=== PATIENT | female | born 1955 | race Caucasian/White ===

== ENCOUNTER 2016-08-08 14:57 | Emergency (ER) | payer OTHER ==
[2016-08-08 15:07] VITALS: BP 140/81
[2016-08-08] MEDS ORDERED: Acetaminophen TAB* 325 MG PO ONE (15:44)
--- NOTE | 2016-08-08 16:13 | RAD ---
INDICATION: Fall. Neck pain. COMPARISON: CT cervical spine July 31, 2006 TECHNIQUE: A single lateral view submitted FINDINGS: Bones: There are no acute bony findings. There are minor arthritic findings consisting of minor vertebral spurring at C4-C6. Craniocervical junction: The odontoid and atlantodental interval are normal. Alignment: Normal Disc spaces: The disc spaces are well-maintained Soft tissues: The prevertebral soft tissues are normal. IMPRESSION: A SINGLE VIEW SHOWS NO ACUTE BONY FINDINGS. SUGGEST COMPLETION OF THE SERIES
--- NOTE | 2016-08-08 16:39 | RAD ---
INDICATION: Neck injury COMPARISON: CT cervical spine July 31, 2006 TECHNIQUE: Routine five-view imaging was performed FINDINGS: Bones: There are no acute bony findings. There is minor mid cervical osteocytic change.. Craniocervical junction: The odontoid and atlantodental interval are normal. Alignment: Normal Disc spaces: The disc spaces are well-maintained Soft tissues: The prevertebral soft tissues are normal. IMPRESSION: MINOR OSTEOARTHRITIS. NO ACUTE FINDINGS.
--- NOTE | 2016-08-08 16:40 | RAD ---
INDICATION: Right thumb injury COMPARISON: None TECHNIQUE: AP, lateral, and oblique views were obtained. FINDINGS: There is no acute fracture. There is minor osteoarthritic change about the thumb and about the radiocarpal joint. There is an old ulnar styloid fracture. IMPRESSION: NO ACUTE FRACTURE.
--- NOTE | 2016-08-08 16:41 | RAD ---
INDICATION: Right hip pain COMPARISON: None TECHNIQUE: An AP view of the pelvis and AP views of the hip in neutral and abducted position were obtained FINDINGS: Bones: There are no acute bony findings. Joint spaces: The hips articulate normally. The joint spaces are preserved. SI joints/symphysis: The SI joints and symphysis are intact. Other: None IMPRESSION: NO ACUTE BONY FINDINGS.
--- NOTE | 2016-08-08 22:26 | UC ---
Jeremias Moran Erika, scribed for Divina Cuba MD on 08/08/16 at 1544 . Minor Trauma HPI - HPI Summary HPI Summary: Patient is a 61-year-old female presenting to [facility] with a CC of multiple pains s /p fall on ice at 14:00 today. Patient was at work when the fall occurred. Patient reports that she fell onto her right buttock, right palm, and right elbow. She denies head trauma, LOC, and memory loss. Patient denies pain immediately after the fall, but states she then developed aching pain at the right buttock, right elbow, and right palm. She also notes some right sided neck pain while turning the neck to the left. Currently, patient reports pain is a 5/10, and she has not taken anything for the pain. Pt takes albuterol as needed, simvastatin for hyperlipidemia, and amlodipine. PSHx left elbow surgery , plantar fasciitis. FHx cancer, CAD. - History of Current Complaint Chief Complaint: UCTrauma Stated Complaint: HAND AND HIP INJURY Hx Obtained From: Patient Onset/Duration: Sudden Onset, Lasting Hours, Still Present Onset Of Pain: Post Accident Severity Initially: Mild Severity Currently: Moderate Pain Intensity: 5 Pain Scale Used: 0-10 Numeric Mechanism Of Injury: Fall From A Standing Position Aggravating Factor(s): Movement, Other: - palpation Alleviating Factor(s): Nothing Associated Signs And Symptoms: Negative: Loss Of Consciousness, Ecchymosis Related History: Positive: Occupational Injury. Negative: Anticoagulants - Risk Factors Penetrating Injury Risk Factors: Negative - Allergies/Home Medications Allergies/Adverse Reactions: Allergies Allergy/AdvReac Type Severity Reaction Status Date / Time Celecoxib [From Celebrex] Allergy Severe Difficulty Verified 08/08/16 15:08 Breathing Codeine Allergy Severe Difficulty Verified 08/08/16 15:08 Breathing Montelukast [From Singulair] Allergy Severe Difficulty Verified 08/08/16 15:08 Breathing Morphine Allergy Severe Difficulty Verified 08/08/16 15:08 Breathing Naproxen [From Aleve] Allergy Difficulty Verified 08/08/16 15:08 Breathing Oxycodone [From Percocet] Allergy Difficulty Verified 08/08/16 15:08 Breathing Propoxyphene [From Darvon] AdvReac Severe Vomiting Verified 08/08/16 15:08 Benzonatate AdvReac Intermediate GI Upset Verified 02/13/17 15:08 adhesives Allergy Blisters Uncoded 05/04/16 13:05 PMH/Surg Hx/FS Hx/Imm Hx Endocrine History Of: Reports: Dyslipidemia Denies: Diabetes, Thyroid Disease Cardiovascular History Of: Reports: Hypertension Denies: Cardiac Disorders Respiratory History Of: Reports: Asthma Denies: COPD GI/ History Of: Denies: Ulcer - Surgical History Surgical History: Yes Surgery Procedure, Year, and Place: Partial hysterectomy, plantar fasciitis, tendon right ankle, left elbow, lump removed from left breast, benign. FESS, DEVIATED SEPTUM REPAIR. Tubes in both ears - Family History Known Family History: Positive: Cardiac Disease, Hypertension, Diabetes - Social History Occupation: Employed Full-time Lives: With Family Alcohol Use: None Substance Use Type: None Smoking Status (MU): Never Smoked Tobacco - Immunization History Most Recent Influenza Vaccination: 02/2016 Most Recent Pneumonia Vaccination: within last 5 yrs Vaccination Up to Date: Yes Review of Systems Constitutional: Negative Skin: Negative Eyes: Negative ENT: Negative Respiratory: Negative Cardiovascular: Negative Gastrointestinal: Negative Genitourinary: Negative Motor: Negative Neurovascular: Negative Musculoskeletal: Other: - pain @ right buttock, right palm, right elbow, right side of neck Neurological: Negative Psychological: Negative All Other Systems Reviewed And Are Negative: Yes Physical Exam Triage Information Reviewed: Yes Appearance: Well-Appearing, Well-Nourished, Pain Distress - mild Vital Signs: Initial Vital Signs Temp 97.7 F 08/08/16 15:03 Pulse 63 08/08/16 15:03 Resp 16 08/08/16 15:03 BP 140/81 08/08/16 15:03 Pulse Ox 99 08/08/16 15:03 Vital Signs Reviewed: Yes Eyes: Positive: Conjunctiva Clear ENT: Positive: Normal ENT inspection Neck: Positive: Supple, No Lymphadenopathy, Tenderness @ - right paraspinous Respiratory: Positive: Chest non-tender, Lungs clear, Normal breath sounds, No respiratory distress Cardiovascular: Positive: RRR, No Murmur, Pulses Normal, Brisk Capillary Refill Abdomen Description: Positive: Nontender, No Organomegaly, Soft Musculoskeletal: Positive: Strength Intact, ROM Intact, Other: - RUE: Tenderness at the right thenar eminence, no snuff box tenderness, full ROM of the thumb, no wrist tenderness, pulses good, capillary refill good. Right buttock tenderness, tenderness at the right sciatic notch, tenderness at the lateral aspect of the right hip Neurological: Positive: Alert, Muscle Tone Normal Psychological Exam: Normal Skin Exam: Normal Diagnostics - Radiology C Spine XR with collar Radiology Interpretation Completed By: Radiologist - IMPRESSION: A SINGLE VIEW SHOWS NO ACUTE BONY FINDINGS. SUGGEST COMPLETION OF THE SERIES C Spine XR Radiology Interpretation Completed By: Radiologist - IMPRESSION: MINOR OSTEOARTHRITIS. NO ACUTE FINDINGS. R Thumb XR Radiology Interpretation Completed By: Radiologist - IMPRESSION: NO ACUTE FRACTURE. R Hip XR Radiology Interpretation Completed By: Radiologist - IMPRESSION: NO ACUTE BONY FINDINGS. Re-Evaluation - Re-Evaluation First Eval Re-Evaluation Time: 16:47 Comment: Informed of XR results. States pain is controlled. Minor Trauma Course/Dx - Course Course Of Treatment: Cross table is cleared at 16:16 by radiologist. Collar removed by XR licensed chemical spray technician with Dr. Cuba's permission. - Differential Dx/Diagnosis Differential Diagnosis/HQI/PQRI: Contusion(s), Fracture, Sprain, Strain Provider Diagnoses: s/p fall with multiple contusions Discharge - Discharge Plan Condition: Stable Disposition: HOME Patient Education Materials: Contusion in Adults (ED) Forms: *Work Release Referrals: Leni Rodriguez MD [Primary Care Provider] - The documentation as recorded by the Jeremias regalado Erika accurately reflects the service I personally performed and the decisions made by Bereket tavera Barbara J, MD.
== END 2016-08-08 16:55 | disposition home or self-care (01) ==
LOC: UCEAST 14:57
DX: M54.2 Cervicalgia (principal); W18.30XA Fall on same level, unspecified, initial encounter; Z88.5 Allergy status to narcotic agent; Z88.6 Allergy status to analgesic agent; E78.5 Hyperlipidemia, unspecified; J45.909 Unspecified asthma, uncomplicated
CPT/HCPCS: 72020; 72050; 99212; A9270-GY; G0463

== ENCOUNTER 2016-12-20 06:10 | Day surgery (SDC) | payer OTHER ==
--- NOTE | 2016-12-09 17:49 | HP ---
HISTORY AND PHYSICAL: DATE OF ADMISSION/SURGERY: 12/20/16 DATE OF OFFICE VISIT: 12/09/16 SURGEON: Yamilet Stroud MD. PROCEDURE: Right knee arthroscopy with partial medial meniscectomy, possible chondroplasty, possibl e synovectomy. CHIEF COMPLAINT: Right knee pain. HISTORY OF PRESENT ILLNESS: Ms. Schmidt is a 61-year-old female with complaints of right knee pain s econdary to a medial meniscus tear. She has failed conservative management and elected to proceed w ith a right knee arthroscopy with partial medial meniscectomy, which is scheduled for 12/20/[address] Stroud. PAST MEDICAL HISTORY: 1. Hypertension. 2. Asthma. 3. Hypercholesterolemia. PAST SURGICAL HISTORY: 1. Partial hysterectomy. 2. Left foot surgery. 3. Left elbow surgery. 4. Right ankle ligament repair. 5. Lumpectomy of the left breast. CURRENT MEDICATIONS: 1. Albuterol sulfate. 2. Norvasc 5 mg once a day. 3. Lipitor 20 mg q.h.s. 4. Calcium plus vitamin D. 5. Astelin. ALLERGIES: ADHESIVE TAPE, MORPHINE, CODEINE, DARVON, ALEVE, CELEBREX, BENZONATATE, PAMELOR, SINGULA IR, and PERCOCET. FAMILY HISTORY: Diabetes, heart disease, hypertension, stroke, lung and breast cancer. SOCIAL HISTORY: She is a 61-year-old female. She lives with her . She works at [employer]. She denies use of drugs or alcohol. REVIEW OF SYSTEMS: A complete 14-point review of systems was reviewed with the patient and was all negative or noncontributory. PHYSICAL EXAMINATION GENERAL: She is well developed, well nourished, in no acute distress. VITAL SIGNS: She stands 5 feet 3 inches tall, weighs 211 pounds. Her blood pressure is 130/84, hea rt rate 68. HEENT: Normocephalic, atraumatic. NECK: Supple. No palpable lymph nodes. PULMONARY: The lungs are clear to auscultation bilaterally. CARDIO: Regular rate and rhythm. Strong S1, S2. ABDOMEN: Soft, nontender, nondistended. NEUROLOGICAL: She is alert and oriented x3. Cranial nerves II through XII are intact. MUSCULOSKELETAL: Right lower extremity: Skin is intact. There are no open wounds or abrasions. S he has some mild joint effusion. She has some tenderness over the medial joint line. Positive Aple y's. Positive Allison's. Negative Shawn's. 2+ dorsalis pedis pulses. Her lower extremity muscl e group strengths are intact at 5/5. She has intact sensation. ASSESSMENT AND PLAN: Ms. Schmidt is a 61-year-old female with complaints of right knee pain. MRI s hows a medial meniscal tear. She has elected to proceed with a right knee arthroscopy with partial meniscectomy, possible chondroplasty, possible synovectomy, and the surgery is scheduled for [address] Stroud discussed the risks and benefits of the surgery at today's visit and al l of her questions were answered. She will see Dr. Stroud back in 10 to 14 days after the surgery. ALYSSIA RUSSO [id number]/[facility] #: [id number]
[~2016-12-20 06:10] MED LIST: Buffered Lidocaine 0.9% SYRIN* 5 ML/SYR SYRINGE INTRADERM ONE; Buffered Lidocaine 0.9% SYRIN* 5 ML/SYR SYRINGE ONE; Dexamethasone IV* 4 MG/ML 1 ML (4 MG) IV SLOW PU ONE; Dexamethasone IV* 4 MG/ML 1 ML (4 MG) ONE; Famotidine IV* 10 MG/ML 2 ML (20 mg) IV ONE; Famotidine IV* 10 MG/ML 2 ML (20 mg) ONE; Levalbuterol 1.25MG/0.5ML NEB ONE; ceFAZolin 2 GM PREMIX(*) 2 GM/50 ML BAG IVPB ONE
[2016-12-20] MEDS ORDERED: Levalbuterol 0.63MG/3ML NEB INH ONE (06:30)
[2016-12-20] MEDS ORDERED: Midazolam* 1 MG/ML 5 ML VIAL (5 MG) ONE (07:20)
[2016-12-20] MEDS ORDERED: fentaNYL* 50 MCG/ML 5 ML VIAL (250 MCG VIAL) ONE (07:20)
[2016-12-20] MEDS ORDERED: Ondansetron INJ* 2 MG/ML VIAL ONE (07:21)
[2016-12-20] MEDS ORDERED: Ketorolac INJ* 30 MG/ML 1 ML VIAL ONE (07:21)
[2016-12-20] MEDS ORDERED: Propofol* 10 MG/ML 20 ML BTL IV PUSH ONE (07:21)
[2016-12-20] MEDS ORDERED: Lidocaine 2% PF * 5 ML VIAL ONE (07:21)
[2016-12-20] MEDS ORDERED: Bupivacaine 0.5% SDV PF* 30 ML VIAL ONE (07:39)
[2016-12-20] MEDS ORDERED: EPINEPHrine AMP 1 MG/ML ONE (07:39)
[2016-12-20] MEDS ORDERED: methylPREDNISolone ACETATE 80* 80 MG/ML 1 ML VIAL ONE (07:39)
[2016-12-20] MEDS ORDERED: Glycopyrrolate IV* 0.2 MG/ML 1 ML VIAL ONE (07:41)
[2016-12-20] MEDS ORDERED: DiMENhydriNATE IV* 50 MG/ML VIAL IV PUSH PRN (07:48)
[2016-12-20] MEDS ORDERED: fentaNYL* 50 MCG/ML 2 ML VIAL (100 MCG VIAL) IV PRN (07:48)
[2016-12-20] MEDS ORDERED: Ondansetron INJ* 2 MG/ML VIAL IV PRN (07:48)
[2016-12-20 09:00] VITALS: BP 117/68
--- NOTE | 2016-12-21 10:37 | OP ---
DATE OF OPERATION: 12/20/16 [facility] DATE OF : 53 ATTENDING SURGEON: Yamilet Stroud MD PROM BURN OFF OPERATOR: ALYSSIA Aguilar. Ms. De Jesus did help throughout the procedure with preparation of the leg, instrument manipulation, manipulation of the knee, and wound closure. ANESTHESIOLOGIST: Dr. Rawls. ANESTHESIA: General. PRE-OP DIAGNOSIS: Right knee pain with medial meniscal tear and osteoarthritis. POST-OP DIAGNOSIS: Right knee posteromedial meniscal tear, severe degenerative osteoarthritis of the medial and patellofemoral compartment. OPERATIVE PROCEDURE: Right knee arthroscopy with partial medial meniscectomy, medial chondroplasty, patellofemoral chondroplasty. ESTIMATED BLOOD LOSS: Less than 25 mL. COMPLICATIONS: None. SPECIMEN: None. BRIEF HISTORY: Ms. Schmidt is a 61-year-old female who fell on some ice while working on 08/08/16. She developed pain along the medial joint line of her knee after that. Conservative treatment with anti-inflammatories, pain medication, and physical therapy failed to relieve her pain. Her MRI showed possible medial meniscal tear. Due to the patient's chronic pain with failure of conservative treatment, she elected to undergo right knee arthroscopy, partial meniscectomy, possible chondroplasty, possible synovectomy. Informed consent was obtained from the patient. She understood the risks of surgery included, but were not limited to bleeding, infection, damage to nearby structures, continued pain, need for further surgery, stroke, heart attack, blood clot, and . She wished to proceed. INTRAOPERATIVE FINDINGS: Ms. Schmidt was found intraoperatively to have a tear of the posterior horn of the medial meniscus with displacement anteriorly. She had severe grade 3 and 4 Outerbridge cartilage changes of the medial femoral condyle and patellofemoral joint involving the femoral trochlear groove and medial/lateral patellar facets. There was exposed subchondral bone and cartilage flapping. Some anterior synovitis was noted. DESCRIPTION OF PROCEDURE: Ms. Schmidt was identified in the preanesthesia unit. Her right lower extremity was marked as the correct operative side. Informed consent was signed and placed in the chart. The patient was taken to the operating room and placed under general anesthesia. Tourniquet was placed on the right thigh. Right lower extremity was prepped and draped in the usual sterile fashion. Preop time-out was made to once again correctly identify the patient's side and site. Appropriate perioperative antibiotics were given within 1 hour of incision. A 0.5 cm anterolateral portal incision was made with a 15-blade. This was carried down to the capsule. Trocar was introduced. As soon as the light and water sources were turned on, there was immediate visualization of the suprapatellar pouch. There was a significant amount of anterior synovitis noted. No abnormality with suprapatellar pouch. Patello-femoral joint had cartilage flapping and exposed subchondral bone along the medial and lateral patellar facet as well as the trochlear groove at the femur. Medial gutter showed no loose body or plica. Medial compartment of the knee showed extensive cartilage flapping and exposed subchondral bone along the medial femoral condyle. Posterior horn of the medial meniscus did have a visible tear. ACL appeared to be intact. The knee was placed in a [id number] position. Lateral compartment showed minimal degenerative changes. No obvious lateral meniscus tear. Lateral gutter had no abnormality. Under direct visualization, a medial portal incision was made with a 15 blade. A probe was introduced and a second tour of the knee joint was performed. No additional findings were noted. Shaver and radiofrequency ablation wand were used to remove some synovitis from the anterior joint line. Visualization was much improved. The probing of the posteromedial meniscus showed displaced tear of the posterior horn of the medial meniscus, which was a radial type tear. Straight biter and shaver were used to perform partial medial meniscectomy. A smooth border of the posteromedial meniscus was obtained in the white-red zone. Next, the radiofrequency ablation wand was used to smooth cartilage flaps along the medial femoral condyle, trochlear groove at the femur as well as the medial and lateral patellar facets. It was noted that these were advanced grade 3 and 4 Outerbridge changes of the patellofemoral joint and medial compartment of the knee. The shaver was placed on the suprapatellar pouch and the knee was copiously irrigated with sterile saline. All instruments were carefully removed. The incisions were closed using interrupted nylon suture. Intraarticular injection of 80 mg Depo-Medrol and 6 mL 0.25% Marcaine was placed in the knee joint. Incisions were covered with Xeroform, 4x4s, and Webril. Danis wrap and cold pack were placed over this. The patient's anesthesia was reversed without difficulty. She was taken to the PACU in stable condition. Intended weightbearing will be weightbearing as tolerated. Intended DVT prophylaxis will be aspirin. She will follow up in 2 weeks' time for suture removal. [id number]/[facility] #: [id number] SUSANA
== END 2016-12-20 09:38 | disposition home or self-care (01) ==
LOC: OR 06:10
PROVIDERS: ATTEND Orthopaedic Surgery Adult Reconstructive Orthopaedic Surgery
DX: S83.241A Other tear of medial meniscus, current injury, right knee, initial encounter (principal); M17.11 Unilateral primary osteoarthritis, right knee; I10 Essential (primary) hypertension; J45.909 Unspecified asthma, uncomplicated; E78.00 Pure hypercholesterolemia, unspecified; W01.0XXA Fall on same level from slipping, tripping and stumbling without subsequent striking against object, initial encounter; Y92.219 Unspecified school as the place of occurrence of the external cause; Y99.0 Civilian activity done for income or pay
CPT/HCPCS: A9270-GY; J0171; J0690; J1040; J1100; J1885; J2250; J2405; J2704; J3010

== ENCOUNTER 2017-03-09 09:52 | Emergency (ER) | payer OTHER ==
[2017-03-09] MEDS ORDERED: Ondansetron INJ* 2 MG/ML VIAL IV ONE (11:02)
--- NOTE | 2017-03-09 11:08 | UC ---
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 going around no UTI symptoms no CP or SOB - History of Current Complaint Chief Complaint: UCGI Stated Complaint: VOMITING Time Seen by Provider: 03/09/17 10:58 Hx Obtained From: Patient Onset/Duration: Sudden Onset, Lasting Hours Timing: Constant Severity Initially: Moderate Severity Currently: Moderate Pain Intensity: 3 Pain Scale Used: 0-10 Numeric Location: Diffuse Radiates: No Character: Cramping Aggravating Factor(s): Other: - takin PO Alleviating Factor(s): NPO Associated Signs and Symptoms: Positive: Nausea, Vomiting, Other: - feel a little weak Allergies/Adverse Reactions: Allergies Allergy/AdvReac Type Severity Reaction Status Date / Time Celecoxib [From Celebrex] Allergy Severe Difficulty Verified 03/09/17 10:54 Breathing Codeine Allergy Severe Difficulty Verified 03/09/17 10:54 Breathing Montelukast [From Singulair] Allergy Severe Difficulty Verified 03/09/17 10:54 Breathing Morphine Allergy Severe Difficulty Verified 03/09/17 10:54 Breathing Naproxen [From Aleve] Allergy Difficulty Verified 03/09/17 10:54 Breathing Oxycodone [From Percocet] Allergy Difficulty Verified 03/09/17 10:54 Breathing Propoxyphene [From Darvon] AdvReac Severe Vomiting Verified 03/09/17 10:54 Benzonatate AdvReac Intermediate GI Upset Verified 03/09/17 10:54 adhesives Allergy Blisters Uncoded 12/06/16 12:12 SEASONAL Allergy Eyes Uncoded 12/06/16 12:43 Itchy/Swollen/Red/Watery Home Medications: Home Medications Acetaminophen TAB* [Tylenol TAB*] 650 mg PO Q4H PRN 03/09/17 [History Confirmed 03/09/17] PMH/Surg Hx/FS Hx/Imm Hx Previously Healthy: Yes Cardiovascular History: Hypertension Respiratory History: Asthma - Surgical History Surgical History: Yes Surgery Procedure, Year, and Place: Partial hysterectomy,. plantar fasciitis, tendon right ankle, left elbow, lump removed from left breast, benign. FESS, DEVIATED SEPTUM REPAIR. Tubes in both ears - Family History Known Family History: Positive: Cardiac Disease, Hypertension, Diabetes - Social History Alcohol Use: None Substance Use Type: None Smoking Status (MU): Never Smoked Tobacco - Immunization History Most Recent Influenza Vaccination: 02/2016 Most Recent Pneumonia Vaccination: October 2016 Vaccination Up to Date: Yes Review of Systems Constitutional: Negative Skin: Negative Eyes: Negative ENT: Negative Respiratory: Negative Cardiovascular: Negative Gastrointestinal: Abdominal Pain, Vomiting, Nausea Genitourinary: Negative Motor: Negative Neurovascular: Negative Musculoskeletal: Negative Neurological: Negative Psychological: Negative All Other Systems Reviewed And Are Negative: Yes Physical Exam Triage Information Reviewed: Yes Appearance: Well-Appearing, No Pain Distress, Well-Nourished Vital Signs: Initial Vital Signs Temp 97.6 F 03/09/17 10:48 Pulse 99 03/09/17 10:48 Resp 16 03/09/17 10:48 BP 132/88 03/09/17 10:48 Pulse Ox 99 03/09/17 10:48 Vital Signs Reviewed: Yes Eye Exam: Normal ENT: Positive: Hearing grossly normal. Negative: Nasal congestion, Nasal drainage, Trismus, Muffled/hoarse voice Neck: Positive: Supple, Nontender Respiratory: Positive: Lungs clear, Normal breath sounds, No respiratory distress, No accessory muscle use Cardiovascular: Positive: RRR, No Murmur Abdomen Description: Positive: Nontender, Soft. Negative: CVA Tenderness (R), CVA Tenderness (L) Bowel Sounds: Positive: Present Neurological: Positive: Alert Psychological Exam: Normal Skin Exam: Normal Re-Evaluation - Re-Evaluation First Eval Re-Evaluation Time: 12:14 Change: Improved - feeling a little better after 500cc IVFs and zofran Second Eval Re-Evaluation Time: 13:04 Change: Improved Comment: ABLE TO URINATE/WANTS TO GO HOME/NO PAIN Abd Pain Female Course/Dx - Differential Dx/Diagnosis Provider Diagnoses: ACUTE NAUSEA/VOMITING, SUSPECT VIRAL ILLNESS Discharge - Discharge Plan Condition: Stable Disposition: HOME Prescriptions: Ondansetron TAB* [Zofran Tab*] 4 mg PO Q6H PRN #4 tab PRN Reason: Nausea Patient Education Materials: Acute Nausea and Vomiting (ED) Referrals: Leni Rodriguez MD [Primary Care Provider] - 1 Day (IF NOT BETTER) Additional Instructions: I suggest bowel rest for the next 4-6 hours then try clear liquids if those are tolerated you may slowly advance diet zofran 4x day as needed for nausea RECHECK TOMORROW IF NOT BETTER RECHECK FOR FEVER WORSENING ABDOMINAL PAIN
[2017-03-09] MEDS ORDERED: NS 0.9% 1000 ML* 1,000 ML BOLUS ONE (11:15)
[2017-03-09 12:59] VITALS: BP 147/80
== END 2017-03-09 13:15 | disposition home or self-care (01) ==
LOC: UCEAST 09:52
DX: R11.2 Nausea with vomiting, unspecified (principal); R10.84 Generalized abdominal pain; I10 Essential (primary) hypertension; J45.909 Unspecified asthma, uncomplicated; Z90.711 Acquired absence of uterus with remaining cervical stump; Z88.6 Allergy status to analgesic agent; Z88.5 Allergy status to narcotic agent
CPT/HCPCS: 81003; 96361; 96374; 99212; G0463; J2405

== ENCOUNTER 2017-03-12 07:55 | Emergency (ER) | payer OTHER ==
[2017-03-12 08:02] VITALS: BP 140/90
--- NOTE | 2017-03-12 08:10 | UC ---
Respiratory Complaint HPI - HPI Summary HPI Summary: 61 yo female with cough and nasal congestion /post nasal drip x <24 hours has felt feverish and had chills wheezing last PM and had to use rescue inhaler no CP/SOB see about 3 days ago for n/v, was given IV hydration....no longer using zofran. Normal PO intake - History of Current Complaint Chief Complaint: UCRespiratory Stated Complaint: COUGH Time Seen by Provider: 03/12/17 08:04 Hx Obtained From: Patient Onset/Duration: Gradual Onset, Lasting Hours Timing: Constant Severity Initially: Moderate Severity Currently: Mild Pain Intensity: 2 Pain Scale Used: 0-10 Numeric Character: Cough: Productive Alleviating Factors: Upright Position Associated Signs And Symptoms: Positive: Wheezing, Nasal Congestion, Sinus Discomfort - Allergies/Home Medications Allergies/Adverse Reactions: Allergies Allergy/AdvReac Type Severity Reaction Status Date / Time Celecoxib [From Celebrex] Allergy Severe Difficulty Verified 03/12/17 08:02 Breathing Codeine Allergy Severe Difficulty Verified 03/12/17 08:02 Breathing Montelukast [From Singulair] Allergy Severe Difficulty Verified 03/12/17 08:02 Breathing Morphine Allergy Severe Difficulty Verified 03/12/17 08:02 Breathing Naproxen [From Aleve] Allergy Difficulty Verified 03/12/17 08:02 Breathing Oxycodone [From Percocet] Allergy Difficulty Verified 03/12/17 08:02 Breathing Propoxyphene [From Darvon] AdvReac Severe Vomiting Verified 03/12/17 08:02 Benzonatate AdvReac Intermediate GI Upset Verified 03/12/17 08:02 adhesives Allergy Blisters Uncoded 03/12/17 08:02 SEASONAL Allergy Eyes Uncoded 03/12/17 08:02 Itchy/Swollen/Red/Watery PMH/Surg Hx/FS Hx/Imm Hx Previously Healthy: Yes Cardiovascular History: Hypertension Respiratory History: Asthma, Bronchitis - Surgical History Surgical History: Yes Surgery Procedure, Year, and Place: Partial hysterectomy,. plantar fasciitis, tendon right ankle, left elbow, lump removed from left breast, benign. FESS, DEVIATED SEPTUM REPAIR. Tubes in both ears - Family History Known Family History: Positive: Cardiac Disease, Hypertension, Diabetes - Social History Alcohol Use: None Substance Use Type: None Smoking Status (MU): Never Smoked Tobacco - Immunization History Most Recent Influenza Vaccination: 02/2016 Most Recent Pneumonia Vaccination: October 2016 Vaccination Up to Date: Yes Review of Systems Constitutional: Negative Skin: Negative Eyes: Negative ENT: Nasal Discharge, Sinus Congestion Respiratory: Cough Cardiovascular: Negative Gastrointestinal: Negative Genitourinary: Negative Motor: Negative Neurovascular: Negative Musculoskeletal: Negative Neurological: Negative Psychological: Negative Is Patient Immunocompromised?: No All Other Systems Reviewed And Are Negative: Yes Physical Exam Triage Information Reviewed: Yes Appearance: Well-Appearing, No Pain Distress, Well-Nourished Vital Signs: Initial Vital Signs Temp 99.0 F 03/12/17 07:58 Pulse 74 03/12/17 07:58 Resp 18 03/12/17 07:58 BP 140/90 03/12/17 07:58 Pulse Ox 98 03/12/17 07:58 Vital Signs Reviewed: Yes Eyes: Positive: Conjunctiva Clear ENT: Positive: Hearing grossly normal, Nasal congestion, TMs normal - PET left, some cerumen right...unable to vis PET Neck: Positive: Supple, Nontender Respiratory: Positive: Lungs clear, Normal breath sounds, No respiratory distress, No accessory muscle use Cardiovascular: Positive: RRR, No Murmur Musculoskeletal: Positive: ROM Intact, No Edema Neurological: Positive: Alert Psychological Exam: Normal Skin Exam: Normal UC Diagnostic Evaluation - Laboratory O2 Sat by Pulse Oximetry: 98 - normal/not hypoxic Respiratory Course/Dx - Differential Dx/Diagnosis Provider Diagnoses: acute bronchitis with bronchospasm Discharge - Discharge Plan Condition: Stable Disposition: HOME Prescriptions: Azithromycin TAB* [Zithromax TAB*] 250 mg PO DAILY #6 tab Prednisone [Deltasone] 40 mg PO DAILY #10 tab Patient Education Materials: Acute Bronchitis (ED) Forms: *Work Release Referrals: Leni Rodriguez MD [Primary Care Provider] - 4 Days (if not better) Additional Instructions: recheck for new or worsening symptoms or if not better in 4 days
== END 2017-03-12 08:15 | disposition home or self-care (01) ==
LOC: UCEAST 07:55
DX: J20.9 Acute bronchitis, unspecified (principal); Z88.6 Allergy status to analgesic agent; I10 Essential (primary) hypertension; J45.909 Unspecified asthma, uncomplicated
CPT/HCPCS: 99212; G0463

== ENCOUNTER 2017-03-21 07:03 | Emergency (ER) | payer OTHER ==
[2017-03-21 07:09] VITALS: BP 144/93
--- NOTE | 2017-03-21 13:54 | UC ---
Dk Moran Angela, scribed for Jo Gay MD on 03/21/17 at 0721 . Complaint Female HPI - HPI Summary HPI Summary: This pt is a 61 y/o female presenting to [facility] c/o mid low back pain x2 days and urinary frequency/urgency since yesterday. Pt additionally c/o dysuria and vaginal pain. She describes her pain all the way across her low back. Pt took Tylenol and used icy hot packs on her back with mild relief. Pt denies abd pain. Pt has had this pain before. Pt is currently on amoxicillin (a 10 day course) for 4 days now since Monday for a sinus infection. - History Of Current Complaint Chief Complaint: UCGU Stated Complaint: URINARY ISSUE Time Seen by Provider: 03/21/17 07:09 Hx Obtained From: Patient Onset/Duration: Lasting Days Timing: Lasting Days Associated Signs And Symptoms: Positive: Back Pain. Negative: Vaginal Bleeding/ Discharge, Vaginal Discharge - Allergies/Home Medications Allergies/Adverse Reactions: Allergies Allergy/AdvReac Type Severity Reaction Status Date / Time Celecoxib [From Celebrex] Allergy Severe Difficulty Verified 03/21/17 07:10 Breathing Codeine Allergy Severe Difficulty Verified 03/21/17 07:10 Breathing Montelukast [From Singulair] Allergy Severe Difficulty Verified 03/21/17 07:10 Breathing Morphine Allergy Severe Difficulty Verified 03/21/17 07:10 Breathing Naproxen [From Aleve] Allergy Difficulty Verified 03/21/17 07:10 Breathing Oxycodone [From Percocet] Allergy Difficulty Verified 03/21/17 07:10 Breathing Propoxyphene [From Darvon] AdvReac Severe Vomiting Verified 03/21/17 07:10 Benzonatate AdvReac Intermediate GI Upset Verified 03/21/17 07:10 adhesives Allergy Blisters Uncoded 03/21/17 07:10 SEASONAL Allergy Eyes Uncoded 03/21/17 07:10 Itchy/Swollen/Red/Watery Home Medications: Home Medications Amoxicillin/Clavulanate TAB* [Augmentin TAB 500 mg*] 500 mg PO BID 03/21/17 [ History Confirmed 03/21/17] Mometasone 110 MCG MDI * [Asmanex 110 MCG MDI *] 1 puff PO DAILY 03/21/17 [ History Confirmed 03/21/17] PMH/Surg Hx/FS Hx/Imm Hx Other Endocrine History: DENIES: diabetes Cardiovascular History: Hypertension Respiratory History: Asthma - Surgical History Surgical History: Yes Surgery Procedure, Year, and Place: Partial hysterectomy,. plantar fasciitis, tendon right ankle, left elbow, lump removed from left breast, benign. FESS, DEVIATED SEPTUM REPAIR. Tubes in both ears - Family History Known Family History: Positive: Cardiac Disease, Hypertension, Diabetes - Social History Alcohol Use: None Substance Use Type: None Smoking Status (MU): Never Smoked Tobacco - Immunization History Most Recent Influenza Vaccination: 02/2016 Most Recent Pneumonia Vaccination: October 2016 Vaccination Up to Date: Yes Review of Systems Constitutional: Negative Skin: Negative Gastrointestinal: Negative Genitourinary: Dysuria, Frequency, Urgency, Vaginal/Penile Pain Motor: Negative Neurovascular: Negative Musculoskeletal: Other: - low back pain Is Patient Immunocompromised?: No All Other Systems Reviewed And Are Negative: Yes Physical Exam Triage Information Reviewed: Yes Appearance: Well-Nourished Vital Signs: Initial Vital Signs Temp 97.3 F 03/21/17 07:05 Pulse 69 03/21/17 07:05 Resp 18 03/21/17 07:05 BP 144/93 03/21/17 07:05 Pulse Ox 100 03/21/17 07:05 Vital Signs Reviewed: Yes Eye Exam: Normal ENT Exam: Normal Neck exam: Normal Respiratory Exam: Normal Respiratory: Positive: Chest non-tender, No respiratory distress, No accessory muscle use, Other: - There is mild scattered expiartory wheezes otherwise lungs are clear Cardiovascular: Positive: RRR, No Murmur, Pulses Normal, Brisk Capillary Refill Abdominal Exam: Normal Abdomen Description: Positive: Nontender, No Organomegaly, Soft Bowel Sounds: Positive: Present Musculoskeletal Exam: Normal - tender mid-low back, no point bony tenderness. No jaci cvat. 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 Rx ciprofloxacin. She will stop amoxil. Note - azithromycin noted in AUG, but this is incorrect, she confirms amoxil. Cx sent. F/u PCP this week recommended (Dr. Rodriguez). To ED if worse or new sx. D/w pt. Has had similar sx in the past, states turned out to be urine infection, and improved with urinary antibiotic. Questions posed answered to the best of my ability. - Differential Dx/Diagnosis Provider Diagnoses: low back pain. clinical uti, possible early pyelonephritis Discharge - Discharge Plan Condition: Stable Disposition: HOME Prescriptions: Ciprofloxacin TAB* [Cipro 500 MG TAB*] 500 mg PO BID #20 tab Patient Education Materials: Back Pain (ED), Urinary Tract Infection in Women ( ED) Forms: *Work Release Referrals: Leni Rodriguez MD [Primary Care Provider] - Additional Instructions: Drink plenty of fluids. Use your inhaler as prescribed as needed for wheezing. Follow up Dr. Rodriguez's office within one week. Seek medical attention at the Emergency Department for worse or new problems in the meantime. Drink plenty of water. Avoid lengthy periods of time in the sun while taking antibiotic. Probiotic (over the counter) and / or yogurt every day while taking antibiotic. Urine culture has been sent to the lab. The documentation as recorded by the Dk regalado Angela accurately reflects the service I personally performed and the decisions made by me, Jo Gay MD.
--- NOTE | 2017-03-22 19:46 | ED ---
Progress - Progress Note Progress Note: CX (-). STOP ABX. Course/Dx - Course Course Of Treatment: No new problems in [facility]. Declines work note. Rx ciprofloxacin. She will stop amoxil. Note - azithromycin noted in AUG, but this is incorrect, she confirms amoxil. Cx sent. F/u PCP this week recommended (Dr. Rodriguez). To ED if worse or new sx. D/w pt. Has had similar sx in the past, states turned out to be urine infection, and improved with urinary antibiotic. Questions posed answered to the best of my ability. - Diagnoses Provider Diagnoses: UTI (urinary tract infection)
== END 2017-03-21 08:05 | disposition home or self-care (01) ==
LOC: UCEAST 07:03
DX: M54.5 Low back pain (principal); N39.0 Urinary tract infection, site not specified; I10 Essential (primary) hypertension; J45.909 Unspecified asthma, uncomplicated; Z90.711 Acquired absence of uterus with remaining cervical stump; Z88.6 Allergy status to analgesic agent; Z88.5 Allergy status to narcotic agent; Z88.8 Allergy status to other drugs, medicaments and biological substances; Z91.048 Other nonmedicinal substance allergy status
CPT/HCPCS: 81003; 87086; 99212; G0463

== ENCOUNTER 2017-11-03 18:50 | Emergency (ER) | payer SELFPAY ==
[2017-11-03 19:39] VITALS: BP 146/81
--- NOTE | 2017-11-03 20:18 | RAD ---
INDICATION: Left knee pain 2 days after injury COMPARISON: None TECHNIQUE: 4 view radiograph of the left knee. FINDINGS: A well-circumscribed bony focus within the distal metaphysis of the left femur measuring 1.5 cm is noted and is of doubtful clinical concern. Otherwise the visualized bones are well-corticated and properly aligned. The joint spaces are properly maintained. There is no radiographic evidence of joint effusion. There is no acute fracture, dislocation or other focal bony abnormality. IMPRESSION: No radiographically apparent fracture or dislocation of the left knee. If the patient's symptoms persist, follow-up imaging is recommended.
--- NOTE | 2017-11-03 20:20 | RAD ---
INDICATION: Left wrist pain 2 days after a fall COMPARISON: None. TECHNIQUE: 3 views left wrist. REPORT: On the oblique view of the wrist there is a questionable lucency overlying the waist of the scaphoid oriented horizontally relative to the access of the bone. Remaining visualized bones are intact and appropriately aligned. IMPRESSION: Suspected nondisplaced fracture through the waist of the left scaphoid. This can be confirmed with follow-up radiography or nonemergent MRI of the wrist.
--- NOTE | 2017-11-03 21:38 | UC ---
Lower Extremity/Ankle HPI - HPI Summary HPI Summary: 62 yo WF present s/p fall at work into a hole, fell in injuring her left knee and left wrist. Denies numbness and tingling - History of Current Complaint Chief Complaint: UCUpperExtremity Stated Complaint: KNEE INJURY Time Seen by Provider: 11/03/17 19:48 Hx Obtained From: Patient Onset/Duration: Sudden Onset Severity Initially: Moderate Severity Currently: Moderate Pain Intensity: 5 Aggravating Factor(s): Ambulation Alleviating Factor(s): Rest Related History: Occupational Injury - Allergies/Home Medications Allergies/Adverse Reactions: Allergies Allergy/AdvReac Type Severity Reaction Status Date / Time benzonatate Allergy GI Upset Verified 11/03/17 19:47 celecoxib [From Celebrex] Allergy Difficulty Verified 11/03/17 19:47 Breathing codeine Allergy Difficulty Verified 11/03/17 19:47 Breathing montelukast [From Singulair] Allergy Difficulty Verified 11/03/17 19:47 Breathing morphine Allergy Difficulty Verified 11/03/17 19:47 Breathing naproxen [From Aleve] Allergy Difficulty Verified 11/03/17 19:47 Breathing oxycodone [From Percocet] Allergy Difficulty Verified 11/03/17 19:47 Breathing propoxyphene [From Darvon] Allergy Vomiting Verified 11/03/17 19:47 adhesives Allergy Blisters Uncoded 03/21/17 07:10 SEASONAL Allergy Eyes Uncoded 03/21/17 07:10 Itchy/Swollen/Red/Watery Home Medications: Home Medications Fluticasone/Vilanterol MDI(NF) [Breo Ellipta MDI 100/25(NF)] 1 puff INH QPM 05/13 [History Confirmed 11/03/17] PMH/Surg Hx/FS Hx/Imm Hx Previously Healthy: Yes - Surgical History Surgical History: Yes Surgery Procedure, Year, and Place: Partial hysterectomy,. plantar fasciitis, tendon right ankle, left elbow, lump removed from left breast, benign. FESS, DEVIATED SEPTUM REPAIR. Tubes in both ears. rt knee miniscus repair - Family History Known Family History: Positive: Cardiac Disease, Hypertension, Diabetes - Social History Alcohol Use: None Substance Use Type: None Smoking Status (MU): Never Smoked Tobacco - Immunization History Most Recent Influenza Vaccination: 02/2016 Most Recent Pneumonia Vaccination: October 2016 Vaccination Up to Date: Yes Review of Systems Constitutional: Negative Skin: Negative Eyes: Negative ENT: Negative Respiratory: Negative Cardiovascular: Negative Gastrointestinal: Negative Genitourinary: Negative Motor: Negative Neurovascular: Negative Musculoskeletal: Other: - Left knee pain and left wrist pain Neurological: Negative Psychological: Negative All Other Systems Reviewed And Are Negative: Yes Physical Exam Triage Information Reviewed: Yes Vital Signs: Initial Vital Signs Temp 37.2 C 11/03/17 19:34 Pulse 78 11/03/17 19:34 Resp 16 11/03/17 19:34 BP 146/81 11/03/17 19:34 Pulse Ox 98 11/03/17 19:34 Eye Exam: Normal ENT Exam: Normal Dental Exam: Normal Neck exam: Normal Neck: Positive: 1 Respiratory Exam: Normal Cardiovascular Exam: Normal Abdominal Exam: Normal Musculoskeletal: Positive: Other: - TTP in dorsum of wrist, and mild TTP in snuffbox on left wrist NO left knee joint line tenderness, mild lateral peripaterllar tenderness Neurological Exam: Normal Psychological Exam: Normal Skin Exam: Normal Lower Extremity Course/Dx - Course Course Of Treatment: XR of left knee NEG for fx. XR of left wrist, nondisplaced fx at the waist of scaphoid bone- recommend nonemergent MRI. PT is worker's comp, amd may not be able to get referral from PCP, so advised to go to Ortho as directed - [facility] ortho or Dr Hull at [place] for direct consult and MRI - Differential Dx/Diagnosis Differential Diagnosis/HQI/PQRI: Contusion, Dislocation, Fracture (Closed), Sprain, Strain, Tendonitis, Tenosynovitis Provider Diagnoses: CLosed fracture of waist of left scaphoid bone Discharge - Sign-Out/Discharge Documenting (check all that apply): Discharge/Admit/Transfer - Discharge Plan Condition: Stable Disposition: HOME Patient Education Materials: Scaphoid Fracture (ED) Referrals: [facility] [Outside] Additional Instructions: Please follow up with ORTHO- Dr Hull at [place] [phone] - Billing Disposition and Condition Condition: STABLE Disposition: HOME
== END 2017-11-03 21:42 | disposition home or self-care (01) ==
LOC: UCEAST 18:50
DX: S62.002A Unspecified fracture of navicular [scaphoid] bone of left wrist, initial encounter for closed fracture (principal); W17.2XXA Fall into hole, initial encounter; Y93.9 Activity, unspecified; Y92.9 Unspecified place or not applicable; Y99.0 Civilian activity done for income or pay; Z88.6 Allergy status to analgesic agent; Z88.5 Allergy status to narcotic agent; Z88.8 Allergy status to other drugs, medicaments and biological substances
CPT/HCPCS: 99212; G0463

== ENCOUNTER 2017-11-05 11:39 | Emergency (ER) | payer SELFPAY ==
[2017-11-05 14:25] VITALS: BP 146/86
--- NOTE | 2017-11-05 18:09 | ED ---
Upper Extremity Pain - HPI Summary HPI Summary: Pt. is a 62 y.o female who presents to the ER for reevaluation of a left wrist injury. Patient states she fell at work on Monday and injured her left wrist. She was seen at urgent care on Monday and had an x-ray which shows suspected scaphoid fracture. She was placed in a cock-up splint. Patient presents to the ER today because she developed tingling in her left fingers and was told to ER if these symptoms occurred. Patient denies any new injuries. Symptoms are mild in severity. Moving and touching rest makes symptoms worse. Splint makes symptoms better. - History of Current Complaint Chief Complaint: EDExtremityUpper Stated Complaint: NUMBNESS & TINGLING IN LT HAND Time Seen by Provider: 11/05/17 13:31 Hx Obtained From: Patient - Allergies/Home Medications Allergies/Adverse Reactions: Allergies Allergy/AdvReac Type Severity Reaction Status Date / Time benzonatate Allergy GI Upset Verified 11/03/17 19:47 celecoxib [From Celebrex] Allergy Difficulty Verified 11/03/17 19:47 Breathing codeine Allergy Difficulty Verified 11/03/17 19:47 Breathing montelukast [From Singulair] Allergy Difficulty Verified 11/03/17 19:47 Breathing morphine Allergy Difficulty Verified 11/03/17 19:47 Breathing naproxen [From Aleve] Allergy Difficulty Verified 11/03/17 19:47 Breathing oxycodone [From Percocet] Allergy Difficulty Verified 11/03/17 19:47 Breathing propoxyphene [From Darvon] Allergy Vomiting Verified 11/03/17 19:47 adhesives Allergy Blisters Uncoded 03/21/17 07:10 SEASONAL Allergy Eyes Uncoded 03/21/17 07:10 Itchy/Swollen/Red/Watery PMH/Surg Hx/FS Hx/Imm Hx Previously Healthy: Yes Endocrine/Hematology History: Denies: Hx Diabetes, Hx Thyroid Disease Cardiovascular History: Reports: Hx Hypertension Respiratory History: Reports: Hx Asthma Denies: Hx Chronic Obstructive Pulmonary Disease (COPD) GI History: Denies: Hx Ulcer Musculoskeletal History: Reports: Hx Arthritis - right hip, right knee, Hx Bursitis - right hip, Other Musculoskeletal History - right ankle, chronically swollen, from ligament detach r/t injury 2006? Sensory History: Reports: Hx Contacts or Glasses - reading Denies: Hx Hearing Aid Opthamlomology History: Reports: Hx Contacts or Glasses - reading - Surgical History Surgery Procedure, Year, and Place: Partial hysterectomy,. plantar fasciitis, tendon right ankle, left elbow, lump removed from left breast, benign. FESS, DEVIATED SEPTUM REPAIR. Tubes in both ears. rt knee miniscus repair Hx Anesthesia Reactions: No Infectious Disease History: No Infectious Disease History: Reports: Hx Shingles Denies: Hx Clostridium Difficile, Hx Hepatitis, Hx Human Immunodeficiency Virus (HIV), Hx of Known/Suspected MRSA, Hx Tuberculosis, Hx Known/Suspected VRE , Hx Known/Suspected VRSA, History Other Infectious Disease, Traveled Outside the [place] in Last 30 Days - Family History Known Family History: Positive: Cardiac Disease, Hypertension, Diabetes - Social History Occupation: Employed Full-time Lives: With Family Alcohol Use: None Substance Use Type: Reports: None Hx Tobacco Use: No Smoking Status (MU): Never Smoked Tobacco Review of Systems Positive: Other - left wrist pain Positive: Paresthesia All Other Systems Reviewed And Are Negative: Yes Physical Exam Triage Information Reviewed: Yes Vital Signs On Initial Exam: Initial Vitals Temp Pulse Resp BP Pulse Ox 98.6 F 65 14 135/83 93 11/05/17 12:07 11/05/17 12:07 11/05/17 12:07 11/05/17 12:07 11/05/17 12:07 Vital Signs Reviewed: Yes Appearance: Positive: Well-Appearing - Patient sitting on bed in no acute distress. Skin: Positive: Warm, Dry Head/Face: Positive: Normal Head/Face Inspection Eyes: Positive: Normal, MAKENNA Neck: Positive: Supple Musculoskeletal: Positive: Other - Left wrist with minimal edema. Good palpable radial pulse. 5 out of 5 strength in left hand. Brisk capillary refill. No edema noted to the forearm. No evidence of compartment syndrome. Neurological: Positive: Normal, CN Intact II-III Psychiatric: Positive: Normal Diagnostics - Vital Signs Vital Signs Temp Pulse Resp BP Pulse Ox 11/05/17 14:23 96.6 F 60 14 146/86 97 11/05/17 12:07 98.6 F 65 14 135/83 93 - Laboratory Lab Statement: Any lab studies that have been ordered have been reviewed, and results considered in the medical decision making process. Course/Dx - Course Course Of Treatment: Patient presenting for reevaluation of the left wrist injury. She complains today of tingling to her left digits of hand. On exam she is neurovascularly intact. There is no evidence of compartment syndrome. Patient was reassured and discharged to follow-up with orthopedist scheduled. To continue splint. Ice and elevate. Tylenol for pain as directed. Patient understands and agrees with plan. - Diagnoses Differential Diagnosis/HQI/PQRI: Positive: Fracture (Closed) Provider Diagnoses: Paresthesias, Scaphoid fracture Discharge - Sign-Out/Discharge Documenting (check all that apply): Discharge/Admit/Transfer - Discharge Plan Condition: Good Disposition: HOME Patient Education Materials: Scaphoid Fracture (ED) Referrals: Azeem Turner MD [Medical Doctor] - Leni Rodriguez MD [Primary Care Provider] - Additional Instructions: Call the orthopedic clinic tomorrow for an appointment Ice and elevate Wear splint for comfort Tylenol for pain as directed Return to ER if symptoms change or worsen - Billing Disposition and Condition Condition: GOOD Disposition: HOME
== END 2017-11-05 14:25 | disposition home or self-care (01) ==
LOC: ED 11:39
DX: S62.002A Unspecified fracture of navicular [scaphoid] bone of left wrist, initial encounter for closed fracture (principal); R20.2 Paresthesia of skin; M25.532 Pain in left wrist; W19.XXXA Unspecified fall, initial encounter; Y92.9 Unspecified place or not applicable
CPT/HCPCS: 99281

== ENCOUNTER 2018-02-03 07:04 | Emergency (ER) | payer OTHER ==
--- OUTSIDE RECORDS SUMMARY | 2018-02-03 07:16 | XMS REPORT ---
:1955 External Reference #:[id number] Author Organization [place] Address [address] [facility] [place] [address] Phone [phone] Care Team Providers Name Role Phone Leni Rodriguez MD Primary Care Physician Unavailable Payers Type Date Identification Numbers Payment Provider Subscriber Commercial Policy Number: [id number] [facility] Endy Schmidt Group Name: [facility] [address] PayID: [id number] [place] [address] Workers Compensation Onset: 2016 Policy Number: [id number] [facility] Nga Schmidt Group Number: [id number] [id number] Group Name: (D) [phone] [place] [id number] PayID: [id number] Commercial Expires: 2016 Policy Number: [facility] Endy Schmidt [id number] [facility] Group Number: [id number] PayID: [id number] [place] [phone] Workers Compensation Onset: 2017 Policy Number: TST Mina Schmidt [id number] Workers Comp [place] Group Name: [phone] Fax PayID: [id number] [place] [address] Workers Compensation Effective: 2016 Policy Number: TSTALDA Schmidt [id number] Expires: 2017 Group Number: [id number] [address] Onset: 2016 Group Name: [id number] [place] [address] PayID: [email or web address] Workers Compensation Policy Number: [id number] [employer] Nga Schmidt PayID: [id number] Problems Date Description Provider Status Onset: 11/18/2016 Localized, primary osteoarthritis Yamilet Stroud M.D. Active Onset: 11/18/2016 Current tear of medial cartilage AND/OR Yamilet Stroud M.D. 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 PT for knee pending. 2x per week Allergies, Adverse Reactions, Alerts Date Description Reaction Status Severity Comments 12/03/2003 Adhesive Tape active blisters 12/03/2003 Morphine active apnea 12/03/2003 Codeine active asthma 12/03/2003 Darvon active nausea 12/03/2003 Aleve active difficulty breathing, nausea 12/03/2003 Celebrex active difficulty breathing 12/03/2003 Benzonatate active difficulty breathing, nausea 12/03/2003 pamelor active sleep disruption 11/18/2016 Singulair active 12/18/2017 Zyrte active Severe fatigue Medications Medication Date Status Form Strength Qnty SIG Indications Ordering Provider Astelin 12/18/ Active 2 puffs qd Marily 2017 MD Dorinda Breo Ellipta 05/25/ Active Aerosol 100-25mcg/ 60uni Inhale 1 J45.909 Marily 2016 Inh ts puff Daily MD Dorinda Norvasc / Active Tablets 5mg 1 by mouth Unknown 0000 every day Lipitor / Active Tablets 20mg one tab by Unknown 0000 mouth every night at bedtime Calcium + D / Active 2 qd Unknown 0000 Doxycycline / Active Capsules 100mg one tablet Unknown Hyclate 0000 once daily for 20 days. Fluticasone / Active Suspension 50mcg/Act 2 sprays Unknown Propionate 0000 each nostril daily as needed Ventolin HFA / Active Aerosol 108(90Base 1unit 2 puffs by Marily 0000 ) mcg/Act s mouth four Dorinda, times a day as needed Breo Ellipta 04/21/ Hx Aerosol 200-25mcg/ one J45.909 Marily 2017 - Inh inhalation Dorinda, 05/25/ daily MD 2017 Rolling 12/09/ Hx 1unit use for M25.461 Yamilet Schaffer 2017 - s ambulation Maximus, 02/24/ s/p r knee M.DDanette 2017 arthroscopy No Active 11/18/ Hx Unknown Medications 2016 - 2016 Tramadol HCL 11/18/ Hx Tablets 50mg 60tab 1 tablet by M25.561 Yamilet 2016 - s mouth every Maximus, 04/20/ hours as M.D. 2017 needed pain Zocor 02/01/ Hx Tablets 40mg 1 po qd Ty 2003 - F. 11/17/ Mauser, 2016 M.D. Nitroquick 12/02/ Hx Tablets 0.3mg 25tab 1 SL prn. Ty 2003 - s Can Repeat Q F. 11/17/ 5 Min Up To Marly, 2016 3 Doses M.D. Total. Replace Q 6 Months Aspirin 12/02/ Hx Tablets 325mg 30tab 2 po q6h prn Ty 2003 - s pain F. 11/17/ Mauser, 2017 M.D. Singulair 12/01/ Hx Tablets 10mg 30tab One qd At hs Ty 2003 - s F. 11/17/ Mauser, 2017 M.D. Combivent 12/01/ Hx Aerosol 18mcg;103m 2 puffs q4h Ty Inhalation 2003 - cg/Actuati prn F. 11/17/ Mauser, 2016 M.D. Zocor 12/01/ Hx Tablets 20mg 30tab one qhs Ty 2003 - s F. 02/01/ Mauser, 2003 M.D. Advair Diskus 12/01/ Hx Inhaler 500mcg;50m 1 PO bid Ty 2003 - cg F. 11/17/ Mauser, 2016 MRadha Norvasc 06/08/ Hx Tablets 5mg 30tab 1 PO qd Ty 2004 - s F. 11/17/ Ariel Camara M.D. Albuterol / Hx Unknown Sulfate 0000 - 2016 Astepro / Hx Solution 0.15% 1 spray each Unknown 0000 - ingris twice a day as 2017 needed Asmanex / Hx Aerosol 1 spray to Unknown 0000 - each nostril 04/20/ once a day 2016 Asmanex HFA / Hx Aerosol 100mcg/Act 2 puff twice Unknown 0000 - a day 2016 Azelastine / Hx Solution 0.1% spray 1 Unknown HCL (Nasal) 0000 - spray in 05/25/ each nostril 2016 once a day Medications Administered in Office Medication Date Status Form Strength Qnty SIG Indications Ordering Provider Synvisc Or Administered Injection Yamilet Synvisc-One 018 Mckay Stroud Injection 1 MG Depomedrol Administered Injection Yamilet 40MG 017 Mckay Stroud No Injection Administered Injection Azeem F 017 MD Johnny Vital Signs Date Vital Result Comment 01/25/2018 Height 63 inches 5'3" Weight 210.00 lb Heart Rate 72 /min Respiratory Rate 18 /min Body Temperature 97.5 F Pain Level 5 BMI (Body Mass Index) 37.2 kg/m2 12/28/2017 Height 63 inches 5'3" Heart Rate 63 /min BP Systolic 128 mmHg BP Diastolic 82 mmHg Respiratory Rate 16 /min Body Temperature 97.2 F Pain Level 3 12/18/2017 Height 63 inches 5'3" Weight 210.00 lb Heart Rate 68 /min BP Systolic Sitting 112 mmHg BP Diastolic Sitting 86 mmHg Respiratory Rate 14 /min O2 % BldC Oximetry 98 % BMI (Body Mass Index) 37.2 kg/m2 12/06/2017 Height 63 inches 5'3" Weight 205.00 lb Heart Rate 74 /min BP Systolic 142 mmHg BP Diastolic 80 mmHg Respiratory Rate 12 /min Body Temperature 96.2 F Pain Level 4 BMI (Body Mass Index) 36.3 kg/m2 12/01/2017 Height 63 inches 5'3" Weight 204.00 lb Heart Rate 60 /min BP Systolic 150 mmHg BP Diastolic 84 mmHg Respiratory Rate 20 /min BMI (Body Mass Index) 36.1 kg/m2 11/24/2017 Height 63 inches 5'3" Weight 210.00 lb Heart Rate 80 /min BP Systolic 126 mmHg BP Diastolic 80 mmHg BMI (Body Mass Index) 37.2 kg/m2 11/17/2017 Height 62 inches 5'2" Weight 212.00 lb BP Systolic 128 mmHg BP Diastolic 78 mmHg Respiratory Rate 18 /min Pain Level 4 BMI (Body Mass Index) 38.8 kg/m2 11/06/2017 Height 62 inches 5'2" Weight 212.50 lb Heart Rate 88 /min BP Systolic 130 mmHg BP Diastolic 84 mmHg Respiratory Rate 16 /min Body Temperature 98.1 F Pain Level 5 BMI (Body Mass Index) 38.9 kg/m2 10/23/2017 Height 62 inches 5'2" Heart Rate 80 /min Respiratory Rate 20 /min Body Temperature 97.0 F Pain Level 6 07/21/2017 Height 62 inches 5'2" Weight 216.00 lb BP Systolic 127 mmHg BP Diastolic 81 mmHg Respiratory Rate 17 /min Pain Level 7 BMI (Body Mass Index) 39.5 kg/m2 07/05/2017 Height 62 inches 5'2" Weight 216.00 lb per pt Heart Rate 54 /min reg BP Systolic Sitting 132 mmHg Lue, reg cuff BP Diastolic Sitting 94 mmHg Lue, reg cuff Respiratory Rate 16 /min Pain Level 8 right knee BMI (Body Mass Index) 39.5 kg/m2 2017 Height 62 inches 5'2" Weight 216.25 lb with shoes Heart Rate 72 /min BP Systolic Sitting 150 mmHg Rue large cuff BP Diastolic Sitting 84 mmHg Rue large cuff Respiratory Rate 16 /min O2 % BldC Oximetry 98 % On Ra BMI (Body Mass Index) 39.5 kg/m2 04/21/2017 Height 62 inches 5'2" Weight 214.00 lb Heart Rate 72 /min BP Systolic Sitting 132 mmHg BP Diastolic Sitting 80 mmHg Respiratory Rate 14 /min O2 % BldC Oximetry 98 % BMI (Body Mass Index) 39.1 kg/m2 Neck Circumference in inches 16 03/06/2017 Height 62 inches 5'2" Weight 209.00 lb Heart Rate 72 /min BP Systolic 120 mmHg BP Diastolic 85 mmHg Respiratory Rate 16 /min Body Temperature 97.2 F Pain Level 5 BMI (Body Mass Index) 38.2 kg/m2 02/06/2017 Height 62 inches 5'2" Weight 209.00 lb Heart Rate 63 /min BP Systolic 144 mmHg BP Diastolic 86 mmHg Pain Level 5 BMI (Body Mass Index) 38.2 kg/m2 01/23/2017 Height 63 inches 5'3" Weight 203.00 lb Heart Rate 71 /min BP Systolic 151 mmHg BP Diastolic 94 mmHg Body Temperature 98.6 F BMI (Body Mass Index) 36.0 kg/m2 01/02/2017 Height 63 inches 5'3" Weight 203.00 lb Heart Rate 60 /min BP Systolic 139 mmHg BP Diastolic 84 mmHg Body Temperature 96.5 F BMI (Body Mass Index) 36.0 kg/m2 12/26/2016 Height 63 inches 5'3" Weight 213.00 lb Heart Rate 86 /min Respiratory Rate 17 /min Body Temperature 97.6 F Pain Level 10 BMI (Body Mass Index) 37.7 kg/m2 12/09/2016 Height 63 inches 5'3" Weight 213.00 lb Heart Rate 68 /min BP Systolic 130 mmHg BP Diastolic 84 mmHg Body Temperature 97.3 F Pain Level 5 BMI (Body Mass Index) 37.7 kg/m2 11/18/2016 Height 63 inches 5'3" Weight 211.00 lb Heart Rate 73 /min BP Systolic 128 mmHg BP Diastolic 76 mmHg Body Temperature 97.0 F Pain Level 7 BMI (Body Mass Index) 37.4 kg/m2 02/02/2004 Height 63 inches 5'3" Weight 188.00 lb Heart Rate 60 /min BP Systolic Sitting 140 mmHg BP Diastolic Sitting 84 mmHg BP Systolic Standing 146 mmHg BP Diastolic Standing 90 mmHg O2 % BldC Oximetry 98 % BMI (Body Mass Index) 33.3 kg/m2 12/03/2003 Height 63 inches Weight 172.00 lb Heart Rate 70 /min BP Systolic Sitting 134 mmHg BP Diastolic Sitting 90 mmHg BP Systolic Standing 136 mmHg BP Diastolic Standing 94 mmHg BMI (Body Mass Index) 30.5 kg/m2 Results Test Date Test Result H/L Range Note Laboratory test 04/21/2017 Alpha 1 Antitrypsin A1a 137 mg/dL 100 - 190 1 finding Anti Nuclear Antibody 0.3 U 2 Anca Panel For Vasculitis 04/21/2017 Myeloperoxidase AB < 0.2 U 3 Proteinase 3 AB < 0.2 U 4 Laboratory test finding 04/21/2017 Immunoglobulin E (Ige) 6.6 kU/L <=214 5 [place] Panel 04/21/2017 Alternaria tenuis IgE <0.35 kU/L 6 Allergen Cat Epithelium Allergen IgE <0.35 kU/L 7 Cladosporium herbarum IgE <0.35 kU/L 8 Dermatophagoides farinae IgE <0.35 kU/L 9 Dog Dander Allergen IgE <0.35 kU/L 10 [place] Blue (November) Grass IgE <0.35 kU/L 11 [place] Allergen IgE <0.35 kU/L 12 [place] Allergen IgE <0.35 kU/L 13 Common Ragweed () Allerge <0.35 kU/L 14 [place] Grass Allergen IgE <0.35 kU/L 15 Hypersensitivity Pneumonitis 04/21/2017 Aspergillus fumigatus 32.9 mg/L < =102 16 IgG Ab Thermoactinomyces vulgaris IgG 22.9 mg/L <=23.9 17 Micropolyspora faeni IgG Ab <2.0 18 CBC Auto Diff 04/21/2017 White Blood Count 7.0 10^3/uL 3.5-10.8 Red Blood Count 4.67 10^6/uL 4.0-5.4 Hemoglobin 13.2 g/dL 12.0-16.0 Hematocrit 39 % 35-47 Mean Corpuscular Volume 84 fL 80-97 Mean Corpuscular Hemoglobin 28 pg 27-31 Mean Corpuscular HGB Conc 34 g/dL 31-36 Red Cell Distribution Width 14 % 10.5-15 Platelet Count 223 10^3/uL 150-450 Mean Platelet Volume 9 um3 7.4-10.4 Abs Neutrophils 4.6 10^3/uL 1.5-7.7 Abs Lymphocytes 1.5 10^3/uL 1.0-4.8 Abs Monocytes 0.6 10^3/uL 0-0.8 Abs Eosinophils 0.2 10^3/uL 0-0.6 Abs Basophils 0.1 10^3/uL 0-0.2 Abs Nucleated RBC 0 10^3/uL Granulocyte % 66.6 % 38-83 Lymphocyte % 21.3 % Low 25-47 Monocyte % 8.0 % 1-9 Eosinophil % 3.2 % 0-6 Basophil % 0.9 % 0-2 Nucleated Red Blood Cells % 0 CBC Auto Diff 02/06/2017 White Blood Count 7.9 10^3/uL 3.5-10.8 Red Blood Count 4.87 10^6/uL 4.0-5.4 Hemoglobin 14.0 g/dL 12.0-16.0 Hematocrit 41 % 35-47 Mean Corpuscular Volume 85 fL 80-97 Mean Corpuscular Hemoglobin 29 pg 27-31 Mean Corpuscular HGB Conc 34 g/dL 31-36 Red Cell Distribution Width 14 % 10.5-15 Platelet Count 211 10^3/uL 150-450 Mean Platelet Volume 10 um3 7.4-10.4 Abs Neutrophils 5.8 10^3/uL 1.5-7.7 Abs Lymphocytes 1.4 10^3/uL 1.0-4.8 Abs Monocytes 0.6 10^3/uL 0-0.8 Abs Eosinophils 0.1 10^3/uL 0-0.6 Abs Basophils 0.1 10^3/uL 0-0.2 Abs Nucleated RBC 0 10^3/uL Granulocyte % 73.2 % 38-83 Lymphocyte % 17.2 % Low 25-47 Monocyte % 7.2 % 1-9 Eosinophil % 1.5 % 0-6 Basophil % 0.9 % 0-2 Nucleated Red Blood Cells % 0.1 Laboratory test finding 02/06/2017 C Reactive Protein 9.55 mg/L High < 5.00 19 Erythrocyte Sed Rate 17 mm/Hr 0-30 1 Test Performed by: [address] [address] 2 REFERENCE VALUE <=1.0 (Negative) Test Performed by: [address] [address] 3 REFERENCE VALUE <0.4 (Negative) 4 REFERENCE VALUE <0.4 (Negative) Test Performed by: [facility] - [address] [address] Test Performed by: [facility] - [address] [address] 6 Class 0 (Negative <0.35) 7 Class 0 (Negative <0.35) 8 Class 0 (Negative <0.35) 9 Class 0 (Negative <0.35) Test Performed by: [facility] - [address] [address] 10 Class 0 (Negative <0.35) 11 Class 0 (Negative <0.35) 12 Class 0 (Negative <0.35) 13 Class 0 (Negative <0.35) 14 Class 0 (Negative <0.35) 15 Class 0 (Negative <0.35) 16 ADDITIONAL INFORMATION This test was developed and its performance characteristics determined by [facility] in a manner consistent with CLIA requirements. This test has not been cleared or approved by the U.S. Food and Drug Administration. Test Performed by: [facility] - [address] [address] 17 ADDITIONAL INFORMATION This test was developed using an analyte specific reagent. Its performance characteristics were determined by [facility] in a manner consistent with CLIA requirements. This test has not been cleared or approved by the U.S. Food and Drug Administration. Test Performed by: [facility] - [address] [address] 18 TEST RESULT UNITS REF RANGE Micropolyspora faeni, IgG <2.0 mg/L <=13.2 This test was developed using an analyte specific reagent. Its performance characteristics were determined by [facility] in a manner consistent with CLIA requirements. This test has not been cleared or approved by the U.S. Food and Drug Administration. Test Performed by: [facility] - [address] [address] 19 Acute inflammation: >10.00 Procedures Date CPT Code Description Status 12/06/2017 75654 Gauntlet Cast Application Completed 12/01/201772122 Inject/Drain Joint/Bursa Major W/O US Completed 11/24/2017 Inject/Drain Joint/Bursa Major W/O US Completed 11/17/2017 Inject/Drain Joint/Bursa Major W/O US Completed 11/06/2017 73842 Gauntlet Cast Application Completed 03/23/2017 16583 Diffusing Capacity Completed 03/23/2017 59451 Plethysmography Determination Lung Volumes & Per Airway Completed Resist 03/23/2017 97451 Spirometry Incl Graphic Record Completed 01/23/201762313 Inject/Drain Joint/Bursa Major W/O US Completed 12/26/2016 Inject/Drain Joint/Bursa Major W/O US Completed 12/26/2016 Inject/Drain Joint/Bursa Major W/O US Completed 12/20/2016 07225 Arthroscopy,Knee,Meniscectomy Medial Or Lateral Completed 12/20/2016 18644 Arthroscopy,Knee,Meniscectomy Medial Or Lateral Completed 12/20/2016 43174 Arthroscopy,Knee,Meniscectomy Medial Or Lateral Completed 02/02/2004 03749 EKG Tracing & Interpretation Completed 12/03/2003 14256 EKG Tracing & Interpretation Completed 09/04/2003 50543 EKG, Interpretation Only Completed Encounters Type Date Location Provider CPT E/M Dx Office Visit 12/28/2017 [facility] Louisa Lawson 39471 S62.025D 8:45a Of [facility] Office Visit 12/18/2017 [facility] [address] R05 8:30a [facility] J45.909 E66.09 Office Visit 12/06/2017 8:15a [facility] Louisa Lawson 21868 S62.025D Of [facility] Office Visit 10/23/2017 2:15p [facility] Yamilet Stroud M.D. 59779 M25.561 Of C.MDanetteADanette M25.461 M17.11 S83.241S M25.561 Office Visit 07/21/2017 2:15p [facility] Of Yamilet Stroud M.D. 24381 M25.561 C.M.A. M25.561 M25.461 M25.461 M17.11 M17.11 S83.241D S83.241S Office Visit 07/05/2017 11:15a [facility] Of Yamilet Stroud M.D. 21806 M25.561 C.M.A. M25.461 M17.11 S83.241D Office Visit 2017 1:45p [facility] [place] [address] J45.909 Services [facility] Z68.39 Office Visit 04/21/2017 10:15a [facility] [place] [address] J45.901 Services [facility] E66.09 Z68.39 Office Visit 11/18/2016 8:30a [facility] Of Yamilet Stroud M.D. 33903 M17.11 C.M.A. M25.561 S83.241A M25.461 M17.11 M17.11 S83.241A Office Visit 02/02/2004 2:00p [facility] Ty Camara, [address] 786.50 M.D. 416.9 Office Visit 12/03/2003 8:40a [facility] Ty Camara [address]1660 786.59 M.D. 401.1 493.90 Plan of Care Future Appointment(s):06/12/2018 1:45 pm - Marily Seth MD at [facility]01/25/2018 - Louisa Lawson M.D.S62.025D Nondisp fx of mid 3rd of navic bone of l wrs, 7thDFollow up:Follow up: As needed
[2018-02-03 07:28] VITALS: BP 137/83
--- NOTE | 2018-02-03 07:40 | UC ---
Respiratory Complaint HPI - HPI Summary HPI Summary: 6 DAYS OF COUGH, CONGESTION, ST, LEFT EAR PAIN AND FATIGUE. NO FEVER, N/V/D. - History of Current Complaint Chief Complaint: UCGeneralIllness Stated Complaint: EAR ACHE SINUS/CHEST/COUGH Time Seen by Provider: 02/03/18 07:33 Hx Obtained From: Patient Onset/Duration: Gradual Onset, Lasting Days, Still Present Timing: Constant Severity Initially: Moderate Severity Currently: Moderate Pain Intensity: 5 Pain Scale Used: 0-10 Numeric Character: Cough: Nonproductive Aggravating Factors: Nothing Alleviating Factors: Nothing Associated Signs And Symptoms: Positive: URI, Nasal Congestion. Negative: Dyspnea, Fever, Wheezing - Allergies/Home Medications Allergies/Adverse Reactions: Allergies Allergy/AdvReac Type Severity Reaction Status Date / Time benzonatate Allergy GI Upset Verified 02/03/18 07:19 celecoxib [From Celebrex] Allergy Difficulty Verified 02/03/18 07:19 Breathing codeine Allergy Difficulty Verified 02/03/18 07:19 Breathing montelukast [From Singulair] Allergy Difficulty Verified 02/03/18 07:19 Breathing morphine Allergy Difficulty Verified 02/03/18 07:19 Breathing naproxen [From Aleve] Allergy Difficulty Verified 02/03/18 07:19 Breathing oxycodone [From Percocet] Allergy Difficulty Verified 02/03/18 07:19 Breathing propoxyphene [From Darvon] Allergy Vomiting Verified 02/03/18 07:19 adhesives Allergy Blisters Uncoded 02/03/18 07:19 SEASONAL Allergy Eyes Uncoded 02/03/18 07:19 Itchy/Swollen/Red/Watery PMH/Surg Hx/FS Hx/Imm Hx Cardiovascular History: Hypertension Respiratory History: Asthma - Surgical History Surgical History: Yes Surgery Procedure, Year, and Place: Partial hysterectomy,. plantar fasciitis, tendon right ankle, left elbow, lump removed from left breast, benign. FESS, DEVIATED SEPTUM REPAIR. Tubes in both ears. rt knee miniscus repair - Family History Known Family History: Positive: Cardiac Disease, Hypertension, Diabetes - Social History Alcohol Use: None Substance Use Type: None Smoking Status (MU): Never Smoked Tobacco - Immunization History Most Recent Influenza Vaccination: 02/2016 Most Recent Pneumonia Vaccination: October 2016 Vaccination Up to Date: Yes Review of Systems Constitutional: Negative ENT: Sore Throat, Ear Ache, Nasal Discharge Respiratory: Cough Cardiovascular: Negative Gastrointestinal: Negative All Other Systems Reviewed And Are Negative: Yes Physical Exam Triage Information Reviewed: Yes Appearance: Well-Appearing, No Pain Distress, Well-Nourished Vital Signs: Initial Vital Signs Temp 98.2 F 02/03/18 07:22 Pulse 74 02/03/18 07:22 Resp 16 02/03/18 07:22 BP 137/83 02/03/18 07:22 Pulse Ox 99 02/03/18 07:22 Vital Signs Reviewed: Yes Eyes: Positive: Conjunctiva Clear ENT: Positive: Hearing grossly normal, Pharynx normal, TMs normal Neck: Positive: Supple, Nontender, No Lymphadenopathy Respiratory Exam: Normal Cardiovascular Exam: Normal Abdomen Description: Positive: Soft Musculoskeletal: Positive: No Edema Neurological: Positive: Alert Psychological: Positive: Age Appropriate Behavior Skin: Negative: rashes UC Diagnostic Evaluation - Laboratory O2 Sat by Pulse Oximetry: 99 Respiratory Course/Dx - Differential Dx/Diagnosis Provider Diagnoses: ACUTE URI Discharge - Sign-Out/Discharge Documenting (check all that apply): Patient Departure - Discharge Plan Condition: Stable Disposition: HOME Prescriptions: Azithromycin 500 mg PO DAILY #5 tab Patient Education Materials: Upper Respiratory Infection (ED) Referrals: Leni Rodriguez MD [Primary Care Provider] - If Needed Additional Instructions: YOUR SYMPTOMS MAY BE VIRALLY MEDIATED BUT GIVEN THE LENGTH OF TIME YOU HAVE BEEN ILL WE WILL COVER YOU WITH ANTIBIOTICS. IF YOU START THE MEDICINE BE SURE TO TAKE IT FOR THE FULL COURSE. REST, HYDRATE, OTC MEDS NEEDED. USE YOUR INHALER NEEDED. SEEK FOLLOW-UP WITH YOUR PCP IF YOU ARE NOT IMPROVING OVER THE NEXT 1-2 WEEKS. USE OTC AFRIN FOR NASAL CONGESTION. 2 SPRAYS IN EACH NOSTRIL TWICE DAILY NEEDED. DO NOT USE FOR MORE THAN 3-4 DAYS IN A ROW TO PREVENT DEVELOPING REBOUND CONGESTION. YOUR BLOOD PRESSURE WAS MILDLY ELEVATED TODAY (137/83). THIS MAY BE DUE TO YOUR ACUTE CONDITION. MONITOR AND FOLLOW-UP WITH YOUR PCP WITHIN 4 WEEKS IF IT HAS NOT RETURNED TO NORMAL. - Billing Disposition and Condition Condition: STABLE Disposition: Home
== END 2018-02-03 08:00 | disposition home or self-care (01) ==
LOC: UCEAST 07:04
DX: J06.9 Acute upper respiratory infection, unspecified (principal); Z88.6 Allergy status to analgesic agent; Z88.5 Allergy status to narcotic agent; Z88.8 Allergy status to other drugs, medicaments and biological substances; Z91.048 Other nonmedicinal substance allergy status; Z82.49 Family history of ischemic heart disease and other diseases of the circulatory system; Z83.3 Family history of diabetes mellitus
CPT/HCPCS: 99212; G0463

== ENCOUNTER 2018-08-23 07:02 | Emergency (ER) | payer OTHER ==
[2018-08-23 07:24] VITALS: BP 135/78
--- NOTE | 2018-08-23 07:31 | UC ---
Minor Trauma HPI - HPI Summary HPI Summary: Patient presents to urgent care after slip and fall on ice yesterday. Patient states she landed on her right knee. Did not strike head, no LOC. Pt LHD. Patient has a history of knee problems for which she is followed by [employer] provider. Patient uses a hinge knee brace at baseline had is not high- risk fell. Patient with an abrasion to her knee. Patient states she didn't clean at home. Patient states she's had pain walking since. No paresthesias. No leg weakness. Patient has taken Tylenol for pain as at all she can take due to airway swelling she states. Patient states this morning she felt more pain in the medial aspect of the patella so came for evaluation. Patient also with pain in her left wrist. Patient is left-hand dominant. Patient with pain at the base of her thumb. No paresthesias no weakness. Patient states she broke her scaphoid last summer was evaluated by Dr. Lawson. Patient's tetanus was less than 10 years ago. Patient medications reviewed this visit. Patient did not take any Tylenol this morning and declined here. Pt has a cane that she uses intermittently with walking. - History of Current Complaint Chief Complaint: UCLowerExtremity Stated Complaint: KNEE INJURY WRIST INJURY Time Seen by Provider: 08/23/18 07:29 Hx Obtained From: Patient Hx Last Menstrual Period: menapause Pain Intensity: 4 - Allergies/Home Medications Allergies/Adverse Reactions: Allergies Allergy/AdvReac Type Severity Reaction Status Date / Time benzonatate Allergy GI Upset Verified 02/03/18 07:19 celecoxib [From Celebrex] Allergy Difficulty Verified 02/03/18 07:19 Breathing codeine Allergy Difficulty Verified 02/03/18 07:19 Breathing montelukast [From Singulair] Allergy Difficulty Verified 02/03/18 07:19 Breathing morphine Allergy Difficulty Verified 02/03/18 07:19 Breathing naproxen [From Aleve] Allergy Difficulty Verified 02/03/18 07:19 Breathing oxycodone [From Percocet] Allergy Difficulty Verified 02/03/18 07:19 Breathing propoxyphene [From Darvon] Allergy Vomiting Verified 02/03/18 07:19 adhesives Allergy Blisters Uncoded 02/03/18 07:19 SEASONAL Allergy Eyes Uncoded 02/03/18 07:19 Itchy/Swollen/Red/Watery PMH/Surg Hx/FS Hx/Imm Hx Previously Healthy: Yes - Surgical History Surgical History: Yes Surgery Procedure, Year, and Place: Partial hysterectomy,. plantar fasciitis, tendon right ankle, left elbow, lump removed from left breast, benign. FESS, DEVIATED SEPTUM REPAIR. Tubes in both ears. rt knee miniscus repair - Family History Known Family History: Positive: Cardiac Disease, Hypertension, Diabetes - Social History Occupation: Employed Full-time Alcohol Use: None Substance Use Type: None Smoking Status (MU): Never Smoked Tobacco - Immunization History Most Recent Influenza Vaccination: 02/2016 Most Recent Tetanus Shot: utd Most Recent Pneumonia Vaccination: October 2016 Vaccination Up to Date: Yes Review of Systems All Other Systems Reviewed And Are Negative: Yes Constitutional: Positive: Negative Skin: Positive: Negative Physical Exam - Summary Physical Exam Summary: Vital Signs Reviewed: Yes A+Ox3, no distress Eyes: Conjunctiva Clear, ENT: Hearing grossly normal Neck: Positive: Supple Respiratory: Positive: No respiratory distress, No accessory muscle use + CTA throughout no w/r Cardiovascular RLE: 2+ PT LUE 2+ radial, ulnar CBT < 2 sec Musculoskeletal Exam: RLE: + SLE + flex.ext knee + TTP lateral joint line and lateral margin of patella. Neg anterior/posterior drawer Neg laxity lateral testing + flex/ext ankle LUE: + flex/ext elbow + pronate/supinate + f;ex/ext wrist with pain base thumb + mild snuff box pain + full flex/ext MCP thumb, IP Neurological: Positive: Alert, + sensation throughout + gross sensation throughout hand + thumb up, a ok, finger spread, finger cross Psychological: Positive: Normal Response To Family Skin: Positive: no rash, no ecchymosis Pt with 2x3cm abraison, focal are ecchymosis patellla, medial margin. Vital Signs: Initial Vital Signs Temp 98.9 F 08/23/18 07:17 Pulse 71 08/23/18 07:17 Resp 18 08/23/18 07:17 BP 135/78 08/23/18 07:17 Pulse Ox 100 08/23/18 07:17 Diagnostics - Radiology No standard instances Radiology Interpretation Completed By: Radiologist - Patient Name: PRISCILA FONTANEZ Medical Record#: [id number] Ordering Physician: Destinee Moran MD Acct.#: [id number] : 1955 Age: 63 Sex: F Location: [facility] Exam Date: 08/23/18737 ADM Status: REG ER Order Information: KNEE RIGHT 4+ VWS Accession Number: [id number] CPT: 92171 HISTORY: fall, pain medial patella . COMPARISONS: None VIEWS: 4, Frontal, lateral, axial, and oblique views of the right knee FINDINGS: BONE DENSITY: There is diffuse osteopenia. BONES: There is no displaced fracture. 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 There is no suprapatellar joint effusion or lipohemarthrosis. ALIGNMENT: There is no dislocation. SOFT TISSUES: Unremarkable. OTHER FINDINGS: None. IMPRESSION: OSTEOARTHRITIS. NO ACUTE OSSEOUS INJURY. IF SYMPTOMS PERSIST, RECOMMEND REPEAT IMAGING. <Electronically signed by Flo Pike MD in OV> 08/23/18817 Dictated By: Flo Pike MD Dictated Date/Time: 08/23/18817 Transcribed Date/Time: 08/23/18817 Copy to: CC:Destinee Moran MD; Leni Rodriguez MD [facility] Urgent [facility] [place] [address] [place] [address] ph ([phone]) ph ([phone]) ph ([phone]) This report is only to be considered final once signed by the Provider(s) as displayed in the "<Electronically Signed by > " field (s). Absence of a signature indicates the report is in a draft status and still needs to be finalized. In the event this document was created by someone other than the signing Provider, the individual initiating the document will be listed in the "Entered by:" or "Dictated by:" gamez. 1 of 1 Patient Name: ESTEEPRISCILA Chuy Medical Record#: [id number] Ordering Physician: Destinee Moran MD Acct.#: [id number] : 1955 Age: 63 Sex: F Location: [facility] Exam Date: 08/23/18737 ADM Status: REG ER Order Information: WRIST LEFT 3+ VWS Accession Number: [id number] CPT: 94465 HISTORY: fall scaphoid pain COMPARISONS: None VIEWS: 4, Frontal, lateral, oblique, and scaphoid deviation views of the left wrist and distal forearm FINDINGS: BONE DENSITY: Normal. BONES: There is no displaced fracture. 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 ALIGNMENT: There is no dislocation. SOFT TISSUES: Unremarkable. OTHER FINDINGS: None. IMPRESSION: NO ACUTE OSSEOUS INJURY. IF SYMPTOMS PERSIST, RECOMMEND REPEAT IMAGING. <Electronically signed by Flo Pike MD in OV> 08/23/18830 Dictated By: Flo Pike MD Dictated Date/Time: 08/23 Transcribed Date/Time: 08/23/18819 Copy to: CC:Destinee Moran MD; Leni Rodriguez MD Imaging - [facility] Imaging - [facility] [address] [place] [address] ph ([phone]) ph ([phone]) ph ([phone]) This report is only to be considered final once signed by the Provider(s) as displayed in the "<Electronically Signed by > " field (s). Absence of a signature indicates the report is in a draft status and still needs to be finalized. In the event this document was created by someone other than the signing Provider, the individual initiating the document will be listed in the "Entered by:" or "Dictated by:" gamez. 1 of 1 Minor Trauma Course/Dx - Course Course Of Treatment: Patient was on the ice yesterday. Patient with pain to her left wrist and right knee. Patient with thick history of ongoing knee problems. On exam patient with pain along the medial aspect of the patella as well as an area of ecchymosis and abrasion. Nonsuturable. Tetanus is up-to- date. We will check imaging of this. Patient's with pain in her left wrist at the base of her thumb. Patient with good range of motion and good CSM. Patient in the snuffbox area. We'll check left thumb x-ray. Anticipate patient will have wound care, splint, follow-up with orthopedic. Patient declined Tylenol here. We'll give ice. Patient does use a cane. Conjunctivae will be of use crutches due to left-hand injury. Patient states understanding agreement. We'll to examine upon return from x-ray - Differential Dx/Diagnosis Provider Diagnosis: Contusion, Knee pain, Abrasion, Wrist sprain Discharge - Sign-Out/Discharge Documenting (check all that apply): Patient Departure All imaging exams completed and their final reports reviewed: Yes - Discharge Plan Condition: Stable Disposition: HOME Patient Education Materials: Wrist Injury (ED), Contusion in Adults (ED), Abrasion (ED), Knee Pain (ED) Forms: *Work Release Referrals: Leni Rodriguez MD [Primary Care Provider] - Louisa Lawson MD [Medical Doctor] - Additional Instructions: - For your wound: clean with warm soapy water, 2 times day. Pat dry. cover with thin layer of antibiotic ointment and bandage. Monitor for signs of infection - reddness, red streaking, drainage, pain, odor. - For your knee: -wear hernesto wrap and your brace for comfort and support -apply ice (20 min at a time) every 2-3 hours for the next 2 days -use your cane for balance and support -Elevate your leg - this will help with swelling and pain - Take Tylenol every 6 hours for pain -Contact your orthopedic doctor to arrange a follow-up appointment Contact your doctor or return with questions or concerns For your wrist: - Wear splint as much as possible until you are evaluated by the orthopedic provider. - Apply is every 2-3 hours for pain - Take Tylenol every 6 hours as needed for pain -Contact the orthopedic provider to schedule a follow-up appointment - Billing Disposition and Condition Condition: STABLE Disposition: Home
== END 2018-08-23 08:47 | disposition home or self-care (01) ==
LOC: UCEAST 07:02
DX: S80.01XA Contusion of right knee, initial encounter (principal); S80.211A Abrasion, right knee, initial encounter; S63.502A Unspecified sprain of left wrist, initial encounter; M25.561 Pain in right knee; Z88.5 Allergy status to narcotic agent; Z91.09 Other allergy status, other than to drugs and biological substances; Z88.8 Allergy status to other drugs, medicaments and biological substances; W00.0XXA Fall on same level due to ice and snow, initial encounter; Y92.9 Unspecified place or not applicable
CPT/HCPCS: 99213; G0463

== ENCOUNTER 2018-09-15 07:06 | Emergency (ER) | payer OTHER ==
--- OUTSIDE RECORDS SUMMARY | 2018-09-15 07:11 | XMS REPORT | Continuity of Care Document ---
:1955 External Reference #:[id number] Author Name Jadyn Castillo Care Team Providers Name Role Phone Leni Rodriguez MD Primary Care Physician Unavailable Payers Date Identification Numbers Payment Provider Subscriber Expires: 2018 Policy Number: [id number] [facility] Endy Schmidt Group Name: [facility] [address] PayID: [id number] [place] [address] Onset: 2016 Policy Number: [id number] [facility] Nga Schmidt Group Number: [id number] [id number] Group Name: [phone] [place] [address] PayID: [id number] Expires: 2016 Policy Number: [id number] [facility] Endy Schmidt Group Number: [id number] PayID: [id number] [place] [phone] Onset: 2017 Policy Number: [id number] [facility] [employer] Bozena Nga Brayan Group Number: [id number] Group Name: [phone] [place] [address] PayID: [id number] Effective: 2016 Policy Number: [id number] [facility] Ngajanet Schmidt Expires: 2017 Group Number: [id number] [address] Onset: 2016 Group Name: [phone] [place] [address] PayID: [id number] Policy Number: [id number] [employer] Nga Brayan PayID: [id number] Onset: 2018 Policy Number: [id number] TST Otoniel Schmidt Group Number: [id number] [id number] PayID: [id number] [place] [id number] Advance Directives Description No Information Available Problems Date Description Provider Status Onset: 11/18/2016 Localized, primary osteoarthritis Yamilet Stroud M.D. Active Onset: 11/18/2016 Current tear of medial cartilage AND/OR Yamilet Stroud M.D. 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 PT for knee pending. 2x per week Allergies, Adverse Reactions, Alerts Date Description Reaction Status Severity Comments 12/03/2003 Adhesive Tape Active blisters 12/03/2003 Morphine Active apnea 12/03/2003 Codeine Active asthma 12/03/2003 Darvon Active nausea 12/03/2003 Aleve Active difficulty breathing, nausea 12/03/2003 Celebrex Active difficulty breathing 12/03/2003 Benzonatate Active difficulty breathing, nausea 12/03/2003 pamelor Active sleep disruption 11/18/2016 Singulair Active 12/18/2017 Zyrtec Active Severe fatigue Medications Medication Date Status Form Strength Qnty SIG Indications Ordering Provider Astelin 12/18 Active 2 puffs qd MD Dorinda Norvasc Active Tablets 5mg 1 by mouth Unknown /0000 every day Lipitor Active Tablets 20mg one tab by Unknown /0000 mouth every night at bedtime Calcium + D 00 Active 2 qd Unknown /0000 Ventolin HFA Active Aerosol 108(90Bas 1unit 2 puffs by Marily / e) s mouth four Dorinda, mcg/Act times a day as needed Levothyroxine Active Tablets 25mcg 1 by mouth Unknown Sodium /0000 every day Breo Ellipta 05/25 Hx Aerosol 100-25mcg 60uni Inhale 1 J45.909 Marily /2016 /Inh ts puff Daily Vivian Seth MD 08/26 Breo Ellipta 04/21 Hx Aerosol 200-25mcg one J45.909 Marily /2016 /Inh inhalation Dorinda, - daily 05/25 Rolling Walker 12/09 Hx 1unit use for M25.461 s ambulation Maximus, - s/p r knee M.D. 02/24 arthroscopy No Active 11/18 Hx Unknown Medications /2016 - 11/18 Tramadol HCL 11/18 Hx Tablets 50mg 60tab 1 tablet by M25.561 s mouth every Maximus, - 4 hours as M.D. 04/20 needed pain /2016 Zocor 02/01 Hx Tablets 40mg 1 po qd F. - Mauser, 11/17 M.D. Nitroquick 12/02 Hx Tablets 0.3mg 25tab 1 SL prn. s Can Repeat Q F. - 5 Min Up To , 11/17 3 Doses . Total. Replace Q 6 Months Aspirin 12/02 Hx Tablets 325mg 30tab 2 po q6h prn s pain F. - Mauser, 11/17 M.D. Singulair 12/01 Hx Tablets 10mg 30tab One qd At hs s F. - Mauser, 11/17 M.D. Combivent 12/01 Hx Aerosol 18mcg;103 2 puffs q4h Inhalation /2003 mcg/Actua prn F. - ti Mauser, 11/17 M.D. Zocor 12/01 Hx Tablets 20mg 30tab one qhs s F. - Mauser, 02/01 M.D. Advair Diskus 12/01 Hx Inhaler 500mcg;50 1 PO bid mcg Joce Camara, 11/17 M.D. Norvasc 12/01 Hx Tablets 5mg 30tab 1 PO qd s Joce Camara, 11/17 M.D. Albuterol Hx Unknown Sulfate /0000 - 04/20 Astepro Hx Solution 0.15% 1 spray each Unknown /0000 ingris twice a - day as 04/20 Asmanex Hx Aerosol 1 spray to Unknown /0000 each nostril - once a day 04/20 Asmanex HFA Hx Aerosol 100mcg/Ac 2 puff twice Unknown /0000 t a day - 05/25 Azelastine HCL Hx Solution 0.1% spray 1 Unknown (Nasal) /0000 spray in - each nostril 05/25 once a day Doxycycline Hx Capsules 100mg one tablet Unknown Hyclate /0000 once daily - for 20 days. 09/13 Fluticasone Hx Suspension 50mcg/Act 2 sprays Unknown Propionate /0000 each nostril - daily as 09/13 Medications Administered in Office Medication Date Status Form Strength Qnty SIG Indications Ordering Provider Synvisc Or Administered Injection Yamilet Synvisc-One 018 Mckay Stroud Injection 1 MG Depomedrol Administered Injection Yamilet 40MG 017 Mckay Stroud No Injection Administered Injection Azeem F Namrata Turner MD Immunizations Description No Information Available Vital Signs Date Vital Result Comment 09/14/2018 2:33pm Height 63 inches 5'3" Weight 209.00 lb Patient stated Heart Rate 60 /min BP Systolic 122 mmHg BP Diastolic 82 mmHg Respiratory Rate 14 /min Pain Level 1 BMI (Body Mass Index) 37.0 kg/m2 08/27/2018 10:13am Height 63 inches 5'3" Weight 215.00 lb Heart Rate 68 /min BP Systolic 130 mmHg BP Diastolic 88 mmHg Body Temperature 97.8 F Pain Level 6 BMI (Body Mass Index) 38.1 kg/m2 01/25/2018 12:57pm Height 63 inches 5'3" Weight 210.00 lb Heart Rate 72 /min Respiratory Rate 18 /min Body Temperature 97.5 F Pain Level 5 BMI (Body Mass Index) 37.2 kg/m2 12/28/2017 8:39am Height 63 inches 5'3" Heart Rate 63 /min BP Systolic 128 mmHg BP Diastolic 82 mmHg Respiratory Rate 16 /min Body Temperature 97.2 F Pain Level 3 12/18/2017 8:13am Height 63 inches 5'3" Weight 210.00 lb Heart Rate 68 /min BP Systolic Sitting 112 mmHg BP Diastolic Sitting 86 mmHg Respiratory Rate 14 /min O2 % BldC Oximetry 98 % BMI (Body Mass Index) 37.2 kg/m2 12/06/2017 8:18am Height 63 inches 5'3" Weight 205.00 lb Heart Rate 74 /min BP Systolic 142 mmHg BP Diastolic 80 mmHg Respiratory Rate 12 /min Body Temperature 96.2 F Pain Level 4 BMI (Body Mass Index) 36.3 kg/m2 12/01/2017 7:56am Height 63 inches 5'3" Weight 204.00 lb Heart Rate 60 /min BP Systolic 150 mmHg BP Diastolic 84 mmHg Respiratory Rate 20 /min BMI (Body Mass Index) 36.1 kg/m2 11/24/2017 2:43pm Height 63 inches 5'3" Weight 210.00 lb Heart Rate 80 /min BP Systolic 126 mmHg BP Diastolic 80 mmHg BMI (Body Mass Index) 37.2 kg/m2 11/17/2017 2:03pm Height 62 inches 5'2" Weight 212.00 lb BP Systolic 128 mmHg BP Diastolic 78 mmHg Respiratory Rate 18 /min Pain Level 4 BMI (Body Mass Index) 38.8 kg/m2 11/06/2017 9:59am Height 62 inches 5'2" Weight 212.50 lb Heart Rate 88 /min BP Systolic 130 mmHg BP Diastolic 84 mmHg Respiratory Rate 16 /min Body Temperature 98.1 F Pain Level 5 BMI (Body Mass Index) 38.9 kg/m2 10/23/2017 2:45pm Height 62 inches 5'2" Heart Rate 80 /min Respiratory Rate 20 /min Body Temperature 97.0 F Pain Level 6 07/21/2017 2:16pm Height 62 inches 5'2" Weight 216.00 lb BP Systolic 127 mmHg BP Diastolic 81 mmHg Respiratory Rate 17 /min Pain Level 7 BMI (Body Mass Index) 39.5 kg/m2 07/05/2017 11:21am Height 62 inches 5'2" Weight 216.00 lb per pt Heart Rate 54 /min reg BP Systolic Sitting 132 mmHg Lue, reg cuff BP Diastolic Sitting 94 mmHg Lue, reg cuff Respiratory Rate 16 /min Pain Level 8 right knee BMI (Body Mass Index) 39.5 kg/m2 2017 1:46pm Height 62 inches 5'2" Weight 216.25 lb with shoes Heart Rate 72 /min BP Systolic Sitting 150 mmHg Rue large cuff BP Diastolic Sitting 84 mmHg Rue large cuff Respiratory Rate 16 /min O2 % BldC Oximetry 98 % On Ra BMI (Body Mass Index) 39.5 kg/m2 04/21/2017 9:36am Height 62 inches 5'2" Weight 214.00 lb Heart Rate 72 /min BP Systolic Sitting 132 mmHg BP Diastolic Sitting 80 mmHg Respiratory Rate 14 /min O2 % BldC Oximetry 98 % BMI (Body Mass Index) 39.1 kg/m2 Neck Circumference in inches 16 03/06/2017 8:47am Height 62 inches 5'2" Weight 209.00 lb Heart Rate 72 /min BP Systolic 120 mmHg BP Diastolic 85 mmHg Respiratory Rate 16 /min Body Temperature 97.2 F Pain Level 5 BMI (Body Mass Index) 38.2 kg/m2 02/06/2017 8:08am Height 62 inches 5'2" Weight 209.00 lb Heart Rate 63 /min BP Systolic 144 mmHg BP Diastolic 86 mmHg Pain Level 5 BMI (Body Mass Index) 38.2 kg/m2 01/23/2017 2:13pm Height 63 inches 5'3" Weight 203.00 lb Heart Rate 71 /min BP Systolic 151 mmHg BP Diastolic 94 mmHg Body Temperature 98.6 F BMI (Body Mass Index) 36.0 kg/m2 01/02/2017 9:35am Height 63 inches 5'3" Weight 203.00 lb Heart Rate 60 /min BP Systolic 139 mmHg BP Diastolic 84 mmHg Body Temperature 96.5 F BMI (Body Mass Index) 36.0 kg/m2 12/26/2016 10:31am Height 63 inches 5'3" Weight 213.00 lb Heart Rate 86 /min Respiratory Rate 17 /min Body Temperature 97.6 F Pain Level 10 BMI (Body Mass Index) 37.7 kg/m2 12/09/2016 9:02am Height 63 inches 5'3" Weight 213.00 lb Heart Rate 68 /min BP Systolic 130 mmHg BP Diastolic 84 mmHg Body Temperature 97.3 F Pain Level 5 BMI (Body Mass Index) 37.7 kg/m2 11/18/2016 9:22am Height 63 inches 5'3" Weight 211.00 lb Heart Rate 73 /min BP Systolic 128 mmHg BP Diastolic 76 mmHg Body Temperature 97.0 F Pain Level 7 BMI (Body Mass Index) 37.4 kg/m2 02/02/2004 2:00pm Height 63 inches 5'3" Weight 188.00 lb Heart Rate 60 /min BP Systolic Sitting 140 mmHg BP Diastolic Sitting 84 mmHg BP Systolic Standing 146 mmHg BP Diastolic Standing 90 mmHg O2 % BldC Oximetry 98 % BMI (Body Mass Index) 33.3 kg/m2 12/03/2003 8:50am Height 63 inches Weight 172.00 lb Heart Rate 70 /min BP Systolic Sitting 134 mmHg BP Diastolic Sitting 90 mmHg BP Systolic Standing 136 mmHg BP Diastolic Standing 94 mmHg BMI (Body Mass Index) 30.5 kg/m2 Results Test Date Facility Test Result H/L Range Note Laboratory test 04/21/2017 [facility] Alpha 1 137 mg/dL N 100 - [address] [address] [phone] Anti Nuclear Antibody 0.3 U N 2 Anca Panel For 04/21/2017 [facility] Myeloperoxidase AB < 0.2 U N 3 Vasculitis [address] [place] [address] [phone] Proteinase 3 AB < 0.2 U N 4 Laboratory test 04/21/2017 [facility] Immunoglobulin E 6.6 kU/L N <=[address] [facility] ([place] [place] [address] [phone] [facility] [place] 04/21/2017 [facility] Alternaria tenuis <0.35 N [address] IgE Allergen kU/[place] [address] [phone] Cat Epithelium Allergen IgE <0.35 kU/L N 7 Cladosporium herbarum IgE <0.35 kU/L N 8 Dermatophagoides farinae IgE <0.35 kU/L N 9 Dog Dander Allergen IgE <0.35 kU/L N 10 [place] Blue (November) Grass IgE <0.35 kU/L N 11 [place] Allergen IgE <0.35 kU/L N 12 Marshall Allergen IgE <0.35 kU/L N 13 Common Ragweed (Short) Allerge <0.35 kU/L N 14 Shay Grass Allergen IgE <0.35 kU/L N 15 Hypersensitivity 04/21/2017 [facility] Aspergillus 32.9 N <= 102 [address] fumigatus IgG mg/[place] [address] Ab [phone] Thermoactinomyces vulgaris IgG 22.9 mg/L N <=23.9 17 Micropolyspora faeni IgG Ab <2.0 N 18 CBC Auto Diff 04/21/2017 [facility] White Blood 7.0 10^3/uL N 3.5-10.[address] [place] [address] [phone] Red Blood Count 4.67 10^6/uL N 4.0-5.4 Hemoglobin 13.2 g/dL N 12.0-16.0 Hematocrit 39 % N 35-47 Mean Corpuscular Volume 84 fL N 80-97 Mean Corpuscular Hemoglobin 28 pg N 27-31 Mean Corpuscular HGB Conc 34 g/dL N 31-36 Red Cell Distribution Width 14 % N 10.5-15 Platelet Count 223 10^3/uL N 150-450 Mean Platelet Volume 9 um3 N 7.4-10.4 Abs Neutrophils 4.6 10^3/uL N 1.5-7.7 Abs Lymphocytes 1.5 10^3/uL N 1.0-4.8 Abs Monocytes 0.6 10^3/uL N 0-0.8 Abs Eosinophils 0.2 10^3/uL N 0-0.6 Abs Basophils 0.1 10^3/uL N 0-0.2 Abs Nucleated RBC 0 10^3/uL N Granulocyte % 66.6 % N 38-83 Lymphocyte % 21.3 % Low 25-47 Monocyte % 8.0 % N 1-9 Eosinophil % 3.2 % N 0-6 Basophil % 0.9 % N 0-2 Nucleated Red Blood Cells % 0 N CBC Auto Diff 02/06/2017 [facility] White Blood 7.9 10^3/uL N 3.5-10.[address] [place] [address] [phone] Red Blood Count 4.87 10^6/uL N 4.0-5.4 Hemoglobin 14.0 g/dL N 12.0-16.0 Hematocrit 41 % N 35-47 Mean Corpuscular Volume 85 fL N 80-97 Mean Corpuscular Hemoglobin 29 pg N 27-31 Mean Corpuscular HGB Conc 34 g/dL N 31-36 Red Cell Distribution Width 14 % N 10.5-15 Platelet Count 211 10^3/uL N 150-450 Mean Platelet Volume 10 um3 N 7.4-10.4 Abs Neutrophils 5.8 10^3/uL N 1.5-7.7 Abs Lymphocytes 1.4 10^3/uL N 1.0-4.8 Abs Monocytes 0.6 10^3/uL N 0-0.8 Abs Eosinophils 0.1 10^3/uL N 0-0.6 Abs Basophils 0.1 10^3/uL N 0-0.2 Abs Nucleated RBC 0 10^3/uL N Granulocyte % 73.2 % N 38-83 Lymphocyte % 17.2 % Low 25-47 Monocyte % 7.2 % N 1-9 Eosinophil % 1.5 % N 0-6 Basophil % 0.9 % N 0-2 Nucleated Red Blood Cells % 0.1 N Laboratory test 02/06/2017 [facility] C Reactive 9.55 mg/L High < 5.00 19 finding [address] [place] [address] [phone] Erythrocyte Sed Rate 17 mm/Hr N 0-30 1 Test Performed by: [facility] - [address] [address] 2 REFERENCE VALUE <=1.0 (Negative) Test Performed by: [facility] - [address] [address] 3 REFERENCE VALUE <0.4 (Negative) 4 REFERENCE VALUE <0.4 (Negative) Test Performed by: [facility] - [address] [address] 5 Test Performed by: [facility] - [facility] [address] [facility] [place] [address] 6 Class 0 (Negative <0.35) 7 Class 0 (Negative <0.35) 8 Class 0 (Negative <0.35) 9 Class 0 (Negative <0.35) Test Performed by: [facility] - [facility] [address] [facility] [place] [address] 10 Class 0 (Negative <0.35) 11 Class 0 (Negative <0.35) 12 Class 0 (Negative <0.35) 13 Class 0 (Negative <0.35) 14 Class 0 (Negative <0.35) 15 Class 0 (Negative <0.35) 16 ADDITIONAL INFORMATION This test was developed and its performance characteristics determined by [facility] in a manner consistent with CLIA requirements. This test has not been cleared or approved by the U.S. Food and Drug Administration. Test Performed by: [facility] - [address] [address] 17 ADDITIONAL INFORMATION This test was developed using an analyte specific reagent. Its performance characteristics were determined by [facility] in a manner consistent with CLIA requirements. This test has not been cleared or approved by the U.S. Food and Drug Administration. Test Performed by: [facility] - [address] [address] 18 TEST RESULT UNITS REF RANGE Micropolyspora faeni, IgG <2.0 mg/L <=13.2 This test was developed using an analyte specific reagent. Its performance characteristics were determined by [facility] in a manner consistent with CLIA requirements. This test has not been cleared or approved by the U.S. Food and Drug Administration. Test Performed by: [facility] - [address] [address] 19 Acute inflammation: >10.00 Procedures Date Code Description Status 12/06/2017 29801 Gauntlet Cast Application Completed 12/01/201732089 Inject/Drain Joint/Bursa Major W/O US Completed 11/24/2017 Inject/Drain Joint/Bursa Major W/O US Completed 11/17/2017 Inject/Drain Joint/Bursa Major W/O US Completed 11/06/2017 70597 Gauntlet Cast Application Completed 03/23/2017 99087 Diffusing Capacity Completed 03/23/2017 37322 Plethysmography Determination Lung Volumes & Per Airway Completed Resist 03/23/2017 27699 Spirometry Incl Graphic Record Completed 01/23/201792872 Inject/Drain Joint/Bursa Major W/O US Completed 12/26/2016 Inject/Drain Joint/Bursa Major W/O US Completed 12/26/201630724 Inject/Drain Joint/Bursa Major W/O US Completed 12/20/2016 88728 Arthroscopy,Knee,Meniscectomy Medial Or Lateral Completed 12/20/2016 96434 Arthroscopy,Knee,Meniscectomy Medial Or Lateral Completed 12/20/2016 45083 Arthroscopy,Knee,Meniscectomy Medial Or Lateral Completed 02/02/2004 61123 EKG Tracing & Interpretation Completed 12/03/2003 98675 EKG Tracing & Interpretation Completed 09/04/2003 61175 EKG, Interpretation Only Completed Encounters Type Date Location Provider Dx Diagnosis Office Visit 12/18/2017 [facility] Marily Seth MD R05 Cough 8:30a Services Of [employer] J45.909 Unspecified asthma, uncomplicated E66.09 Other obesity due to excess calories Office Visit 10/23/2017 2:15p Orthopedic Services Jorgito Bishop5.561 Pain in right Of C.M.A. M.D. knee M25.461 Effusion, right knee M17.11 Unilateral primary osteoarthritis, right knee S83.241S Oth tear of medial meniscus, current injury, r knee, sequela M25.561 Pain in right knee Office Visit 07/21/2017 2:15p [facility] Services Yamilet Stroud M25.561 Pain in right Of C.M.A. M.D. knee M25.561 Pain in right knee M25.461 Effusion, right knee M25.461 Effusion, right knee M17.11 Unilateral primary osteoarthritis, right knee M17.11 Unilateral primary osteoarthritis, right knee S83.241D Oth tear of medial meniscus, current injury, r knee, subs S83.241S Oth tear of medial meniscus, current injury, r knee, sequela Office Visit 07/05/2017 11:15a Orthopedic Services Yamilet Stroud, M25.561 Pain in right Of C.M.A. M.D. 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 knee M25.561 Pain in right knee S83.241A Oth tear of medial meniscus, current injury, r knee, init M25.461 Effusion, right knee M17.11 Unilateral primary osteoarthritis, right knee M17.11 Unilateral primary osteoarthritis, right knee S83.241A Oth tear of medial meniscus, current injury, r knee, init Office Visit 02/02/2004 2:00p [facility] Ty Hobson 786.50 Pain Bina Camara M.D. Unspec 416.9 Pulmonary Heart Disease Unspec Chronic Office Visit 12/03/2003 8:40a [facility] Ty Hobson 786.59 Pain Chest Mckay Camara Other 401.1 Hypertension Benign 493.90 Asthma Unspec W/O Status Asthmaticus Plan of Treatment 09/14/2018 - Kathleen Hackett, [facility]-CS63.502D Unspecified sprain of left wrist, subsequent encounterFollow up:Follow up: As needed
--- OUTSIDE RECORDS SUMMARY | 2018-09-15 07:11 | XMS REPORT | Continuity of Care Document ---
:1955 External Reference #:[id number] Author Name Tamanna Guzman Care Team Providers Name Role Phone Leni Rodriguez MD Primary Care Physician Unavailable Payers Date Identification Numbers Payment Provider Subscriber Expires: 2018 Policy Number: [id number] [facility] Endy Schmidt Group Name: [facility] [address] PayID: [id number] [place] [address] Onset: 2016 Policy Number: [id number] [facility] Nga Schmidt Group Number: [id number] [address] Group Name: ) [phone] [place] [address] PayID: [id number] Expires: 2016 Policy Number: [id number] [facility] [employer], [facility] Endy Schmidt Group Number: [id number] PayID: [id number] [place] [phone] Onset: 2017 Policy Number: [id number] [facility] [employer] Bozena Ngajanet Schmidt Group Number: [id number] Group Name: [phone] [place] [address] PayID: [id number] Effective: 2016 Policy Number: [id number] [facility] Ngacrystal Schmidt Expires: 2017 Group Number: [id number] [address] Onset: 2016 Group Name: [id number] [place] [address] PayID: [id number] Policy Number: [id number] [employer] Nga Brayan PayID: [id number] Advance Directives Description No Information Available Problems [...] : (age 29 Paternal Grandfather due to [place] Years) Maternal Grandfather due to Ulcer () Social History Type Date Description Comments Sex Unknown Marital Status Lives With Spouse 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 Tobacco Use Start: Unknown Never Smoked Cigarettes Smoking Status Reviewed: 08/27/18 Never Smoked Cigarettes ETOH Use Denies alcohol [...] Active sleep disruption 11/18/2016 Singulair Active 12/18/2017 [facility] Active Severe fatigue Medications Medication Date Status Form Strength Qnty SIG Indications Ordering Provider Tony 12/18 Active 2 puffs qd MD Dorinda Norvasjv Active Tablets 5mg 1 by mouth Unknown /0000 every day Lipitor Active Tablets 20mg one tab by Unknown /0000 mouth every night at bedtime Calcium + D Active 2 qd Unknown /0000 Doxycycline Active Capsules 100mg one tablet Unknown Hyclate /0000 once daily for 20 days. Fluticasone Active Suspension 50mcg/Act 2 sprays Unknown Propionate /0000 each nostril daily as needed Ventolin HFA Active Aerosol 108(90Bas 1unit 2 puffs by Marily /0000 e) s mouth four isaias Seth/Act times a day as needed Levothyroxine Active [...] Min Up To , 11/17 3 Doses M.D. Total. Replace Q 6 Months Aspirin 12/02 Hx Tablets 325mg 30tab 2 po q6h prn s pain F. - Mauser, 11/17 M.D. Singulair 12/01 Hx Tablets 10mg 30tab One qd At hs s F. - Mauser, 11/17 M.D. Combivent 12/01 Hx Aerosol 18mcg;103 2 puffs q4h Inhalation mcg/Actua prn F. - ti Mauser, 11/17 [...] - each nostril 05/25 once a day Medications Administered in Office Medication Date Status Form Strength Qnty SIG Indications Ordering Provider Synvisc Or Administered Injection Yamilet Synvisc-One Aziza Storud M.D. Injection 1 MG Depomedrol Administered Injection Yamilet 40MG Namrata Stroud M.D. No Injection Administered Injection Azeem F 017 MD Johnny Immunizations Description No Information Available Vital Signs Date Vital Result Comment 08/27/2018 10:13am Height 63 inches 5'3" Weight [...] Result H/L Range Note Laboratory test 04/21/2017 [facility] Alpha 1 137 mg/dL N 100 - 190 [address] [place] [address] [phone] Anti Nuclear Antibody 0.3 U N 2 Anca Panel For 04/21/2017 [facility] Myeloperoxidase AB < 0.2 U N [address] [place] [address] [phone] Proteinase 3 AB < 0.2 U N 4 Laboratory test 04/21/2017 [facility] Immunoglobulin E 6.6 kU/L N <=214 [address] (Ige) [place] [address] [phone] [facility] [place] 04/21/2017 [facility] Alternaria tenuis <0.35 N [address] IgE Allergen kU/[place] [address] [phone] Cat Epithelium Allergen IgE <0.35 kU/L N 7 Cladosporium herbarum IgE <0.35 kU/L N 8 Dermatophagoides farinae IgE <0.35 kU/L N 9 Dog Dander Allergen IgE <0.35 kU/L N 10 [facility] Blue (November) Grass IgE <0.35 kU/L N 11 [place] Allergen IgE <0.35 kU/L N 12 [place] Allergen IgE <0.35 kU/L N 13 Common Ragweed (Short) Allerge <0.35 kU/L N 14 Shay Grass Allergen IgE <0.35 kU/L N 15 Hypersensitivity 04/21/2017 [facility] Aspergillus 32.9 N <= 102 [address] fumigatus IgG mg/[place] [address] Ab [phone] Thermoactinomyces vulgaris IgG 22.9 mg/L N <=23.9 17 Micropolyspora faeni IgG Ab <2.0 N 18 CBC Auto Diff 04/21/2017 [facility] White Blood 7.0 10^3/uL N 3.5-10.[address] [place] [address] [phone] Red Blood Count 4.67 10^6/uL N 4.0-5.4 [...] % 0 N CBC Auto Diff 02/06/2017 [facility] White Blood 7.9 10^3/uL N 3.5-10.[address] [place] [address] [phone] Red Blood Count 4.87 10^6/uL N 4.0-5.4 [...] Cells % 0.1 N Laboratory test 02/06/2017 [facility] C Reactive 9.55 mg/L High < 5.00 [address] [place] [address] [phone] Erythrocyte Sed Rate 17 mm/Hr N 0-30 1 Test Performed by: [facility] [employer] - [address] [address] 2 REFERENCE VALUE <=1.0 (Negative) Test Performed by: [facility] - [address] [address] 3 REFERENCE VALUE <0.4 (Negative) 4 REFERENCE VALUE <0.4 (Negative) Test Performed by: [facility] - [address] [address] 5 Test Performed by: [facility] - [facility] [address] [place] [address] 6 Class 0 (Negative <0.35) 7 Class 0 (Negative <0.35) 8 Class 0 (Negative <0.35) 9 Class 0 (Negative <0.35) Test Performed by: [facility] - [facility] [address] [place] [address] 10 Class 0 (Negative <0.35) 11 Class 0 (Negative <0.35) 12 Class 0 (Negative <0.35) 13 Class 0 (Negative <0.35) 14 Class 0 (Negative <0.35) 15 Class 0 (Negative <0.35) 16 ADDITIONAL INFORMATION This test was developed and its performance characteristics determined by [facility] in a manner consistent with CLIA requirements. This test has not been cleared or approved by the U.S. Food and Drug Administration. Test Performed by: [facility] - [address] [address] 17 ADDITIONAL INFORMATION This test was developed using an analyte specific reagent. Its performance characteristics were determined by [facility] in a manner consistent with CLIA requirements. This test has not been cleared or approved by the U.S. Food and Drug Administration. Test Performed by: [facility] - [address] [address] 18 TEST RESULT UNITS REF RANGE Micropolyspora faeni, IgG <2.0 mg/L <=13.2 This test was developed using an analyte specific reagent. Its performance characteristics were determined by [facility] in a manner consistent with CLIA requirements. This test has not been cleared or approved by the U.S. Food and Drug Administration. Test Performed by: [address] [address] 19 Acute inflammation: >10.00 Procedures Date Code Description Status 12/06/2017 38516 Gauntlet Cast Application Completed 12/01/201794869 Inject/Drain Joint/Bursa Major W/O US Completed 11/24/201767065 Inject/Drain Joint/Bursa Major W/O US Completed 11/17/201734121 Inject/Drain Joint/Bursa Major W/O US Completed 11/06/2017 03270 Gauntlet Cast Application Completed 03/23/2017 77093 Diffusing Capacity Completed 03/23/2017 19145 Plethysmography Determination Lung Volumes & Per Airway Completed Resist 03/23/2017 62517 Spirometry Incl Graphic Record Completed 01/23/201780089 Inject/Drain Joint/Bursa Major W/O US Completed 12/26/201648790 Inject/Drain Joint/Bursa Major W/O US Completed 12/26/2016 Inject/Drain Joint/Bursa Major W/O US Completed 12/20/2016 36549 Arthroscopy,Knee,Meniscectomy Medial Or Lateral Completed 12/20/2016 02875 Arthroscopy,Knee,Meniscectomy Medial Or Lateral Completed 12/20/2016 41531 Arthroscopy,Knee,Meniscectomy Medial Or Lateral Completed 02/02/2004 44568 EKG Tracing & Interpretation Completed 12/03/2003 84800 EKG Tracing & Interpretation Completed 09/04/2003 06551 EKG, Interpretation Only Completed Encounters Type Date Location Provider Dx Diagnosis Office Visit 12/18/2017 [facility] Marily Seth MD R05 Cough 8:30a Services Of Aprn J45.909 Unspecified asthma, uncomplicated E66.09 Other obesity due to excess calories Office Visit 10/23/2017 2:15p [facility] Yamilet Stroud, M25.561 Pain in right Of C.M.A. M.D. knee M25.461 Effusion, right knee M17.11 Unilateral primary osteoarthritis, right knee S83.241S Oth tear of medial meniscus, current injury, r knee, sequela M25.561 Pain in right knee Office Visit 07/21/2017 2:15p [facility] Yamilet Stroud, M25.561 Pain in [...] sequela Office Visit 07/05/2017 11:15a [facility] Jorgito Bishop5.561 Pain in right Of C.M.A. M.D. knee M25.461 Effusion, right knee M17.11 Unilateral primary osteoarthritis, right knee S83.241D Oth tear of medial meniscus, current injury, r knee, subs Office Visit 2017 [facility] And Marily J45.909 Unspecified asthma , 1:45p Sleep Services Of MD Dorinda uncomplicated Aprn Z68.39 Body mass index (BMI) 39.0-39.9, adult Office Visit 04/21/2017 [facility] Marily J45.901 Unspecified asthma 10:15a [facility] MD Dorinda with (acute) Aprn exacerbation E66.09 Other obesity due to excess [...] r knee, init Office Visit 02/02/2004 2:00p [facility] Ty Hobson 786.50 Pain Bina Camara M.D. Unspec 416.9 Pulmonary Heart Disease Unspec Chronic Office Visit 12/03/2003 8:40a [facility] Ty Hobson 786.59 Pain Bina Camara M.D. Other 401.1 Hypertension Benign 493.90 Asthma Unspec W/O Status Asthmaticus Plan of Treatment Future Appointment(s):09/14/2018 2:30 pm - PATTI AbbottC at [facility]08/27/2018 - Kathleen Hackett RPA-[id number] Unspecified sprain of left wrist, initial hwbfxtwvvM32.01xA Contusion of right knee, initial encounter
--- OUTSIDE RECORDS SUMMARY | 2018-09-15 07:12 | XMS REPORT | Continuity of Care Document ---
:1955 External Reference #:[id number] Author Name Tamanna Guzman Care Team Providers Name Role Phone Leni Rodriguez MD Primary Care Physician Unavailable Payers Date Identification Numbers Payment Provider Subscriber Expires: 2018 Policy Number: [id number] [facility] Endy Schmidt Group Name: [facility] [address] PayID: [id number] [place] [address] Onset: 2016 Policy Number: [id number] [facility] Nga Schmidt Group Number: [id number] [address] Group Name: ) [phone] [place] [address] PayID: [id number] Expires: 2016 Policy Number: [id number] [facility] [employer], [facility] Endy Schmidt Group Number: [id number] PayID: [id number] [place] [phone] Onset: 2017 Policy Number: [id number] [facility] [employer] Bozena Ngajanet Schmidt Group Number: [id number] Group Name: [phone] [place] [address] PayID: [id number] Effective: 2016 Policy Number: [id number] TSTWC Ngacrystal Schmidt Expires: 2017 Group Number: [id number] [address] Onset: 2016 Group Name: [id number] [place] [address] PayID: [id number] Policy Number: [id number] [employer] Nga Brayan PayID: [id number] Advance Directives Description No Information Available Problems [...] : (age 29 Paternal Grandfather due to [place] Years) Maternal Grandfather due to Ulcer () Social History Type Date Description Comments Sex Unknown Marital Status 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 Injection 1 MG Depomedrol Administered Injection [...] Result H/L Range Note Laboratory test 04/21/2017 [facility] Alpha 1 137 mg/dL N 100 - 190 [address] Antitry[place] A1[place] [address] [phone] Anti Nuclear Antibody 0.3 U N 2 Anca Panel For 04/21/2017 [facility] Myeloperoxidase AB < 0.2 U N [address] [place] [address] [phone] Proteinase 3 AB < 0.2 U N 4 Laboratory test 04/21/2017 [facility] Immunoglobulin E 6.6 kU/L N <=214 [address] (Ige) [place] [address] [phone] [facility] [place] 04/21/2017 [facility] Alternaria tenuis <0.35 N [address] IgE Allergen kU/[place] [address] [phone] Cat Epithelium Allergen IgE <0.35 kU/L N 7 Cladosporium herbarum IgE <0.35 kU/L N 8 Dermatophagoides farinae IgE <0.35 kU/L N 9 Dog Dander Allergen IgE <0.35 kU/L N 10 [facility] Blue (November) Grass IgE <0.35 kU/L N 11 [place] Allergen IgE <0.35 kU/L N 12 [place] Allergen IgE <0.35 kU/L N 13 Common Ragweed (Short) Allerge <0.35 kU/L N 14 Shay Grass Allergen IgE <0.35 kU/L N 15 Hypersensitivity 04/21/2017 [facility] Aspergillus 32.9 N <= 102 [address] fumigatus IgG mg/[place] [address] Ab [phone] Thermoactinomyces vulgaris IgG 22.9 mg/L N <=23.9 17 Micropolyspora faeni IgG Ab <2.0 N 18 CBC Auto Diff 04/21/2017 [facility] White Blood 7.0 10^3/uL N 3.5-10.[address] [place] [address] [phone] Red Blood Count 4.67 10^6/uL N 4.0-5.4 [...] % 0 N CBC Auto Diff 02/06/2017 [facility] White Blood 7.9 10^3/uL N 3.5-10.[address] [place] [address] [phone] Red Blood Count 4.87 10^6/uL N 4.0-5.4 [...] Cells % 0.1 N Laboratory test 02/06/2017 [facility] C Reactive 9.55 mg/L High < 5.00 [address] [place] [address] [phone] Erythrocyte Sed Rate 17 mm/Hr N 0-30 1 Test Performed by: [facility] - [address] [address] 2 REFERENCE VALUE <=1.0 (Negative) Test Performed by: [facility] - [address] [address] 3 REFERENCE VALUE <0.4 (Negative) 4 REFERENCE VALUE <0.4 (Negative) Test Performed by: [facility] - [address] [address] 5 Test Performed by: [facility] - [facility] [address] [place] [address] 6 Class 0 (Negative <0.35) 7 Class 0 (Negative <0.35) 8 Class 0 (Negative <0.35) 9 Class 0 (Negative <0.35) Test Performed by: [facility] - [facility] [address] [place] [address] 10 Class 0 (Negative <0.35) 11 Class 0 (Negative <0.35) 12 Class 0 (Negative <0.35) 13 Class 0 (Negative <0.35) 14 Class 0 (Negative <0.35) 15 Class 0 (Negative <0.35) 16 ADDITIONAL INFORMATION This test was developed and its performance characteristics determined by [facility] in a manner consistent with CLIA requirements. This test has not been cleared or approved by the U.S. Food and Drug Administration. Test Performed by: [facility] - [address] [address] 17 ADDITIONAL INFORMATION This test was developed using an analyte specific reagent. Its performance characteristics were determined by [facility] in a manner consistent with CLIA requirements. This test has not been cleared or approved by the U.S. Food and Drug Administration. Test Performed by: [facility] - [address] [address] 18 TEST RESULT UNITS REF RANGE Micropolyspora faeni, IgG <2.0 mg/L <=13.2 This test was developed using an analyte specific reagent. Its performance characteristics were determined by [facility] in a manner consistent with CLIA requirements. This test has not been cleared or approved by the U.S. Food and Drug Administration. Test Performed by: [address] [address] Acute inflammation: >10.00 Procedures Date Code Description Status 12/06/2017 73784 Gauntlet Cast Application Completed 12/01/201711128 Inject/Drain Joint/Bursa Major W/O US Completed 11/24/201771949 Inject/Drain Joint/Bursa Major W/O US Completed 11/17/201773972 Inject/Drain Joint/Bursa Major W/O US Completed 11/06/2017 36389 Gauntlet Cast Application Completed 03/23/2017 02556 Diffusing Capacity Completed 03/23/2017 34264 Plethysmography Determination Lung Volumes & Per Airway Completed Resist 03/23/2017 58033 Spirometry Incl Graphic Record Completed 01/23/201711531 Inject/Drain Joint/Bursa Major W/O US Completed 12/26/201699840 Inject/Drain Joint/Bursa Major W/O US Completed 12/26/2016 Inject/Drain Joint/Bursa Major W/O US Completed 12/20/2016 60921 Arthroscopy,Knee,Meniscectomy Medial Or Lateral Completed 12/20/2016 59566 Arthroscopy,Knee,Meniscectomy Medial Or Lateral Completed 12/20/2016 32175 Arthroscopy,Knee,Meniscectomy Medial Or Lateral Completed 02/02/2004 78597 EKG Tracing & Interpretation Completed 12/03/2003 82604 EKG Tracing & Interpretation Completed 09/04/2003 74394 EKG, Interpretation Only Completed Encounters Type Date Location Provider Dx Diagnosis Office Visit 12/18/2017 [facility] Marily Seth MD R05 Cough 8:30a Services [facility] 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 Unspec 416.9 Pulmonary Heart Disease Unspec Chronic Office Visit 12/03/2003 8:40a [facility] Ty Hobson 786.59 Pain Bina Camara M.D. Other 401.1 Hypertension Benign 493.90 Asthma Unspec W/O Status Asthmaticus Plan of Treatment Future Appointment(s):09/14/2018 2:30 pm - PATTI AbbottC at [facility]08/27/2018 - Kathleen Hackett RPA-CS63.502A Unspecified sprain of left wrist, initial dedoihirtD94.01xA Contusion of right knee, initial encounter
[2018-09-15 07:25] VITALS: BP 145/80
--- NOTE | 2018-09-15 07:57 | UC ---
General HPI - HPI Summary HPI Summary: Patient presents to urgent care with her . Patient is a 63-year-old female with a history of hypertension and high cholesterol. Patient states the last 3-4 days she's had a sore throat. Patient with some sinus congestion and discomfort. Patient's is here with similar symptoms. Patient has not been coughing does not feel short of breath and does not have a wheeze. Patient has not taken any [id number] medication for this. In conversation , patient states she's had 3 episodes of the last 6 days of chest heaviness and pressure. Patient states central chest area. No radiation. No shortness of breath, nausea or diaphoresis with this. Patient states she thought it was her asthma although she was not short of breath, wheezing or have a cough. Pain is not reproducible or worse with movement. Patient did not use her inhaler or her nebulizer because she wasn't short of breath. Last episode was last evening. Patient states she was sitting watching TV when it happened. Episode lasted approximately 5-10 minutes. Patient without history of similar. Patient 's sister and parents have extensive cardiac history. Patient does not smoke. Patient had a negative stress test and echo in 2003. Patient does not take aspirin because it affects her asthma. Patient's medications reviewed this visit. - History of Current Complaint Chief Complaint: UCGeneralIllness Stated Complaint: URI Time Seen by Provider: 09/15/18 07:26 Hx Obtained From: Patient, Medical Records - cath 2003 Hx Last Menstrual Period: menapause Onset Severity: Mild Current Severity: None Pain Intensity: 0 - Allergy/Home Medications Allergies/Adverse Reactions: Allergies Allergy/AdvReac Type Severity Reaction Status Date / Time benzonatate Allergy GI Upset Verified 09/15/18 07:18 celecoxib [From Celebrex] Allergy Difficulty Verified 09/15/18 07:18 Breathing codeine Allergy Difficulty Verified 09/15/18 07:18 Breathing montelukast [From Singulair] Allergy Difficulty Verified 09/15/18 07:18 Breathing morphine Allergy Difficulty Verified 09/15/18 07:18 Breathing naproxen [From Aleve] Allergy Difficulty Verified 09/15/18 07:18 Breathing NSAIDS (Non-Steroidal Allergy Difficulty Verified 09/15/18 07:18 Anti-Inflamma Breathing oxycodone [From Percocet] Allergy Difficulty Verified 09/15/18 07:18 Breathing propoxyphene [From Darvon] Allergy Vomiting Verified 09/15/18 07:18 adhesives Allergy Blisters Uncoded 09/15/18 07:18 SEASONAL Allergy Eyes Uncoded 09/15/18 07:18 Itchy/Swollen/Red/Watery Home Medications: Home Medications Levothyroxine TAB* [Synthroid TAB*] 50 mcg PO DAILY 09/15/18 [History Confirmed 09/15/18] PMH/Surg Hx/FS Hx/Imm Hx Previously Healthy: Yes Endocrine History: Dyslipidemia Cardiovascular History: Hypertension Respiratory History: Asthma - Surgical History Surgical History: Yes Surgery Procedure, Year, and Place: Partial hysterectomy,. plantar fasciitis, tendon right ankle, left elbow, lump removed from left breast, benign. FESS, DEVIATED SEPTUM REPAIR. Tubes in both ears. rt knee miniscus repair - Family History Known Family History: Positive: Cardiac Disease, Hypertension, Diabetes - Social History Alcohol Use: None Substance Use Type: None Smoking Status (MU): Never Smoked Tobacco - Immunization History Most Recent Influenza Vaccination: 02/2016 Most Recent Tetanus Shot: utd Most Recent Pneumonia Vaccination: October 2016 Vaccination Up to Date: Yes Review of Systems All Other Systems Reviewed And Are Negative: Yes Constitutional: Positive: Fatigue ENT: Positive: Sore Throat, Sinus Congestion. Negative: Ear Ache Respiratory: Negative: Shortness Of Breath, Cough Cardiovascular: Positive: Chest Pain - last evening Is Patient Immunocompromised?: No Physical Exam - Summary Physical Exam Summary: Vital Signs Reviewed: Yes A+Ox3, no distress Eyes: Conjunctiva Clear, MAKENNA. EOM intact and full ENT: Hearing grossly normal TM x 2 clear, turbinates mildly boggy, mild PND, max sinus discomfort, mmoist, uvula midline, no exudate, no erythema Neck: Positive: Supple Respiratory: Positive: No respiratory distress, No accessory muscle use + CTA throughout no w/r Cardiovascular: RRR nl s1, s2 no m/r CBT <2 sec no reproducible abd soft + BS nt/nd no guarding, no distension Musculoskeletal Exam: HERNÁNDEZ x 4 without difficulty Strength Intact, ROM Intact Neurological: Positive: Alert, + sensation throughout Psychological: Positive: Normal Response To Family Skin: Positive: no rash, no ecchymosis Triage Information Reviewed: Yes Vital Signs: Initial Vital Signs Temp 97.4 F 09/15/18 07:20 Pulse 63 03/23/19 07:20 Resp 18 09/15/18 07:20 BP 145/80 09/15/18 07:20 Pulse Ox 96 09/15/18 07:20 Course/Dx - Course Course Of Treatment: Patient presents to urgent care reporting sore throat for 3-4 days sinus congestion postnasal drip. Patient is not taken any medication treat this. Additionally, however, patient states she's been having episodes of chest pressure. Patient states of the squeezing sensation. Patient points to her central chest area. Last episode was last evening and lasted less than 10 minutes. No radiation shortness of breath nausea or diaphoresis with this. Patient does have cardiac risk factors including hypertension hyperlipidemia and strong family history. She does not smoke. Patient does not take aspirin. Patient's last stress test and cardiac catheterization was in 2003. Patient does not have known cardiac disease. These episodes of chest pressure have been at rest and preceded her head congestion symptoms. EKG is normal sinus without any acute ST-T wave changes when compared to a previous. Recommend patient to emergency department for further evaluation and will likely include chest x-ray troponin. Patient and in agreement with plan. Okay for patient to go by private vehicle. Calls emergency department and spoke to [place], charge nurse, who is aware patient coming. - Diagnoses Provider Diagnosis: Upper respiratory infection, H/O chest pain at rest Discharge - Sign-Out/Discharge Documenting (check all that apply): Patient Departure All imaging exams completed and their final reports reviewed: No - Discharge Plan Condition: Stable Disposition: HOME-RECOMMEND TO ED Patient Education Materials: Chest Pain (ED), Upper Respiratory Infection (ED) Referrals: Lnei Rodriguez MD [Primary Care Provider] - Additional Instructions: The doctor that evaluated you today thinks that you need additional testing that can be completed the emergency department. It is recommended that you go directly to emergency department for further evaluation. This evaluation may include blood work or imaging. This testing will be directed and decided by the provider that evaluate you at the emergency department. If pain becomes worse, you feel lightheaded, you have uncontrolled vomiting, or you have any other concerns while you are being driven to emergency department as recommended to pullover and contact 911. - Billing Disposition and Condition Condition: STABLE Disposition: Home-Recommend to ED
--- NOTE | 2018-09-15 10:23 | UC ---
Course/Dx - Diagnoses Provider Diagnoses: Upper respiratory infection, H/O chest pain at rest Discharge - Sign-Out/Discharge Documenting (check all that apply): Post-Discharge Follow Up All imaging exams completed and their final reports reviewed: No Studies - Discharge Plan Condition: Stable Disposition: HOME-RECOMMEND TO ED Patient Education Materials: Chest Pain (ED), Upper Respiratory Infection (ED) Referrals: Leni Rodriguez MD [Primary Care Provider] - Additional Instructions: The doctor that evaluated you today thinks that you need additional testing that can be completed the emergency department. It is recommended that you go directly to emergency department for further evaluation. This evaluation may include blood work or imaging. This testing will be directed and decided by the provider that evaluate you at the emergency department. If pain becomes worse, you feel lightheaded, you have uncontrolled vomiting, or you have any other concerns while you are being driven to emergency department as recommended to pullover and contact 911. - Billing Disposition and Condition Condition: STABLE Disposition: Home-Recommend to ED
== END 2018-09-15 07:55 | disposition home health service (06) ==
LOC: UCEAST 07:06
DX: J06.9 Acute upper respiratory infection, unspecified (principal); I10 Essential (primary) hypertension; E78.00 Pure hypercholesterolemia, unspecified; J45.909 Unspecified asthma, uncomplicated; Z91.09 Other allergy status, other than to drugs and biological substances; Z88.5 Allergy status to narcotic agent; Z88.8 Allergy status to other drugs, medicaments and biological substances; Z86.79 Personal history of other diseases of the circulatory system
CPT/HCPCS: 93005; 99212; G0463

== ENCOUNTER 2018-09-15 08:12 | Emergency (ER) | payer OTHER ==
--- NOTE | 2018-09-15 08:42 | ED ---
HPI Chest Pain - HPI Summary HPI Summary: The patient is a 63 y/o F presenting to [facility] from [facility] with a chief complaint of one episode of mid-sternal CP that last for five minutes last night. She reports that she was sitting on her couch when the pain suddenly started and resolved itself without any use of medication. The pain is described as a pressure, and is currently rated 0/10 in severity. She additionally c/o sinus discomfort, which is why she was at [facility]. She denies abd pain. Her last stress test was in 2003. Hx of HTN and HLD, no hx of DM. She takes Levothyroxine, and medications for HTN and HLD. Extensive list of allergies including NSAIDs. No hx of OR or blood clots. Nonsmoker, no EtOH, no substance use. Knee surgery two years ago. - History of Current Complaint Chief Complaint: EDChestPainROMI Time Seen by Provider: 09/15/18 08:21 Hx Obtained From: Patient Hx Last Menstrual Period: menapause Onset/Duration: Started Hours Ago - last night, Resolved Timing: Lasting Minutes - five Initial Severity: Mild Current Severity: None Pain Intensity: 0 Pain Scale Used: 0-10 Numeric Chest Pain Location: Mid Sternal Chest Pain Radiates: No Character: Pressure/Squeezing Aggravating Factor(s): Nothing Alleviating Factor(s): Nothing Associated Signs and Symptoms: Positive: Sinus Discomfrot. Negative: Abdominal Pain - Allergy/Home Medications Allergies/Adverse Reactions: Allergies Allergy/AdvReac Type Severity Reaction Status Date / Time benzonatate Allergy GI Upset Verified 09/15/18 08:19 celecoxib [From Celebrex] Allergy Difficulty Verified 09/15/18 08:19 Breathing codeine Allergy Difficulty Verified 09/15/18 08:19 Breathing montelukast [From Singulair] Allergy Difficulty Verified 09/15/18 08:19 Breathing morphine Allergy Difficulty Verified 09/15/18 08:19 Breathing naproxen [From Aleve] Allergy Difficulty Verified 09/15/18 08:19 Breathing NSAIDS (Non-Steroidal Allergy Difficulty Verified 09/15/18 08:19 Anti-Inflamma Breathing oxycodone [From Percocet] Allergy Difficulty Verified 09/15/18 08:19 Breathing propoxyphene [From Darvon] Allergy Vomiting Verified 09/15/18 08:19 adhesives Allergy Blisters Uncoded 09/15/18 08:19 SEASONAL Allergy Eyes Uncoded 09/15/18 08:19 Itchy/Swollen/Red/Watery PMH/Surg Hx/FS Hx/Imm Hx Endocrine/Hematology History: Reports: Hx Thyroid Disease Denies: Hx Diabetes Cardiovascular History: Reports: Hx Hypertension Denies: Hx Pacemaker/ICD Respiratory History: Reports: Hx Asthma Denies: Hx Chronic Obstructive Pulmonary Disease (COPD) GI History: Denies: Hx Ulcer History: Denies: Hx Renal Disease Musculoskeletal History: Reports: Hx Arthritis - right hip, right knee, Hx Bursitis - right hip, Other Musculoskeletal History - right ankle, chronically swollen, from ligament detach r/t injury 2006? Sensory History: Reports: Hx Contacts or Glasses - reading Denies: Hx Hearing Aid Opthamlomology History: Reports: Hx Contacts or Glasses - reading Psychiatric History: Denies: Hx Panic Disorder - Cancer History Cancer Type, Location and Year: denies - Surgical History Surgery Procedure, Year, and Place: Partial hysterectomy,. plantar fasciitis, tendon right ankle, left elbow, lump removed from left breast, benign. FESS, DEVIATED SEPTUM REPAIR. Tubes in both ears. rt knee miniscus repair Hx Anesthesia Reactions: No Infectious Disease History: No Infectious Disease History: Reports: Hx Shingles Denies: Hx Clostridium Difficile, Hx Hepatitis, Hx Human Immunodeficiency Virus (HIV), Hx of Known/Suspected MRSA, Hx Tuberculosis, Hx Known/Suspected VRE , Hx Known/Suspected VRSA, History Other Infectious Disease, Traveled Outside the [place] in Last 30 Days - Family History Known Family History: Positive: Cardiac Disease, Hypertension, Diabetes - Social History Alcohol Use: None Hx Substance Use: No Substance Use Type: Reports: None Hx Tobacco Use: No Smoking Status (MU): Never Smoked Tobacco Review of Systems Positive: Other - sinus discomfort Positive: Chest Pain - one episode of pressure last night that lasted for 5 minutes but resolved in the mid-sternal area Negative: Abdominal Pain All Other Systems Reviewed And Are Negative: Yes Physical Exam - Summary Physical Exam Summary: GENERAL: Patient is a well-developed and nourished female who is lying comfortable in the stretcher. Patient is not in any acute respiratory distress. HEAD AND FACE: Normocephalic EYES: PERRLA, EOMI x 2. EARS: Hearing grossly intact. MOUTH: Oropharynx within normal limits. NECK: Supple, trachea is midline, no adenopathy, no JVD, no carotid bruit. CHEST: Symmetric, no tenderness at palpation LUNGS: Clear to auscultation bilaterally. No wheezing or crackles. CVS: Regular rate and rhythm, S1 and S2 present, no murmurs or gallops appreciated. ABDOMEN: Soft, non-tender. Bowel sounds are normal. No abdominal abnormal pulsations. EXTREMITIES: Full ROM in all major joints, no edema, no cyanosis or clubbing. NEURO: Alert and oriented x 3. No acute neurological deficits. Speech is normal and follows commands. SKIN: Dry and warm Triage Information Reviewed: Yes Vital Signs On Initial Exam: Initial Vitals Temp Pulse Resp BP Pulse Ox 97.1 F 62 16 146/90 98 09/15/18 08:15 09/15/18 08:15 09/15/18 08:15 09/15/18 08:15 09/15/18 08:15 Vital Signs Reviewed: Yes Diagnostics - Vital Signs Vital Signs Temp Pulse Resp BP Pulse Ox 09/15/18 08:15 97.1 F 62 16 146/90 98 - Laboratory Result Diagrams: 09/15/18 08:38 09/15/18 08:38 Lab Statement: Any lab studies that have been ordered have been reviewed, and results considered in the medical decision making process. - Radiology CXR Radiology Interpretation Completed By: Radiologist Summary of Radiographic Findings: Low lung volumes. No active cardiopulmonary disease. ED physician has reviewed this report. - CT Chest/Thorax CTA CT Interpretation Completed By: Radiologist Summary of CT Findings: No pulmonary arterial filling defect to suggest pulmonary embolism. Coronary artery disease. ED physician has reviewed this report. - EKG 08:40 Cardiac Rate: Bradycardia - 54 BPM EKG Rhythm: Sinus Bradycardia Summary of EKG Findings: LVH. 11:51 Cardiac Rate: Bradycardia - 45 BPM EKG Rhythm: Sinus Bradycardia EKG Comparison: No Significant Change - Similar to 09/15/18 at 0840 Summary of EKG Findings: LVH. Re-Evaluation - Re-Evaluation First Eval Re-Evaluation Time: 11:07 Change: Unchanged Comment: She is not experiencing any chest pain. We discussed results thus far. Second Eval Re-Evaluation Time: 11:55 Change: Unchanged Comment: We discussed return to the ED after discharge for any change in symptoms. Chest Pain Course/Dx - Course Course Of Treatment: The patient is a 63 y/o F with a chief complaint of one episode of mid-sternal CP that last for five minutes last night but has resolved without persistence into today. Upon physical exam, there are no acute abnormalities. In the ED course, the patient was administered Ns and Plavix. Blood work reveals elevated D-Dimer of 301, first troponin of 0.0, and second troponin of 0.1. EKG reveals sinus bradycardia at 54 BPM with LVH. Second EKG is similar to first with sinus bradycardia at 45 BPM with LVH. CXR reveals low lung volumes but is otherwise normal. Chest/Thorax CTA with IV contrast reveals no evidence of PE, but the patient exhibits CAD. I spoke with Dr. Daniel, hospitalist, at 10:40 concerning setting up a stress test for the patient as an outpatient. She is diagnosed with chest pain. The patient will be discharged home. I discussed results with patient, and she reports feeling better. She is hemodynamically stable and safe for discharge. Strict return precautions given and she will otherwise follow up with his/her PCP. She will also follow up with [facility] at [facility] [place] for a stress test. - Diagnoses Provider Diagnoses: Chest pain - Provider Notifications Discussed Care Of Patient With: Gisselle Daniel - hospitalist Time Discussed With Above Provider: 10:40 Instructed by Provider To: Other - I consulted with Dr. Daniel concerning setting up a stress test. Discharge - Sign-Out/Discharge Documenting (check all that apply): Patient Departure - Patient will be discharged home. Patient Received Moderate/Deep Sedation with Procedure: No - Discharge Plan Condition: Stable Disposition: HOME Patient Education Materials: Chest Pain (ED) Referrals: Scheduling, [facility] [Other] - 2 Days (Please call [facility] who will direct you to make your appointment for your stress test.) Leni Rodriguez MD [Primary Care Provider] - 2 Days Additional Instructions: Please call [facility] on Monday, September 17, 2018, to make your appointment for your stress test. Follow up with your primary care physician in 1-3 days. RETURN TO THE EMERGENCY DEPARTMENT FOR CHANGING OR WORSENING SYMPTOMS - Billing Disposition and Condition Condition: STABLE Disposition: Home - Attestation Statements Document Initiated by Scribe: Yes Documenting Scribe: Laine Stanley Provider For Whom Scribe is Documenting (Include Credential): Dr. Marina Perez MD Scribe Attestation: I, Laine Stanley, scribed for Dr. Marina Perez MD on 09/15/18 at 1755. Scribe Documentation Reviewed: Yes Provider Attestation: The documentation as recorded by the scribe, Laine Stanley accurately reflects the service I personally performed and the decisions made by me, Dr. Marina Perez MD Status of Scribe Document: Viewed
[2018-09-15 08:50] LABS: ABS Basophils 0.1 10^3/ul (0-0.2); ABS Eosinophils 0.2 10^3/ul (0-0.6); ABS Lymphocytes 1.3 10^3/ul (1.0-4.8); ABS Monocytes 0.5 10^3/ul (0-0.8); ABS Neutrophils 3.6 10^3/ul (1.5-7.7); ABS Nucleated RBC 0 10^3/ul; Eosinophil % 2.7 %; Hematocrit 42 % (33-41); Mean Corpuscular HGB Conc 33 g/dL (31-36); Mean Corpuscular Hemoglobin 28 pg (27-31); Mean Corpuscular Volume 83 fL (80-97); Mean Platelet Volume 8.9 fL (7.4-10.4); Nucleated Red Blood Cells % 0; Platelet Count 208 10^3/uL (150-450); Red Blood Count 5.05 10^6 /uL (3.70-4.87); Red Cell Distribution Width 14 % (10.5-15); White Blood Count 5.7 10^3/uL (3.5-10.8)
[2018-09-15 08:58] LABS: Activated Partial Thrombo Time 34.9 seconds (26.0-36.3); INR 0.96 (0.77-1.02)
[2018-09-15 09:06] LABS: Albumin 4.3 g/dL (3.2-5.2); Albumin/Globulin Ratio 1.4 (1-3); BUN/Creatinine Ratio 19.2 (8-20); Calcium 9.3 mg/dL (8.6-10.3); EGFR African American 97.1 (>60); EGFR Non-African American 80.3 (>60); Magnesium 2.2 mg/dL (1.9-2.7); Potassium 3.7 mmol/L (3.5-5.0); Total Protein 7.3 g/dL (6.4-8.9)
[2018-09-15] MEDS ORDERED: NS 0.9% 1000 ML** 1,000 ML IV ONE (09:29)
[2018-09-15] MEDS ORDERED: Iohexol 350* (CONTRAST) 500 ML MDV IV ONE (09:49)
[2018-09-15] MEDS ORDERED: Clopidogrel TAB* 75 MG PO ONE (11:47)
[2018-09-15 13:18] VITALS: BP 164/89
== END 2018-09-15 13:16 | disposition home or self-care (01) ==
LOC: ED 08:12
DX: R07.2 Precordial pain (principal); J34.89 Other specified disorders of nose and nasal sinuses; I25.10 Atherosclerotic heart disease of native coronary artery without angina pectoris; I10 Essential (primary) hypertension; E78.6 Lipoprotein deficiency; Z88.6 Allergy status to analgesic agent; Z88.5 Allergy status to narcotic agent; Z88.8 Allergy status to other drugs, medicaments and biological substances; Z91.048 Other nonmedicinal substance allergy status; Z82.49 Family history of ischemic heart disease and other diseases of the circulatory system; Z83.3 Family history of diabetes mellitus
CPT/HCPCS: 36415; 71045; 71275; 80053; 83605; 83735; 83880; 84484; 85025; 85379; 85610; 85730; 93005; 99283; A9270-GY; Q9967

== ENCOUNTER 2018-09-26 19:24 | Emergency (ER) | payer OTHER ==
[2018-09-26 19:50] VITALS: BP 150/94
--- NOTE | 2018-09-26 20:33 | UC ---
Throat Pain/Nasal Harris HPI - HPI Summary HPI Summary: 63 y/o female presents to the urgent care c/o sinus congestion w/ yellowish nasal discharge and moderate PND w/ a dry cough for the past 2 weeks. Pt reports Hx of recurrent sinusitis. She has tried OTC medication w/o any improvement. Now sinus pain is 5/10 associated w/ mild low grade fever. Pt denies SOB, wheezing , chest pain, abdominal pain, N/V/D. She has taking Tylenol PO today to alleviate symptoms. Last dose taking was this morning. - History of Current Complaint Chief Complaint: UCRespiratory Stated Complaint: SORE THROAT, AND SINUS CONGESTION Time Seen by Provider: 09/26/18 20:31 Hx Obtained From: Patient Hx Last Menstrual Period: menapause ?: No Onset/Duration: Gradual Onset, Lasting Weeks - 2 weeks, Still Present, Worse Since - 3 days Severity: Moderate Pain Intensity: 4 - sinus pain Pain Scale Used: 0-10 Numeric Cough: Nonproductive Associated Signs & Symptoms: Positive: Sinus Discomfort, Nasal Discharge - yellowish. Negative: Dysphagia, Wheezing, Fever - Allergies/Home Medications Allergies/Adverse Reactions: Allergies Allergy/AdvReac Type Severity Reaction Status Date / Time benzonatate Allergy GI Upset Verified 09/26/18 19:50 celecoxib [From Celebrex] Allergy Difficulty Verified 09/26/18 19:50 Breathing codeine Allergy Difficulty Verified 09/26/18 19:50 Breathing montelukast [From Singulair] Allergy Difficulty Verified 09/26/18 19:50 Breathing morphine Allergy Difficulty Verified 09/26/18 19:50 Breathing naproxen [From Aleve] Allergy Difficulty Verified 09/26/18 19:50 Breathing NSAIDS (Non-Steroidal Allergy Difficulty Verified 09/26/18 19:50 Anti-Inflamma Breathing oxycodone [From Percocet] Allergy Difficulty Verified 09/26/18 19:50 Breathing propoxyphene [From Darvon] Allergy Vomiting Verified 09/26/18 19:50 adhesives Allergy Blisters Uncoded 09/15/18 08:19 SEASONAL Allergy Eyes Uncoded 09/15/18 08:19 Itchy/Swollen/Red/Watery PMH/Surg Hx/FS Hx/Imm Hx Previously Healthy: Yes Endocrine History: Hypothyroidism, Dyslipidemia Cardiovascular History: Hypertension - Surgical History Surgical History: Yes Surgery Procedure, Year, and Place: Partial hysterectomy,. plantar fasciitis, tendon right ankle, left elbow, lump removed from left breast, benign. FESS, DEVIATED SEPTUM REPAIR. Tubes in both ears. rt knee miniscus repair - Family History Known Family History: Positive: Cardiac Disease, Hypertension, Diabetes - Social History Alcohol Use: None Substance Use Type: None Smoking Status (MU): Never Smoked Tobacco Household Exposure Type: Cigarettes - Immunization History Most Recent Influenza Vaccination: 02/2016 Most Recent Tetanus Shot: utd Most Recent Pneumonia Vaccination: October 2016 Vaccination Up to Date: Yes Review of Systems All Other Systems Reviewed And Are Negative: Yes Constitutional: Positive: Negative Skin: Positive: Negative ENT: Positive: Sore Throat - mild, Nasal Discharge - yellowish, Sinus Congestion , Sinus Pain/Tenderness, Other - PND Respiratory: Positive: Cough - dry Cardiovascular: Positive: Negative Gastrointestinal: Positive: Negative Genitourinary: Positive: Negative Motor: Positive: Negative Neurovascular: Positive: Negative Musculoskeletal: Positive: Negative Neurological: Positive: Headache Psychological: Positive: Negative Is Patient Immunocompromised?: No Physical Exam - Summary Physical Exam Summary: Vitals: reviewed General: Well developed, well-nourished obese female patient with NAD. Head and face: Normocephalic and atraumatic, Positive tenderness over the frontal and maxillary sinuses.. Eyes: PERRLA, EOMI x 2. Normal conjunctiva. No eye discharge. ENT: Ears and TM with normal limits. Nose: edematous and erythematous nasal mucosa with with yellowish discharge and erythematous mucosa. Pharynx with erythema, no exudate. +PND moderate and yellowish Neck: Supple, no JVD, no carotid bruits and no lymphadenopathy. Lungs: clear, no rales, no rhonchi, no wheezes. CVS: RRR, S1 and S2 present no murmurs or gallops appreciated. Abdomen: soft nontender with positive bowel sounds. Extremities: no edema noted. Neuro: WNL. Skin: warm and dry Triage Information Reviewed: Yes Vital Signs: Initial Vital Signs Temp 100.1 F 09/26/18 19:46 Pulse 83 09/26/18 19:46 Resp 16 09/26/18 19:46 BP 150/94 09/26/18 19:46 Pulse Ox 97 09/26/18 19:46 Throat Pain/Nasal Course/Dx - Course Course Of Treatment: 63 y/o female presents to the urgent care c/o sinus congestion w/ yellowish nasal discharge and moderate PND w/ a dry cough for the past 2 weeks. Pt reports Hx of recurrent sinusitis. She has tried OTC medication w/o any improvement. Now sinus pain is 5/10 associated w/ mild low grade fever. Pt denies SOB, wheezing , chest pain, abdominal pain, N/V/D. She has taking Tylenol PO today to alleviate symptoms. Last dose taking was this morning. Hx obtained. Pt with 2 weeks of symptoms getting worse. Pt Rx Amoxicillin PO and flonase nasal spray. First dose given at the clinic today. Pt's BP is elevated today advised to decrease salt in diet, monitor BP and f/u with PCP for further management. Discharge instructions explained to Pt. Advised to Return to the clinic or PCP if symptoms do not improve.Pt understood and agreed with plan of care. - Differential Dx/Diagnosis Differential Diagnosis/HQI/PQRI: Influenza, Pharyngitis, Sinusitis, URI, Other - bronchitis Provider Diagnosis: Uncontrolled hypertension, Acute bacterial sinusitis Discharge - Sign-Out/Discharge Documenting (check all that apply): Patient Departure - d/c home All imaging exams completed and their final reports reviewed: No Studies - Discharge Plan Condition: Stable Disposition: HOME Prescriptions: Amoxicillin PO (*) [Amoxicillin 875 MG (*)] 875 mg PO BID #19 tab Fluticasone NASAL SPRAY 50MCG* [Flonase NASAL SPRAY 50MCG*] 2 spray BOTH NARES DAILY #1 btl Patient Education Materials: Sinusitis (ED), Low-Sodium Diet (ED) Referrals: Leni Rodriguez MD [Primary Care Provider] - 3 Days Additional Instructions: 1- Please increase fluid intake and rest. take full course of antibiotic to avoid resistance 2-Use Flonase nasal spray as directed to help drain fluid. Also buy saline drops to clear sinuses 3-Return to the clinic or PCP if symptoms do not improve for further management and treatment 4- Continue taking Tylenol PO q6-8hrs prn to alleviate pain and fever. Increase fluid intake, rest and eat well. 4-Your BP is elevated today. Please take your BP medications and decrease salt in your diet, monitor BP and if it continues to be elevated please f/u with your PCP for further management. If you develop chest pain, dizziness, visual disturbances, SOB, or severe QUINTERO please go immediately to the ER for further management - Billing Disposition and Condition Condition: STABLE Disposition: Home
[2018-09-26] MEDS: Amoxicillin PO (*) 500 MG CAP PO ONE (20:49)
[2018-09-26] MEDS: Acetaminophen TAB* 325 MG PO ONE (20:49)
== END 2018-09-26 21:00 | disposition home or self-care (01) ==
LOC: UCEAST 19:24
DX: I10 Essential (primary) hypertension (principal); J01.90 Acute sinusitis, unspecified; B96.89 Other specified bacterial agents as the cause of diseases classified elsewhere
CPT/HCPCS: 99212; A9270-GY; G0463

== ENCOUNTER 2019-01-21 17:35 | Emergency (ER) | payer OTHER ==
[2019-01-21 17:49] VITALS: BP 159/96
[2019-01-21] MEDS ORDERED: Meclizine TAB* 12.5 MG PO ONE (18:05)
--- NOTE | 2019-01-21 18:26 | UC ---
UC General HPI - HPI Summary HPI Summary: Patient 63-year-old female with a history of hypertension and high cholesterol who had a right total knee replacement 3 weeks ago a [place] NSAIDs. Patient states today after her physical therapy she started to feel slightly dizzy. Patient states she felt like the room was spinning improved when she closed it. Patient with some mild nausea but no vomiting. Patient was able to eat and drink. Patient without any other complaints. No chest pain or shortness of breath. No abdominal pain. No headache. No vision changes. No paresthesias. No arm or leg weakness. Patient states her surgical wound looks clean. No fevers no chills no rashes. Patient without history of similar. Patient states she did notice when she looked quickly from [id number] the dizziness was worse. Patient states she went to dinner and the nausea has been resolved but she still little dizzy so she thought she should get checked. Patient did not contact her primary care or her surgeon today as she was on hold for a long time and then hung up. Patient's medications reviewed this visit. - History of Current Complaint Chief Complaint: UCGeneralIllness Stated Complaint: NAUSEA, AND LIGHT HEADED FEELING Time Seen by Provider: 01/21/19 17:50 Hx Obtained From: Patient Hx Last Menstrual Period: menapause Onset/Duration: Gradual Onset, Lasting Hours Onset Severity: Mild Current Severity: Mild Pain Intensity: 2 - Allergy/Home Medications Allergies/Adverse Reactions: Allergies Allergy/AdvReac Type Severity Reaction Status Date / Time benzonatate Allergy GI Upset Verified 01/21/19 17:52 celecoxib [From Celebrex] Allergy Difficulty Verified 01/21/19 17:52 Breathing codeine Allergy Difficulty Verified 01/21/19 17:52 Breathing montelukast [From Singulair] Allergy Difficulty Verified 01/21/19 17:52 Breathing morphine Allergy Difficulty Verified 01/21/19 17:52 Breathing naproxen [From Aleve] Allergy Difficulty Verified 01/21/19 17:52 Breathing NSAIDS (Non-Steroidal Allergy Difficulty Verified 01/21/19 17:52 Anti-Inflamma Breathing oxycodone [From Percocet] Allergy Difficulty Verified 01/21/19 17:52 Breathing propoxyphene [From Darvon] Allergy Vomiting Verified 01/21/19 17:52 adhesives Allergy Blisters Uncoded 01/21/19 17:52 SEASONAL Allergy Eyes Uncoded 01/21/19 17:52 Itchy/Swollen/Red/Watery Home Medications: Home Medications Tramadol HCl 100 mg PO Q12HR PRN 01/21/19 [History Confirmed 01/21/19] PMH/Surg Hx/FS Hx/Imm Hx Previously Healthy: Yes - neg stress test 08/2018 Endocrine History: Dyslipidemia Cardiovascular History: Hypertension - Surgical History Surgical History: Yes Surgery Procedure, Year, and Place: Partial hysterectomy,. plantar fasciitis, tendon right ankle, left elbow, lump removed from left breast, benign. FESS, DEVIATED SEPTUM REPAIR. Tubes in both ears. rt knee miniscus repair. R knee replacement December 2018 - Family History Known Family History: Positive: Cardiac Disease, Hypertension, Diabetes, Non- Contributory - Social History Lives: With Family Alcohol Use: None Substance Use Type: None Smoking Status (MU): Never Smoked Tobacco Household Exposure Type: Cigarettes - Immunization History Most Recent Influenza Vaccination: 02/2016 Most Recent Tetanus Shot: utd Most Recent Pneumonia Vaccination: October 2016 Vaccination Up to Date: Yes Review of Systems All Other Systems Reviewed And Are Negative: Yes Constitutional: Positive: Negative Skin: Positive: Other - right knee surgical wound Eyes: Positive: Negative ENT: Positive: Negative Motor: Positive: Other - right knee post op Neurological: Positive: Other - room spinning Psychological: Positive: Negative Is Patient Immunocompromised?: No Physical Exam - Summary Physical Exam Summary: Vital Signs Reviewed: Yes A+Ox3, no distress, pleasamt Eyes: Conjunctiva Clear, MAKENNA. EOM intact and full, + horizontal nystagmus extinguishing 3 beat to the right ENT: Hearing grossly normal TM x 2 clear, mmoist, uvula midline, no exudate, no erythema Neck: Positive: Supple Respiratory: Positive: No respiratory distress, No accessory muscle use + CTA throughout no w/r Cardiovascular: RRR nl s1, s2 no m/r CBT <2 sec, no bruits abd soft + BS nt/nd no guarding, no distension Musculoskeletal Exam: HERNÁNDEZ x 4 without difficulty Strength Intact, ROM Intact Neurological: Positive: Alert, CN2-12 eval, horizontal to right extinguishing, full AROM upper ext x 4 + FNF + heel [place] Psychological: Positive: Normal Response To examiner Skin: Positive: no rash, no ecchymosis CN 2-12 intact and full + FNF b/l + heel/[place] b/l 5/5 abduction, flex/ext elbow, wrist against resistant 5/5 SLE, flex/ext knee, ankle + great toe extension + gross sensation throughout Triage Information Reviewed: Yes Vital Signs: Initial Vital Signs Temp 99.0 F 01/21/19 17:40 Pulse 59 01/21/19 17:40 Resp 18 01/21/19 17:40 BP 159/96 01/21/19 17:40 Pulse Ox 98 01/21/19 17:40 Re-Evaluation - Re-Evaluation First Eval Change: Improved - Patient states her dizziness completely resolved. Nauseous. Review resolved. Drinking water feeling good requesting to go home. Patient also with UTI. We'll send a prescription for antibiotics as well as meclizine. Hydrate. Follow up with PCP. Strict return precautions. Comfortable in agreement with plan. Course/Dx - Course Course Of Treatment: Patient presents to urgent care reporting that since this morning she's been feeling dizzy. Patient states started for physical therapy. Patient states it' s worse when she looks around and better when she closes her eyes. Patient with mild nausea or vomiting. Patient has no other complaints. No chest pain shortness of breath fevers chills rashes weakness paresthesias. On exam vital signs are stable. Patient does have 3 beat horizontal nystagmus establish his right. Patient otherwise with a non-concerning exam. No bruits. Patient with negative stress test in spring. We'll give meclizine and check a urine. Patient comfortable and agreement with plan. If pt doesn't improve, will send to ED for further eval pt and so comfortable and in agreement with plan - Diagnoses Provider Diagnosis: UTI (urinary tract infection), Vertigo Discharge - Sign-Out/Discharge Documenting (check all that apply): Patient Departure All imaging exams completed and their final reports reviewed: No Studies - Discharge Plan Condition: Stable Disposition: HOME Prescriptions: Meclizine TAB* [Antivert 12.5 TAB*] 25 mg PO Q8HR #15 tab Nitrofurantoin Monohyd/M-Cryst [Macrobid 100 mg Capsule] 100 mg PO BID #14 cap Patient Education Materials: Urinary Tract Infection in Women (DC), Vertigo (ED ) Referrals: Leni Rodriguez MD [Primary Care Provider] - Additional Instructions: - stay well hydrated. Drink plenty of non-alcoholic, non-caffinated beverages -SLOWLY change position from lying to sitting, sitting to standing - take meclizine every 8 hours as needed for dizziness - take antibioitc as prescirbed for your bladder infection - your urine has been sent for additional testing - if you need a different antibiotic you will receive a call from a care retail sales teammate - Contact your doctor tomorrow to schedule a follow-up appointment this week If your symptoms worsen or you develop any new symptoms (chest pain, shortness of breath, abdominal pain, vomiting, weakness, numbness, or anything else) go immediately to the emergency department for further testing and evaluation - Billing Disposition and Condition Condition: STABLE Disposition: Home
== END 2019-01-21 19:05 | disposition home or self-care (01) ==
LOC: UCEAST 17:35
DX: R42 Dizziness and giddiness (principal); N39.0 Urinary tract infection, site not specified; I10 Essential (primary) hypertension; E78.5 Hyperlipidemia, unspecified; Z88.5 Allergy status to narcotic agent
CPT/HCPCS: 81002; 87086; 99212; A9270-GY; G0463

== ENCOUNTER 2019-02-12 07:13 | Emergency (ER) | payer OTHER ==
--- OUTSIDE RECORDS SUMMARY | 2019-02-12 07:18 | XMS REPORT | Summary of Care ---
:1955 Author Organization [facility] Address [address] [facility] [place] [address] Care Team Providers Name Role Phone Leni Rodriguez MD Primary Care Provider Reason for Visit Reason Comments Constipation w/ loss of appetite and nausea for 2 weeks. pt has used MOM, stool softeners, and suppositories but nothing has worked Encounter Details Date Type Department Care Team Description 02/08/2019 Office Visit [facility] [place], [place], Constipation, unspecified constipation type (Primary Dx); Practice PA-C [place] [address] [place] [address] [place] [address] [phone] Allergies Active Allergy Reactions Severity Noted Date Comments Naproxen Sodium Respiratory Reaction 06/05/2006 Bactrim Other 08/24/2011 headaches Benzonatate Respiratory Reaction 06/05/2006 Celecoxib Respiratory Reaction 06/05/2006 Codeine Respiratory Reaction 12/08/2008 Propoxyphene Napsylate Respiratory Reaction 06/05/2006 Ibuprofen Anaphylaxis 05/29/2013 Morphine Respiratory Reaction 06/05/2006 Opioid Analgesics Respiratory Reaction 06/05/2006 Oxycodone-Acetaminophen Respiratory Reaction 09/11/2015 Asthma flared up Singulair Other 06/05/2006 SLEEPING AND UPSET STOMACH Tape: Silk Or Adhesive Dermatologic Reaction 06/05/2006 BLISTERS documented as of this encounter (statuses as of 02/08/2019) Medications Medication Sig Dispensed Refills Start Date End Date Status CALCIUM 500 + D DAILY. 0 Active 500-125 MG-UNIT PO TABS Acetaminophen Take by mouth. 0 Active (TYLENOL) 325 MG Oral Cap albuterol 3 mL by 360 mg 0 12/26/2017 Active (PROVENTIL, Inhalation-SVN VENTOLIN) (2.5 route EVERY FOUR MG/3ML) 0.083% HOURS NEEDED Inhalation Nebu Soln (asthma symptoms). albuterol HFA Take 2 Puffs by 1 Inhaler 5 01/01/2018 Active (VENTOLIN) 108 (90 inhalation EVERY Base) MCG/ACT FOUR HOURS Inhalation Aero NEEDED (SOB). SolnIndications: Asthma levothyroxine Take 1 Tab by 90 Tab 3 08/23/2018 Active (SYNTHROID) 50 MCG mouth BEFORE Oral TabIndications: BREAKFAST. Hypothyroidism, unspecified type Azelastine HCl 137 INSTILL 2 SPRAYS 30 mL 5 11/12/2018 Active MCG/SPRAY Nasal INTO EACH NOSTRIL Solution TWICE A DAY atorvastatin TAKE 1 TABLET BY 90 Tab 3 11/14/2018 Active (LIPITOR) 20 MG Oral MOUTH EVERY DAY TabIndications: Mixed hyperlipidemia amLodipine (NORVASC) TAKE 1 TABLET BY 30 Tab 11 12/11/2018 Active 5 MG Oral MOUTH EVERY DAY TabIndications: Essential hypertension enoxaparin (LOVENOX) Inject 0.3 mL 24 Syringe 0 12/20/2018 Active 30 MG/0.3ML beneath the skin Subcutaneous EVERY TWELVE Solution HOURS. ondansetron (ZOFRAN) Take 4 mg by 20 Tab 0 01/03/2019 Active 4 MG Oral Tab mouth EVERY EIGHT HOURS NEEDED (nausea/vomitting ). sennosides (SENOKOT) Take 1 Tab by 14 Tab 0 01/05/2019 Active 8.6 MG Oral Tab mouth DAILY. bisacodyl (DULCOLAX) Place 1 7 Suppository 0 01/05/2019 Active 10 MG Rectal Suppos Suppository per rectum DAILY NEEDED (constipation). tramadol (ULTRAM) 50 Take 2 Tabs by 60 Tab 0 01/18/2019 Active MG Oral Tab mouth EVERY SIX HOURS NEEDED (ongoing pain management from hospital). Max Daily Amount: 400 mg. meclizine (ANTIVERT) Take 25 mg by 0 Active 25 MG Oral Tab mouth THREE TIMES DAILY NEEDED. documented as of this encounter (statuses as of 02/08/2019) Active Problems Problem Noted Date Primary osteoarthritis of right knee 10/09/2018 Overview: Added automatically from request for surgery [id number] Acute pain of left shoulder 09/07/2017 Tear of left rotator cuff 09/07/2017 Age related osteoporosis 01/25/2017 Overview: dxa 2017 - Osteopenia - Weight bearing exercise Patellofemoral stress syndrome of right knee 11/07/2016 Essential hypertension 07/31/2015 Mild intermittent asthma without complication 07/31/2015 Lateral epicondylitis of left elbow 07/22/2015 Asthma 12/25/2014 Lipid disorder 12/25/2014 Polyp of colon 12/25/2014 Overview: 2013 last- Needs 2017 Ankle sprain 11/06/2014 H/O: hysterectomy 05/29/2013 BMI 35.0-35.9,adult 05/29/2013 Overview: This patient's BMI has been calculated and is above average, and BMI management plan is completed. General patient education discussion including: weight loss link to reduction of risk factors for cardiac and other diseases Allergic rhinitis 06/12/2007 Overview: Sinus surgery - in the past- documented as of this encounter (statuses as of 02/08/2019) Immunizations Name Administration Dates Next Due Depo Medrol (40mg) 09/13/2011, 09/01/2010 Influenza (IM) Preservative Free 04/01/2017, 03/22/2016, 03/27/2015, 03/25/2014, 03/28/2013, 03/19/2012, 03/22/2011, 03/05/2010 Influenza Vaccine Whole 04/08/2008, 05/16/2007, 04/09/2007 PNEUMOCOCCAL POLYSACCHARIDE VACCINE 11/22/2016 TDAP Vaccine 03/22/2011 ZOSTER (ZOSTAVAX) VACCINE 12/25/2014 documented as of this encounter Social History Tobacco Use Types Packs/Day Years Used Date Never Smoker Smokeless Tobacco: Never Used Alcohol Use Drinks/Week oz/Week Comments No 0 Standard drinks or equivalent 0.0 Sex Assigned at Date Recorded Not on file Job Start Date Occupation Industry Not on file Not on file Not on file Travel History Travel Start Travel End No recent travel history available. documented as of this encounter Last Filed Vital Signs Vital Sign Reading Time Taken Comments Blood Pressure 110/80 02/08/2019 7:05 AM EDT Pulse 66 02/08/2019 7:05 AM EDT Temperature 37.1 02/08/2019 7:05 AM EDT C (98.8 F) Respiratory Rate - - Oxygen Saturation 98% 02/08/2019 7:05 AM EDT Inhaled Oxygen Concentration - - Weight 86.6 kg (191 lb) 02/08/2019 7:05 AM EDT Height 160 cm (5' 3") 02/08/2019 7:05 AM EDT Body Mass Index 33.83 02/08/2019 7:05 AM EDT documented in this encounter Patient Instructions Patient InstructionsMarielos Blum PA-C - 02/08/2019 7:00 AM EDTRecommend 1 dose of MOM, if no movement in 2 hrs, take another dose Push water, continue with stool softener Liquid diet today -- broth, jello, gatoriad, chicken noodle soup Advance to soft diet tomorrow Avoid nuts, bananas, rice If constipation continues and pain increases, go to ER, patient says she understands documented in this encounter Progress Notes Marielos Blum PA-C - 02/08/2019 7:00 AM EDT PATIENT: Nga Schmidt : 1955 DATE OF SERVICE: 02/08/2019 REFERRING PRACTITIONER: Humberto PRIMARY CARE PROVIDER: Leni Rodriguez CHIEF COMPLAINT: Chief Complaint Patient presents with Constipation w/ loss of appetite and nausea for 2 weeks. pt has used MOM, stool softeners, and suppositories but nothing has worked Subjective HISTORY OF PRESENT ILLNESS: Nga Schmidt is a 63-y.o. female who presents with constipation, loss of appetite, intermittent nausea x 2 weeks Having intermittent lower ab pain Has been taking OTC stool softeners, suppositories -- no relief Took MOM once in hospital -- None since Has been taking Zoftran for nausea, good relief, but makes her tired Had small BM last night, last one before was 1 week ago Usually drinks good amount of water daily Has been drinking protein shakes Breakfast:frensh toast or waffle, milk Lunch: no much Dinner: protein Coffee: none Alcohol: none 12/31/18 had right total knee arthroplasty, taking tramadol at bedtime for pain Denies fever, chills, vomiting, diarrhea, chest pains, SOB Past Medical History: Diagnosis Date Allergic rhinitis, cause unspecified 06/12/2007 Arthritis ASTHMA UNSPECIFIED 03/14/2007 Calcaneal spur 06/12/2007 Closed fracture dislocation of ankle joint History of breast surgery hx [place]wayne lumpectomy [place]. Migraine, unspecified, without mention of intractable migraine without mention of status migrainosus 06/12/2007 GIBSON (nonalcoholic steatohepatitis) fatty liver on CT 09/05/10 Other and unspecified hyperlipidemia 06/12/2007 Other postprocedural status(V45.89) benign biopsy on lt breast Personal history of colonic polyps 06/12/2007 Plantar fascial fibromatosis 06/12/2007 Polyp of colon 12/25/2014 Postmenopausal Problems with hearing Sciatica 06/12/2007 Unspecified essential hypertension 06/12/2007 Unspecified otitis media Past Surgical History: Procedure Laterality Date BILAT SALPINGO-OOPHORECT 1997 ETHMOIDECTOMY 06.16.06 bilateral anterior OTHER AND UNSPECIFIED HYSTERECTOMY 1997 WI EXCISION TURBINATE 06.16.06 WI FOOT/TOES SURGERY PROC UNLISTED WI INCISION OF FOOT/TOE FASCIA 1.29.01 plantar left foot WI MASTECTOMY, PARTIAL 1997 left breast WI RAD EXCIS PLANTAR FASCIA 1.29.01 left heel WI SUTURE 1 NERVE ULNAR MOTOR Left 08/14/2015 Procedure: LEFT LATERAL EPICONDYLAR EXPLORATION & DEBRIDEMENT, RADIOCAPITELLAR ARTHROTOMY; Surgeon: Laura Guillen MD; Location: [facility] MAIN OR [place] TOTAL KNEE ARTHROPLASTY Right 12/31/2018 Procedure: ARTHROPLASTY TOTAL KNEE GENDER SPECIFIC right; Surgeon: Rell Arnett MD; Location: [facility] MAIN OR WI UPPER ARM/ELBOW SURGERY UNLISTED SEPTOPLASTY NEC 06.16.06 SINUSOTOMY MAX ANTRT INTRANSL 06.16.06 bilateral SINUSOTOMY NOS TENDON, FLEX, REPAIR ADVANCE elbow Family History Problem Relation Age of Onset Diabetes Mother Heart Mother Lung Cancer Mother Non-Applicable Mother hiatal hernia Heart Disease Mother Cancer Mother Non-Applicable Sister hiatal hernia Breast Cancer Maternal Aunt breast Breast Cancer Maternal Grandmother breast Anesth Problems No family history Arthritis No family history Hypertension No family history Kidney Disease No family history Thyroid Disease No family history Clotting Disorder No family history Current Outpatient Medications Medication Sig Acetaminophen (TYLENOL) 325 MG Oral Cap Take by mouth. albuterol (PROVENTIL, VENTOLIN) (2.5 MG/3ML) 0.083% Inhalation Nebu Soln 3 mL by Inhalation-SVN route EVERY FOUR HOURS NEEDED (asthma symptoms). albuterol HFA (VENTOLIN) 108 (90 Base) MCG/ACT Inhalation Aero Soln Take 2 Puffs by inhalation EVERY FOUR HOURS NEEDED (SOB). amLodipine (NORVASC) 5 MG Oral Tab TAKE 1 TABLET BY MOUTH EVERY DAY atorvastatin (LIPITOR) 20 MG Oral Tab TAKE 1 TABLET BY MOUTH EVERY DAY Azelastine HCl 137 MCG/SPRAY Nasal Solution INSTILL 2 SPRAYS INTO EACH NOSTRIL TWICE A DAY bisacodyl (DULCOLAX) [address] 1 Suppository per rectum DAILY NEEDED (constipation). CALCIUM 500 + D 500-125 MG-UNIT PO TABS DAILY. enoxaparin (LOVENOX) 30 MG/0.3ML Subcutaneous Solution Inject 0.3 mL beneath the skin EVERY TWELVE HOURS. levothyroxine (SYNTHROID) 50 MCG Oral Tab Take 1 Tab by mouth BEFORE BREAKFAST. meclizine (ANTIVERT) 25 MG Oral Tab Take 25 mg by mouth THREE TIMES DAILY NEEDED. ondansetron (ZOFRAN) 4 MG Oral Tab Take 4 mg by mouth EVERY EIGHT HOURS NEEDED (nausea/vomitting). sennosides (SENOKOT) 8.6 MG Oral Tab Take 1 Tab by mouth DAILY. tramadol (ULTRAM) 50 MG Oral Tab Take 2 Tabs by mouth EVERY SIX HOURS NEEDED (ongoing painmanagement from hospital). Max Daily Amount: 400 mg. No current facility-administered medications for this visit. Allergies Allergen Reactions Aleve [Naproxen Sodium] Respiratory Reaction Bactrim Other headaches Benzonatate Respiratory Reaction Celebrex [Celecoxib] Respiratory Reaction Codeine Respiratory Reaction Darvon-N [Propoxyphene Napsylate] Respiratory Reaction Ibuprofen Anaphylaxis Morphine Respiratory Reaction Opioid Analgesics Respiratory Reaction Percocet [Oxycodone-Acetaminophen] Respiratory Reaction Asthma flared up Singulair Other SLEEPING AND UPSET STOMACH Tape: Silk Or Adhesive Dermatologic Reaction BLISTERS Social History Socioeconomic History Marital status: Spouse name: Not on file Number of children: Not on file Years of education: Not on file Highest education level: Not on file Occupational History Not on file Social Needs Financial resource strain: Not on file Food insecurity: Worry: Not on file Inability: Not on file Transportation needs: Medical: Not on file Non-medical: Not on file Tobacco Use Smoking status: Never Smoker Smokeless tobacco: Never Used Substance and Sexual Activity Alcohol use: No Alcohol/week: 0.0 standard drinks Drug use: No Sexual activity: Not on file Lifestyle Physical activity: Days per week: Not on file Minutes per session: Not on file Stress: Not on file Relationships Social connections: Talks on phone: Not on file Gets together: Not on file Attends mandaen service: Not on file Active member of club or organization: Not on file Attends meetings of clubs or organizations: Not on file Relationship status: Not on file Intimate partner violence: Fear of current or ex partner: Not on file Emotionally abused: Not on file Physically abused: Not on file Forced sexual activity: Not on file Other Topics Concern Back Care Not Asked Bike Helmet Not Asked Blood Transfusions Not Asked Caffeine Concern Not Asked Exercise Yes Comment: walking at work Hobby Hazards Not Asked International Travel Not Asked Service Not Asked Occupational Exposure Not Asked Seat Belt Not Asked Self-Exams Not Asked Sleep Concern No Special Diet No Stress Concern No Weight Concern Yes Comment: max weight 200 lb Social History Narrative Lives with . Works at [employer]. REVIEW OF SYSTEMS: Skin: negative skin lesions Eyes: negative visual blurring Ears/Nose/Throat: negative rhinorrhea or sore throat Respiratory: negative cough. Positive asthma Cardiovascular: negative chest pain Gastrointestinal: negative diarrhea. Positive constipation, nausea, intermittent lower ab pain Genitourinary: negative burning on urination, dysuria or vaginal discharge Musculoskeletal: positive arthritis/joint pain Neurologic: positive migraine Psychiatric: negative anxiety Hematologic/Lymphatic/Immunologic: positive allergies Endocrine: positive hypothyroidism Objective PHYSICAL EXAMINATION: VITALS: BP 110/80 (BP Location: Right arm, Patient Position: Sitting) | Pulse 66 | Temp 98.8 F (37.1 C) | Ht 5' 3" (1.6 m) | Wt 191 lb (86.6 kg) | SpO2 98% | BMI 33.83 kg/m Body mass index is 33.83 kg/m. General appearance - alert, mild distress, cooperative, oriented times 3 Skin - Skin color, texture, turgor normal. No rashes or lesions. Head - Normocephalic. No masses, lesions, tenderness or abnormalities Eyes - conjunctivae/corneas clear. PERRL, EOM's intact. Oropharynx - Lips, mucosa, and tongue normal. Teeth and gums normal. Oropharynx normal. Neck - Neck supple, FROM. No cervical or supraclavicular adenopathy. Thyroid normal, no enlargement Lungs - Good diaphragmatic excursion. Lungs clear. Chest symmetrical. Normal breath sounds. Heart - RRR. No murmurs, clicks or gallops. No peripheral edema. ABDOMEN: soft, non-tender. Reduced bowel sounds. No masses, no organomegaly. IMPRESSION: ICD-9-CM ICD-10-CM 1. Constipation, unspecified constipation type 564.00 K59.00 2. Nausea 787.02 R11.0 Plan PLAN: Recommend 1 dose of MOM, if no movement in 2 hrs, take another dose Push water, continue with stool softener Liquid diet today -- broth, jello, gatoriad, chicken noodle soup Advance to soft diet tomorrow Avoid nuts, bananas, rice If constipation continues and pain increases, go to ER, patient says she understands Author: Marielos Blum PA-C 02/08/2019 07:03 documented in this encounter Plan of Treatment Date Type Specialty Care Team Description 02/12/2019 [place] [address] [place] [address] [phone] 02/26/2019 Office Visit Physical Therapy [place], [facility] [address] [place] [address] [phone] 02/28/2019 Office Visit Physical Therapy [place], [facility] [address] [place] [address] [phone] 03/05/2019 Office Visit Physical Therapy [place], PT [address] [place] [address] 03/19/2019 Office Visit Orthopedics Rell Arnett MD [address] [address] Health Maintenance Due Date Last Done Comments ZOSTER IMMUNIZATION SERIES 02/19/2015 12/25/2014 (2 of 3) MAMMOGRAM (SCREENING) 12/07/2017 12/07/2016, 12/19/2014, 05/31/2013, Additional history exists INFLUENZA VACCINE (#1) 2019 03/08/2018, 04/01/2017, 03/22/2016, Additional history exists LIPID DISORDER SCREENING 11/15/2019 11/14/2018, 11/14/2016, 12/19/2014, Additional history exists DIABETES SCREENING 01/03/2020 01/02/2019, 01/01/2019, 12/20/2018, Additional history exists DEPRESSION SCREENING 02/09/2020 02/08/2019 COLONOSCOPY SCREENING 05/15/2020 05/15/2017, 04/28/2014, 02/11/2011, Additional history exists PNEUMOCOCCAL 0-64 YRS Completed 11/22/2016 HPV IMMUNIZATION SERIES Aged Out No longer eligible based on patient's age to complete this topic MENINGOCOCCAL VACCINE IMM Aged Out No longer eligible based on patient's age to complete this topic documented as of this encounter Goals Goal Patient Goal Associated Recent Patient-Stated? Author Type Problems Progress Blood Pressure Blood Pressure 110/80 No Michael, < 150/90 (02/08/2019 MD Leni 7:05 AM EDT) Note: This is an individualized treatment (blood pressure) goal for Nga Schmidt: Displayed above (on the left) is your goal for blood pressure control. Your most recent blood pressure is also shown above, on the right. You should try to achieve blood pressures that are lower than your goal listed above (on the left). Weight loss vs. 18 mo Lifestyle 27 (02/08/2019 7:05 AM EDT) No Leni Rodriguez MD max (lbs) >= 10 Note: This is an individualized lifestyle goal for Nga Schmidt: Your body mass index (BMI) is more than 30. You should lose weight. A reasonable starting goal is to lose 10 pounds. Displayed above is how many pounds you have lost thus far towards your 10 pound weight loss goal. Take all prescribed medications as directed Self-management No Leni Rodriguez MD Note: This is an individualized self-management goal for Nga Schmidt: Please take all prescribed medications as directed. 1. Do not skip doses. If you cannot afford your medications, talk with your doctor. 2. Use a pill reminder system such as a pill box if needed. Your pharmacist can help you with this. 3. Contact your Pharmacy 5 days before your medication runs out. If you cannot take your medications for any reasons, talk with your doctor. 4. Please bring all of your medication bottles and inhalers (or a list of all your medications/inhalers) with you to every visit. Potential barriers to meeting all of your care plan goals will continue to be addressed on an ongoing basis. documented as of this encounter Implants Implanted Type Area Lime Kiln Tender Device Shelf Model / Identifier Expiration Serial / Lot Date Nexgen Lps All-Poly Tibia 10mm Size 5 Ef - [id number] Right: [employer] 07/26/2023 [id number] / Implanted: Qty: 1 on 12/31/2018 by Rell Arnett MD at [facility] [employer] / [id number] Femoral Comp Lps Flex Opt E-R - [id number] Right: B[employer]OPES 2027 [id number] / Implanted: Qty: 1 on 12/31/2018 by Rell Arnett MD at [facility] [employer] / [id number] Bone Cement, Double 80gm - [id number] Right: DEPUY 06/25/2020 [id number] / Implanted: Qty: 1 on 12/31/2018 by Rell Arnett MD at [facility] [employer] / [id number] documented as of this encounter Results Not on filedocumented in this encounter Visit Diagnoses Diagnosis Constipation, unspecified constipation type - Primary Nausea Nausea alone documented in this encounter Insurance Payer Benefit Plan / Subscriber ID Effective Dates Phone Address Type Group [place] [employer] [id number] [employer] COMP [facility] GENERIC [phone] [id number] (Work) documented as of this encounter Advance Directives Code Status Date Activated Date Inactivated Comments Full Code 12/31/2018 11:45 AM Does the patient have decision making capacity? Yes Order was discussed with: Patient I discussed all options and patient/surrogate requested and agreed to: Full Code
--- OUTSIDE RECORDS SUMMARY | 2019-02-12 07:18 | XMS REPORT | Summary of Care ---
:1955 Author Organization [facility] Address [address] [facility] [place] [address] Care Team Providers Name Role Phone Leni Rodriguez MD Primary Care Provider Reason for Visit Reason Comments Post-op Follow-up RTKA 12/31/18 Encounter Details Date Type Department Care Team Description 02/06/2019 Office Visit [facility] George Aguilar, Surgical follow-up 1 [facility] (Primary Dx) [place] [id number] [address] [facility] [phone] [place] [address] Allergies Active Allergy Reactions Severity Noted Date [...] as of this encounter (statuses as of 02/06/2019) Medications Medication Sig Dispensed Refills Start Date [...] as of this encounter (statuses as of 02/06/2019) Active Problems Problem Noted Date Primary osteoarthritis of right knee 10/09/2018 Overview: Added automatically from request for surgery [id number] Acute pain of left shoulder 09/07/2017 Tear of left rotator cuff 09/07/2017 Age related osteoporosis 01/25/2017 Overview: dxa 2017 - Osteopenia - Weight bearing exercise Patellofemoral stress syndrome of right knee 11/07/2016 Essential hypertension 07/31/2015 Mild intermittent asthma without complication 07/31/2015 Lateral epicondylitis of left elbow 07/22/2015 Asthma 12/25/2014 Lipid disorder 12/25/2014 Polyp of colon 12/25/2014 Overview: 2014 last- Needs 2017 Ankle sprain 11/06/2014 H/O: [...] as of this encounter (statuses as of 02/06/2019) Immunizations Name Administration Dates Next Due Depo [...] Sign Reading Time Taken Comments Blood Pressure 149/89 02/06/2019 2:05 PM EDT Pulse - - Temperature - - Respiratory Rate - - Oxygen Saturation - - Inhaled Oxygen Concentration - - Weight 88 kg (194 lb) 02/06/2019 2:05 PM EDT Height 160 cm (5' 3") 02/06/2019 2:05 PM EDT Body Mass Index 34.37 02/06/2019 2:05 PM EDT documented in this encounter Progress Notes George Aguilar PA-C - 02/06/2019 2:15 PM EDT PATIENT: Nga Schmidt : 1955 DATE OF SERVICE: 02/06/2019 Chief Complaint Patient presents with Post-op Follow-up RTKA 12/31/18 HISTORY OF PRESENT ILLNESS: Nga Schmidt is a 63-y.o. female who returns for a follow up for right total knee arthroplasty done by Dr. Rell Arnett 12/31/18. She is doing well. She is using a cane for support. She is in physicaltherapy. PHYSICAL EXAMINATION: BP 149/89 Ht 5' 3" (1.6 m) Wt 194 lb (88 kg) BMI 34.37 kg/m2 Right knee incision well healed. Range of motion is 0-120. Ligamentously stable with varus and valgus stress. Calf soft. RADIOLOGIC DATA: Xrays were reviewed and reveal good position and alignment. Discussed in detail x-ray findings & implications with patient. ASSESSMENT: ICD-9-CM ICD-10-CM 1. Surgical follow-up care V67.00 Z09 PLAN: Continue with physical therapy exercises. Activity as tolerated. Follow-up with Dr. Rell Arnett in 6weeks for final recheck. Author: George Aguilar PA-C, ATC 02/06/2019 14:12 documented in this encounter Plan of Treatment Date Type Specialty Care Team Description 02/07/2019 Office Visit Physical Therapy Pily Mi, PT [address] [place] [address] [phone] 02/12/2019 Office Visit Physical Therapy Pily Mi, PT [address] [place] [address] [phone] 02/26/2019 Office Visit Physical Therapy Pily Mi, PT [address] [place] [address] [phone] 02/28/2019 Office Visit Physical Therapy HiwotNicken, PT [address] [place] [address] [phone] 03/05/2019 Office Visit Physical Therapy [facility], PT [address] [place] [address] [phone] Health Maintenance Due Date Last Done Comments DEPRESSION SCREENING 1966 ZOSTER IMMUNIZATION SERIES 02/19/2015 12/25/2014 (2 of 3) MAMMOGRAM (SCREENING) 12/07/2017 12/07/2016, 12/19/2014, 05/31/2013, Additional history exists INFLUENZA VACCINE (#1) 2019 04/01/2017, 03/22/2016, 03/27/2015, Additional history exists LIPID DISORDER SCREENING 11/15/2019 11/14/2018, 11/14/2016, 12/19/2014, Additional history exists DIABETES SCREENING 01/03/2020 01/02/2019, 01/01/2019, 12/20/2018, Additional history exists COLONOSCOPY SCREENING 05/15/2020 05/15/2017, 04/28/2014, 02/11/2011, Additional [...] Type Problems Progress Blood Pressure Blood Pressure 149/89 No Michael, < 150/90 (02/06/2019 MD Leni 2:05 PM EDT) Note: This is an individualized treatment (blood pressure) goal for Nga Schmidt: Displayed above (on the left) is your goal for blood pressure control. Your most recent blood pressure is also shown above, on the right. You should try to achieve blood pressures that are lower than your goal listed above (on the left). Weight loss vs. 18 mo Lifestyle 24 (02/06/2019 2:05 PM EDT) Leni Prasad MD max (lbs) >= 10 Note: This is an individualized lifestyle goal for Nga Schmidt: Your body mass index (BMI) is more than 30. You should lose weight. A reasonable starting goal is to lose 10 pounds. Displayed above is how many pounds you have lost thus far towards your 10 pound weight loss goal. Take all prescribed medications as directed Self-management Leni Prasad MD Note: This is an individualized self-management [...] of this encounter Implants Implanted Type Area Negative Cutter Device Shelf Model / Identifier Expiration Serial / Lot Date Nexgen Lps All-Poly Tibia 10mm Size 5 Ef - [id number] Right: BREE LOPES 07/26/2023 [id number] / Implanted: Qty: 1 on 12/31/2018 by Rell Arnett MD at [facility] [employer] / [id number] Femoral Comp Lps Flex Opt E-R - [id number] Right: BREE LOPES 2027 [id number] / Implanted: Qty: 1 on 12/31/2018 by Rell Arnett MD at [facility] [employer] / [id number] Bone Cement, Double 80gm - [id number] Right: DEPUY 06/25/2020 [id number] / Implanted: Qty: 1 on 12/31/2018 by Rell Arnett MD at [facility] Knee / [id number] documented as of this encounter Results Not on filedocumented in this encounter Visit Diagnoses Diagnosis Surgical follow-up care - Primary Follow-up examination, following unspecified surgery documented in this encounter Insurance Payer Benefit Plan / Subscriber ID Effective Dates Phone Address Type Group WC GENER[place]-WORK[place] [id number] 2016-[employer] Workers Comp COMP [facility] t - [place] GENER[place] [phone] [id number] (Work) documented as of this encounter Advance Directives Code Status Date Activated Date Inactivated Comments Full Code 12/31/2018 11:45 AM Does the patient have decision making capacity? Yes Order was discussed with: Patient I discussed all options and patient/surrogate requested and agreed to: Full Code
--- OUTSIDE RECORDS SUMMARY | 2019-02-12 07:18 | XMS REPORT | Summary of Care ---
:1955 Author Organization [facility] Address 1 [facility] [place] [address] Care Team Providers Name Role Phone Leni Rodriguez MD Primary Care Provider Reason for Visit Reason Comments Knee Pain Encounter Details Date Type Department Care Team Description 02/07/2019 Office Visit [facility] - Pily Mi, PT Right knee pain, [facility] [address] [place] [address] chronicity (Primary [address] [phone] Dx) [place] [address] Allergies Active Allergy Reactions Severity Noted Date [...] as of this encounter (statuses as of 02/07/2019) Medications Medication Sig Dispensed Refills Start Date [...] as of this encounter (statuses as of 02/07/2019) Active Problems Problem Noted Date Primary osteoarthritis of right knee 10/09/2018 Overview: Added automatically from request for surgery [id number] Acute pain of left shoulder 09/07/2017 Tear [...] as of this encounter (statuses as of 02/07/2019) Immunizations Name Administration Dates Next Due Depo [...] of this encounter Last Filed Vital Signs Not on filedocumented in this encounter Progress Notes Pily Mi, PT - 02/07/2019 4:00 PM EDT [facility] Treatment Note Outpatient [facility] [address] [place] [phone] Treatment Number: 2 Referring Physician: Rell Arnett Primary Diagnosis: ICD-9-CM ICD-10-CM 1. Right knee pain, unspecified chronicity 719.46 M25.561 Time In: 1600 Time Out: 1630 Pain at Start of Care: 12/03 Pain at End of Care: 11/02 Subjective Comments: She saw the doctor and is cleared to return to work. She is still not sleeping well. Interventions: Manual Therapy (91259) Soft Tissue Mobilization: Manual Tissue Mobilization Soft Tissue Mobilization Details: right thigh PROM: right knee PROM Details: flex and ext Other Manual Therapy Treatment Performed: ice massage Total Minutes (All Manual Therapy): 30 Assessment: Got to 8* of extension and 118 of flexion today. She is walking much better. Plan for Next Visit: Assess and treat Total UNTIMED Code Treatment Minutes: Total TIMED Code Treatment Minutes: 30 Total Treatment Minutes: 30 Author: Pily Mi, PT 02/07/2019 16:27 documented in this encounter Plan of Treatment Date Type Specialty Care Team Description 02/08/2019 Office Visit Family Practice Marielos Blum PA-C [address] [place] [address] [phone] 02/12/2019 Office Visit Physical Therapy Pily Mi, PT [address] [place] [address] [phone] 02/26/2019 Office Visit Physical Therapy Pily Mi, PT [address] [place] [address] [phone] 02/28/2019 Office Visit Physical Therapy Pily Mi, PT [address] [place] [address] [phone] 03/05/2019 Office Visit Physical Therapy Pily Mi, PT [address] [place] [address] [phone] 03/19/2019 Office Visit Orthopedics Rell Arnett MD 1 [place] [address] [phone] Health Maintenance Due Date Last Done Comments [...] mo Lifestyle 24 (02/06/2019 2:05 PM EDT) No Leni Rodriguez MD max (lbs) [...] of this encounter Implants Implanted Type Area Certified Pathology Assistant Device Shelf Model / Identifier Expiration Serial / Lot Date Nexgen Lps All-Poly Tibia 10mm Size 5 Ef - [id number] Right: BREE LOPES 07/26/2023 [id number] / Implanted: Qty: 1 on 12/31/2018 by Rell Arnett MD at [facility] [employer] / [id number] Femoral Comp Lps Flex Opt E-R - [id number] Right: BREE LOPES 2027 [id number] / Implanted: Qty: 1 on 12/31/2018 by Rell Arnett MD at [facility] [employer] / [id number] Bone Cement, Double 80 - [id number] Right: DEPUY 06/25/2020 [id number] / Implanted: Qty: 1 on 12/31/2018 by Rell Arnett MD at [facility] Knee / [id number] documented as of this encounter Results Not on filedocumented in this encounter Visit Diagnoses Diagnosis Right knee pain, unspecified chronicity - Primary documented in this encounter Insurance Payer Benefit Plan / Subscriber ID Effective Dates Phone Address Type Group GENERIC [place] WC-WORKERS [id number] 2016-[employer] Workers [employer] COMP [facility] GENERIC [phone] [id number] (Work) documented as of this encounter Advance Directives Code Status Date Activated Date Inactivated Comments Full Code 12/31/2018 11:45 AM Does the patient have decision making capacity? Yes Order was discussed with: Patient I discussed all options and patient/surrogate requested and agreed to: Full Code
--- OUTSIDE RECORDS SUMMARY | 2019-02-12 07:18 | XMS REPORT | Summary of Care ---
:1955 Author Organization [facility] Address 1 [facility] [place] [address] Care Team Providers Name Role Phone Leni Rodriguez MD Primary Care Provider Reason for Visit Reason Comments Knee Pain Encounter Details Date Type Department Care Team Description 02/05/2019 Office Visit [facility] - Pily Mi, PT Right knee pain, [facility] [address] [place] [address] chronicity (Primary [address] [phone] Dx) [place] [address] Allergies Active Allergy Reactions Severity [...] as of this encounter (statuses as of 02/05/2019) Medications Medication Sig Dispensed Refills Start Date [...] as of this encounter (statuses as of 02/05/2019) Active Problems Problem Noted Date Primary osteoarthritis of right knee 10/09/2018 Overview: Added automatically from request for surgery [id number] Acute pain of left shoulder 09/07/2017 Tear [...] as of this encounter (statuses as of 02/05/2019) Immunizations Name Administration Dates Next Due Depo [...] encounter Progress Notes Pily Mi, PT - 02/05/2019 4:00 PM EDT [facility] Initial Evaluation Outpatient Physical Therapy [facility] [address] [place] [phone] Patient: Nga Schmidt : 1955 Date of Service: 02/05/2019 Referring Physician: Rell Arnett Primary Diagnosis: ICD-9-CM ICD-10-CM 1. Right knee pain, unspecified chronicity 719.46 M25.561 Time In: 1600 Time Out: 1700 Subjective: She is a 63-y.o.-year-old female who presents for outpatient physical therapy with a chief complaint of s/p right knee tkr. Prior Functional Status: difficulty with ambulation Current Functional Status: independent with spc Abuse/Neglect Screening Are you being threatened or hurt by anyone? : No FOTO Data FOTO Intake Completed: Yes Intake FS Score: 43 Predicted FS Score: 54 Objective: Past Medical History: Diagnosis Date Allergic rhinitis, [...] bilateral anterior OTHER AND UNSPECIFIED HYSTERECTOMY 1997 LA EXCISION TURBINATE 06.16.06 LA FOOT/TOES SURGERY PROC UNLISTED LA INCISION OF FOOT/TOE FASCIA 1.29.01 plantar left foot LA MASTECTOMY, PARTIAL 1997 left breast LA RAD EXCIS PLANTAR FASCIA 1.29.01 left heel LA SUTURE 1 NERVE ULNAR MOTOR Left 08/14/2015 Procedure: LEFT LATERAL EPICONDYLAR EXPLORATION & DEBRIDEMENT, RADIOCAPITELLAR ARTHROTOMY; Surgeon: Laura Guillen MD; Location: [facility] MAIN OR [place] TOTAL KNEE ARTHROPLASTY Right 12/31/2018 Procedure: ARTHROPLASTY TOTAL KNEE GENDER SPECIFIC right; Surgeon: Rell Arnett MD; Location: [facility] MAIN OR LA UPPER ARM/ELBOW SURGERY UNLISTED SEPTOPLASTY NEC 06.16.06 SINUSOTOMY MAX ANTRT INTRANSL 06.16.06 bilateral SINUSOTOMY NOS TENDON, FLEX, REPAIR ADVANCE elbow Current Outpatient Medications: Acetaminophen (TYLENOL) 325 MG Oral Cap, Take by mouth., Disp: , Rfl: albuterol (PROVENTIL, VENTOLIN) (2.5 MG/3ML) 0.083% Inhalation Nebu Soln , 3 mL by Inhalation-SVN route EVERY FOUR HOURS NEEDED (asthma symptoms)., Disp: 360 mg, Rfl: 0 albuterol HFA (VENTOLIN) 108 (90 Base) MCG/ACT Inhalation Aero Soln, Take 2 Puffs by inhalation EVERY FOUR HOURS NEEDED (SOB)., Disp: 1 Inhaler, Rfl: 5 amLodipine (NORVASC) 5 MG Oral Tab, TAKE 1 TABLET BY MOUTH EVERY DAY, Disp: 30 Tab, Rfl: 11 atorvastatin (LIPITOR) 20 MG Oral Tab, TAKE 1 TABLET BY MOUTH EVERY DAY , Disp: 90 Tab, Rfl: 3 Azelastine HCl 137 MCG/SPRAY Nasal Solution, INSTILL 2 SPRAYS INTO EACH NOSTRIL TWICE A DAY,Disp: 30 mL, Rfl: 5 bisacodyl (DULCOLAX) 10 MG Rectal Suppos, Place 1 Suppository per rectum DAILY NEEDED (constipation)., Disp: 7 Suppository, Rfl: 0 CALCIUM 500 + D 500-125 MG-UNIT PO TABS, DAILY. , Disp: , Rfl: enoxaparin (LOVENOX) 30 MG/0.3ML Subcutaneous Solution, Inject 0.3 mL beneath the skin EVERYTWELVE HOURS., Disp: 24 Syringe, Rfl: 0 levothyroxine (SYNTHROID) 50 MCG Oral Tab, Take 1 Tab by mouth BEFORE BREAKFAST., Disp: 90 Tab, Rfl: 3 meclizine (ANTIVERT) 25 MG Oral Tab, Take 25 mg by mouth THREE TIMES DAILY NEEDED., Disp:, Rfl: ondansetron (ZOFRAN) 4 MG Oral Tab, Take 4 mg by mouth EVERY EIGHT HOURS NEEDED (nausea/vomitting)., Disp: 20 Tab, Rfl: 0 sennosides (SENOKOT) 8.6 MG Oral Tab, Take 1 Tab by mouth DAILY., Disp: 14 Tab, Rfl: 0 tramadol (ULTRAM) 50 MG Oral Tab, Take 2 Tabs by mouth EVERY SIX HOURS NEEDED (ongoing pain management from hospital). Max Daily Amount: 400 mg., Disp: 60 Tab, Rfl: 0 Allergies Allergen Reactions Aleve [Naproxen Sodium] Respiratory Reaction Bactrim Other headaches Benzonatate Respiratory Reaction Celebrex [Celecoxib] Respiratory Reaction Codeine Respiratory Reaction Darvon-N [Propoxyphene Napsylate] Respiratory Reaction Ibuprofen Anaphylaxis Morphine Respiratory Reaction Opioid Analgesics Respiratory Reaction Percocet [Oxycodone-Acetaminophen] Respiratory Reaction Asthma flared up Singulair Other SLEEPING AND UPSET STOMACH Tape: Silk Or Adhesive Dermatologic Reaction BLISTERS Plan of Care Plan of Care Start Date: 02/05/19 Plan of Care Expiration Date: 05/08/19 Prior Function Comment: difficulty with ambulation Current Function Comment: independent with spc Rehabilitative Prognosis: Good Planned Intervention(s): PT Eval Moderate Complexity (90068) Frequency of Treatments: 1-2 times a week Duration of Treatments: 1 month History Components: Moderate (1-2 personal factors and/or comorbidities) Examination of Body Systems/Components: High (Addressing a total of 4 or more elements) Clinical Presentation: Evolving - changing/inconsistent clinical characteristics (Moderate) Clinical Decision Making (complexity): Low Treatment Number: 1 Total Time of Evaluation: 30 Outcome Tools Used: Right knee lacks 15* extension and has 100flexion Left knee motion wnl Some altered sensation on the lateral right knee Assessment: 63 year old female presenting with impairments consistent with s/p TKR december 31, 2018. Treatment will focus on improving range, gait, strength and function. Was Physical Therapy treatment performed at this visit? Yes: Interventions: FOTO Data FOTO Intake Completed: Yes Intake FS Score: 43 Predicted FS Score: 54 Manual Therapy (89917) Soft Tissue Mobilization: Manual Tissue Mobilization Soft Tissue Mobilization Details: right thigh PROM: right knee PROM Details: flex and ext Other Manual Therapy Treatment Performed: ice massage Total Minutes (All Manual Therapy): 30 Plan for Next Visit: PROM Evaluation Complexity Assessment: History Components: Moderate (1-2 personal factors and/or comorbidities) Examination of Body Systems/Components: High (Addressing a total of 4 or more elements) Clinical Presentation: Evolving - changing/inconsistent clinical characteristics (Moderate) Clinical Decision Making (complexity): Low Treatment Number: 1 Total Time of Evaluation: 30 Total Number of Timed Code Treatment Minutes: 30 Author: Pily Mi, PT 02/05/2019 16:47 documented in this encounter Plan of Treatment Date Type Specialty Care Team Description 02/06/2019 Office Visit Orthopedics George Aguilar PA-C 1 [place] [address] [phone] 02/07/2019 [place] [address] [place] [address] 02/12/2019 [place] [address] [place] [address] 02/26/2019 [place] [address] [place] [address] 02/28/2019 [place] [address] [place] [address] 03/05/2019 [place] [address] [place] [address] Health Maintenance Due Date Last Done Comments [...] Type Problems Progress Blood Pressure Blood Pressure 132/84 No Michael, < 150/90 (01/24/2019 MD Leni 11:25 AM EDT) Note: This is an individualized treatment (blood pressure) goal for Nga Schmidt: Displayed above (on the left) is your goal for blood pressure control. Your most recent blood pressure is also shown above, on the right. You should try to achieve blood pressures that are lower than your goal listed above (on the left). Weight loss vs. 18 mo Lifestyle 24 (01/24/2019 11:25 AM EDT) No Leni Rodriguez MD max [...] of this encounter Implants Implanted Type Area Gear And Spline Grinder Device Shelf Model / Identifier Expiration Serial / Lot Date Nexgen Lps All-Poly Tibia 10mm Size 5 Ef - [id number] Right: BREE LOPES 07/26/2023 [id number] / Implanted: Qty: 1 on 12/31/2018 by Rell Arnett MD at [facility] [employer] / [id number] Femoral Comp Lps Flex Opt E-R - [id number] Right: BREE LOPES 2027 [id number] / Implanted: Qty: 1 on 12/31/2018 by Rell Arnett MD at [facility] [employer] / [id number] Bone Cement, Double 80gm - [id number] Right: DEPUY 06/25/2020 [id number] / Implanted: Qty: 1 on 12/31/2018 by Rell Arnett MD at [facility] Knee / [id number] documented as of this encounter Results Not on filedocumented in this encounter Visit Diagnoses Diagnosis Right knee pain, unspecified chronicity - Primary documented in this encounter Insurance Payer Benefit Plan / Subscriber ID Effective Dates Phone Address Type Group GENERIC [facility]-WORKERS [id number] 2016-[employer] Workers [employer] COMP [facility] GENERIC [phone] (Work) documented as of this encounter Advance Directives Code Status Date Activated Date Inactivated Comments Full Code 12/31/2018 11:45 AM Does the patient have decision making capacity? Yes Order was discussed with: Patient I discussed all options and patient/surrogate requested and agreed to: Full Code
--- OUTSIDE RECORDS SUMMARY | 2019-02-12 07:18 | XMS REPORT | Summary of Care ---
:1955 Author Organization [facility] Address [address] [address] Care Team Providers Name Role Phone Leni Rodriguez MD Primary Care Provider Encounter Details Date Type Department Care Team Description 02/06/2019 Hospital Encounter J[facility] Reeves XR Outpatient [address] [address] Allergies Active Allergy Reactions Severity Noted Date [...] Overview: Added automatically from request for surgery [id number] Acute pain of left shoulder 09/07/2017 Tear [...] Signs Not on filedocumented in this encounter Plan of Treatment Date Type Specialty Care Team Description 02/08/2019 Office Visit Family Practice Marielos Blum PA-C [address] [place] [address] 02/12/2019 Office Visit Physical Therapy Pily Mi, PT [address] [place], [place] [id number] 02/26/2019 Office Visit Physical Therapy Pily Mi, PT [address] [place] [address] 02/28/2019 Office Visit Physical Therapy Pily Mi, PT [address] [place] [address] [phone] 03/05/2019 Office Visit Physical Therapy Pily Mi, PT [address] [place] [address] [phone] 03/19/2019 Office Visit Orthopedics Rell Arnett MD [address] [address] Health Maintenance Due Date Last Done [...] Progress Blood Pressure Blood Pressure 149/89 No Crefarhatt, < 150/90 (02/06/2019 MD Leni 2:05 PM [...] of this encounter Implants Implanted Type Area Scroll Saw Operator Device Shelf Model / Identifier Expiration Serial / Lot Date Nexgen Lps All-Poly Tibia 10mm Size 5 - [id number] Right: BREE LOPES 07/26/2023 [id number] / Implanted: Qty: 1 on 12/31/2018 by Rell Arnett MD at [facility] [employer] / [id number] Femoral Comp Lps Flex Opt E-R - [id number] Right: BREE LOPES 2027 [id number] / Implanted: Qty: 1 on 12/31/2018 by Rell Arnett MD at [facility] / [id number] Bone Cement, Double 80gm - [id number] Right: DEPUY 06/25/2020 [id number] / Implanted: Qty: 1 on 12/31/2018 by Rell Arnett MD at [facility] / [id number] documented as of this encounter Procedures Procedure Name Priority Date/Time Associated Diagnosis Comments XR KNEE 3 VIEWS Routine 02/06/2019 2:01 PM Surgical follow-up Results for this RIGHT EDT care procedure are in the results section. documented in this encounter Results XR KNEE 3 VIEWS RIGHT (02/06/2019 2:01 PM EDT) Specimen Impressions Performed At Well aligned right knee arthroplasty with no hardware complication evident. Signed by Jona Boykin on 02/08/2019 1:53 AM Narrative Performed At Procedure(s): XR KNEE 3 VIEWS RIGHT Date of service: 02/06/2019 1:51 PM Provided clinical information: 63 years, Female, "s/p rtka" Procedure and materials: Standard protocol. Comparison studies: 12/31/2018 Observations: Side: 3 views of the right knee. Bones: Intact with no displaced fracture or focal osseous destruction. Joints: There is a knee prosthesis in normal postoperative alignment with no periprosthetic lucency or fracture. Soft tissues: Unremarkable. Procedure Note Interface, Rad Results - 02/08/2019 1:55 AM EDT Procedure(s): XR KNEE 3 VIEWS RIGHT Date of service: 02/06/2019 1:51 PM Provided clinical information: 63 years, Female, "s/p rtka" Procedure and materials: Standard protocol. Comparison studies: 12/31/2018 Observations: Side: 3 views of the right knee. Bones: Intact with no displaced fracture or focal osseous destruction. Joints: There is a knee prosthesis in normal postoperative alignment with no periprosthetic lucency or fracture. Soft tissues: Unremarkable. IMPRESSION Well aligned right knee arthroplasty with no hardware complication evident. Signed by Jona Boykin on 02/08/2019 1:53 AM documented in this encounter Visit Diagnoses Diagnosis Surgical follow-up care Follow-up examination, following unspecified surgery documented in this encounter Insurance Payer Benefit Plan / Subscriber ID Effective Dates Phone Address Type Group GENERIC [facility]-WORKERS [id number] 2016-Presen Workers Comp [place] t - [facility] GENERIC [phone] (Work) documented as of this encounter Advance Directives Code Status Date Activated Date Inactivated Comments Full Code 12/31/2018 11:45 AM Does the patient have decision making capacity? Yes Order was discussed with: Patient I discussed all options and patient/surrogate requested and agreed to: Full Code
[2019-02-12 07:27] VITALS: BP 132/86
--- NOTE | 2019-02-12 08:23 | UC ---
Abdominal Pain Female HPI - HPI Summary HPI Summary: 1. Patient has had almost 2 months of nausea, decreased appetite and sensation of early satiety. States her symptoms started after her right knee replacement however she reports no problems with her knee presently. She has been seen multiple times by her PCP at [place]. Zofran sometimes helps her symptoms but states yesterday it did nothing. No fever. No vomiting. States she has been eating only soup and Jell-O. She has been taking MiraLAX daily for constipation and states that she now has watery stools. 2. For the past several days has noticed a "whooshing water-like" sound in her ears. It comes and goes intermittently. She denies any actual hearing loss. Had bilateral TM tubes a year or 2 ago for chronic fluid. - History of Current Complaint Chief Complaint: UCGeneralIllness Stated Complaint: NAUSEA DIARRHEA EAR ISSUE Time Seen by Provider: 02/12/19 08:01 Hx Obtained From: Patient Hx Last Menstrual Period: menapause Onset/Duration: Gradual Onset, Lasting Weeks, Still Present Timing: Constant Severity Initially: Moderate Severity Currently: Moderate Pain Intensity: 4 Pain Scale Used: 0-10 Numeric Character: Not Applicable Aggravating Factor(s): Nothing Alleviating Factor(s): Medications - ZOFRAN Associated Signs and Symptoms: Positive: Decreased Appetite, Nausea. Negative: Fever Allergies/Adverse Reactions: Allergies Allergy/AdvReac Type Severity Reaction Status Date / Time celecoxib [From Celebrex] Allergy Difficulty Verified 02/12/19 07:27 Breathing codeine Allergy Difficulty Verified 02/12/19 07:27 Breathing montelukast [From Singulair] Allergy Difficulty Verified 02/12/19 07:27 Breathing morphine Allergy Difficulty Verified 02/12/19 07:27 Breathing naproxen [From Aleve] Allergy Difficulty Verified 02/12/19 07:27 Breathing NSAIDS (Non-Steroidal Allergy Difficulty Verified 02/12/19 07:27 Anti-Inflamma Breathing oxycodone [From Percocet] Allergy Difficulty Verified 02/12/19 07:27 Breathing benzonatate AdvReac GI Upset Verified 02/12/19 07:27 propoxyphene [From Darvon] AdvReac Vomiting Verified 02/12/19 07:27 adhesives Allergy Blisters Uncoded 02/12/19 07:27 SEASONAL Allergy Eyes Uncoded 02/12/19 07:27 Itchy/Swollen/Red/Watery Home Medications: Home Medications Ondansetron TAB* [Zofran 4 MG Tab*] 4 mg PO Q6H PRN 02/12/19 [History Confirmed 02/12/19] Polyethylene Glycol 3350* [Miralax*] 17 gm PO DAILY 02/12/19 [History Confirmed 02/12/19] PMH/Surg Hx/FS Hx/Imm Hx Endocrine History: Hypothyroidism, Dyslipidemia Cardiovascular History: Hypertension Respiratory History: Asthma - Surgical History Surgical History: Yes Surgery Procedure, Year, and Place: Partial hysterectomy,. plantar fasciitis, tendon right ankle, left elbow, lump removed from left breast, benign. FESS, DEVIATED SEPTUM REPAIR. Tubes in both ears. right total knee December 2018. rt knee miniscus repair. R knee replacement December 2018 - Family History Known Family History: Positive: Cardiac Disease, Hypertension, Diabetes - Social History Alcohol Use: None Substance Use Type: None Smoking Status (MU): Never Smoked Tobacco Household Exposure Type: Cigarettes - Immunization History Most Recent Influenza Vaccination: 02/2016 Most Recent Tetanus Shot: utd Most Recent Pneumonia Vaccination: October 2016 Vaccination Up to Date: Yes Review of Systems All Other Systems Reviewed And Are Negative: Yes Constitutional: Positive: Negative ENT: Negative: Sore Throat, Ear Ache, Nasal Discharge Respiratory: Positive: Negative Cardiovascular: Positive: Negative Gastrointestinal: Positive: Abdominal Pain, Vomiting, Diarrhea, Nausea Genitourinary: Positive: Negative Physical Exam Triage Information Reviewed: Yes Appearance: Well-Appearing, No Pain Distress, Well-Nourished Vital Signs: Initial Vital Signs Temp 98 F 02/12/19 07:21 Pulse 73 02/12/19 07:21 Resp 16 02/12/19 07:21 BP 132/86 02/12/19 07:21 Pulse Ox 98 02/12/19 07:21 Vital Signs Reviewed: Yes Eyes: Positive: Conjunctiva Clear ENT: Positive: Hearing grossly normal, Pharynx normal, Other - SCLEROTIC TMs Neck: Positive: Supple, Nontender, No Lymphadenopathy Respiratory Exam: Normal Cardiovascular Exam: Normal Cardiovascular: Positive: Other: - NO CAROTID BRUITS Abdomen Description: Positive: Soft, Other: - TTP EPIGASTRIC AREA. NO REBOUND OR RIGIDITY. Negative: CVA Tenderness (R), CVA Tenderness (L), Distended, Guarding Musculoskeletal: Positive: No Edema Neurological: Positive: Alert Psychological: Positive: Age Appropriate Behavior Skin: Negative: Rashes Abd Pain Female Course/Dx - Course Course Of Treatment: THIS VERY PLEASANT PATIENT IS CONCERNED THAT HER GI SYMPTOMS ARE NOT RESOLVING AFTER A COUPLE OF MONTHS OF NAUSEA, EARLY SATIETY AND FEELINGS OF CONSTIPATION. SINCE SHE HAS BEEN TAKING MIRALAX HER STOOLS HAVE BEEN SOMEWHAT RUNNY. I HAVE ADVISED THAT SHE ADJUST THE FREQUENCY OF HER MIRALAX INTAKE TO MAINTAIN DAILY REGULAR BOWEL MOVEMENTS OPPOSED TO WATERY STOOLS. I HAVE RECOMMENDED THAT SHE DISCUSS WITH DR. RODRIGUEZ A REFERRAL TO A GI SPECIALIST WITHIN [place]. CONSIDER POSSIBLE GI DYSMOTILITY. SHE IS EXQUISITELY TENDER IN HER EPIGASTRIC REGION PANCREATIC ENZYMES WERE OBTAINED HOWEVER I SUSPECT THIS WILL BE RELATIVELY LOW YIELD. CBC, CMP AND TSH ALSO DRAWN TODAY. ADVISED TO GO TO THE ER WITHOUT FAIL IF HER SYMPTOMS WORSEN. NO ACUTE PATHOLOGY SEEN IN HER EARS ON EXAM TODAY. TMS APPEAR SOMEWHAT SCLEROTIC HOWEVER SHE HAS A HISTORY OF CHRONIC FLUID BUILD-UP AND INFLAMMATION THAT REQUIRED TUBES A YEAR OR 2 AGO. FOR THE WHOOSHING SOUND I RECOMMEND THAT SHE FOLLOW-UP WITH HER ENT DR. NGUYEN FOR FURTHER EVALUATION. SHE MAY BENEFIT FROM AN AUDIOLOGY EXAMINATION. - Differential Dx/Diagnosis Provider Diagnosis: Epigastric abdominal pain Discharge - Sign-Out/Discharge Documenting (check all that apply): Patient Departure All imaging exams completed and their final reports reviewed: No Studies - Discharge Plan Condition: Stable Disposition: HOME Patient Education Materials: Abdominal Pain (ED) Referrals: Leni Rodriguez MD [Primary Care Provider] - 1 Week Additional Instructions: UNCLEAR ETIOLOGY OF YOUR GI DISCOMFORT. GIVEN YOUR SYMPTOMS HAVE BEEN PERSISTENT OVER THE PAST COUPLE OF MONTHS WITH NO IMPROVEMENT AFTER MULTIPLE PCP VISITS, AT THIS POINT I WOULD CONSIDER A GI CONSULT. FOLLOW-UP WITH YOUR PCP AND DISCUSS THE POSSIBILITY OF REFERRAL TO A GI SPECIALIST. I WOULD WONDER ABOUT GI DYSMOTILITY THAT MAY BE CONTRIBUTING TO YOUR FEELING OF EARLY SATIETY AND NAUSEA. WILL CHECK BASIC LABS TODAY INCLUDING BLOOD COUNT AND METABOLIC PANEL WELL PANCREATIC ENZYMES. WILL ALSO CHECK A TSH THYROID DYSFUNCTION CAN THROW OFF MANY ORGAN SYSTEMS. FOR THE SOUND OF WHOOSHING WATER IN YOUR EARS YOU DO NOT HAVE ANY ACUTE INFECTION ON EXAM. EARDRUMS APPEAR TO BE SOMEWHAT SCLEROTIC HOWEVER THIS IS LIKELY DUE TO YOUR HISTORY OF CHRONIC INFLAMMATION/FLUID. FOLLOW-UP WITH YOUR ENT DR. NGUYEN TO FURTHER EVALUATE THIS. YOU MAY BENEFIT FROM AN AUDIOLOGY TEST. - Billing Disposition and Condition Condition: STABLE Disposition: Home
[2019-02-12 11:36] LABS: ABS Basophils 0.1 10^3/ul (0-0.2); ABS Eosinophils 0.1 10^3/ul (0-0.6); ABS Lymphocytes 1.1 10^3/ul (1.0-4.8); ABS Monocytes 0.4 10^3/ul (0-0.8); Eosinophil % 1.2 %; Hematocrit 44 % (35-47); Hemoglobin 14.5 g/dL (12.0-16.0); Lymphocyte % 16.6 %; Mean Corpuscular HGB Conc 33 g/dL (31-36); Mean Corpuscular Hemoglobin 28 pg (27-31); Mean Corpuscular Volume 83 fL (80-97); Mean Platelet Volume 9.8 fL (7.4-10.4); Platelet Count 254 10^3/uL (150-450); Red Blood Count 5.27 10^6 /uL (3.70-4.87); Red Cell Distribution Width 15 % (10-15); White Blood Count 6.7 10^3/uL (3.5-10.8)
[2019-02-12 11:42] LABS: Albumin 4.7 g/dL (3.2-5.2); Calcium 10.3 mg/dL (8.6-10.3); Potassium 3.7 mmol/L (3.5-5.0); Total Bilirubin 1.3 mg/dL (0.2-1.0)
[2019-02-12 11:49] LABS: Albumin/Globulin Ratio 1.6 (1-3); EGFR Non-African American 74.4 (>60); Total Protein 7.7 g/dL (6.4-8.9)
[2019-02-12 12:02] LABS: TSH (Thyroid Stimulating Horm) 1.56 mcIU/mL (0.34-5.60)
--- NOTE | 2019-02-13 07:32 | UC ---
- Progress Note Progress Note: LABS GROSSLY UNREMARKABLE. NO CHANGE IN MGMT. STILL NEEDS GI F/U. Course/Dx - Diagnoses Provider Diagnoses: Epigastric abdominal pain Discharge ED - Sign-Out/Discharge Documenting (check all that apply): Post-Discharge Follow Up All imaging exams completed and their final reports reviewed: No Studies - Discharge Plan Condition: Stable Disposition: HOME Patient Education Materials: Abdominal Pain (ED) Referrals: Leni Rodriguez MD [Primary Care Provider] - 1 Week Additional Instructions: UNCLEAR ETIOLOGY OF YOUR GI DISCOMFORT. GIVEN YOUR SYMPTOMS HAVE BEEN PERSISTENT OVER THE PAST COUPLE OF MONTHS WITH NO IMPROVEMENT AFTER MULTIPLE PCP VISITS, AT THIS POINT I WOULD CONSIDER A GI CONSULT. FOLLOW-UP WITH YOUR PCP AND DISCUSS THE POSSIBILITY OF REFERRAL TO A GI SPECIALIST. I WOULD WONDER ABOUT GI DYSMOTILITY THAT MAY BE CONTRIBUTING TO YOUR FEELING OF EARLY SATIETY AND NAUSEA. WILL CHECK BASIC LABS TODAY INCLUDING BLOOD COUNT AND METABOLIC PANEL WELL PANCREATIC ENZYMES. WILL ALSO CHECK A TSH THYROID DYSFUNCTION CAN THROW OFF MANY ORGAN SYSTEMS. FOR THE SOUND OF WHOOSHING WATER IN YOUR EARS YOU DO NOT HAVE ANY ACUTE INFECTION ON EXAM. EARDRUMS APPEAR TO BE SOMEWHAT SCLEROTIC HOWEVER THIS IS LIKELY DUE TO YOUR HISTORY OF CHRONIC INFLAMMATION/FLUID. FOLLOW-UP WITH YOUR ENT DR. NGUYEN TO FURTHER EVALUATE THIS. YOU MAY BENEFIT FROM AN AUDIOLOGY TEST. - Billing Disposition and Condition Condition: STABLE Disposition: Home
== END 2019-02-12 08:33 | disposition home or self-care (01) ==
LOC: UCEAST 07:13
DX: R10.13 Epigastric pain (principal); R11.0 Nausea; E03.9 Hypothyroidism, unspecified; E78.5 Hyperlipidemia, unspecified; I10 Essential (primary) hypertension; J45.909 Unspecified asthma, uncomplicated; Z88.5 Allergy status to narcotic agent
CPT/HCPCS: 36415; 80053; 82150; 83690; 84443; 85025; 99211; G0463

== ENCOUNTER 2019-02-24 15:50 | Emergency (ER) | payer OTHER ==
--- OUTSIDE RECORDS SUMMARY | 2019-02-24 16:26 | XMS REPORT | Summary of Care ---
:1955 Author Organization [facility] Address 1 [facility] [address] [address] Care Team Providers Name Role Phone Leni Rodriguez MD Primary Care Provider Reason for Visit Reason Comments Knee Pain Encounter Details Date Type Department Care Team Description 02/12/2019 Office Visit [facility] - Pily Mi, PT Right knee pain, [place] [facility] [address] [place] [address] chronicity (Primary [address] [phone] Dx) [place] [address] Allergies Active Allergy Reactions Severity [...] as of this encounter (statuses as of 02/12/2019) Medications Medication Sig Dispensed Refills Start Date [...] as of this encounter (statuses as of 02/12/2019) Active Problems Problem Noted Date Primary osteoarthritis of right knee 10/09/2018 Overview: Added automatically from request for surgery [id number] Acute pain of left shoulder 09/07/2017 Tear [...] as of this encounter (statuses as of 02/12/2019) Immunizations Name Administration Dates Next Due Depo [...] encounter Progress Notes Pily Mi, PT - 02/12/2019 4:00 PM EDT [facility] Treatment Note Outpatient [facility] [address] [place] [id number] Treatment Number: 3 Referring Physician: Rell Arnett Primary Diagnosis: ICD-9-CM ICD-10-CM 1. Right knee pain, unspecified chronicity 719.46 M25.561 Time In: 1600 Time Out: 1630 Pain at Start of Care: 10/03 Pain at End of Care: 10/03 Subjective Comments: Her knee pain and swelling are better. She did try to sleep in the bed not the recliner and no pain meds and woke at 130 am and had knee pain. She continues to work towards straight. Interventions: Therapeutic Exercises (10658) Number of Exercises?: 2 Total Minutes (all Therapeutic Exercise): 10 Exercise #1 Exercise Name: supine terminal knee extension Reason for Exercise: Functional Mobility;Joint Mobility Location/Body Area: LE Details: 8* Exercise #2 Exercise Name: bike Reason for Exercise: Functional Mobility;Joint Mobility Location/Body Area: LE Details: intermittent revolution Manual Therapy (89881) Soft Tissue Mobilization: Manual Tissue Mobilization Soft Tissue Mobilization Details: right thigh PROM: right knee PROM Details: flex and ext Other Manual Therapy Treatment Performed: ice massage Total Minutes (All Manual Therapy): 20 Assessment: Her extension is improving, her gait is improving. Got to 120* flexion today and only 8*loss of extension Plan for Next Visit: Continue to work extension, bike, flexion and gait. Total UNTIMED Code Treatment Minutes: Total TIMED Code Treatment Minutes: 30 Total Treatment Minutes: 30 Author: Pily Mi PT 02/12/2019 16:25 documented in this encounter Plan of Treatment Date Type Specialty Care Team Description 02/19/2019 Office Visit Physical Therapy Erma Cao, PT [address] [place] [address] [phone] 02/21/2019 Office Visit Physical Therapy Erma Cao, PT [address] [place] [address] [phone] 02/26/2019 Office Visit Physical Therapy Pily Mi, PT [address] [place] [address] [phone] 02/28/2019 Office Visit Physical Therapy Pily Mi, PT [address] [place] [address] 03/04/2019 Office Visit Gastroenterology Syeda Kovacs NP [address] [address] 03/05/2019 Office Visit Physical Therapy Pily Mi, PT [address] [place] [address] 03/19/2019 Office Visit Orthopedics Rell [...] Progress Blood Pressure Blood Pressure 110/80 No Crepet, < 150/90 (02/08/2019 MD Leni 7:05 AM [...] mo Lifestyle 27 (02/08/2019 7:05 AM EDT) Leni Prasad MD max (lbs) >= [...] of this encounter Implants Implanted Type Area Gem Stone Cutter Device Shelf Model / Identifier Expiration Serial / Lot Date Nexgen Lps All-Poly Tibia 10mm Size 5 - [id number] Right: BREE MOSES 07/26/2023 [id number] / Implanted: Qty: 1 on 12/31/2018 by Rell Arnett MD at [facility] [employer] / [id number] Femoral Comp Lps Flex Opt E-R - [id number] Right: BREE MOSES 2027 [id number] / Implanted: Qty: 1 on 12/31/2018 by Rell Arnett MD at [facility] / [id number] Bone Cement, Double 80gm - [id number] Right: DEPUY 06/25/2020 [id number] / Implanted: Qty: 1 on 12/31/2018 by Rell Arnett MD at [facility] / [id number] documented as of this encounter Results Not on filedocumented in this encounter Visit Diagnoses Diagnosis Right knee pain, unspecified chronicity - Primary documented in this encounter Insurance Payer Benefit Plan / Subscriber ID Effective Dates Phone Address Type Group [place] [id number] 2016-[employer] [place] - [place] [employer] [phone] (Work) documented as of this encounter Advance Directives Code Status Date Activated Date Inactivated Comments Full Code 12/31/2018 11:45 AM Does the patient have decision making capacity? Yes Order was discussed with: Patient I discussed all options and patient/surrogate requested and agreed to: Full Code
--- OUTSIDE RECORDS SUMMARY | 2019-02-24 16:26 | XMS REPORT | Summary of Care ---
:1955 Author Organization [facility] Address [address] [place] [address] Care Team Providers Name Role Phone Leni Rodriguez MD Primary Care Provider Reason for Visit Reason Comments New Patient Constipation Has not moved bowels in 3 weeks Nausea Abdominal Pain cramping on and off Encounter Details Date Type Department Care Team Description 02/13/2019 Office Visit Gemma Smith NP Drug-induced Gastroenterology [address] constipation (Primary [address] [place] [address] Dx) [place] [address] [phone] Allergies Active Allergy Reactions Severity Noted Date [...] as of this encounter (statuses as of 02/13/2019) Medications Medication Sig Dispensed Refills Start End Status Date Date CALCIUM 500 + D DAILY. 0 Active 500-125 MG-UNIT PO TABS Acetaminophen Take by mouth. 0 Active (TYLENOL) 325 MG Oral Cap albuterol 3 mL by 360 mg 0 12/27/19 Active (PROVENTIL, Inhalation-SVN 18 VENTOLIN) (2.5 route EVERY MG/3ML) 0.083% FOUR HOURS Inhalation Nebu NEEDED (asthma Soln symptoms). albuterol HFA Take 2 Puffs by 1 Inhaler 5 01/02/20 Active (VENTOLIN) 108 (90 inhalation 18 Base) MCG/ACT EVERY FOUR Inhalation Aero HOURS NEEDED SolnIndications: (SOB). Asthma levothyroxine Take 1 Tab by 90 Tab 3 08/23/19 Active (SYNTHROID) 50 MCG mouth BEFORE 19 Oral BREAKFAST. TabIndications: Hypothyroidism, unspecified type Azelastine HCl 137 INSTILL 2 30 mL 5 11/13/19 Active MCG/SPRAY Nasal SPRAYS INTO 19 Solution EACH NOSTRIL TWICE A DAY atorvastatin TAKE 1 TABLET 90 Tab 3 11/15/19 Active (LIPITOR) 20 MG BY MOUTH EVERY 19 Oral DAY TabIndications: Mixed hyperlipidemia amLodipine TAKE 1 TABLET 30 Tab 11 12/12/19 Active (NORVASC) 5 MG BY MOUTH EVERY 19 Oral DAY TabIndications: Essential hypertension ondansetron Take 4 mg by 20 Tab 0 01/04/20 Active (ZOFRAN) 4 MG Oral mouth EVERY 19 Tab EIGHT HOURS NEEDED (nausea/vomitti ng). bisacodyl Place 1 7 Suppository 0 01/06/20 Active (DULCOLAX) 10 MG Suppository per 19 Rectal Suppos rectum DAILY NEEDED (constipation). tramadol (ULTRAM) Take 2 Tabs by 60 Tab 0 01/19/20 Active 50 MG Oral Tab mouth EVERY SIX 19 HOURS NEEDED (ongoing pain management from hospital). Max Daily Amount: 400 mg. enoxaparin Inject 0.3 mL 24 Syringe 0 12/21/19 Discontinued (LOVENOX) 30 beneath the 19 019 (Therapy MG/0.3ML skin EVERY Completed) Subcutaneous TWELVE HOURS. Solution sennosides Take 1 Tab by 14 Tab 0 01/06/20 Discontinued (SENOKOT) 8.6 MG mouth DAILY. 19 019 Oral Tab meclizine Take 25 mg by 0 Discontinued (ANTIVERT) 25 MG mouth THREE 019 Oral Tab TIMES DAILY NEEDED. documented as of this encounter (statuses as of 02/13/2019) Active Problems Problem Noted Date Primary osteoarthritis of right knee 10/09/2018 Overview: Added automatically from request for surgery [id number] Acute pain of left shoulder 09/07/2017 Tear [...] as of this encounter (statuses as of 02/13/2019) Immunizations Name Administration Dates Next Due Depo [...] Sign Reading Time Taken Comments Blood Pressure 122/76 02/13/2019 1:07 PM EDT Pulse 88 02/13/2019 1:07 PM EDT Temperature - - Respiratory Rate - - Oxygen Saturation - - Inhaled Oxygen Concentration - - Weight 86.3 kg (190 lb 5 oz) 02/13/2019 1:07 PM EDT Height 160 cm (5' 3") 02/13/2019 1:07 PM EDT Body Mass Index 33.71 02/13/2019 1:07 PM EDT documented in this encounter Patient Instructions Patient InstructionsGemma Rae NP - 02/13/2019 1:00 PM EDTAbdominal xray today - 2 purple If obstruction or ileus present will advise to go to ED If no obstruction/ileus take 1/2 Miralax prep (pour 1/2 Miralax 240 ml approx into 32 ounces of non-carbonated beverage of choice) drink over 4 hours if no BM if no results repeat x 1 If experiencing bloody stool, severe abdominal pain, fever/chills, nausea/ vomiting - go to ED RTC 1 week documented in this encounter Progress Notes Gemma Rae NP - 02/13/2019 1:00 PM EDT PATIENT:Nga Schmidt : 1955 DATE OF SERVICE: 02/13/2019 Chief Complaint Patient presents with New Patient Constipation Has not moved bowels in 3 weeks Nausea Abdominal Pain cramping on and off SUBJECTIVE: Nga Schmidt is a very pleasant 63-y.o. female who presents for constipation and nausea. She states she had knee surgery approximately 3 weeks ago and was given tramadol for pain management. Initially she was taking tramadol 2 pills twice a day and is decreased to taking it only at bedtime. She consumes approximately 32 ounces of fluids daily. She has not had a bowel movement in 3 weeks and states she is nauseated. Prior to surgery patient states she had bowel movement every 2 days. No history of constipation. No abdominal pain. She was started on Synthroid in August/September of this year for hypothyroid. She is eating smaller portions at breakfast and dinner. She has tried multiple constipation therapies without success such as: Prune juice, MiraLAX, milk of magnesia, stool softeners,senna, mag citrate. Last colonoscopy 05/15/2017. Pt denies: dysphagia, hematemesis, heartburn, abdominal pain, melena, hematochezia, vomiting, diarrhea, fever, chills, weight loss, fatigue, jaundice , itching, sore throat, sinus pain, eye pain, visualdisturbances, palpitations, leg swelling, cough, shortness of breath, dysuria, hematuria, easy bruising, easy bleeding, dizziness, confusion. Past Medical History: Diagnosis Date Allergic rhinitis, cause unspecified 06/12/2007 Arthritis ASTHMA UNSPECIFIED 03/14/2007 Calcaneal spur 06/12/2007 Closed fracture dislocation of ankle joint GERD (gastroesophageal reflux disease) History of breast surgery hx dwayne lumpectomy [...] Unspecified essential hypertension 06/12/2007 Unspecified otitis media family history includes Breast Cancer in her maternal aunt and maternal grandmother; Cancer in her mother; Diabetes in her mother; Heart in her mother; Heart Disease in her mother; Lung Cancer in her mother; Non-Applicable in her mother and sister. Past Surgical History: Procedure Laterality Date BILAT SALPINGO-OOPHORECT 1997 COLONOSCOPY DIAGNOSTIC EGD (NANCE / NON [facility]) ETHMOIDECTOMY 06.16.06 bilateral anterior OTHER AND UNSPECIFIED HYSTERECTOMY 1997 MI EXCISION TURBINATE 06.16.06 MI FOOT/TOES SURGERY PROC UNLISTED MI INCISION OF FOOT/TOE FASCIA 1.. plantar left foot MI MASTECTOMY, PARTIAL 1997 left breast MI RAD EXCIS PLANTAR FASCIA 1.. left heel MI SUTURE 1 NERVE ULNAR MOTOR Left 08/14/2015 Procedure: LEFT LATERAL EPICONDYLAR EXPLORATION & DEBRIDEMENT, RADIOCAPITELLAR ARTHROTOMY; Surgeon: Laura Guillen MD; Location: [facility] MAIN OR MI TOTAL KNEE ARTHROPLASTY Right 12/31/2018 Procedure: ARTHROPLASTY TOTAL KNEE GENDER SPECIFIC right; Surgeon: Rell Arnett MD; Location: [facility] MAIN OR MI UPPER ARM/ELBOW SURGERY UNLISTED SEPTOPLASTY NEC 06.16.06 SINUSOTOMY MAX ANTRT INTRANSL 06.16.06 bilateral SINUSOTOMY NOS TENDON, FLEX, REPAIR ADVANCE elbow Social History Socioeconomic History Marital status: Spouse [...] file Gets together: Not on file Attends hindu service: Not on file Active member of [...] History Narrative Lives with . Works at [employer]. Aleve [naproxen sodium]; Bactrim; Benzonatate; Celebrex [celecoxib]; Codeine; Darvon-n [propoxyphenenapsylate]; Ibuprofen; Morphine; Opioid analgesics; Percocet [oxycodone-acetaminophen]; Singulair; and Tape: silk or adhesive Current Outpatient Medications Medication Sig Acetaminophen (TYLENOL) [...] + D 500-125 MG-UNIT PO TABS DAILY. levothyroxine (SYNTHROID) 50 MCG Oral Tab Take 1 Tab by mouth BEFORE BREAKFAST. ondansetron (ZOFRAN) 4 MG Oral Tab Take 4 mg by mouth EVERY EIGHT HOURS NEEDED (nausea/vomitting). tramadol (ULTRAM) 50 MG Oral Tab Take 2 Tabs by mouth EVERY SIX HOURS NEEDED (ongoing painmanagement from hospital). Max Daily Amount: 400 mg. No current facility-administered medications for this visit. ROS: A comprehensive 10 point ROS was completed and negative except as mentioned in HPI. OBJECTIVE: BP 122/76 (BP Location: Right arm, Patient Position: Sitting) | Pulse 88 | Ht 5' 3" (1.6 m) | Wt 190 lb 5 oz (86.3 kg) | BMI 33.71 kg/m Physical Examination GENERAL: alert, oriented, no acute distress. SKIN: normal, no rashes or abnormalities noted. Skin acyanotic, warm, dry. EYES: PERRL, no scleral icterus LUNGS: Lung gamez clear bilat, respiratory effort unlabored. HEART: regular rhythm, no mumurs. ABDOMEN: Soft, non-tender, BS x 4. No guarding/rigity/rebound. Lab Results Component Value Date WBC 6.04 12/20/2018 HGB 10.4 (L) 01/02/2019 HCT 32.6 (L) 01/02/2019 PLAT 207 12/20/2018 Lab Results Component Value Date NA 138 01/02/2019 K 4.1 01/02/2019 CL 105 01/02/2019 CO2 27 01/02/2019 GLUCOSE 112 (H) 01/02/2019 BUN 17 01/02/2019 CREATININE 0.7 01/02/2019 CALCIUM 8.6 01/02/2019 TP 7.5 12/20/2018 ALBUMIN 3.9 12/20/2018 AST 32 12/20/2018 ALT 18 12/20/2018 ALK 96 12/20/2018 TBILI 1.0 12/20/2018 EGFR >60 01/02/2019 Impression/Plan ICD-9-CM ICD-10-CM 1. Drug-induced constipation 564.09 K59.03 XR ABDOMEN 1 [facility] E980.5 1. Constipation most likely drug-induced from tramadol. Concern for ileus/ obstruction Abdominal x-ray obtained Asked with patient if obstruction/ileus present will advised to go to ED. If no obstructionileus will recommend half MiraLAX colon prep directions given to patient If experiencing bloody stool, severe abdominal pain, fever/chills, nausea/ vomiting - go to ED RTC 1 week She was encouraged to call if questions or problems arise. She tells me she will be compliant. More than 50% of time spent face:face in coordination of care & counseling Visit time 20 min AUTHOR:Gemma Rae NP Section of Gastroenterology 02/13/2019 16:33 documented in this encounter Plan of Treatment Date Type Specialty Care Team Description 02/19/2019 Office Visit Physical Therapy Erma Cao, PT [address] [place] [address] 02/21/2019 Office Visit Physical Therapy Erma Cao, PT [address] [place] [address] [phone] 02/21/2019 Office Visit Gastroenterology Gemma Rae NP [address] [place] [address] [address] [phone] 02/26/2019 Office Visit Physical Therapy Pily Mi, PT [address] [place] [address] 02/28/2019 Office Visit Physical Therapy Pily Mi, PT [address] [place] [address] 03/05/2019 Office Visit Physical Therapy Pily Mi, PT [address] [place] [address] [phone] 03/19/2019 Office Visit Orthopedics Rell Arnett MD [address] [place] [address] [phone] Name Type Priority Associated Diagnoses Date/Time XR ABDOMEN 1 AP VIEW Imaging Routine Drug-induced constipation 02/13/2019 2:10 PM EDT Name Type Priority Associated Diagnoses Order Schedule XR ABDOMEN 1 AP VIEW Imaging Routine Drug-induced constipation Expected: , Expires: 02/13/2020 Health Maintenance Due Date Last Done Comments [...] Type Problems Progress Blood Pressure Blood Pressure 122/76 No Crepet, < 150/90 (02/13/2019 MD Leni 1:07 PM EDT) Note: This is an individualized treatment (blood pressure) goal for Nga Schmidt: Displayed above (on the left) is your goal for blood pressure control. Your most recent blood pressure is also shown above, on the right. You should try to achieve blood pressures that are lower than your goal listed above (on the left). Weight loss vs. 18 mo Lifestyle 27.69 (02/13/2019 1:07 PM No Leni Rodriguez MD max (lbs) >= 10 EDT) Note: This is an individualized lifestyle goal [...] of this encounter Implants Implanted Type Area Shank Archer Device Shelf Model / Identifier Expiration Serial / Lot Date Nexgen Lps All-Poly Tibia 10mm Size 5 Ef - [id number] Right: BREE MOSES 07/26/2023 [id number] / Implanted: Qty: 1 on 12/31/2018 by Rell Arnett MD at [facility] [employer] / [id number] Femoral Comp Lps Flex Opt E-R - [id number] Right: BREE LOPES 2027 [id number] / Implanted: Qty: 1 on 12/31/2018 by Rell Arnett MD at [facility] [employer] / [id number] Bone Cement, Double 80gm - [id number] Right: DEPUY 06/25/2020 [id number] / Implanted: Qty: 1 on 12/31/2018 by Rell Arnett MD at [facility] [employer] / [id number] documented as of this encounter Results Not on filedocumented in this encounter Visit Diagnoses Diagnosis Drug-induced constipation - Primary Other constipation documented in this encounter Guarantor Name Account Type Relation to Date of Phone Billing Patient Address Nga Schmidt Personal/Family 1955 [address] ([address]) [place] [address], [place] [phone] [address] (Work) documented as of this encounter Advance Directives Code Status Date Activated Date Inactivated Comments Full Code 12/31/2018 11:45 AM Does the patient have decision making capacity? Yes Order was discussed with: Patient I discussed all options and patient/surrogate requested and agreed to: Full Code
--- OUTSIDE RECORDS SUMMARY | 2019-02-24 16:26 | XMS REPORT | Summary of Care ---
:1955 Author Organization [facility] Address [address] [facility] [place] [address] Care Team Providers Name Role Phone Leni Rodriguez MD Primary Care Provider Reason for Visit Reason Comments Knee Pain right Encounter Details Date Type Department Care Team Description 02/21/2019 Office Visit [facility] - Erma Cao, Right knee pain, [place] Physical PT unspecified Therapy [address] chronicity (Primary [address] [place] [address] Dx) [address] [phone] [phone] Allergies Active Allergy Reactions Severity Noted Date [...] as of this encounter (statuses as of 02/21/2019) Medications Medication Sig Dispensed Refills Start Date [...] Oral MOUTH EVERY DAY TabIndications: Essential hypertension ondansetron (ZOFRAN) Take 4 mg by 20 Tab 0 01/03/2019 Active 4 MG Oral Tab mouth EVERY EIGHT HOURS NEEDED (nausea/vomitting ). bisacodyl (DULCOLAX) Place 1 7 Suppository 0 01/05/2019 Active 10 MG Rectal Suppos Suppository per rectum DAILY NEEDED (constipation). tramadol (ULTRAM) 50 Take 2 Tabs by 60 Tab 0 01/18/2019 Active MG Oral Tab mouth EVERY SIX HOURS NEEDED (ongoing pain management from hospital). Max Daily Amount: 400 mg. documented as of this encounter (statuses as of 02/21/2019) Active Problems Problem Noted Date Primary osteoarthritis of right knee 10/09/2018 Overview: Added automatically from request for surgery [id number] Acute pain of left shoulder 09/07/2017 Tear [...] as of this encounter (statuses as of 02/21/2019) Immunizations Name Administration Dates Next Due Depo [...] on filedocumented in this encounter Progress Notes Erma Cao, PT - 02/21/2019 8:00 AM EDT [facility] Treatment Note Outpatient Physical [facility] [address] [place] [id number] Treatment Number: 5 Referring Physician: Rell Arnett Primary Diagnosis: ICD-9-CM ICD-10-CM 1. Right knee pain, unspecified chronicity 719.46 M25.561 Time In: 0800 Time Out: 0830 Total Session Minutes: 30 Pain at Start of Care: 09/02 Pain at End of Care: 07/05 Subjective Comments: Pt reports stiffness again today, no particular reason. 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 Interventions: Therapeutic Exercises (14376) Number of Exercises?: 5 Total Minutes (all Therapeutic Exercise): 15 Exercise #1 Exercise Name: supine terminal knee extension Reason for Exercise: Functional Mobility;Joint Mobility Location/Body Area: LE Details: 8* Exercise #2 Exercise Name: bike Reason for Exercise: Functional Mobility;Joint Mobility Location/Body Area: LE Details: intermittent revolution Exercise #3 Exercise Name: Step up/downs Reason for Exercise: Strengthening Location/Body Area: Knee Sets/Reps: 15x Resistance: 4" step Exercise #4 Exercise Name: calf stretch on wedge Reason for Exercise: Flexibility Location/Body Area: Knee;Ankle Sets/Reps: 60 sec Exercise #5 Exercise Name: Knee flexion on step Reason for Exercise: Joint Mobility Location/Body Area: Knee Sets/Reps: 8" step Manual Therapy (97299) Soft Tissue Mobilization: Manual Tissue Mobilization Soft Tissue Mobilization Details: right thigh PROM: right knee- in supine and prone PROM Details: flex and ext 115-5 today Total Minutes (All Manual Therapy): 15 Assessment: Patient demonstrates improved knee mobility to 10 to 105 actively and 5-115 passively. Improved gait with terminal knee extension after manual stretching. Patient also reports ongoing difficulty in standing, walking, stairs, has not returned to work yet. Skilled Physical Therapy services are required to address ongoing functional and objective limitations/impairments including decreased R knee ROM and LE strenght/stability. Plan for Next Visit: Progress LE mobilizations as tolerated. Total UNTIMED Code Treatment Minutes: Total TIMED Code Treatment Minutes: 30 Total Treatment Minutes: 30 Author: Erma Cao PT 02/21/2019 08:34 documented in this encounter Plan of Treatment Date Type Specialty Care Team Description 02/26/2019 Office Visit Physical Therapy Pily Mi, PT [address] [place] [address] [phone] 02/28/2019 Office Visit Physical Therapy Pily Mi, PT [address] [place] [address] [phone] 03/04/2019 [place] [address] [place] [address] [phone] 03/07/2019 Office Visit Physical Therapy Pily Mi, PT [address] [place] [address] 03/12/2019 Office Visit Physical Therapy Pily Mi, PT [address] [place] [address] 03/14/2019 Office Visit Physical Therapy Pily Mi, PT [address] [place] [address] [phone] 03/18/2019 Office Visit Physical Therapy Pily Mi, PT [address] [place] [address] [phone] 03/19/2019 Office Visit Orthopedics Rell Arnett MD [address] [address] 03/20/2019 Office Visit Physical Therapy Pily Mi, PT [address] [place] [address] [phone] 04/02/2019 Office Visit Gastroenterology Gemma Rae NP [address] [address] [phone] Health Maintenance Due Date Last Done Comments [...] Progress Blood Pressure Blood Pressure 122/76 No Michael, < 150/90 (02/13/2019 MD Leni 1:07 PM [...] This is an individualized self-management goal for Ngacrystal Schmidt: Please take all prescribed medications as [...] of this encounter Implants Implanted Type Area Property Adjuster Device Shelf Model / Identifier Expiration Serial / Lot Date Nexgen Lps All-Poly Tibia 10mm Size 5 Ef - [id number] Right: BREE LOPES 07/26/2023 [id number] / Implanted: Qty: 1 on 12/31/2018 by Rell Arnett MD at [facility] [employer] / [id number] Femoral Comp Lps Flex Opt E-R - [id number] Right: BREE LOPES 2027 [id number] / Implanted: Qty: 1 on 12/31/2018 by Rell Arnett MD at [facility] [employer] / [id number] Bone Cement, Double 80gm - [id number] Right: DEPUY 06/25/2020 [id number] / Implanted: Qty: 1 on 12/31/2018 by Rell Arnett MD at [facility] [employer] / [id number] documented as of this encounter Results Not on filedocumented in this encounter Visit Diagnoses Diagnosis Right knee pain, unspecified chronicity - Primary documented in this encounter Insurance Payer Benefit Plan / Subscriber ID Effective Dates Phone Address Type Group GENERIC [facility] [id number] 2016-[employer] [facility] GENERIC [phone] [id number] (Work) documented as of this encounter Advance Directives Code Status Date Activated Date Inactivated Comments Full Code 12/31/2018 11:45 AM Does the patient have decision making capacity? Yes Order was discussed with: Patient I discussed all options and patient/surrogate requested and agreed to: Full Code
--- OUTSIDE RECORDS SUMMARY | 2019-02-24 16:26 | XMS REPORT | Summary of Care ---
:1955 Author Organization [facility] Address 1 [facility] [place] [address] Care Team Providers Name Role Phone Leni Rodriguez MD Primary Care Provider Reason for Visit Reason Comments Knee Pain right Encounter Details Date Type Department Care Team Description 02/19/2019 Office Visit [facility] - Erma Cao, Right knee pain, [facility] unspecified Therapy [address] chronicity (Primary [address] [place] [address] Dx) [address] [phone] [address] [phone] Allergies Active Allergy Reactions Severity Noted Date [...] as of this encounter (statuses as of 02/19/2019) Medications Medication Sig Dispensed Refills Start Date [...] as of this encounter (statuses as of 02/19/2019) Active Problems Problem Noted Date Primary osteoarthritis of right knee 10/09/2018 Overview: Added automatically from request for surgery [id number] Acute pain of left shoulder 09/07/2017 Tear [...] as of this encounter (statuses as of 02/19/2019) Immunizations Name Administration Dates Next Due Depo [...] encounter Progress Notes Erma Cao, PT - 02/19/2019 8:30 AM EDT [facility] Treatment Note Outpatient Physical Therapy Services [facility] [address] [place] [id number] Treatment Number: 4 Referring Physician: Rell Arnett Primary Diagnosis: ICD-9-CM ICD-10-CM 1. 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 Stiff today. Interventions: Therapeutic Exercises (05179) Number of Exercises?: 5 Total Minutes (all [...] Area: Knee Sets/Reps: 8" step Manual Therapy (30927) Soft Tissue Mobilization: Manual Tissue Mobilization Soft Tissue Mobilization Details: right thigh PROM: right knee- in supine and prone PROM Details: flex and ext Total Minutes (All Manual Therapy): 15 Assessment: Patient demonstrates knee ROM -5 to 115 today. Patient also reports ongoing difficultyin prolonged standing, walking. Skilled Physical Therapy services are required to address ongoing functional and objective limitations/impairments including decreased knee ROM and Le strength/stability. Plan for Next Visit: Continue to progress mobilizations as tolerated in preparation for return to work next week. Total UNTIMED Code Treatment Minutes: Total TIMED Code Treatment Minutes: 30 Total Treatment Minutes: 30 Author: Erma Cao PT 02/19/2019 11:13 documented in this encounter Plan of Treatment Date Type Specialty Care Team Description 02/21/2019 Office Visit Physical Therapy Erma Cao, PT [address] [place] [address] 02/26/2019 Office Visit Physical Therapy Pily Mi, PT [address] [place] [address] [phone] 02/28/2019 Office Visit Physical Therapy Pily Mi, PT [address] [place] [address] [phone] 03/04/2019 [place] [address] [place] [address] [phone] 03/07/2019 Office [place] [address] [place] [address] 03/12/2019 Office Visit Physical Therapy Pily Mi, PT [address] [place] [address] 03/14/2019 Office Visit Physical Therapy Pily Mi, PT [address] [place] [address] [phone] 03/18/2019 Office Visit Physical Therapy Pily Mi, PT [address] [place] [address] [phone] 03/19/2019 Office Visit Orthopedics Rell Arnett MD [address] [address] [phone] 03/20/2019 Office Visit Physical Therapy Pily Mi, PT [address] [place] [address] [phone] 04/02/2019 Office Visit Gastroenterology Gemma Rae NP [address] [address] [phone] Health Maintenance Due Date Last Done Comments [...] 18 mo Lifestyle 27.69 (02/13/2019 1:07 PM Leni Prasad MD max (lbs) >= 10 EDT) Note: [...] of this encounter Implants Implanted Type Area Rural Carrier Associate Device Shelf Model / Identifier Expiration Serial / Lot Date Nexgen Lps All-Poly Tibia 10mm Size 5 Ef - [id number] Right: BREE MOSES 07/26/2023 [id number] / Implanted: Qty: 1 on 12/31/2018 by Rell Arnett MD at [facility] [address] Knee ASSOC / [id number] Femoral Comp Lps Flex Opt E-R - [id number] Right: BREELATA LOPES 2027 [id number] / Implanted: Qty: 1 on 12/31/2018 by Rell Arnett MD at [facility] [address] [employer]nee [employer] / [id number] Bone Cement, Double 80gm - [id number] Right: DEPUY 06/25/2020 [id number] / Implanted: Qty: 1 on 12/31/2018 by Rell Arnett MD at [facility] [address] Knee / [id number] documented as of this encounter Results Not on filedocumented in this encounter Visit Diagnoses Diagnosis Right knee pain, unspecified chronicity - Primary documented in this encounter Insurance Payer Benefit Plan / Subscriber ID Effective Dates Phone Address Type Group [place] [id number] 2016-[employer] [facility] GENERIC [phone] (Work) documented as of this encounter Advance Directives Code Status Date Activated Date Inactivated Comments Full Code 12/31/2018 11:45 AM Does the patient have decision making capacity? Yes Order was discussed with: Patient I discussed all options and patient/surrogate requested and agreed to: Full Code
--- OUTSIDE RECORDS SUMMARY | 2019-02-24 16:26 | XMS REPORT | Summary of Care ---
:1955 Author Organization [facility] Address [address] [address] Care Team Providers Name Role Phone Leni Rodriguez MD Primary Care Provider Encounter Details Date Type Department Care Team Description 02/13/2019 Hospital Encounter [facility] Re[facility] XR Outpatient [address] [address] Allergies Active Allergy Reactions Severity Noted Date [...] as of this encounter (statuses as of 02/15/2019) Medications Medication Sig Dispensed Refills Start Date [...] as of this encounter (statuses as of 02/15/2019) Active Problems Problem Noted Date Primary osteoarthritis of right knee 10/09/2018 Overview: Added automatically from request for surgery [id number] Acute pain of left shoulder 09/07/2017 Tear [...] as of this encounter (statuses as of 02/15/2019) Immunizations Name Administration Dates Next Due Depo [...] Visit Physical Therapy Erma Cao, PT [address] [place] [address] [phone] 02/21/2019 Office Visit Physical Therapy Erma Cao, PT [address] [place] [address] [phone] 02/21/2019 Office Visit Gastroenterology Gemma Rae, ARTEMIO [address] [address] [phone] 02/26/2019 Office Visit Physical Therapy Pily Mi, PT [address] [place] [address] [phone] 02/28/2019 Office Visit Physical Therapy Pily Mi, PT [address] [place] [address] [phone] 03/05/2019 Office Visit Physical Therapy Pily Mi, PT [address] [place] [address] [phone] 03/19/2019 Office Visit Orthopedics Rell Arnett MD [...] of this encounter Implants Implanted Type Area Senior Staff Accountant Device Shelf Model / Identifier Expiration Serial / Lot Date Nexgen Lps All-Poly Tibia 10mm Size 5 Ef - [id number] Right: BREE LOPES 07/26/2023 [id number] / Implanted: Qty: 1 on 12/31/2018 by Rell Arnett MD at [facility] Knee ASSOC / [id number] Femoral Comp Lps Flex Opt E-R - [id number] Right: BREE LOPES 2027 [id number] / Implanted: Qty: 1 on 12/31/2018 by Rell Arnett MD at [facility] Knee ASS[employer] / [id number] Bone Cement, Double 80 - [id number] Right: DEPUY 06/25/2020 [id number] / Implanted: Qty: 1 on 12/31/2018 by Rell Arnett MD at [facility] Knee / [id number] documented as of this encounter Procedures Procedure Name Priority Date/Time Associated Diagnosis Comments XR ABDOMEN 1 AP Routine 02/13/2019 2:10 Drug-induced Results for this VIEW PM EDT constipation procedure are in the results section. documented in this encounter Results XR ABDOMEN 1 AP VIEW (02/13/2019 2:10 PM EDT) Specimen Impressions Performed At Nonspecific bowel gas pattern. Mild fecal retention is seen in colon. Urgency: Routine. This is a routine medical imaging report. Recommendation: If inflammation is of concern then correlate with CT abdomen pelvis Signed by Nisha Alston MD, EVAN, FCPS on 02/13/2019 6:11 PM Narrative Performed At Procedure(s): XR ABDOMEN 1 AP VIEW Date of service: 02/13/2019 2:03 PM Provided clinical information: 63 years, Female, "no BM for 3 weeks concern for ileus/obstructionj" Procedure: Single view of the abdomen in supine position. Comparison studies: None Findings: Nonspecific bowel gas pattern is seen, without evidence of intestinal obstruction. Paucity of gas in small bowel loops may represent fluid-filled small bowel loops. Mild fecal retention is seen in colon. There are no findings in the abdomen to suggest organomegaly or significant mass effect. No abnormal upper or lower quadrant calcification are seen. No focal bony abnormality is seen. Procedure Note Interface, Rad Results - 02/13/2019 6:13 PM EDT Procedure(s): XR ABDOMEN 1 AP VIEW Date of service: 02/13/2019 2:03 PM Provided clinical information: 63 years, Female, "no BM for 3 weeks concern for ileus/obstructionj" Procedure: Single view of the abdomen in supine position. Comparison studies: None Findings: Nonspecific bowel gas pattern is seen, without evidence of intestinal obstruction. Paucity of gas in small bowel loops may represent fluid-filled small bowel loops. Mild fecal retention is seen in colon. There are no findings in the abdomen to suggest organomegaly or significant mass effect. No abnormal upper or lower quadrant calcification are seen. No focal bony abnormality is seen. IMPRESSION Nonspecific bowel gas pattern. Mild fecal retention is seen in colon. Urgency: Routine. This is a routine medical imaging report. Recommendation: If inflammation is of concern then correlate with CT abdomen pelvis Signed by Nisha Alston MD, EVAN, FCPS on 02/13/2019 6:11 PM documented in this encounter Visit Diagnoses Diagnosis Drug-induced constipation Other constipation documented in this encounter (Home) [place], [place] [phone] (Work) documented as of this encounter Advance Directives Code Status Date Activated Date Inactivated Comments Full Code 12/31/2018 11:45 AM Does the patient have decision making capacity? Yes Order was discussed with: Patient I discussed all options and patient/surrogate requested and agreed to: Full Code
--- NOTE | 2019-02-24 16:43 | ED ---
Complex/Multi-Sys Presentation - HPI Summary HPI Summary: This patient is a 63 year old F presenting to [facility] with a chief complaint of chills for over 2 weeks. Pt receives physical therapy 2x a week, after total knee replacement in November. Patient reports constipation, loss of appetite, fatigue, lower frequency of urination. Patient denies cough, nasal discharge, fever, pain or burning during urination. - History Of Current Complaint Chief Complaint: EDWeakness Time Seen by Provider: 02/24/19 16:36 Hx Obtained From: Patient Onset/Duration: Gradual Onset, Lasting Weeks, Still Present Timing: Constant, Weeks Severity Currently: None Location: Negative Aggravating Factor(s): Nothing Alleviating Factor(s): Nothing Associated Signs And Symptoms: Positive: Other - chills, constipation, loss of appetite, fatigue, lower frequency of urination. Negative: Cough, Dysuria, Fever - Allergies/Home Medications Allergies/Adverse Reactions: Allergies Allergy/AdvReac Type Severity Reaction Status Date / Time celecoxib [From Celebrex] Allergy Difficulty Verified 02/24/19 15:56 Breathing codeine Allergy Difficulty Verified 02/24/19 15:56 Breathing montelukast [From Singulair] Allergy Difficulty Verified 02/24/19 15:56 Breathing morphine Allergy Difficulty Verified 02/24/19 15:56 Breathing naproxen [From Aleve] Allergy Difficulty Verified 02/24/19 15:56 Breathing NSAIDS (Non-Steroidal Allergy Difficulty Verified 02/24/19 15:56 Anti-Inflamma Breathing oxycodone [From Percocet] Allergy Difficulty Verified 02/24/19 15:56 Breathing benzonatate AdvReac GI Upset Verified 02/24/19 15:56 propoxyphene [From Darvon] AdvReac Vomiting Verified 02/24/19 15:56 adhesives Allergy Blisters Uncoded 02/24/19 15:56 SEASONAL Allergy Eyes Uncoded 02/24/19 15:56 Itchy/Swollen/Red/Watery PMH/Surg Hx/FS Hx/Imm Hx Endocrine/Hematology History: Reports: Hx Thyroid Disease - hypo Denies: Hx Diabetes Cardiovascular History: Reports: Hx Angina - chest heaviness, Hx Hypercholesterolemia, Hx Hypertension Denies: Hx Coronary Artery Disease, Hx Myocardial Infarction, Hx Pacemaker/ ICD, Hx Valvular Heart Disease Respiratory History: Reports: Hx Asthma Denies: Hx Chronic Obstructive Pulmonary Disease (COPD) GI History: Denies: Hx Ulcer History: Denies: Hx Chronic Renal Failure, Hx Renal Disease Musculoskeletal History: Reports: Hx Arthritis - right hip, right knee, Hx Bursitis - right hip, Other Musculoskeletal History - right ankle, chronically swollen, from ligament detach r/t injury 2006? Sensory History: Reports: Hx Contacts or Glasses - reading Denies: Hx Hearing Aid Opthamlomology History: Reports: Hx Contacts or Glasses - reading Psychiatric History: Denies: Hx Panic Disorder - Cancer History Cancer Type, Location and Year: denies - Surgical History Surgery Procedure, Year, and Place: Partial hysterectomy,. plantar fasciitis, tendon right ankle, left elbow, lump removed from left breast, benign. FESS, DEVIATED SEPTUM REPAIR. Tubes in both ears. right total knee December 2018. rt knee miniscus repair. R knee replacement December 2018 Hx Anesthesia Reactions: No - Immunization History Date of Influenza Vaccine: feb 2018 Infectious Disease History: No Infectious Disease History: Reports: Hx Shingles Denies: Hx Clostridium Difficile, Hx Hepatitis, Hx Human Immunodeficiency Virus (HIV), Hx of Known/Suspected MRSA, Hx Tuberculosis, Hx Known/Suspected VRE , Hx Known/Suspected VRSA, History Other Infectious Disease, Traveled Outside the [place] in Last 30 Days - Family History Known Family History: Positive: Cardiac Disease, Hypertension, Diabetes - Social History Alcohol Use: None Hx Substance Use: No Substance Use Type: Reports: None Hx Tobacco Use: No Smoking Status (MU): Never Smoked Tobacco Review of Systems Constitutional: Other - pos - loss of appetite, fatigue Positive: Chills. Negative: Fever Negative: Nasal Discharge Negative: Cough Gastrointestinal: Other - pos - constipation Positive: frequency. Negative: burning, dysuria All Other Systems Reviewed And Are Negative: Yes Physical Exam - Summary Physical Exam Summary: Appearance: The patient is well-nourished in no acute distress and in no acute pain. Skin: The skin is warm and dry, and skin color reflects adequate perfusion. HEENT: The head is normocephalic and atraumatic. The pupils are equal and reactive. The conjunctivae are clear and without drainage. Nares are patent and without drainage. Mouth reveals moist mucous membranes, and the throat is without erythema and exudate. The external ears are intact. The ear canals are patent and without drainage. The tympanic membranes are intact. Neck: The neck is supple with full range of motion and non-tender. There are no carotid bruits. There is no neck vein distension. Respiratory: Chest is non-tender. Lungs are clear to auscultation and breath sounds are symmetrical and equal. Cardiovascular: Heart is regular rate and rhythm. There is no murmur or rub auscultated. There is no peripheral edema and pulses are symmetrical and equal. Abdomen: The abdomen is soft and non-tender. There are normal bowel sounds heard in all four quadrants and there is no organomegaly palpated. Musculoskeletal: There is no back tenderness noted. Extremities are non-tender with full range of motion. There is good capillary refill. There is no peripheral edema or calf tenderness elicited. Right knee incision well healed, mildly swollen and warm to touch. Neurological: Patient is alert and oriented to person, place and time. The patient has symmetrical motor strength in all four extremities. Cranial nerves are grossly intact. Deep tendon reflexes are symmetrical and equal in all four extremities. Psychiatric: The patient has an appropriate affect and does not exhibit any anxiety or depression. Triage Information Reviewed: Yes Vital Signs On Initial Exam: Initial Vitals Temp Pulse Resp BP Pulse Ox 98.7 F 96 16 156/96 98 02/24/19 15:53 02/24/19 15:53 02/24/19 15:53 02/24/19 15:53 02/24/19 15:53 Vital Signs Reviewed: Yes Diagnostics - Vital Signs Vital Signs Temp Pulse Resp BP Pulse Ox 02/24/19 15:53 98.7 F 96 16 156/96 98 - Laboratory Result Diagrams: 02/24/19 17:00 02/24/19 17:00 Lab Statement: Any lab studies that have been ordered have been reviewed, and results considered in the medical decision making process. - EKG 1721 Cardiac Rate: NL EKG Rhythm: Sinus Rhythm Summary of EKG Findings: An EKG at 17:21 reveals normal sinus rhythm 67 bpm, Left axis deviation, Left anterior fascicular block Complex Multi-Symp Course/Dx Course Of Treatment: Ms. Schmidt presented complaining of generalized malaise for the last several weeks with occasional chills. She was nontoxic in appearance with stable vitals. Her exam was unremarkable and labs and chest x- ray were also unrevealing. I'm not sure the etiology of her symptoms and recommended close follow-up with her PCP. I don't think anything immediately dangerous is happening. - Diagnoses Provider Diagnoses: Weakness Discharge ED - Sign-Out/Discharge Documenting (check all that apply): Patient Departure - Discharge Patient Received Moderate/Deep Sedation with Procedure: No - Discharge Plan Condition: Stable Disposition: HOME Patient Education Materials: Weakness (ED) Referrals: Leni Rodriguez MD [Primary Care Provider] - 3 Days Additional Instructions: Follow up with Primary Care Physician in 2-3 days. RETURN TO THE ED FOR ANY NEW OR WORSENING SYMPTOMS. - Billing Disposition and Condition Condition: STABLE Disposition: Home - Attestation Statements Document Initiated by Scribe: Yes Documenting Scribe: Irina Jara Provider For Whom Vivek is Documenting (Include Credential): Dr. Yaron Cosme MD Scribe Attestation: Irina Moran scribed for Dr. Yaron Cosme MD on 02/25/19 at 0801. Scribe Documentation Reviewed: Yes Provider Attestation: The documentation as recorded by the Irina regalado accurately reflects the service I personally performed and the decisions made by me, Dr. Yaron Cosme MD Status of Scribe Document: Viewed
[2019-02-24 17:06] LABS: ABS Basophils 0.1 10^3/ul (0-0.2); ABS Eosinophils 0.1 10^3/ul (0-0.6); ABS Lymphocytes 1.6 10^3/ul (1.0-4.8); ABS Monocytes 0.6 10^3/ul (0-0.8); ABS Neutrophils 4.7 10^3/ul (1.5-7.7); Eosinophil % 1.3 %; Hematocrit 38 % (35-47); Hemoglobin 12.9 g/dL (12.0-16.0); Lymphocyte % 23.2 %; Mean Corpuscular HGB Conc 34 g/dL (31-36); Mean Corpuscular Hemoglobin 28 pg (27-31); Mean Corpuscular Volume 83 fL (80-97); Mean Platelet Volume 8.6 fL (7.4-10.4); Platelet Count 201 10^3/uL (150-450); Red Blood Count 4.63 10^6 /uL (3.70-4.87); Red Cell Distribution Width 15 % (10-15)
[2019-02-24 17:24] LABS: Albumin/Globulin Ratio 1.4 (1-3); C Reactive Protein 4.11 mg/L (<8.01); Calcium 9.6 mg/dL (8.6-10.3); EGFR African American 91.3 (>60); EGFR Non-African American 75.5 (>60); Globulin 2.8 g/dL (2-4); Magnesium 2.2 mg/dL (1.9-2.7); Potassium 3.3 mmol/L (3.5-5.0); Total Bilirubin 0.9 mg/dL (0.2-1.0); Total Protein 6.8 g/dL (6.4-8.9)
[2019-02-24 17:51] LABS: TSH (Thyroid Stimulating Horm) 1.14 mcIU/mL (0.34-5.60)
[2019-02-24 18:11] LABS: Urine Appearance Clear; Urine Bacteria Absent (Absent); Urine Bilirubin Negative (Negative); Urine Blood Negative (Negative); Urine Color Yellow; Urine Glucose Negative (Negative); Urine Ketones Negative (Negative); Urine Nitrite Negative (Negative); Urine Protein Negative (Negative); Urine Red Blood Cell Trace(0-2/hpf) (Absent); Urine Specific Gravity 1.011 (1.010-1.030); Urine Squamous Epithelial Cell Present (Absent); Urine Urobilinogen Negative (Negative); Urine White Blood Cell Trace(0-5/hpf) (Absent)
[2019-02-24 18:58] VITALS: BP 127/74
== END 2019-02-24 18:45 | disposition home or self-care (01) ==
LOC: ED 15:50
DX: R53.1 Weakness (principal); E03.9 Hypothyroidism, unspecified; I10 Essential (primary) hypertension; E78.00 Pure hypercholesterolemia, unspecified; J45.909 Unspecified asthma, uncomplicated; R94.31 Abnormal electrocardiogram [ECG] [EKG]
CPT/HCPCS: 36415; 80053; 81003; 81015; 83605; 83735; 84443; 84484; 85025; 86140; 87086; 93005; 99282

== ENCOUNTER 2019-03-03 12:35 | Emergency (ER) | payer OTHER ==
--- OUTSIDE RECORDS SUMMARY | 2019-03-03 12:39 | XMS REPORT | Summary of Care ---
:1955 Author Organization [facility] Address 1 [facility] [place] [address] Care Team Providers Name Role Phone Leni Rodriguez MD Primary Care Provider Reason for Visit Reason Comments Knee Pain Encounter Details Date Type Department Care Team Description 02/26/2019 Office Visit [facility] - Pily Mi, PT Right knee pain, [facility] [address] [place] [address] chronicity (Primary [address] [phone] Dx) [place] [address] Allergies Active Allergy Reactions Severity [...] as of this encounter (statuses as of 02/26/2019) Medications Medication Sig Dispensed Refills Start Date [...] from hospital). Max Daily Amount: 400 mg. zolpidem (AMBIEN) 10 Take 1 Tab by 30 Tab 3 02/26/2019 Active MG Oral mouth EVERY TabIndications: BEDTIME NEEDED Insomnia, (insomnia). Max unspecified type Daily Amount: 10 mg. documented as of this encounter (statuses as of 02/26/2019) Active Problems Problem Noted Date Primary osteoarthritis of right knee 10/09/2018 Overview: Added automatically from request for surgery [id number] Acute pain of left shoulder 09/07/2017 Tear [...] as of this encounter (statuses as of 02/26/2019) Immunizations Name Administration Dates Next Due Depo Medrol (40mg) 09/13/2011, 09/01/2010 Influenza (IM) Preservative Free 02/26/2019, 04/01/2017, 03/22/2016, 03/27/2015, 03/25/2014, 03/28/2013, 03/19/2012, 03/22/2011, [...] encounter Progress Notes Pily Mi, PT - 02/26/2019 4:00 PM EDT [facility] Treatment Note Outpatient Physical Therapy Services [facility] [address] [place] [id number] Treatment Number: 6 Referring Physician: Rell Arnett Primary Diagnosis: ICD-9-CM ICD-10-CM 1. Right knee pain, unspecified chronicity 719.46 M25.561 Time In: 1600 Time Out: 1630 Pain at Start of Care: 2 Pain at End of Care: 09/02 Subjective Comments: She starts school tomorrow. She has been more regular with BMs but sleeping is still an issue. Interventions: Therapeutic Exercises (62209) Total Minutes (all Therapeutic Exercise): 15 Exercise #1 Exercise Name: supine terminal knee extension Reason for Exercise: Functional Mobility;Joint Mobility Location/Body Area: LE Details: 5* Exercise #2 Exercise Name: bike Reason for Exercise: Functional Mobility;Joint Mobility Location/Body Area: LE Details: intermittent revolution Exercise #3 Exercise Name: walking with terminal extension Reason for Exercise: Strengthening;Functional Mobility;Pain Control Location/Body Area: LE Exercise #5 Exercise Name: Knee flexion on step Reason for Exercise: Joint Mobility Location/Body Area: Knee Sets/Reps: 8" step Manual Therapy (63962) Soft Tissue Mobilization: Manual Tissue Mobilization Soft Tissue Mobilization Details: right thigh PROM: right knee- in supine and prone PROM Details: flex and ext 120-5 today Total Minutes (All Manual Therapy): 15 Assessment: She was able to get to 120 with flexion and 5* with extension. She will ice and rest after work tomorrow. Plan for Next Visit: Assess and continue to improve her gait. Total UNTIMED Code Treatment Minutes: Total TIMED Code Treatment Minutes: 30 Total Treatment Minutes: 30 Author: Pily Mi, PT 02/26/2019 16:29 documented in this encounter Plan of Treatment Date Type Specialty Care Team Description 02/28/2019 Office Visit Physical Therapy Pily Mi, PT [address] [place] [address] [phone] 03/04/2019 Office Visit Physical Therapy Pily Mi, PT [address] [place] [address] [phone] 03/07/2019 Office Visit Physical Therapy Pily Mi, PT [address] [place] [address] [phone] 03/12/2019 Office Visit Physical Therapy Pily Mi, PT [address] [place] [address] [phone] 03/14/2019 Office Visit Physical Therapy Pily Mi, PT [address] [place] [address] [phone] 03/18/2019 Office Visit Physical Therapy Pily Mi, PT [address] [place], [place] [address] 03/19/2019 Office Visit Orthopedics Rell Arnett MD [address] [place] [address] [phone] 03/20/2019 Office Visit Physical Therapy Pily iM, PT [address] [place] [address] [phone] 04/02/2019 Office Visit Gastroenterology Gemma Rae NP [address] [place] [address] Health Maintenance Due Date Last Done Comments ZOSTER IMMUNIZATION SERIES 02/19/2015 12/25/2014 (2 of 3) MAMMOGRAM (SCREENING) 12/07/2017 12/07/2016, 12/19/2014, 05/31/2013, Additional history exists INFLUENZA VACCINE (#1) 2019 03/08/2018, 04/01/2017, 03/22/2016, Additional history exists LIPID DISORDER SCREENING 11/15/2019 11/14/2018, 11/14/2016, 12/19/2014, Additional history exists DEPRESSION SCREENING 02/09/2020 02/08/2019 DIABETES SCREENING 02/26/2020 02/25/2019, 01/02/2019, 01/01/2019, Additional history exists COLONOSCOPY SCREENING 05/15/2020 05/15/2017, [...] Type Problems Progress Blood Pressure Blood Pressure 128/84 No Michael, < 150/90 (02/26/2019 MD Leni 10:11 AM EDT) Note: This is an individualized treatment (blood pressure) goal for Nga Schmidt: Displayed above (on the left) is your goal for blood pressure control. Your most recent blood pressure is also shown above, on the right. You should try to achieve blood pressures that are lower than your goal listed above (on the left). Weight loss vs. 18 mo Lifestyle 28 (02/26/2019 10:11 AM EDT) No Leni Rodriguez MD max [...] of this encounter Implants Implanted Type Area Quenching Car Operator Device Shelf Model / Identifier Expiration Serial / Lot Date Nexgen Lps All-Poly Tibia 10mm Size 5 Ef - [id number] Right: BREE LOPES 07/26/2023 [id number] / Implanted: Qty: 1 on 12/31/2018 by Rell Arnett MD at [facility] [employer] / [id number] Femoral Comp Lps Flex Opt E-R - [id number] Right: BREE LOPES 2027 [id number] / Implanted: Qty: 1 on 12/31/2018 by Rell Arnett MD at [facility] [employer] / [id number] Bone Cement, Double 80gm - [id number] Right: DEPUY 06/25/2020 [id number] / Implanted: Qty: 1 on 12/31/2018 by Rell Arnett MD at [facility] [employer] / [id number] documented as of this encounter Results Not on filedocumented in this encounter Visit Diagnoses Diagnosis Right knee pain, unspecified chronicity - Primary documented in this encounter Insurance Payer Benefit Plan / Subscriber ID Effective Dates Phone Address Type Group [employer] [place] [employer]WORKERS [id number] 2016-Pres Workers Comp COMP [facility] GENERIC [phone] (Work) documented as of this encounter Advance Directives Code Status Date Activated Date Inactivated Comments Full Code 12/31/2018 11:45 AM 02/25/2019 7:42 AM Does the patient have decision making capacity? Yes Order was discussed with: Patient I discussed all options and patient/surrogate requested and agreed to: Full Code
--- OUTSIDE RECORDS SUMMARY | 2019-03-03 12:39 | XMS REPORT | Summary of Care ---
:1955 Author Organization [facility] Address 1 [facility] [place] [address] Care Team Providers Name Role Phone Leni Rodriguez MD Primary Care Provider Reason for Visit Reason Comments Knee Pain Encounter Details Date Type Department Care Team Description 02/28/2019 Office Visit [facility] - Pily Mi, PT Right knee pain, [facility] [address] [place] [address] chronicity (Primary [address] [phone] Dx) [place] [address] Allergies Active Allergy Reactions Severity [...] as of this encounter (statuses as of 02/28/2019) Medications Medication Sig Dispensed Refills Start Date [...] as of this encounter (statuses as of 02/28/2019) Active Problems Problem Noted Date Primary osteoarthritis of right knee 10/09/2018 Overview: Added automatically from request for surgery [id number] Acute pain of left shoulder 09/07/2017 Tear [...] as of this encounter (statuses as of 02/28/2019) Immunizations Name Administration Dates Next Due Depo [...] encounter Progress Notes Pily Mi, PT - 02/28/2019 4:00 PM EDT [facility] Treatment Note Outpatient Physical Therapy Services [facility] [address] [place] [id number] Treatment Number: 7 Referring Physician: Rell Arnett Primary Diagnosis: ICD-9-CM ICD-10-CM 1. Right knee pain, unspecified chronicity 719.46 M25.561 Time In: 1600 Time Out: 1630 Pain at Start of Care: 10/03 Pain at End of Care: 08/05 Subjective Comments: She is really fatigued with being on her feet all day. Interventions: Therapeutic Exercises (08535) Total Minutes (all Therapeutic Exercise): 20 Exercise #1 Exercise Name: slr Reason for Exercise: Strengthening;Muscle Performance Location/Body Area: LE Details: 30 7* lag Exercise #2 Exercise Name: bike Reason for Exercise: Functional Mobility;Joint Mobility Location/Body Area: LE Details: intermittent revolution Exercise #3 Exercise Name: quad stretch with table behind her Reason for Exercise: Functional Mobility;Pain Control Location/Body Area: LE Manual Therapy (99344) Soft Tissue Mobilization: Manual Tissue Mobilization Soft Tissue Mobilization Details: right thigh PROM: right knee- in supine and prone PROM Details: flex and ext 120-4 today Total Minutes (All Manual Therapy): 10 Assessment: She actually did better than I thought she was going to with consecutive work days. She has about 7* lag in slr but was able to do 30 . She was able to do bike and got to full revolution with moderate issue. Plan for Next Visit: Assess and treat Total UNTIMED Code Treatment Minutes: Total TIMED Code Treatment Minutes: 30 Total Treatment Minutes: 30 Author: Pily Mi, HERBERTH 02/28/2019 16:25 documented in this encounter Plan of Treatment Date Type Specialty Care Team Description 03/04/2019 Office Visit Physical Therapy Pily Mi, PT [address] [place] [address] [phone] 03/07/2019 Office Visit Physical Therapy Pily Mi, PT [address] [place] [address] [phone] 03/12/2019 Office Visit Physical Therapy Pily Mi, PT [address] [place] [address] [phone] 03/14/2019 [place] [address] [place] [address] [phone] 03/18/2019 Office Visit Physical Therapy Pily Mi, PT [address] [place] [address] 03/19/2019 Office Visit Orthopedics Rell Arnett MD [address] [place] [address] 03/20/2019 Office Visit Physical Therapy Pily Mi, PT [address] [place] [address] 04/02/2019 Office Visit Gastroenterology Gemma Rae NP [address] [place] [address] Health Maintenance Due Date Last Done Comments ZOSTER IMMUNIZATION SERIES 02/19/2015 12/25/2014 (2 of 3) MAMMOGRAM (SCREENING) 12/07/2017 12/07/2016, 12/19/2014, 05/31/2013, Additional history exists LIPID DISORDER SCREENING 11/15/2019 11/14/2018, 11/14/2016, 12/19/2014, Additional history exists DEPRESSION SCREENING 02/09/2020 02/08/2019 DIABETES SCREENING 02/26/2020 02/25/2019, 01/02/2019, 01/01/2019, Additional history exists COLONOSCOPY SCREENING 05/15/2020 05/15/2017, 04/28/2014, 02/11/2011, Additional history exists PNEUMOCOCCAL 0-64 YRS Completed 11/22/2016 INFLUENZA VACCINE Completed 02/26/2019, 04/01/2017, 03/22/2016, Additional history exists HPV IMMUNIZATION SERIES Aged Out No longer eligible based on patient's age to complete this topic MENINGOCOCCAL VACCINE IMM Aged Out No longer eligible based on patient's age to complete this topic documented as of this encounter Goals Goal Patient Goal Associated Recent Patient-Stated? 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 Shelf Model / Identifier Expiration Serial / Lot Date Nexgen Lps All-Poly Tibia 10mm Size 5 - [id number] Right: BREE MOSES 07/26/2023 [id number] / Implanted: Qty: 1 on 12/31/2018 by Rell Arnett MD at [facility] [employer] / [id number] Femoral Comp Lps Flex Opt E-R - [id number] Right: BREE MOSES 2027 [id number] / Implanted: Qty: 1 on 12/31/2018 by Rell Arnett MD at [facility] [employer] / [id number] Bone Cement, Double 80gm - [id number] Right: DEPUY 06/25/2020 [id number] / Implanted: Qty: 1 on 12/31/2018 by Rell Arnett MD at [facility] [employer] / [id number] documented as of this encounter Results Not on filedocumented in this encounter Visit Diagnoses Diagnosis Right knee pain, unspecified chronicity - Primary documented in this encounter Insurance Payer Benefit Plan / Subscriber ID Effective Dates Phone Address Type Group [place] [id number] 2016-Presen [place] [phone] (Work) documented as of this encounter Advance Directives Code Status Date Activated Date Inactivated Comments Full Code 12/31/2018 11:45 AM 02/25/2019 7:42 AM Does the patient have decision making capacity? Yes Order was discussed with: Patient I discussed all options and patient/surrogate requested and agreed to: Full Code
--- OUTSIDE RECORDS SUMMARY | 2019-03-03 12:39 | XMS REPORT | Summary of Care ---
:1955 Author Organization [facility] Address [address] [place] [address] Care Team Providers Name Role Phone Leni Rodriguez MD Primary Care Provider Reason for Visit Reason Comments Sleep Problem pt presents in office with having issues sleeping at night, pt has taken OTC sleep aides however those are not working Flu Vaccine pt would like flu vaccine today Encounter Details Date Type Department Care Team Description 02/26/2019 Office Visit [place] [facility] Leni Rodriguez MD Need for influenza vaccination (Primary Dx); Medicine [address] Insomnia, unspecified type; [address] [place] [address] Hypothyroidism, [place] [address] [phone] Allergies Active Allergy Reactions Severity Noted Date [...] EVERY FOUR MG/3ML) 0.083% HOURS NEEDED Inhalation Arunu Soln (asthma symptoms). albuterol HFA Take 2 [...] Overview: Added automatically from request for surgery [id number] Acute pain of left shoulder 09/07/2017 Tear [...] Sign Reading Time Taken Comments Blood Pressure 128/84 02/26/2019 10:11 AM EDT Pulse 75 02/26/2019 10:11 AM EDT Temperature - - Respiratory Rate - - Oxygen Saturation 96% 02/26/2019 10:11 AM EDT Inhaled Oxygen Concentration - - Weight 86.2 kg (190 lb) 02/26/2019 10:11 AM EDT Height 160 cm (5' 3") 02/26/2019 10:11 AM EDT Body Mass Index 33.66 02/26/2019 10:11 AM EDT documented in this encounter Patient Instructions Patient InstructionsLeni Rodriguez MD - 02/26/2019 10:20 AM EDTPills for insomnia - Sleeping pills- ambien / ( lunesta) - Side effects of antidepressant medicaiton / muscle relaxers / - documented in this encounter Progress Notes Leni Rodriguez MD - 02/26/2019 10:20 AM EDT NAME:Nga Schmidt 1955: 1955 ENC Date: 02/26/2019 CC: Chief Complaint Patient presents with Sleep Problem pt presents in office with having issues sleeping at night, pt has taken OTC sleep aides however those are not working Flu Vaccine pt would like flu vaccine today Nga Schmidt is a 63-y.o. female Seen last 10/12 - sinus disease / atypical chest pressure / hypothryoid/ status post knee replacement-/ . Not taking any new drugs since knee done- Discussed position of the knee at night - Keeping her up- No animals / elctronics/ stimulants- Back to work next day- Lab Results Component Value Date TSH 0.99 10/17/2018 Current Outpatient Medications Medication Sig Acetaminophen (TYLENOL) [...] Daily Amount: 400 mg. zolpidem (AMBIEN) 10 MG Oral Tab Take 1 Tab by mouth EVERY BEDTIME NEEDED (insomnia). Max Daily Amount: 10 mg. No current facility-administered medications for this visit. Patient Active Problem List Diagnosis Date Noted Primary osteoarthritis of right knee 10/09/2018 Added automatically from request for surgery [id number] Acute pain of left shoulder 09/07/2017 Tear of left rotator cuff 09/07/2017 Age related osteoporosis 01/25/2017 dxa 2017 - Osteopenia - Weight bearing exercise Patellofemoral stress syndrome of right knee 11/07/2016 Essential hypertension 07/31/2015 Mild intermittent asthma without complication 07/31/2015 Lateral epicondylitis of left elbow 07/22/2015 Asthma 12/25/2014 Lipid disorder 12/25/2014 Polyp of colon 12/25/2014 2014 last- Needs 2017 Ankle sprain 11/06/2014 H/O: hysterectomy 05/29/2013 BMI 35.0-35.9,adult 05/29/2013 This patient's BMI has been calculated and is above average, and BMI management plan is completed. General patient education discussion including: weight loss link to reduction of risk factors for cardiac and other diseases Allergic rhinitis 06/12/2007 Sinus surgery - in the past- Family History Problem Relation Age of Onset [...] family history Clotting Disorder No family history No cardiopulmonary symptoms No upper or lower GI complaints No urinary tract symptoms. No bruising/ bleeding. No neurological complaints . No insomnia.+ . Social History Tobacco Use Smoking status: Never Smoker Smokeless tobacco: Never Used Substance Use Topics Alcohol use: No Alcohol/week: 0.0 standard drinks Drug use: No Results for orders placed or performed during the hospital encounter of 02/25/19 XR CHEST 2 VIEW PA AND LATERAL (STANDARD) Narrative Procedure(s): XR CHEST 2 VIEW PA AND LATERAL (STANDARD) Date of service: 02/25/2019 9:51 AM Provided clinical information: 63 years, Female, "pneumonia" Procedure: Standard protocol. Comparison: 03/24/2017 Observations: PA and lateral radiographs of the chest were obtained. There is a shallow inspiration. The lungs are clear without evidence of focal airspace consolidation. There is no pulmonary vascular congestion. There is no pneumothorax or pleural effusion. The cardiomediastinal silhouette is grossly stable. The included osseous structures are unchanged. Impression Shallow inspiration. No active disease in the chest. Urgency: Routine. This is a routine medical imaging report. Recommendation: No specific imaging recommendation Signed by Caesar De Guzman on 02/25/2019 10:06 AM XR KNEE 3 VIEWS RIGHT Narrative Procedure(s): XR KNEE 3 VIEWS RIGHT Date of service: 02/25/2019 9:50 AM Provided clinical information: 63 years, Female, "infection? - new joint replacement" Procedure: Standard protocol. Comparison: 02/06/2019 Observations: AP and lateral views of the right knee, as well as an axial view of both knees, were obtained. Right total knee arthroplasty again visualized, with the functioning components in stable satisfactory position and alignment. No evidence of obvious hardware complication such as loosening. No evidence of periprosthetic or other fracture. No concerning focal osseous lesions are seen. The surrounding soft tissues are within normal limits. Impression Stable exam. No acute abnormality. Urgency: Routine. This is a routine medical imaging report. Recommendation: No specific imaging recommendation. Signed by Caesar De Guzman on 02/25/2019 10:26 AM COMPREHENSIVE METABOLIC PANEL Result Value Ref Range Sodium 143 134 - 145 mmol/L Potassium 3.9 3.5 - 5.1 mmol/L Chloride 109 (H) 98 - 107 mmol/L CO2 25 22 - 30 mmol/L Calcium 10.2 (H) 8.3 - 10.1 mg/dl Albumin 4.9 3.5 - 5.0 g/dl BUN 10 7 - 17 mg/dl Creatinine 0.6 (L) 0.7 - 1.2 mg/dl Glucose 106 (H) 70 - 99 mg/dl Total Protein 8.8 (H) 6.3 - 8.2 g/dl Total Bilirubin 1.4 (H) 0.0 - 1.1 MG/DL AST 36 15 - 46 U/L ALT 28 9 - 52 U/L Alkaline Phosphatase 98 40 - 150 U/L eGFR >60 See Interpretation Below ml/min/1.73ml Sq BUN/Creatinine Ratio 17 6 - 22 RATIO Anion Gap 9 3 - 11 mmol/L A/G Ratio 1.3 0.8 - 2.0 ratio PROTHROMBIN TIME Result Value Ref Range INR 1.01 0.79 - 1.15 Ratio Protime 13.1 11.4 - 14.3 sec CBC WITH DIFFERENTIAL Result Value Ref Range WBC Count 6.66 3.98 - 10.04 K/uL RBC Count 4.96 3.93 - 5.22 M/UL Hemoglobin 13.7 11.2 - 15.7 g/dL Hematocrit 42.7 34.1 - 44.9 % MCV 86.1 79.4 - 94.8 FL MCH 27.6 25.6 - 32.2 PG MCHC 32.1 (L) 32.2 - 35.5 g/dL Platelet Count 228 182 - 369 K/uL MPV 11.0 9.4 - 12.3 FL RDW 14.0 11.7 - 14.4 % Neutrophil % 69.0 34.0 - 71.1 % Lymphocyte % 20.9 19.3 - 51.7 % Monocyte % 8.0 4.7 - 12.5 % Eosinophil % 1.1 0.7 - 5.8 % Basophil % 0.8 0.1 - 1.2 % nRBC % 0.0 0.0 - 0.2 % Neutrophil # 4.61 1.56 - 6.13 K/UL Lymphocyte # 1.39 1.18 - 3.74 K/UL Monocyte # 0.53 0.24 - 0.86 K/UL Eosinophil # 0.07 0.04 - 0.36 K/UL Basophil # 0.05 0.01 - 0.08 K/UL Immature Gran % 0.2 0.0 - 0.4 % Immature Gran # 0.01 0.00 - 0.03 K/uL NRBC # 0.00 0.00 - 0.12 K/uL URINALYSIS (LAB) WITH REFLEX CULTURE Result Value Ref Range Urine Color Yellow Yellow Urine Appearance Clear Clear Urine Glucose Negative Negative mg/dl Urine Bilirubin Negative Negative Urine Ketones Negative Negative Urine Specific [place] 1.017 1.005 - 1.030 Urine Blood Negative Negative Urine Ph 7.0 5.0 - 8.0 Urine Protein Trace (A) Negative mg/dl Urine Urobilinogen 0.2 0.2 - 1.0 E.U./DL Urine Nitrite Negative Negative Urine Leukocytes Negative Negative BLOOD CULTURE (C&S) Narrative The following orders were created for panel order BLOOD CULTURE (C&S). Procedure Abnormality Status --------- ------ ADULT BLOOD CULTURE[[id number]] Normal Preliminary result Please view results for these tests on the individual orders. BLOOD CULTURE (C&S) Narrative The following orders were created for panel order BLOOD CULTURE (C&S). Procedure Abnormality Status --------- ------ ADULT BLOOD CULTURE[[id number]] Normal Preliminary result Please view results for these tests on the individual orders. SEDIMENTATION RATE Result Value Ref Range ESR 18 0 - 30 MM/HR C-REACTIVE PROTEIN Result Value Ref Range C-Reactive Protein 0.90 <1.00 mg/dl ADULT BLOOD CULTURE Result Value Ref Range ADULT BLOOD CULTURE No Growth in 24 Hours ADULT BLOOD CULTURE Result Value Ref Range ADULT BLOOD CULTURE No Growth in 24 Hours OBJECTIVE: BP 128/84 | Pulse 75 | Ht 5' 3" (1.6 m) | Wt 190 lb (86.2 kg) | SpO2 96% | BMI 33.66 kg/m . Heent neg Neck no JVD, thyromegaly or bruit Lungs Clear CV rrr Abd soft, nontender, no organomegaly Ext no edema; no lesions; pulses intact Neuro: intellect intact ; motor including gait unremarkable A/P ICD-9-CM ICD-10-CM 1. Need for influenza vaccination V04.81 Z23 MD FLU VACCINE PRES FREE 6MOS+ 2. Insomnia, unspecified type 780.52 G47.00 zolpidem (AMBIEN) 10 MG Oral Tab 3. Hypothyroidism, unspecified type 244.9 E03.9 blood work reviewed - all ok Patient Instructions Pills for insomnia - Sleeping pills- ambien / ( lunesta) - Side effects of antidepressant medicaiton / muscle relaxers / - AUTHOR: Leni Rodriguez MD 11:22 02/26/2019 documented in this encounter Plan of Treatment Date Type Specialty Care Team Description 02/26/2019 Office Visit Physical Therapy Pily Mi, PT [address] [place] [phone] 02/28/2019 Office Visit Physical Therapy Pily Mi, PT [address] [place] [phone] 03/04/2019 Office Visit Physical Therapy Pily Mi, PT [address] [place] [phone] 03/07/2019 Office Visit Physical Therapy Pily Mi, PT [address] [place] [phone] 03/12/2019 Office Visit Physical Therapy Pily Mi, PT [address] [place] [phone] 03/14/2019 Office Visit Physical Therapy Pily Mi, PT [address] [place] [phone] 03/18/2019 Office Visit Physical Therapy Pily Mi, PT [address] [place] [phone] 03/19/2019 Office Visit Orthopedics Rell Arnett MD [address] [address] [phone] 03/20/2019 Office Visit Physical Therapy Pily Mi, PT [address] [place] [phone] 04/02/2019 Office Visit Gastroenterology Gemma Rae NP [address] [place] [address] [phone] Health Maintenance Due Date Last Done Comments [...] of this encounter 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 Shelf Model / Identifier Expiration Serial / Lot Date Nexgen Lps All-Poly Tibia 10mm Size 5 Ef - [id number] Right: [employer] 07/26/2023 [id number] / Implanted: Qty: 1 on 12/31/2018 by Rell Arnett MD at [facility] / [id number] Femoral Comp Lps Flex Opt E-R - [id number] Right: [employer] 2027 [id number] / Implanted: Qty: 1 on 12/31/2018 by Rell Arnett MD at [facility] [employer] / [id number] Bone Cement, Double 80gm - [id number] Right: DEPUY 06/25/2020 [id number] / Implanted: Qty: 1 on 12/31/2018 by Rell Arnett MD at [facility] / [id number] documented as of this encounter Results Not on filedocumented in this encounter Visit Diagnoses Diagnosis Need for influenza vaccination - Primary Need for prophylactic vaccination and inoculation against influenza Insomnia, unspecified type Hypothyroidism, unspecified type documented in this encounter Guarantor Name Account Type Relation to Date of Phone Billing Patient Address Nga Schmidt [place] Personal/Family 1955 [address] (Home) [place], [place] [phone] (Work) documented as of this encounter Advance Directives Code Status Date Activated Date Inactivated Comments Full Code 12/31/2018 11:45 AM 02/25/2019 7:42 AM Does the patient have decision making capacity? Yes Order was discussed with: Patient I discussed all options and patient/surrogate requested and agreed to: Full Code
--- OUTSIDE RECORDS SUMMARY | 2019-03-03 12:39 | XMS REPORT | Summary of Care ---
:1955 Author Organization [facility] Address [address] [place] [address] Care Team Providers Name Role Phone Leni Rodriguez MD Primary Care Provider Reason for Visit Reason Comments Chills Encounter Details Date Type Department Care Team Description 02/25/2019 Emergency [facility] Emergency Department [place] Sampson, Emergency [address] [facility] DO [place] [id number] [address] [facility] [phone] [place] [address] Allergies Active Allergy Reactions Severity Noted [...] Overview: Added automatically from request for surgery [id number] Acute pain of left shoulder 09/07/2017 Tear [...] Sign Reading Time Taken Comments Blood Pressure 139/83 02/25/2019 11:12 AM EDT Pulse 65 02/25/2019 11:12 AM EDT Temperature 36.4 02/25/2019 7:47 AM EDT C (97.5 F) Respiratory Rate 16 02/25/2019 11:12 AM EDT Oxygen Saturation 95% 02/25/2019 11:12 AM EDT Inhaled Oxygen Concentration - - Weight - - Height - - Body Mass Index - - documented in this encounter Plan of Treatment Date Type Specialty Care Team Description 02/26/2019 Office Visit Physical Therapy Pily Mi, PT [address] [place] [address] 02/28/2019 Office Visit Physical Therapy Pily Mi, PT [address] [place] [address] 03/04/2019 [place] [address] [place] [address] [phone] 03/07/2019 [place] [address] [place] [address] 03/12/2019 Office Visit Physical Therapy Hiwot Pily, PT [address] [place] [address] 03/14/2019 Office Visit Physical Therapy Hiwot Pily, PT [address] [place] [address] [phone] 03/18/2019 Office Visit Physical Therapy Hiwot Pily, PT [address] [place] [address] [phone] 03/19/2019 Office Visit Orthopedics Rell Arnett MD [address] [place] [address] [phone] 03/20/2019 Office Visit Physical Therapy Hiwot Pily, PT [address] [place] [address] [phone] 04/02/2019 Office Visit Gastroenterology Gemma Rae NP [address] [place] [address] [phone] Name Type Priority Associated Diagnoses Date/Time BLOOD CULTURE (C&S) Lab Routine 02/25/2019 9:31 AM EDT BLOOD CULTURE (C&S) Lab Routine 02/25/2019 9:55 AM EDT ADULT BLOOD CULTURE Lab Routine 02/25/2019 9:31 AM EDT ADULT BLOOD CULTURE Lab Routine 02/25/2019 9:55 AM EDT Health Maintenance Due Date Last Done Comments [...] individualized treatment (blood pressure) goal for Nga Chuy Brayan: Displayed above (on the left) is your [...] of this encounter Implants Implanted Type Area Customs Opener Verifier Packer Device Shelf Model / Identifier Expiration Serial / Lot Date Nexgen Lps All-Poly Tibia 10mm Size 5 - [id number] Right: [employer] 07/26/2023 [id number] / Implanted: Qty: 1 on 12/31/2018 by Rell Arnett MD at [facility] [employer] / [id number] Femoral Comp Lps Flex Opt E-R - [id number] Right: [employer]OP[employer] 2027 [id number] / Implanted: Qty: 1 on 12/31/2018 by Rell Arnett MD at [facility] [employer] / [id number] Bone Cement, Double 80 - [id number] Right: DEPUY 06/25/2020 [id number] / Implanted: Qty: 1 on 12/31/2018 by Rell Arnett MD at [facility] [employer] / [id number] documented as of this encounter Procedures Procedure Name Priority Date/Time Associated Comments Diagnosis ADULT BLOOD CULTURE Routine 02/25/2019 9:55 AM EDT XR KNEE 3 VIEWS RIGHT STAT 02/25/2019 9:53 Results for this AM EDT procedure are in the results section. XR CHEST 2 VIEW PA AND STAT 02/25/2019 9:52 Results for this LATERAL (STANDARD) AM EDT procedure are in the results section. CBC WITH DIFFERENTIAL STAT 02/25/2019 9:31 Results for this AM EDT procedure are in the results section. ADULT BLOOD CULTURE Routine 02/25/2019 9:31 AM EDT URINALYSIS (LAB) WITH STAT 02/25/2019 9:31 Results for this REFLEX CULTURE AM EDT procedure are in the results section. C-REACTIVE PROTEIN STAT 02/25/2019 9:31 Results for this AM EDT procedure are in the results section. COMPREHENSIVE STAT 02/25/2019 9:31 Results for this METABOLIC PANEL AM EDT procedure are in the results section. SEDIMENTATION RATE STAT 02/25/2019 9:31 Results for this AM EDT procedure are in the results section. PROTHROMBIN TIME STAT 02/25/2019 9:31 Results for this AM EDT procedure are in the results section. documented in this encounter Results XR KNEE 3 VIEWS RIGHT (02/25/2019 9:53 AM EDT) Specimen Impressions Performed At Stable exam. No acute abnormality. Urgency: Routine. This is a routine medical imaging report. Recommendation: No specific imaging recommendation. Signed by Caesar De Guzman on 02/25/2019 10:26 AM Narrative Performed At Procedure(s): XR KNEE [...] surrounding soft tissues are within normal limits. Procedure Note Interface, Rad Results - 02/25/2019 10:28 AM EDT Procedure(s): XR KNEE 3 VIEWS [...] surrounding soft tissues are within normal limits. IMPRESSION Stable exam. No acute abnormality. Urgency: Routine. This is a routine medical imaging report. Recommendation: No specific imaging recommendation. Signed by Caesar De Guzman on 02/25/2019 10:26 AM XR CHEST 2 VIEW PA AND LATERAL (STANDARD) (02/25/2019 9:52 AM EDT) Specimen Impressions Performed At Shallow inspiration. No active disease in the chest. Urgency: Routine. This is a routine medical imaging report. Recommendation: No specific imaging recommendation Signed by Caesar De Guzman on 02/25/2019 10:06 AM Narrative Performed At Procedure(s): XR CHEST 2 VIEW PA AND [...] stable. The included osseous structures are unchanged. Procedure Note Interface, Rad Results - 02/25/2019 10:08 AM EDT Procedure(s): XR CHEST 2 VIEW PA AND [...] stable. The included osseous structures are unchanged. IMPRESSION Shallow inspiration. No active disease in the chest. Urgency: Routine. This is a routine medical imaging report. Recommendation: No specific imaging recommendation Signed by Caesar De Guzman on 02/25/2019 10:06 AM PROTHROMBIN TIME (02/25/2019 9:31 AM EDT) INR 1.01 0.79 - 1.15 [facility] Comment: [facility] INR Therapeutic Range: 2.0 - 3.5 Protime 13.1 11.4 - 14.3 sec [facility] Specimen Blood Performing Organization Address City/State/Zipcode Phone Number [facility] [address] [place] [address] COMPREHENSIVE METABOLIC PANEL (02/25/2019 9:31 AM EDT) Sodium 143 134 - 145 mmol/L [facility] Potassium 3.9 3.5 - 5.1 mmol/L [facility] Chloride 109 (H) 98 - 107 mmol/L [facility] CO2 25 22 - 30 mmol/L [facility] Calcium 10.2 (H) 8.3 - 10.1 mg/dl [facility] Albumin 4.9 3.5 - 5.0 g/dl [facility] BUN 10 7 - 17 mg/dl [facility] Creatinine 0.6 (L) 0.7 - 1.2 mg/dl [facility] Glucose 106 (H) 70 - 99 mg/dl [facility] Total Protein 8.8 (H) 6.3 - 8.2 g/dl [facility] Total Bilirubin 1.4 (H) 0.0 - 1.1 MG/DL [facility] AST 36 15 - 46 U/L [facility] ALT 28 9 - 52 U/L [facility] Alkaline 98 40 - 150 U/L [facility] eGFR >60 See Interpretation [facility] Comment: Below ml/min/1.73ml [facility] Estimated GFR Interpretation: Above 60ml/min/1.73m2 = Normal Renal Function 30-59 ml/min/1.73m2 = Stage 3 Chronic Kidney Disease 15-29 ml/min/1.73m2 = Stage 4 Chronic Kidney Disease Less than 15 ml/min/1.73m2 = Stage 5 Chronic Kidney Disease The GFR value is calculated using the Modification of Diet in Renal Disease ( MDRD) Study Equation which can be found at: https://www.kidney.org/content/fodf-ljalr-xyoqqndb BUN/Creatinine 17 6 - 22 [facility] Anion Gap 9 3 - 11 mmol/L [facility] A/G Ratio 1.3 0.8 - 2.0 ratio [facility] Specimen Blood Performing Organization Address [facility] Phone Number [facility] [address] [place] [address] [phone] C-REACTIVE PROTEIN (02/25/2019 9:31 AM EDT) C-Reactive Protein 0.90 <1.00 mg/dl [facility] Specimen Blood Performing Organization Address [facility] Phone Number [facility] [address] [place] [address] SEDIMENTATION RATE (02/25/2019 9:31 AM EDT) ESR 18 0 - 30 MM/HR [facility] Comment: [facility] Methodology was changed 12/19/18. Please note updated reference range. Specimen Blood Performing Organization Address [facility] Phone Number [facility] [address] [place] [address] URINALYSIS (LAB) WITH REFLEX CULTURE (02/25/2019 9:31 AM EDT) Urine Color Yellow Yellow [facility] Urine Appearance Clear Clear [facility] Urine Glucose Negative Negative mg/dl [facility] Urine Bilirubin Negative Negative [facility] Urine Ketones Negative Negative [facility] Urine Specific 1.017 1.005 - 1.030 [facility] Urine Blood Negative Negative [facility] Urine Ph 7.0 5.0 - 8.0 [facility] Urine Protein Trace (A) Negative mg/dl [facility] Urine Urobilinogen 0.2 0.2 - 1.0 E.U./DL [facility] Urine Nitrite Negative Negative [facility] Urine Leukocytes Negative Negative [facility] Specimen Urine Performing Organization Address [facility] Phone Number [facility] [address] [place] [address] CBC WITH DIFFERENTIAL (02/25/2019 9:31 AM EDT) WBC Count 6.66 3.98 - 10.04 K/uL [facility] RBC Count 4.96 3.93 - 5.22 M/UL [facility] Hemoglobin 13.7 11.2 - 15.7 g/dL [facility] Hematocrit 42.7 34.1 - 44.9 % [facility] MCV 86.1 79.4 - 94.8 FL [facility] MCH 27.6 25.6 - 32.2 PG [facility] MCHC 32.1 (L) 32.2 - 35.5 g/dL [facility] Platelet Count 228 182 - 369 K/uL [facility] MPV 11.0 9.4 - 12.3 FL [facility] RDW 14.0 11.7 - 14.4 % [facility] Neutrophil % 69.0 34.0 - 71.1 % [facility] Lymphocyte % 20.9 19.3 - 51.7 % [facility] Monocyte % 8.0 4.7 - 12.5 % [facility] Eosinophil % 1.1 0.7 - 5.8 % [facility] Basophil % 0.8 0.1 - 1.2 % [facility] nRBC % 0.0 0.0 - 0.2 % [facility] Neutrophil # 4.61 1.56 - 6.13 K/UL [facility] Lymphocyte # 1.39 1.18 - 3.74 K/UL [facility] Monocyte # 0.53 0.24 - 0.86 K/UL [facility] Eosinophil # 0.07 0.04 - 0.36 K/UL [facility] Basophil # 0.05 0.01 - 0.08 K/UL [facility] Immature Gran % 0.2 0.0 - 0.4 % [facility] Immature Gran # 0.01 0.00 - 0.03 K/uL [facility] NRBC # 0.00 0.00 - 0.12 K/uL [facility] Specimen Blood Performing Organization Address City/State/[facility] Phone Number [facility] [address] [place] [place] [address] documented in this encounter Visit Diagnoses Diagnosis Chills without fever - Primary Chills (without fever) documented in this encounter Guarantor Name Account Type Relation to Date of Phone Billing Patient Address Nga [place] Personal/Family 1955 [address] (Home) [place], [place] [phone] (Work) documented as of this encounter Advance Directives Code Status Date Activated Date Inactivated Comments Full Code 12/31/2018 11:45 AM 02/25/2019 7:42 AM Does the patient have decision making capacity? Yes Order was discussed with: Patient I discussed all options and patient/surrogate requested and agreed to: Full Code
[2019-03-03 12:45] VITALS: BP 134/91
--- NOTE | 2019-03-03 14:17 | UC ---
FLU HPI - HPI Summary HPI Summary: 63 year old female with no PMH presents with sinus pressure, loose stools, nausea, decreased appetite. GI symptoms started ~ 5 days ago, resolve other than decreased appetite, patient able to eat well. No C?O sinus pressure b/l, mild cough, + clogged ear sensation. H/O eustachian tubes b/l. no throat soreness. no recent abx use - History of Current Complaint Chief Complaint: UCAbdominalPain Stated Complaint: ABD PAIN,SINUS Time Seen by Provider: 03/03/19 13:49 Hx Obtained From: Patient Hx Last Menstrual Period: menapause ?: No Onset/Duration: Sudden Onset, Lasting Days - 5 days Severity Currently: Moderate Severity Initially: Moderate Pain Intensity: 5 Pain Scale Used: 0-10 Numeric Associated Signs & Symptoms: Positive: Nasal Congestion, Diarrhea. Negative: Fever, T Max, F/C, Myalgia, Cough, Sore Throat, Headache, Vomiting Related Hx: Possible Flu/Infectious Exposure - works at [employer]. 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 - Allergy/Home Medications Allergies/Adverse Reactions: Allergies Allergy/AdvReac Type Severity Reaction Status Date / Time celecoxib [From Celebrex] Allergy Difficulty Verified 03/03/19 12:46 Breathing codeine Allergy Difficulty Verified 03/03/19 12:46 Breathing montelukast [From Singulair] Allergy Difficulty Verified 03/03/19 12:46 Breathing morphine Allergy Difficulty Verified 03/03/19 12:46 Breathing naproxen [From Aleve] Allergy Difficulty Verified 03/03/19 12:46 Breathing NSAIDS (Non-Steroidal Allergy Difficulty Verified 03/03/19 12:46 Anti-Inflamma Breathing oxycodone [From Percocet] Allergy Difficulty Verified 03/03/19 12:46 Breathing benzonatate AdvReac GI Upset Verified 03/03/19 12:46 propoxyphene [From Darvon] AdvReac Vomiting Verified 03/03/19 12:46 adhesives Allergy Blisters Uncoded 03/03/19 12:46 SEASONAL Allergy Eyes Uncoded 03/03/19 12:46 Itchy/Swollen/Red/Watery PMH/Surg Hx/FS Hx/Imm Hx Previously Healthy: Yes - Surgical History Surgical History: Yes Surgery Procedure, Year, and Place: Partial hysterectomy,. plantar fasciitis, tendon right ankle, left elbow, lump removed from left breast, benign. FESS, DEVIATED SEPTUM REPAIR. Tubes in both ears. right total knee December 2018. rt knee miniscus repair. R knee replacement December 2018 - Family History Known Family History: Positive: Cardiac Disease, Hypertension, Diabetes, Non- Contributory - Social History Alcohol Use: None Substance Use Type: None Smoking Status (MU): Never Smoked Tobacco Household Exposure Type: Cigarettes - Immunization History Most Recent Influenza Vaccination: 02/2016 Most Recent Tetanus Shot: utd Most Recent Pneumonia Vaccination: October 2016 Vaccination Up to Date: Yes Review of Systems All Other Systems Reviewed And Are Negative: Yes Constitutional: Positive: Chills, Fatigue. Negative: Fever ENT: Positive: Ear Ache, Nasal Discharge, Sinus Congestion, Sinus Pain/ Tenderness. Negative: Sore Throat Respiratory: Positive: Cough. Negative: Shortness Of Breath Gastrointestinal: Positive: Diarrhea - resolved Is Patient Immunocompromised?: No Physical Exam Triage Information Reviewed: Yes Appearance: Well-Appearing, No Pain Distress, Well-Nourished Vital Signs: Initial Vital Signs Temp 97.8 F 03/03/19 12:42 Pulse 76 03/03/19 12:42 Resp 12 03/03/19 12:42 BP 134/91 03/03/19 12:42 Pulse Ox 99 03/03/19 12:42 Vital Signs Reviewed: No Eyes: Positive: Conjunctiva Clear ENT: Positive: Pharynx normal, TMs normal - b/l scarring lower TM consistent with h/o tubes, Sinus tenderness - frontal b/l moderate, Uvula midline. Negative: Pharyngeal erythema, Tonsillar swelling, Tonsillar exudate Neck: Positive: Supple, No Lymphadenopathy, Tenderness @ - periaur b/l, submand b/l. Negative: Nuchal Rigidity Respiratory: Positive: Chest non-tender, Lungs clear, Normal breath sounds, No respiratory distress, No accessory muscle use. Negative: Respiratory distress Cardiovascular: Positive: RRR, No Murmur Abdomen Description: Negative: CVA Tenderness (R), CVA Tenderness (L) Neurological Exam: Normal Skin Exam: Normal Flu Course/Dx - Course Course Of Treatment: Viral upper respiratory illness - Conservative treatment - Increase fluid intake - Tylenol/ motrin as needed for pain, fever - GO to ER with increased pain, fever > 102, difficulty breathing, swallowing - Work note given - Differential Dx/Diagnosis Differential Diagnosis/HQI/PQRI: RSV, Upper Respiratory Infection Provider Diagnosis: Viral upper respiratory illness Discharge ED - Sign-Out/Discharge Documenting (check all that apply): Patient Departure All imaging exams completed and their final reports reviewed: No Studies - Discharge Plan Condition: Good Disposition: HOME Patient Education Materials: Viral Syndrome (ED) Forms: *Work Release Referrals: Leni Rodriguez MD [Primary Care Provider] - Additional Instructions: Viral upper respiratory illness - Conservative treatment - Increase fluid intake - Tylenol/ motrin as needed for pain, fever - GO to ER with increased pain, fever > 102, difficulty breathing, swallowing - Work note given - Billing Disposition and Condition Condition: GOOD Disposition: Home - Attestation Statements Provider Attestation: I was available for consult. This patient was seen by the [facility]. The patient was not presented to , seen by or examined by nm -Maylin Luther MD
== END 2019-03-03 14:21 | disposition home or self-care (01) ==
LOC: UCEAST 12:35
DX: J06.9 Acute upper respiratory infection, unspecified (principal); R19.7 Diarrhea, unspecified; Z88.5 Allergy status to narcotic agent
CPT/HCPCS: 99201; G0463

== ENCOUNTER 2019-03-11 19:17 | Emergency (ER) | payer OTHER ==
--- OUTSIDE RECORDS SUMMARY | 2019-03-11 19:23 | XMS REPORT | Summary of Care ---
:1955 Author Organization [facility] Address 1 [facility] [place] [address] Care Team Providers Name Role Phone Leni Rodriguez MD Primary Care Provider Reason for Visit Reason Comments ER F/U Patient was seen at [facility] [place] on 03/03/2019. Sinus pain and pressure is still bad. Stomache pain and loose stools are go. Encounter Details Date Type Department Care Team Description 03/05/2019 Office Visit [place] [facility] Felisha Stroud, Sinus congestion ( Primary Dx); Practice [facility] Diarrhea, unspecified type [address] [place] [address] [place] [address] [phone] Allergies Active Allergy Reactions Severity Noted Date [...] as of this encounter (statuses as of 03/05/2019) Medications Medication Sig Dispensed Refills Start Date [...] Max unspecified type Daily Amount: 10 mg. amoxicillin-clavulan Take 1 Tab by 20 Tab 0 03/05/2019 Active ic acid (AUGMENTIN) mouth TWICE DAILY 9 500-125 MG Oral for 10 days. TabIndications: Sinus congestion documented as of this encounter (statuses as of 03/05/2019) Active Problems Problem Noted Date Primary osteoarthritis of right knee 10/09/2018 Overview: Added automatically from request for surgery [id number] Acute pain of left shoulder 09/07/2017 Tear [...] as of this encounter (statuses as of 03/05/2019) Immunizations Name Administration Dates Next Due Depo [...] Sign Reading Time Taken Comments Blood Pressure 132/76 03/05/2019 2:24 PM EDT Pulse 64 03/05/2019 2:24 PM EDT Temperature 36.7 03/05/2019 2:24 PM EDT C (98 F) Respiratory Rate - - Oxygen Saturation - - Inhaled Oxygen Concentration - - Weight 86.2 kg (190 lb) 03/05/2019 2:24 PM EDT Height 160 cm (5' 3") 03/05/2019 2:24 PM EDT Body Mass Index 33.66 03/05/2019 2:24 PM EDT documented in this encounter Patient Instructions Patient InstructionsFelisha Stroud FNP - 03/05/2019 2:20 PM EDTRest Fluids medications as directed salt water gargle as needed for sore/scratchy throat Call if symptoms fail to resolve or worsen documented in this encounter Progress Notes Felisha Stroud FNP - 03/05/2019 2:20 PM EDT PATIENT: Nga Schmidt : 1955 DATE OF SERVICE: 03/05/2019 CHIEF COMPLAINT: Chief Complaint Patient presents with ER F/U Patient was seen at [facility] [place] on 03/03/2019. Sinus pain and pressure is still bad. Stomache painand loose stools are go. Subjective HISTORY OF PRESENT ILLNESS: Nga Schmidt is a 63-y.o. female. HPI Sinus pain and congestion. Was seen at [facility] 03/03/19 - Dx viral illness. Using Astelin , Tylenol, no decongestants Initially appointment was made for GI sx - that has resolved. 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 atorvastatin (LIPITOR) 20 MG Oral Tab TAKE [...] file Gets together: Not on file Attends oriental orthodox service: Not on file Active member of [...] History Narrative Lives with . Works at [employer]. REVIEW OF SYSTEMS: Review of Systems Constitutional: Positive for malaise/fatigue. Negative for chills and fever. HENT: Positive for congestion, ear pain and sinus pain. Negative for sore throat. Respiratory: Positive for cough. Negative for sputum production, shortness of breath and wheezing. Gastrointestinal: GI SX resolved Musculoskeletal: Positive for myalgias. Neurological: Positive for headaches. Negative for dizziness. Objective PHYSICAL EXAM: VITALS: BP 132/76 | Pulse 64 | Temp 98 F (36.7 C) | Ht 5' 3" (1.6 m ) | Wt 190 lb (86.2 kg) | BMI 33.66 kg/m Body mass index is 33.66 kg/m . Physical Exam Constitutional: She is oriented to person, place, and time. Vital signs are normal. She appears well-developed and well-nourished. HENT: Head: Normocephalic and atraumatic. Right Ear: Tympanic membrane normal. Left Ear: Tympanic membrane normal. Nose: Rhinorrhea present. Right sinus exhibits maxillary sinus tenderness and frontal sinus tenderness. Left sinus exhibits maxillary sinus tenderness and frontal sinus tenderness. Mouth/Throat: Uvula is midline and oropharynx is clear and moist. Eyes: Pupils are equal, round, and reactive to light. EOM are normal. Neck: Normal range of motion. No JVD present. Cardiovascular: Normal rate and regular rhythm. Pulmonary/Chest: Effort normal and breath sounds normal. No respiratory distress. She has no wheezes. She has no rales. She exhibits no tenderness. Lymphadenopathy: She has no cervical adenopathy. Neurological: She is alert and oriented to person, place, and time. Skin: Skin is warm and dry. No cyanosis. Vitals reviewed. ASSESSMENT / IMPRESSION: ICD-9-CM ICD-10-CM 1. Sinus congestion 478.19 R09.81 amoxicillin-clavulanic acid (AUGMENTIN) 500- 125 MG Oral Tab 2. Diarrhea, unspecified type 787.91 R19.7 resolved Plan Rest Fluids medications as directed salt water gargle as needed for sore/scratchy throat Call if symptoms fail to resolve or worsen Author: SHERRY Bridges 03/05/2019 15:03 documented in this encounter Plan of Treatment Date Type Specialty Care Team Description 03/07/2019 Office Visit Physical Therapy Pily Mi, PT [address] [place] [address] 03/12/2019 Office Visit Physical Therapy Pily Mi, PT [address] [place] [address] 03/14/2019 Office Visit Physical Therapy Pily Mi, PT [address] [place] [address] 03/19/2019 Office Visit Orthopedics Rell Arnett MD [address] [place] [address] [phone] 03/20/2019 Office Visit Physical Therapy Pily Mi, PT [address] [place] [address] [phone] 03/25/2019 Office Visit Physical Therapy Pily Mi, PT [address] [place] [address] 03/27/2019 Office Visit Physical Therapy Pily Mi, PT [address] [place] [address] [phone] 04/01/2019 Office Visit Physical Therapy Pily Mi, PT [address] [place] [address] [phone] 04/02/2019 Office Visit Gastroenterology Gemma Rae NP [address] [place] [address] [address] [phone] 04/03/2019 Office Visit Physical Therapy Pily Mi, PT [address] [place] [address] [phone] 04/08/2019 Office Visit Physical Therapy Pily Mi, PT [address] [place] [address] [phone] 04/10/2019 Office Visit Physical Therapy Pily Mi, PT [address] [place] [address] [phone] Health Maintenance Due Date Last Done Comments [...] Type Problems Progress Blood Pressure Blood Pressure 132/76 No Michael, < 150/90 (03/05/2019 MD Leni 2:24 PM EDT) Note: This is an individualized treatment (blood pressure) goal for Nga Schmidt: Displayed above (on the left) is your goal for blood pressure control. Your most recent blood pressure is also shown above, on the right. You should try to achieve blood pressures that are lower than your goal listed above (on the left). Weight loss vs. 18 mo Lifestyle 28 (03/05/2019 2:24 PM EDT) No Leni Rodriguez MD max [...] of this encounter Implants Implanted Type Area Telecine Operator Device Shelf Model / Identifier Expiration Serial / Lot Date Nexgen Lps All-Poly Tibia 10mm Size 5 Ef - [id number] Right: BREE LOPES 07/26/2023 [id number] / Implanted: Qty: 1 on 12/31/2018 by Rell Arnett MD at [facility] [employer] / [id number] Femoral Comp Lps Flex Opt E-R - [id number] Right: BREE LOPES 2027 [id number] / Implanted: Qty: 1 on 12/31/2018 by Rell Arnett MD at [facility] [employer] / [id number] Bone Cement, Double 80gm - [id number] Right: DEPUY 06/25/2020 [id number] / Implanted: Qty: 1 on 12/31/2018 by Rell Arnett MD at [facility] [employer] / [id number] documented as of this encounter Results Not on filedocumented in this encounter Visit Diagnoses Diagnosis Sinus congestion - Primary Other diseases of nasal cavity and sinuses Diarrhea, unspecified type documented in this encounter Guarantor Name Account Type Relation to Date of Phone Billing Patient Address Nga Schmidt Personal/Family 1955 [address] [facility] (Home) [place], [place] [phone] [address] (Work) documented as of this encounter Advance Directives Code Status Date Activated Date Inactivated Comments Full Code 12/31/2018 11:45 AM 02/25/2019 7:42 AM Does the patient have decision making capacity? Yes Order was discussed with: Patient I discussed all options and patient/surrogate requested and agreed to: Full Code
--- OUTSIDE RECORDS SUMMARY | 2019-03-11 19:23 | XMS REPORT | Summary of Care ---
:1955 Author Organization [facility] Address 1 [facility] [place] [address] Care Team Providers Name Role Phone Leni Rodriguez MD Primary Care Provider Reason for Visit Reason Comments Knee Pain Encounter Details Date Type Department Care Team Description 03/04/2019 Office Visit [facility] - Pily Mi, PT Right knee pain, [place] [facility] [address] [place] [address] chronicity (Primary [address] [phone] Dx) [place] [address] Allergies Active Allergy Reactions Severity [...] as of this encounter (statuses as of 03/04/2019) Medications Medication Sig Dispensed Refills Start Date [...] as of this encounter (statuses as of 03/04/2019) Active Problems Problem Noted Date Primary osteoarthritis of right knee 10/09/2018 Overview: Added automatically from request for surgery [id number] Acute pain of left shoulder 09/07/2017 Tear [...] as of this encounter (statuses as of 03/04/2019) Immunizations Name Administration Dates Next Due Depo [...] encounter Progress Notes Pily Mi, PT - 03/04/2019 3:00 PM EDT [facility] Treatment Note Outpatient Physical Therapy Services [facility] [address] [place] [id number] Treatment Number: 8 Referring Physician: Rell Arnett Primary Diagnosis: ICD-9-CM ICD-10-CM 1. Right knee pain, unspecified chronicity 719.46 M25.561 Time In: 1500 Time Out: 1530 Pain at Start of Care: 5/10 Pain at End of Care: 09/02 Subjective Comments: She was unable to go to work today she caught something from one of the kids.She did her 30 slr this am. Interventions: Therapeutic Exercises (96486) Total Minutes (all Therapeutic Exercise): 20 Exercise #1 Exercise Name: slr for 30 then 20 saq Reason for Exercise: Strengthening;Muscle Performance Location/Body Area: LE Details: 5* lag Exercise #2 Exercise Name: bike Reason for Exercise: Functional Mobility;Joint Mobility Location/Body Area: LE Details: intermittent revolution Exercise #3 Exercise Name: walking with terminal extension outside Reason for Exercise: Strengthening;Functional Mobility;Pain Control Location/Body Area: LE Manual Therapy (74526) Soft Tissue Mobilization: Manual Tissue Mobilization Soft Tissue Mobilization Details: right thigh PROM: right knee- in supine and prone PROM Details: flex and ext 120-4 today Total Minutes (All Manual Therapy): 10 Assessment: She was able to go around on the bike the first time. She had 3 painful revolutions thenok. She was able to get to 4* in extension and she is walking much better. She is still using the cane outside, we did some outside walking without the cane and she had a veer x2. Plan for Next Visit: Assess and treat Total UNTIMED Code Treatment Minutes: Total TIMED Code Treatment Minutes: 30 Total Treatment Minutes: 30 Author: Pily Mi, PT 03/04/2019 15:24 documented in this encounter Plan of Treatment Date Type Specialty Care Team Description 03/05/2019 Office Visit Family Practice Felisha Stroud FNP [address] [place] [address] [phone] 03/07/2019 Office Visit Physical Therapy Pily Mi, PT [address] [place] [address] [phone] 03/12/2019 Office Visit Physical Therapy Pily Mi, PT [address] [place] [address] [phone] 03/14/2019 Office Visit Physical Therapy Pily Mi, PT [address] [place] [address] [phone] 03/19/2019 Office Visit Orthopedics Rell Arnett MD [address] [place] [address] [phone] 03/20/2019 Office Visit Physical Therapy Pily Mi, PT [address] [place] [address] 03/25/2019 Office Visit Physical Therapy Pily Mi, PT [address] [place] [address] 03/27/2019 Office Visit Physical Therapy Pily Mi, PT [address] [place] [address] 04/01/2019 Office Visit Physical Therapy Pily Mi, PT [address] [place] [address] 04/02/2019 Office Visit Gastroenterology Gemma Rae NP [address] [place] [address] [address] [phone] 04/03/2019 Office Visit Physical Therapy Pily Mi, PT [address] [place] [address] [phone] 04/08/2019 Office Visit Physical Therapy Pily Mi, PT [address] [place] [address] 04/10/2019 Office Visit Physical Therapy Pily Mi, PT [address] [place] [address] [phone] Health Maintenance Due Date Last Done Comments [...] of this encounter Implants Implanted Type Area Psychology Lecturer Device Shelf Model / Identifier Expiration Serial / Lot Date Nexgen Lps All-Poly Tibia 10mm Size 5 Ef - [id number] Right: BREE LOPES 07/26/2023 [id number] / Implanted: Qty: 1 on 12/31/2018 by Rell Arnett MD at [facility] [employer] / [id number] Femoral Comp Lps Flex Opt E-R - [id number] Right: BREE LOPES 2027 [id number] / Implanted: Qty: 1 on 12/31/2018 by Rell Arnett MD at [facility] [employer] / [id number] Bone Cement, Double 80 - [id number] Right: DEPUY 06/25/2020 [id number] / Implanted: Qty: 1 on 12/31/2018 by Rell Arnett MD at [facility] [employer] / [id number] documented as of this encounter Results Not on filedocumented in this encounter Visit Diagnoses Diagnosis Right knee pain, unspecified chronicity - Primary documented in this encounter Insurance Payer Benefit Plan / Subscriber ID Effective Dates Phone Address Type Group [place]IC [place]-WORK[place] [id number] 2016-[employer] Workers [employer] COMP [facility] GENERIC [phone] (Work) documented as of this encounter Advance Directives Code Status Date Activated Date Inactivated Comments Full Code 12/31/2018 11:45 AM 02/25/2019 7:42 AM Does the patient have decision making capacity? Yes Order was discussed with: Patient I discussed all options and patient/surrogate requested and agreed to: Full Code
--- OUTSIDE RECORDS SUMMARY | 2019-03-11 19:23 | XMS REPORT | Summary of Care ---
:1955 Author Organization [facility] Address 1 [facility] [place] [address] Care Team Providers Name Role Phone Leni Rodriguez MD Primary Care Provider Reason for Visit Reason Comments Knee Pain Encounter Details Date Type Department Care Team Description 03/07/2019 Office Visit [facility] - Pily Mi, PT Right knee pain, [place] [facility] [address] [place] [place] [address] chronicity (Primary [address] [phone] Dx) [place] [address] Allergies Active Allergy Reactions Severity [...] as of this encounter (statuses as of 03/07/2019) Medications Medication Sig Dispensed Refills Start Date [...] Oral for 10 days. TabIndications: Sinus congestion doxepin (SINEQUAN) Take 1 Cap by 30 Cap 1 03/05/2019 Active 10 MG Oral Cap mouth EVERY BEDTIME. Increase to 20 mg if not effectie documented as of this encounter (statuses as of 03/07/2019) Active Problems Problem Noted Date Primary osteoarthritis of right knee 10/09/2018 Overview: Added automatically from request for surgery [id number] Acute pain of left shoulder 09/07/2017 Tear [...] as of this encounter (statuses as of 03/07/2019) Immunizations Name Administration Dates Next Due Depo [...] encounter Progress Notes Pily Mi, PT - 03/07/2019 3:00 PM EDT [facility] Treatment Note Outpatient Physical [facility] PH[facility]ICAL THERAPY [address] [facility] [address] Treatment Number: 9 Referring Physician: Rell Arnett Primary Diagnosis: ICD-9-CM ICD-10-CM 1. Right knee pain, unspecified chronicity 719.46 M25.561 Time In: 1500 Time Out: 1530 Pain at Start of Care: 10/03 Pain at End of Care: 08/05 Subjective Comments: She is tired and has a sinus infection but she is able to do the exercises. She has been staying with the 30 slr Interventions: Therapeutic Exercises (76513) Total Minutes (all Therapeutic Exercise): 20 Exercise #1 Exercise Name: slr for 34then 25 saq Reason for Exercise: Strengthening;Muscle Performance Location/Body Area: LE Details: 5* lag Exercise #2 Exercise Name: bike Reason for Exercise: Functional Mobility;Joint Mobility Location/Body Area: LE Details: intermittent revolution Exercise #3 Exercise Name: walking with terminal extension outside Reason for Exercise: Strengthening;Functional Mobility;Pain Control Location/Body Area: LE Manual Therapy (03420) Soft Tissue Mobilization: Manual Tissue Mobilization Soft Tissue Mobilization Details: right thigh PROM: right knee- in supine and prone PROM Details: flex and ext 120-4 today Total Minutes (All Manual Therapy): 10 Assessment: She improved from the 30 and will continue to work on this. Her pain is less and her walking endurance is better. She got to 120 and to 3* Plan for Next Visit: Continue working toward 0 Total UNTIMED Code Treatment Minutes: Total TIMED Code Treatment Minutes: 30 Total Treatment Minutes: 30 Author: Pily Mi, PT 03/07/2019 15:12 documented in this encounter Plan of Treatment Date Type Specialty Care Team Description 03/12/2019 Office Visit Physical Therapy Pily Mi, PT [address] [place] [address] 03/14/2019 Office Visit Physical Therapy Pily Mi, PT [address] [place] [address] 03/19/2019 Office Visit Orthopedics Rell Arnett MD [address] [address] [phone] 03/20/2019 [place] [address] [place] [address] [phone] 03/25/2019 [place] [address] [place] [address] 03/27/2019 Office Visit Physical Therapy Pily Mi, PT [address] [place] [address] [phone] 04/01/2019 Office Visit Physical Therapy Pily Mi, PT [address] [place] [address] [phone] 04/02/2019 Office Visit Gastroenterology Gemma Rae NP [address] [address] [phone] 04/03/2019 Office Visit Physical Therapy Pily Mi, PT [address] [place] [address] [phone] 04/08/2019 Office Visit Physical Therapy Pily Mi, PT [address] [place] [address] [phone] 04/10/2019 [place] [address] [place] [address] [phone] Health Maintenance Due Date Last Done Comments [...] of this encounter Implants Implanted Type Area Hospital Unit Coordinator Device Shelf Model / Identifier Expiration Serial / Lot Date Nexgen Lps All-Poly Tibia 10mm Size 5 Ef - [id number] Right: BREE LOPES 07/26/2023 [id number] / Implanted: Qty: 1 on 12/31/2018 by Rell Arnett MD at [facility] [employer] / [id number] Femoral Comp Lps Flex Opt E-R - [id number] Right: BREE LOPES 2027 [id number] / Implanted: Qty: 1 on 12/31/2018 by Rell Arnett MD at [facility] [employer] / [id number] Bone Cement, Double 80gm - [id number] Right: DEPUY 06/25/2020 [id number] / Implanted: Qty: 1 on 12/31/2018 by Rell Arnett MD at [facility] [employer]nee / [id number] documented as of this encounter Results Not on filedocumented in this encounter Visit Diagnoses Diagnosis Right knee pain, unspecified chronicity - Primary documented in this encounter Insurance Payer Benefit Plan / Subscriber ID Effective Dates Phone Address Type Group GENERIC [facility]-WORKERS [id number] 2016-[employer] Workers [employer] COMP [facility] GENERIC [phone] [id number] (Work) documented as of this encounter Advance Directives Code Status Date Activated Date Inactivated Comments Full Code 12/31/2018 11:45 AM 02/25/2019 7:42 AM Does the patient have decision making capacity? Yes Order was discussed with: Patient I discussed all options and patient/surrogate requested and agreed to: Full Code
--- OUTSIDE RECORDS SUMMARY | 2019-03-11 19:23 | XMS REPORT | Continuity of Care Document ---
:1955 External Reference #:[id number] Author Name Louisa Lawson M.D. 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 Onset: 11/18/2016 Current tear of medial cartilage AND/OR meniscus Yamilet Stroud M.D. Onset: of knee Social History Type Date Description Comments Sex Unknown Tobacco Use Start: Unknown Never Smoked Cigarettes Smoking Status Reviewed: 03/06/19 Never Smoked Cigarettes ETOH Use Denies alcohol use Tobacco Use Start: Unknown Patient has never smoked Recreational Drug Use Denies Drug Use Exercise Type/Frequency Exercises rarely Limited following knee surgery. PT for knee pending. 2x per week Allergies, Adverse Reactions, Alerts Active Allergies Reaction Severity Comments Date Adhesive Tape blisters 12/03/2003 Morphine apnea 12/03/2003 Codeine asthma 12/03/2003 Darvon nausea 12/03/2003 Aleve difficulty breathing, nausea 12/03/2003 Celebrex difficulty breathing 12/03/2003 Benzonatate difficulty breathing, nausea 12/03/2003 pamelor sleep disruption 12/03/2003 Singulair 11/18/2016 Zyrtec Severe fatigue 12/18/2017 Medications Active Medications SIG Qnty Indications Ordering Provider Date Diclofenac Sodium apply 1 gram to 300gm Louisa Lawson, 11/21/2018 1% Gel affected area 4 M.D. times a day Astelin 2 puffs qd Marily Seth, 12/18/2017 MD Hwang 1 by mouth every Unknown 5mg Tablets day Lipitor one tab by mouth Unknown 20mg Tablets every night at bedtime Calcium + D 2 qd Unknown Ventolin HFA 2 puffs by mouth 1unconchita Seth, 108(90Base) four times a day mcg/Act Aerosol as needed Levothyroxine Sodium 1 by mouth every Unknown day 50mcg Tablets Doxepin HCL Leni Rodriguez MD 10mg Capsules Medications Administered in Office Medication SIG Qnty Indications Ordering Provider Date Depomedrol 40MG Louisa Lawson M.D. 10/25/2018 Injection Synvisc Or Synvisc-One Yamilet Stroud M.D. 12/01/2017 Injection 1 MG Injection Depomedrol 40MG Yamilet Stroud M.D. 01/23/2017 Injection No Injection Azeem Turner MD 12/26/2016 Injection Immunizations Description No Information Available Vital Signs Date Vital Result Comment 03/06/2019 2:43pm Height 63 inches 5'3" Weight 189.00 lb BP Systolic 126 mmHg BP Diastolic 86 mmHg Body Temperature 97.5 F BMI (Body Mass Index) 33.5 kg/m2 12/12/2018 2:40pm Height 63 inches 5'3" Weight 205.00 lb Heart Rate 96 /min BP Systolic 130 mmHg BP Diastolic 80 mmHg Body Temperature 96.0 F Pain Level 5 BMI (Body Mass Index) 36.3 kg/m2 Results Description No Information Available Procedures Date Code Description Status 10/25/201824559 Inject Tendon Sheath Or Ligament Aponeurosis Eg Plantar Completed Fascia 09/18/2018 63213 Treadmill Interp/Report Only Completed 09/18/2018 69191 Stress Test Supervsn W/Out I/R Completed Medical Devices Description No Information Available Encounters Type Date Location Provider Dx Diagnosis Office Visit 12/12/2018 Orthopedic Louisa Lawson M65.4 Radial styloid 2:15p [facility] tenosynovitis [de [place]erv[place]] M65.4 Radial styloid tenosynovitis [de [place]] Office Visit 11/21/2018 Orthopedic Kathleen M65.4 Radial styloid 2:15p [facility] tenosynovitis [de C.M.A. Quervain] Office Visit 10/25/2018 Orthopedic Louisa M6Fidel.4 Radial styloid 2:45p [facility] tenosynovitis [de C.M.A. Quervain] Office Visit 09/14/2018 Orthopedic Kathleen S63.502D Unspecified sprain 2:30p [facility] of left wrist, C.M.A. subsequent encounter Assessments Date Code Description Provider 03/06/2019 M65.4 Radial styloid tenosynovitis [de Quervain] Louisa Lawson M.D. 12/12/2018 M65.4 Radial styloid tenosynovitis [de [place]ervain] Louisa Lawson M.D. 12/12/2018 M65.4 Radial styloid tenosynovitis [de Quervain] Louisa Lawson M.D. 11/21/2018 M65.4 Radial styloid tenosynovitis [de Quervain] Kathleen PATTI HackettC 10/25/2018 M65.4 Radial styloid tenosynovitis [de Quervain] Louisa Lawson M.D. 09/18/2018 R07.89 Other chest pain Woody Mracos M.D. 09/14/2018 S63.502D Unspecified sprain of left wrist, Kathleen Roxann, RPA-C subsequent encounter Plan of Treatment 03/06/2019 - Louisa Lawson M.D.M65.4 Radial styloid tenosynovitis [de Quervain]Follow up:Follow up: As needed Functional Status Description No Information Available Mental Status Description No Information Available Referrals Description No Information Available
[2019-03-11 19:27] VITALS: BP 138/81
[2019-03-11] MEDS ORDERED: traMADol TAB* 50 MG PO ONE (20:07)
--- NOTE | 2019-03-11 20:12 | UC ---
Knee Pain HPI - HPI Summary HPI Summary: 63 yo female with right knee pain x 2 weeks no injury had knee replacement December of this year in [place] no fever slight increase in swelling no relief with tylenol increased pain with PT - History of Current Complaint Chief Complaint: UCLowerExtremity Stated Complaint: RT KNEE PAIN Time Seen by Provider: 03/11/19 19:42 Hx Obtained From: Patient Hx Last Menstrual Period: menapause Onset/Duration: Gradual Onset, Lasting Weeks Severity Initially: Mild Severity Currently: Moderate Pain Intensity: 5 Pain Scale Used: 0-10 Numeric Character: Throbbing, Spasmodic Aggravating Factor(s): Movement, Weight Bearing Alleviating Factor(s): Nothing Associated Signs And Symptoms: Positive: Swelling Able to Bear Weight: Yes Legs: 1 - medial pain, not red or hot - Allergies/Home Medications Allergies/Adverse Reactions: Allergies Allergy/AdvReac Type Severity Reaction Status Date / Time celecoxib [From Celebrex] Allergy Difficulty Verified 03/11/19 19:28 Breathing codeine Allergy Difficulty Verified 03/11/19 19:28 Breathing montelukast [From Singulair] Allergy Difficulty Verified 03/11/19 19:28 Breathing morphine Allergy Difficulty Verified 03/11/19 19:28 Breathing naproxen [From Aleve] Allergy Difficulty Verified 03/11/19 19:28 Breathing NSAIDS (Non-Steroidal Allergy Difficulty Verified 03/11/19 19:28 Anti-Inflamma Breathing oxycodone [From Percocet] Allergy Difficulty Verified 03/11/19 19:28 Breathing benzonatate AdvReac GI Upset Verified 03/11/19 19:28 propoxyphene [From Darvon] AdvReac Vomiting Verified 03/11/19 19:28 adhesives Allergy Blisters Uncoded 03/11/19 19:28 SEASONAL Allergy Eyes Uncoded 03/03/19 12:46 Itchy/Swollen/Red/Watery Home Medications: Home Medications Zolpidem Tartrate 10 mg PO SEE INSTRUCTIONS 03/11/19 [History Confirmed 03/11/19 ] PMH/Surg Hx/FS Hx/Imm Hx Previously Healthy: Yes Cardiovascular History: Hypertension - Surgical History Surgical History: Yes Surgery Procedure, Year, and Place: Partial hysterectomy,. plantar fasciitis, tendon right ankle, left elbow, lump removed from left breast, benign. FESS, DEVIATED SEPTUM REPAIR. Tubes in both ears. right knee replacement 2018. right total knee December 2018. rt knee miniscus repair. R knee replacement December 2018 - Family History Known Family History: Positive: Cardiac Disease, Hypertension, Diabetes, Non- Contributory - Social History Alcohol Use: None Substance Use Type: None Smoking Status (MU): Never Smoked Tobacco Household Exposure Type: Cigarettes - Immunization History Most Recent Influenza Vaccination: 02/2016 Most Recent Tetanus Shot: utd Most Recent Pneumonia Vaccination: October 2016 Vaccination Up to Date: Yes Review of Systems All Other Systems Reviewed And Are Negative: Yes Constitutional: Positive: Negative Skin: Positive: Negative Eyes: Positive: Negative ENT: Positive: Negative Respiratory: Positive: Negative Cardiovascular: Positive: Negative Gastrointestinal: Positive: Negative Genitourinary: Positive: Negative Motor: Positive: Negative Neurovascular: Positive: Negative Musculoskeletal: Positive: Arthralgia - Right knee Neurological: Positive: Negative Psychological: Positive: Negative Physical Exam Triage Information Reviewed: Yes Appearance: Well-Appearing, No Pain Distress, Well-Nourished Vital Signs: Initial Vital Signs Temp 98.6 F 03/11/19 19:24 Pulse 75 03/11/19 19:24 Resp 19 03/11/19 19:24 BP 138/81 03/11/19 19:24 Pulse Ox 99 03/11/19 19:24 Vital Signs Reviewed: Yes Eyes: Positive: Conjunctiva Clear ENT: Positive: Hearing grossly normal. Negative: Nasal congestion, Nasal drainage, Trismus, Hoarse voice Neck: Positive: Supple Respiratory: Positive: Lungs clear, Normal breath sounds, No respiratory distress Cardiovascular: Positive: RRR Musculoskeletal: Positive: ROM Limited @ - right knee, Other: - swollen,not red or warm Neurological: Positive: Alert, Muscle Tone Normal Psychological Exam: Normal Skin Exam: Normal Knee Pain Course/Dx - Course Course Of Treatment: SERVICE PERSON site checked - Differential Dx/Diagnosis Provider Diagnosis: Right knee pain Discharge ED - Sign-Out/Discharge Documenting (check all that apply): Patient Departure All imaging exams completed and their final reports reviewed: No Studies - Discharge Plan Condition: Stable Disposition: HOME Prescriptions: traMADol TAB* [Ultram*] 50 mg PO Q6HR PRN #12 tab MDD 4 PRN Reason: Pain - Severe Patient Education Materials: Knee Pain (ED) Additional Instructions: please call your ORTHOPEDIST in AM I think you should try to get in to see him in a day or two If you develop a fever or the knee becomes red go to the [place] [facility] Don't take tramadol and drive - Billing Disposition and Condition Condition: STABLE Disposition: Home
== END 2019-03-11 20:38 | disposition home or self-care (01) ==
LOC: UCEAST 19:17
DX: M25.561 Pain in right knee (principal); I10 Essential (primary) hypertension; Z88.5 Allergy status to narcotic agent
CPT/HCPCS: 99212; A9270-GY; G0463

== ENCOUNTER 2019-04-07 10:52 | Emergency (ER) | payer OTHER ==
--- OUTSIDE RECORDS SUMMARY | 2019-04-07 11:17 | XMS REPORT | Summary of Care ---
:1955 Author Organization [facility] Address [address] [place] [address] Care Team Providers Name Role Phone Leni Rodriguez Primary Care Provider Reason for Visit Reason Comments Knee Pain c/o right knee pain keeps her awake at night. Ortho told her to take tylenol and it does not help. Encounter Details Date Type Department Care Team Description 03/25/2019 Office Visit [facility] Marielos Blum, Pain due to total Practice PA-C right knee [address] replacement, [place] [address] [place] [address] (Primary Dx) [phone] Allergies Active Allergy Reactions Severity Noted Date [...] as of this encounter (statuses as of 03/25/2019) Medications Medication Sig Dispensed Refills Start End Date Status Date CALCIUM 500 + D DAILY. 0 Active 500-125 MG-UNIT PO TABS Acetaminophen Take by mouth. 0 Active (TYLENOL) 325 MG Oral Cap albuterol 3 mL by 360 mg 0 Active (PROVENTIL, Inhalation-SVN 8 VENTOLIN) (2.5 route EVERY MG/3ML) 0.083% FOUR HOURS Inhalation Nebu NEEDED (asthma Soln symptoms). albuterol HFA Take 2 Puffs by 1 Inhaler 5 Active (VENTOLIN) 108 (90 inhalation 8 Base) MCG/ACT EVERY FOUR Inhalation Aero HOURS NEEDED SolnIndications: (SOB). Asthma levothyroxine Take 1 Tab by 90 Tab 3 Active (SYNTHROID) 50 MCG mouth BEFORE 9 Oral BREAKFAST. TabIndications: Hypothyroidism, unspecified type Azelastine HCl 137 INSTILL 2 30 mL 5 Active MCG/SPRAY Nasal SPRAYS INTO 9 Solution EACH NOSTRIL TWICE A DAY atorvastatin TAKE 1 TABLET 90 Tab 3 Active (LIPITOR) 20 MG BY MOUTH EVERY 9 Oral DAY TabIndications: Mixed hyperlipidemia amLodipine TAKE 1 TABLET 30 Tab 11 Active (NORVASC) 5 MG Oral BY MOUTH EVERY 9 TabIndications: DAY Essential hypertension ondansetron Take 4 mg by 20 Tab 0 Active (ZOFRAN) 4 MG Oral mouth EVERY 9 Tab EIGHT HOURS NEEDED (nausea/vomitti ng). zolpidem (AMBIEN) Take 1 Tab by 30 Tab 3 Active 10 MG Oral mouth EVERY 9 TabIndications: BEDTIME Insomnia, NEEDED unspecified type (insomnia). Max Daily Amount: 10 mg. tramadol (ULTRAM) Take 1 Tab by 30 Tab 0 Active 50 MG Oral Tab mouth EVERY 9 BEDTIME. Max Daily Amount: 50 mg. tramadol (ULTRAM) Take 2 Tabs by 60 Tab 0 03/25/20 Discontinued 50 MG Oral Tab mouth EVERY SIX 9 19 (Reorder) HOURS NEEDED (ongoing pain management from hospital). Max Daily Amount: 400 mg. doxepin (SINEQUAN) Take 1 Cap by 30 Cap 1 03/25/20 Discontinued 10 MG Oral Cap mouth EVERY 9 19 BEDTIME. Increase to 20 mg if not effectie documented as of this encounter (statuses as of 03/25/2019) Active Problems Problem Noted Date Primary osteoarthritis of right knee 10/09/2018 Overview: Added automatically from request for surgery [id number] Acute pain of left shoulder 09/07/2017 Tear [...] as of this encounter (statuses as of 03/25/2019) Immunizations Name Administration Dates Next Due Depo [...] Sign Reading Time Taken Comments Blood Pressure 118/68 03/25/2019 7:28 AM EDT Pulse 83 03/25/2019 7:28 AM EDT Temperature - - Respiratory Rate - - Oxygen Saturation 98% 03/25/2019 7:28 AM EDT Inhaled Oxygen Concentration - - Weight 86.6 kg (191 lb) 03/25/2019 7:28 AM EDT Height 160 cm (5' 3") 03/25/2019 7:28 AM EDT Body Mass Index 33.83 03/25/2019 7:28 AM EDT documented in this encounter Patient Instructions Patient InstructionsDoMarielos whiting PA-C - 03/25/2019 7:20 AM EDTEscribed tramadol 50mg take at bedtime Continue physical therapy and home exercises Regular follow up with orthopedics ISTOP WAS ACCESSED AND THERE WERE NOT CONCERNS NOTED WITH CONTROLLED SUBSTANCE USAGE Reference #: [id number] signed by Marielos Blum PA-C at 2018 7:49 AM EDT documented in this encounter Progress Notes Marielos Blum PA-C - 03/25/2019 7:20 AM EDT PATIENT: Nga Schmidt : 1955 DATE OF SERVICE: 03/25/2019 REFERRING PRACTITIONER: Humberto PRIMARY CARE PROVIDER: Leni Rodriguez CHIEF COMPLAINT: Chief Complaint Patient presents with Knee Pain c/o right knee pain keeps her awake at night. Ortho told her to take tylenol and it does not help. Subjective HISTORY OF PRESENT ILLNESS: Nga Schmidt is a 63-y.o. female who presents with ongoing right knee pain Was seen by ortho Dr. Arnett 03/19/19 -- heeling well, instructed to take tylenol for pain S/P right TKA 12/31/18 Says pain is worse at night, asking for pain med for bedtime Has been going to PT, appointment later today Dr. Arnett ordered brace, waiting for worker's comp approval Denies fever, chills, nausea, vomiting, diarrhea, chest pains, SOB Past Medical [...] Date BILAT SALPINGO-OOPHORECT 1997 COLONOSCOPY DIAGNOSTIC EGD (BAEZ / NON BAEZ) ETHMOIDECTOMY 06.16.06 bilateral anterior OTHER AND UNSPECIFIED HYSTERECTOMY 1997 NE EXCISION TURBINATE 06.16.06 NE FOOT/TOES SURGERY PROC UNLISTED NE INCISION OF FOOT/TOE FASCIA 07.24.00 plantar left foot NE MASTECTOMY, PARTIAL 1997 left breast NE RAD EXCIS PLANTAR FASCIA 07.24.00 left heel NE SUTURE 1 NERVE ULNAR MOTOR Left 08/14/2015 Procedure: LEFT LATERAL EPICONDYLAR EXPLORATION & DEBRIDEMENT, RADIOCAPITELLAR ARTHROTOMY; Surgeon: Laura Guillen MD; Location: [facility] MAIN OR NE TOTAL KNEE ARTHROPLASTY Right 12/31/2018 Procedure: ARTHROPLASTY TOTAL KNEE GENDER SPECIFIC right; Surgeon: Rell Arnett MD; Location: [facility] MAIN OR NE UPPER ARM/ELBOW SURGERY UNLISTED SEPTOPLASTY NEC 06.16.06 [...] SPRAYS INTO EACH NOSTRIL TWICE A DAY CALCIUM 500 + D 500-125 MG-UNIT PO [...] file Gets together: Not on file Attends catholic service: Not on file Active member of [...] History Narrative Lives with . Works at [employer]. REVIEW OF SYSTEMS: Skin: negative skin lesions Eyes: negative visual blurring Ears/Nose/Throat: negative rhinorrhea or sore throat Respiratory: negative cough. Positive asthma Cardiovascular: negative chest pain Gastrointestinal: negative abdominal pain, constipation, diarrhea, nausea or vomiting Genitourinary: negative burning on urination, dysuria or vaginal discharge Musculoskeletal: positive right knee pain, s/p TKA 12/2018 Neurologic: positive migraine Psychiatric: negative anxiety Hematologic/Lymphatic/Immunologic: negative allergies Endocrine: positive hypothyroidism Objective PHYSICAL EXAMINATION: VITALS: BP 118/68 | Pulse 83 | Ht 5' 3" (1.6 m) | Wt 191 lb (86.6 kg) | SpO2 98% | BMI 33.83 kg/m Body mass index is 33.83 kg/m. General appearance - alert, mild-moderate distress, cooperative, oriented times 3 Skin - Skin color, texture, turgor normal. No rashes or lesions. Head - Normocephalic. No masses, lesions, tenderness or abnormalities Eyes - conjunctivae/corneas clear. PERRL, EOM's intact. Neck - Neck supple, FROM. No cervical or supraclavicularadenopathy. Right knee - well healed surgical scar present. Mild edema. Lungs - Good diaphragmatic excursion. Lungs clear. Chest symmetrical. Normal breath sounds. Heart - RRR. No murmurs, clicks or gallops. No peripheral edema. . . IMPRESSION: ICD-9-CM ICD-10-CM 1. Pain due to total right knee replacement, sequela 909.3 T84.84XS Z96.651 Plan PLAN: Escribed tramadol 50mg take at bedtime Continue physical therapy and home exercises Regular follow up with orthopedics ISTOP WAS ACCESSED AND THERE WERE NOT CONCERNS NOTED WITH CONTROLLED SUBSTANCE USAGE Reference #: [id number] Author: Marielos Blum PA-C 03/25/2019 07:32 documented in this encounter Plan of Treatment Date Type Specialty Care Team Description 03/25/2019 Office Visit Physical Therapy Pily Mi, PT [address] [place] [id number] 03/27/2019 [place] [address] [place] [address] 04/01/2019 Office Visit Physical Therapy Pily Mi, PT [address] [place] [phone] 04/02/2019 Office Visit Gastroenterology Gemma Rae NP [address] [address] [phone] 04/03/2019 [place] [address] [place] [phone] 04/08/2019 Office Visit Physical Therapy Pily Mi, PT [address] [place] [address] 04/10/2019 Office Visit Physical Therapy Pily Mi, PT [address] [place] [phone] 06/25/2019 Office Visit Orthopedics Rell Arnett MD [address] [address] [phone] Health Maintenance Due Date Last Done Comments [...] Type Problems Progress Blood Pressure Blood Pressure 118/68 No Michael, < 150/90 (03/25/2019 MD Leni 7:28 AM EDT) Note: This is an individualized treatment (blood pressure) goal for Nga Schmidt: Displayed above (on the left) is your goal for blood pressure control. Your most recent blood pressure is also shown above, on the right. You should try to achieve blood pressures that are lower than your goal listed above (on the left). Weight loss vs. 18 mo Lifestyle 27 (03/25/2019 7:28 AM EDT) No Leni Rodriguez MD max [...] all prescribed medications as directed Self-management Leni Prasda MD Note: This is an individualized self-management [...] of this encounter Implants Implanted Type Area Assistant Teaching Professor Device Shelf Model / Identifier Expiration Serial / Lot Date Nexgen Lps All-Poly Tibia 10mm Size 5 Ef - [id number] Right: BREE LOPES 07/26/2023 [id number] / Implanted: Qty: 1 on 12/31/2018 by Rell Arnett MD at [facility] [employer] / [id number] Femoral Comp Lps Flex Opt E-R - [id number] Right: BREE LOPES 2027 [id number] / Implanted: Qty: 1 on 12/31/2018 by Rell Arnett MD at [facility] [employer] / [id number] Bone Cement, Double 80gm - [id number] Right: DEPUY 06/25/2020 [id number] / Implanted: Qty: 1 on 12/31/2018 by Rell Arnett MD at [facility] Knee / [id number] documented as of this encounter Results Not on filedocumented in this encounter Visit Diagnoses Diagnosis Pain due to total right knee replacement, sequela - Primary documented in this encounter Guarantor Name Account Type Relation to Date of Phone Billing Patient Address Nga Schmidt Personal/Family 1955 [address] (Home) [place], [place] [phone] [id number] (Work) documented as of this encounter Advance Directives Code Status Date Activated Date Inactivated Comments Full Code 12/31/2018 11:45 AM 02/25/2019 7:42 AM Does the patient have decision making capacity? Yes Order was discussed with: Patient I discussed all options and patient/surrogate requested and agreed to: Full Code
--- OUTSIDE RECORDS SUMMARY | 2019-04-07 11:17 | XMS REPORT | Continuity of Care Document ---
:1955 External Reference #:[id number] Author Name Yamilet Stroud M.D. (transmitted by agent of provider Adina Wilks) Address [address] [place] [address] Care Team Providers Name Role Phone Leni Rodriguez MD - Internal Medicine Care Team Information Director Corporate Problems Active Problems Provider Date Localized, primary osteoarthritis Yamilet Stroud M.D. Onset: 11/18/2016 Current tear of medial cartilage AND/OR meniscus Yamilet Stroud M.D. Onset: of knee Derangement of knee Yamilet Stroud M.D. Onset: 04/03/2019 Arthroplasty of knee Yamilet Stroud M.D. Onset: 04/03/2019 Social History Type Date Description Comments Sex Unknown Tobacco Use Start: Unknown Never Smoked Cigarettes Smoking Status Reviewed: 04/03/19 Never Smoked Cigarettes ETOH Use Denies alcohol [...] Unknown Ventolin HFA 2 puffs by mouth 1units Marily Seth, 108(90Base) four times a day mcg/Act Aerosol as needed Levothyroxine Sodium 1 by mouth every Unknown day 50mcg Tablets Doxepin HCL Leni Rodriguez MD 10mg Capsules Tramadol HCL 1-2 tablets by Unknown 50mg Tablets mouth every 6 hours as needed pain Ambien prn Unknown Medications Administered in Office Medication SIG Qnty Indications Ordering Provider Date Depomedrol 40MG Louisa Lawson M.D. 10/25/2018 Injection Synvisc Or Synvisc-One Yamilet Stroud M.D. 12/01/2017 Injection 1 MG Injection Depomedrol 40MG Yamilet Stroud M.D. 01/23/2017 Injection No Injection Azeem Turner MD 12/26/2016 Injection Immunizations Description No Information Available Vital Signs Date Vital Result Comment 04/03/2019 8:08am Height 63 inches 5'3" Weight 194.00 lb Heart Rate 54 /min BP Systolic 138 mmHg BP Diastolic 86 mmHg Body Temperature 95.7 F Pain Level 4 BMI (Body Mass Index) 34.4 kg/m2 03/06/2019 2:43pm Height 63 inches 5'3" Weight 189.00 lb BP Systolic 126 mmHg BP Diastolic 86 mmHg Body Temperature 97.5 F BMI (Body Mass Index) 33.5 kg/m2 Results Description No Information Available Procedures Date Code Description Status 10/25/2018 10643 Inject Tendon Sheath Or Ligament Aponeurosis Eg Plantar Completed Fascia Medical Devices Description No Information Available Encounters Type Date Location Provider Dx Diagnosis Office Visit 03/06/2019 [facility] Louisa Lawson, M65.4 Radial styloid 3:00p at [place] [facility] tenosynovitis [de Quervain] Office Visit 12/12/2018 [facility] Louisa Lawson, M65.4 Radial styloid 2:15p at [facility] tenosynovitis [de Quervain] M65.4 Radial styloid tenosynovitis [de Quervain] Office Visit 11/21/2018 [facility] Kathleen Roxann M65.4 Radial styloid 2:15p Orthopedics at [facility] tenosynovitis [de [place] Quervain] Office Visit 10/25/2018 [facility] Louisa M65.4 Radial styloid 2:45p Orthoped[facility] at [facility] tenosynovitis [de [place] Quervain] Assessments Date Code Description Provider 04/03/2019 M25.561 Pain in right knee Yamilet Stroud M.D. 04/03/2019 M25.461 Effusion, right knee Yamilet Stroud M.D. 04/03/2019 Z96.651 Presence of right artificial knee joint Yamilet Stroud M.D. 04/03/2019 M22.2x1 Patellofemoral disorders, right knee Yamilet Stroud M.D. 03/06/2019 M65.4 Radial styloid tenosynovitis [de Quervain] Louisa Lawson M.D. 12/12/2018 M65.4 Radial styloid tenosynovitis [de Quervain] Louisa Lawson M.D. 12/12/2018 M65.4 Radial styloid tenosynovitis [de Quervain] Louisa Lawson M.D. 11/21/2018 M65.4 Radial styloid tenosynovitis [de Quervain] EDER Abbott 10/25/2018 M65.4 Radial styloid tenosynovitis [de Quervain] Louisa Laswon M.D. Plan of Treatment 04/03/2019 - Yamilet Stroud M.D.M25.561 Pain in right kneeNew Xrays:Knee 3 Views RT, Ordered: 04/03/19Follow up:Follow up: As [id number] Effusion, right kneeZ96.651 Presence of right artificial knee sueclH20.2x1 Patellofemoral disorders, right knee Functional Status Description No Information Available Mental Status Description No Information Available Referrals Description No Information Available
--- OUTSIDE RECORDS SUMMARY | 2019-04-07 11:17 | XMS REPORT | Summary of Care ---
:1955 Author Organization [facility] Address 1 [facility] [place] [address] Care Team Providers Name Role Phone Leni Rodriguez Primary Care Provider Reason for Visit Reason Comments Knee Pain Encounter Details Date Type Department Care Team Description 04/01/2019 Office Visit [facility] - Pily Mi, PT Right knee pain, [place] [facility] [address] [place] [place] [address] chronicity (Primary [address] [phone] Dx) [place] [address] Allergies Active Allergy Reactions Severity [...] as of this encounter (statuses as of 04/01/2019) Medications Medication Sig Dispensed Refills Start Date End Date Status CALCIUM 500 + D DAILY. 0 Active 500-125 MG-UNIT PO TABS Acetaminophen Take by mouth. 0 Active (TYLENOL) 325 MG Oral Cap albuterol (PROVENTIL, 3 mL by 360 mg 0 12/26/2017 Active VENTOLIN) (2.5 MG/3ML) Inhalation-SVN 0.083% Inhalation Nebu route EVERY FOUR Soln HOURS NEEDED (asthma symptoms). albuterol HFA Take 2 Puffs [...] EACH NOSTRIL Solution TWICE A DAY atorvastatin (LIPITOR) TAKE 1 TABLET BY 90 Tab 3 11/14/2018 Active 20 MG Oral MOUTH EVERY DAY TabIndications: Mixed hyperlipidemia amLodipine (NORVASC) 5 TAKE 1 TABLET BY 30 Tab 11 12/11/2018 Active MG Oral MOUTH EVERY DAY TabIndications: Essential hypertension ondansetron (ZOFRAN) 4 Take 4 mg by mouth 20 Tab 0 01/03/2019 Active MG Oral Tab EVERY EIGHT HOURS NEEDED (nausea/vomitting) . zolpidem (AMBIEN) 10 Take 1 Tab by 30 Tab 3 02/26/2019 Active MG Oral mouth EVERY TabIndications: BEDTIME NEEDED Insomnia, unspecified (insomnia). Max type Daily Amount: 10 mg. tramadol (ULTRAM) 50 Take 1 Tab by 30 Tab 0 03/25/2019 Active MG Oral Tab mouth EVERY BEDTIME. Max Daily Amount: 50 mg. documented as of this encounter (statuses as of 04/01/2019) Active Problems Problem Noted Date Primary osteoarthritis of right knee 10/09/2018 Overview: Added automatically from request for surgery [id number] Acute pain of left shoulder 09/07/2017 Tear [...] as of this encounter (statuses as of 04/01/2019) Immunizations Name Administration Dates Next Due Depo [...] encounter Progress Notes Pily Mi, PT - 04/01/2019 7:00 AM EDT [facility] Treatment Note Outpatient Physical Therapy Services [facility] [address] [place] [id number] Treatment Number: 15 Referring Physician: Rell Arnett Primary Diagnosis: ICD-9-CM ICD-10-CM 1. Right knee pain, unspecified chronicity 719.46 M25.561 Time In: 0700 Time Out: 0730 Pain at Start of Care: 2 Pain at End of Care: 07/05 Subjective Comments: Her back is sore but not having as much GI issue and she is sleeping. Her knee is not swelling as much she still has pain on the top of the knee. Interventions: Therapeutic Exercises (65189) Total Minutes (all Therapeutic Exercise): 20 Exercise #1 Exercise Name: 70slr Reason for Exercise: Strengthening;Muscle Performance Location/Body Area: LE Details: 3* lag Exercise #2 Exercise Name: recumbant bike Reason for Exercise: Functional Mobility;Pain Control Location/Body Area: LE Exercise #3 Exercise Name: walking with terminal extension outside Reason for Exercise: Strengthening;Functional Mobility;Pain Control Location/Body Area: LE Exercise #4 Exercise Name: chair squats Reason for Exercise: Strengthening Location/Body Area: LE;Trunk Manual Therapy (05392) Joint Mobilization: extension mobs Joint Mobilization Details: able to hit the table Total Minutes (All Manual Therapy): 10 Assessment: The brace is helping her from the knee buckling. She did have one episode of buckling but she had a cart or she would have fallen. We are continuing to work on strength. Plan for Next Visit: She sees Dr. Stroud on Mon. Total UNTIMED Code Treatment Minutes: Total TIMED Code Treatment Minutes: 30 Total Treatment Minutes: 30 Author: Pily Mi PT 04/01/2019 07:29 documented in this encounter Plan of Treatment Date Type Specialty Care Team Description 04/02/2019 Office Visit Gastroenterology Gemma Rae, [place] [address] [place] [address] [phone] 04/03/2019 Office Visit Physical Therapy Pily Mi, PT [address] [place] [address] [phone] 04/08/2019 Office Visit Physical Therapy Pily Mi, PT [address] [place] [address] [phone] 04/10/2019 Office Visit Physical Therapy Pily Mi, PT [address] [place] [address] [phone] 06/25/2019 Office Visit Orthopedics Rell Arnett MD [address] [place] [address] [phone] Health Maintenance Due Date Last Done Comments [...] of this encounter Implants Implanted Type Area Test Fixture Designer Device Shelf Model / Identifier Expiration Serial / Lot Date Nexgen Lps All-Poly Tibia 10mm Size 5 Ef - [id number] Right: BREE LOPES 07/26/2023 [id number] / Implanted: Qty: 1 on 12/31/2018 by Rell Arnett MD at [facility] [employer] / [id number] Femoral Comp Lps Flex Opt E-R - [id number] Right: BREE LOPES 2027 [id number] / Implanted: Qty: 1 on 12/31/2018 by Rell Arnett MD at [facility] [employer] / [id number] Bone Cement, Double 80gm - [id number] Right: DEPUY 06/25/2020 [id number] / Implanted: Qty: 1 on 12/31/2018 by Rell Arnett MD at [facility] / [id number] documented as of this encounter Results Not on filedocumented in this encounter Visit Diagnoses Diagnosis Right knee pain, unspecified chronicity - Primary documented in this encounter Insurance Payer Benefit Plan / Subscriber ID Effective Dates Phone Address Type Group [place]IC [place] [id number] 2016-[employer] COMP [facility] GENERIC [phone] [id number] (Work) documented as of this encounter Advance Directives Code Status Date Activated Date Inactivated Comments Full Code 12/31/2018 11:45 AM 02/25/2019 7:42 AM Does the patient have decision making capacity? Yes Order was discussed with: Patient I discussed all options and patient/surrogate requested and agreed to: Full Code
--- OUTSIDE RECORDS SUMMARY | 2019-04-07 11:17 | XMS REPORT | Summary of Care ---
:1955 Author Organization [facility] Address 1 [facility] [place] [address] Care Team Providers Name Role Phone Leni Rodriguez Primary Care Provider Reason for Visit Reason Comments Follow Up Constipation Encounter Details Date Type Department Care Team Description 04/02/2019 Office Visit Gemma Smith NP Constipation, Gastroenterology [address] [place] [address] constipation type [place] [id number] (Primary Dx) [phone] Allergies Active Allergy Reactions Severity Noted Date [...] as of this encounter (statuses as of 04/02/2019) Medications Medication Sig Dispensed Refills Start Date [...] as of this encounter (statuses as of 04/02/2019) Active Problems Problem Noted Date Constipation 04/02/2019 Primary osteoarthritis of right knee 10/09/2018 Overview: Added automatically from request for surgery [id number] Acute pain of left shoulder 09/07/2017 Tear [...] as of this encounter (statuses as of 04/02/2019) Immunizations Name Administration Dates Next Due Depo [...] Sign Reading Time Taken Comments Blood Pressure 138/76 04/02/2019 3:02 PM EDT Pulse 62 04/02/2019 3:02 PM EDT Temperature - - Respiratory Rate - - Oxygen Saturation - - Inhaled Oxygen Concentration - - Weight 87.6 kg (193 lb 1.6 oz) 04/02/2019 3:02 PM EDT Height 160 cm (5' 3") 04/02/2019 3:02 PM EDT Body Mass Index 34.21 04/02/2019 3:02 PM EDT documented in this encounter Patient Instructions Patient InstructionsGemma Rae NP - 04/02/2019 3:00 PM EDTMaintain adequate daily fluid/fiber intake Repeat colonoscopy 2021 Return to Clinic prn documented in this encounter Progress Notes Gemma Rae NP - 04/02/2019 3:00 PM EDT PATIENT:Nga Schmidt : 1955 DATE OF SERVICE: 04/02/2019 Chief Complaint Patient presents with Follow Up Constipation SUBJECTIVE: Nga Schmidt is a very pleasant 63-y.o. female who presents for constipation follow-up. Patient states constipation has resolved. Having daily bowel movements. No current bowel regimen. No GI complaints at today's visit. Pt denies: dysphagia, hematemesis, heartburn, abdominal pain, melena, hematochezia, nausea, vomiting, constipation, diarrhea, fever, chills, weight loss, fatigue, jaundice, itching, sore throat, sinus pain, eye pain, visual disturbances, palpitations, leg swelling, cough, shortness of breath, [...] bilateral anterior OTHER AND UNSPECIFIED HYSTERECTOMY 1997 UT EXCISION TURBINATE 06.16.06 UT FOOT/TOES SURGERY PROC UNLISTED UT INCISION OF FOOT/TOE FASCIA 07.24.00 plantar left foot UT MASTECTOMY, PARTIAL 1998 left breast UT RAD EXCIS PLANTAR FASCIA 07.24.00 left heel UT SUTURE 1 NERVE ULNAR MOTOR Left 08/14/2015 Procedure: LEFT LATERAL EPICONDYLAR EXPLORATION & DEBRIDEMENT, RADIOCAPITELLAR ARTHROTOMY; Surgeon: Laura Guillen MD; Location: [facility] MAIN OR UT TOTAL KNEE ARTHROPLASTY Right 12/31/2018 Procedure: ARTHROPLASTY TOTAL KNEE GENDER SPECIFIC right; Surgeon: Rell Arnett MD; Location: [facility] MAIN OR UT UPPER ARM/ELBOW SURGERY UNLISTED SEPTOPLASTY NEC 06.16.06 [...] file Gets together: Not on file Attends [employer] service: Not on file Active member of [...] tramadol (ULTRAM) 50 MG Oral Tab Take 1 Tab by mouth EVERY BEDTIME. Max Daily Amount: 50 mg. zolpidem (AMBIEN) 10 MG Oral Tab Take 1 Tab by mouth EVERY BEDTIME NEEDED (insomnia). Max Daily Amount: 10 mg. No current facility-administered medications for this visit. ROS: A comprehensive 10 point ROS was completed and negative except as mentioned in HPI. OBJECTIVE: BP 138/76 | Pulse 62 | Ht 5' 3" (1.6 m) | Wt 193 lb 1.6 oz (87.6 kg) | BMI 34.21 kg/m Physical Examination GENERAL: alert, oriented, no acute distress. SKIN: normal, no rashes or abnormalities noted. Skin acyanotic, warm, dry. EYES: PERRL, no scleral icterus LUNGS: Lung gamez clear bilat, respiratory effort unlabored. HEART: regular rhythm, no mumurs. ABDOMEN: Soft, non-tender, BS x 4. No guarding/rigity/rebound. Lab Results Component Value Date WBC 6.66 02/25/2019 HGB 13.7 02/25/2019 HCT 42.7 02/25/2019 PLAT 228 02/25/2019 Lab Results Component Value Date NA 143 02/25/2019 K 3.9 02/25/2019 CL 109 (H) 02/25/2019 CO2 25 02/25/2019 GLUCOSE 106 (H) 02/25/2019 BUN 10 02/25/2019 CREATININE 0.6 (L) 02/25/2019 CALCIUM 10.2 (H) 02/25/2019 TP 8.8 (H) 02/25/2019 ALBUMIN 4.9 02/25/2019 AST 36 02/25/2019 ALT 28 02/25/2019 ALK 98 02/25/2019 TBILI 1.4 (H) 02/25/2019 EGFR >60 02/25/2019 Impression/Plan ICD-9-CM ICD-10-CM 1. Constipation, unspecified constipation type 564.00 K59.00 1. Constipation most likely drug-induced from tramadol. Symptoms resolved Maintain adequate daily fluid/fiber intake Repeat colonoscopy 2021 Return to Clinic prn She was encouraged to call if questions or problems arise. She tells me she will be compliant. AUTHOR:Gemma Rae NP Section of Gastroenterology 04/02/2019 15:18 documented in this encounter Plan of Treatment Date Type Specialty Care Team Description 04/03/2019 Office Visit Physical Therapy Pily Mi, PT [address] [place] [address] [phone] 04/08/2019 Office Visit Physical Therapy Pily Mi, PT [address] [place] [address] [phone] 04/10/2019 Office Visit Physical Therapy Pily Mi, PT [address] [place] [address] [phone] 06/25/2019 Office Visit Orthopedics Rell Arnett MD [...] Type Problems Progress Blood Pressure Blood Pressure 138/76 No Michael, < 150/90 (04/02/2019 MD Leni 3:02 PM EDT) Note: This is an individualized treatment (blood pressure) goal for Nga Schmidt: Displayed above (on the left) is your goal for blood pressure control. Your most recent blood pressure is also shown above, on the right. You should try to achieve blood pressures that are lower than your goal listed above (on the left). Weight loss vs. 18 mo Lifestyle 24.9 (04/02/2019 3:02 PM No Leni Rodriguez MD max (lbs) [...] of this encounter Implants Implanted Type Area Industrial Economist Device Shelf Model / Identifier Expiration Serial / Lot Date Nexgen Lps All-Poly Tibia 10mm Size 5 Ef - [id number] Right: BREE MOSES 07/26/2023 [id number] / Implanted: Qty: 1 on 12/31/2018 by Rell Arnett MD at [facility] [employer] / [id number] Femoral Comp Lps Flex Opt E-R - [id number] Right: BREE LOPES 2027 [id number] / Implanted: Qty: 1 on 12/31/2018 by Rell Arnett MD at [facility] [employer] [employer] / [id number] Bone Cement, Double 80gm - [id number] Right: DEPUY 06/25/2020 [id number] / Implanted: Qty: 1 on 12/31/2018 by Rell Arnett MD at [facility] / [id number] documented as of this encounter Results Not on filedocumented in this encounter Visit Diagnoses Diagnosis Constipation, unspecified constipation type - Primary documented in this encounter Guarantor Name Account Type Relation to Date of Phone Billing Patient Address Nga Schmidt Personal/Family 1955 [phone] [address] (Home) [place], [place] [phone] [address] (Work) documented as of this encounter Advance Directives Code Status Date Activated Date Inactivated Comments Full Code 12/31/2018 11:45 AM 02/25/2019 7:42 AM Does the patient have decision making capacity? Yes Order was discussed with: Patient I discussed all options and patient/surrogate requested and agreed to: Full Code
--- OUTSIDE RECORDS SUMMARY | 2019-04-07 11:17 | XMS REPORT | Summary of Care ---
:1955 Author Organization [facility] Address 1 [facility] [place] [address] Care Team Providers Name Role Phone Leni Rodriguez Primary Care Provider Reason for Visit Reason Comments Knee Pain Encounter Details Date Type Department Care Team Description 03/20/2019 Office Visit [facility] - Pily Mi, PT Right knee pain, [place] [facility] [address] [place] [address] chronicity (Primary [address] [phone] Dx) [place] [address] Allergies Active Allergy Reactions Severity [...] as of this encounter (statuses as of 03/20/2019) Medications Medication Sig Dispensed Refills Start Date [...] Tab EVERY EIGHT HOURS NEEDED (nausea/vomitting) . tramadol (ULTRAM) 50 Take 2 Tabs by 60 Tab 0 01/18/2019 Active MG Oral Tab mouth EVERY SIX HOURS NEEDED (ongoing pain management from hospital). Max Daily Amount: 400 mg. zolpidem (AMBIEN) 10 Take 1 Tab by 30 Tab 3 02/26/2019 Active MG Oral mouth EVERY TabIndications: BEDTIME NEEDED Insomnia, unspecified (insomnia). Max type Daily Amount: 10 mg. doxepin (SINEQUAN) 10 Take 1 Cap by 30 Cap 1 03/05/2019 Active MG Oral Cap mouth EVERY BEDTIME. Increase to 20 mg if not effectie documented as of this encounter (statuses as of 03/20/2019) Active Problems Problem Noted Date Primary osteoarthritis of right knee 10/09/2018 Overview: Added automatically from request for surgery [id number] Acute pain of left shoulder 09/07/2017 Tear [...] as of this encounter (statuses as of 03/20/2019) Immunizations Name Administration Dates Next Due Depo [...] encounter Progress Notes Pily Mi, PT - 03/20/2019 3:00 PM EDT [facility] Treatment Note Outpatient Physical Therapy Services [facility] [address] [place] [id number] Treatment Number: 12 Referring Physician: Rell Arnett Primary Diagnosis: ICD-9-CM ICD-10-CM 1. Right knee pain, unspecified chronicity 719.46 M25.561 Time In: 1500 Time Out: 1530 Pain at Start of Care: 11/02 Pain at End of Care: 09/02 Subjective Comments: She saw Dr. Arnett and he is suggesting a brace. She didn 't walk as much today and her swelling is less. Interventions: Therapeutic Exercises (23668) Total Minutes (all Therapeutic Exercise): 20 Exercise #1 Exercise Name: slr for 25 then 20 Reason for Exercise: Strengthening;Muscle Performance Location/Body Area: LE Details: 3* lag Exercise #3 Exercise Name: walking with terminal extension outside Reason for Exercise: Strengthening;Functional Mobility;Pain Control Location/Body Area: LE Manual Therapy (56655) Soft Tissue Mobilization: Manual Tissue Mobilization Soft Tissue Mobilization Details: right thigh PROM: right knee- in supine and prone PROM Details: she was able to get to 0 today. Total Minutes (All Manual Therapy): 10 Assessment: If she can keep off the knee more she has less swelling and her range was actually good today. She got to 0 without much effort. Plan for Next Visit: Strengthening Total UNTIMED Code Treatment Minutes: Total TIMED Code Treatment Minutes: 30 Total Treatment Minutes: 30 Author: Pily Mi PT 03/20/2019 15:13 documented in this encounter Plan of Treatment Date Type Specialty Care Team Description 03/25/2019 Office Visit Physical Therapy Pily Mi, PT [address] [place] [address] [phone] 03/27/2019 Office Visit Physical Therapy Pily Mi, PT [address] [place] [address] [phone] 04/01/2019 [place] [address] [place] [address] [phone] 04/02/2019 Office Visit Gastroenterology Gemma Rae, [place]EM[place] [address] [place] [address] [address] [phone] 04/03/2019 Office Visit Physical Therapy Pily Mi, PT [address] [place] [address] [phone] 04/08/2019 Office Visit Physical Therapy Pily Mi, PT [address] [place] [address] [phone] 04/10/2019 Office Visit Physical Therapy Pily Mi, PT [address] [place] [address] [phone] 06/25/2019 Office Visit Orthopedics Rell Arnett MD [address] [address] [phone] Health Maintenance Due Date Last Done Comments [...] Type Problems Progress Blood Pressure Blood Pressure 122/74 No Crepet, < 150/90 (03/19/2019 MD Leni 1:42 PM EDT) Note: This is an individualized treatment (blood pressure) goal for Nga Schmidt: Displayed above (on the left) is your goal for blood pressure control. Your most recent blood pressure is also shown above, on the right. You should try to achieve blood pressures that are lower than your goal listed above (on the left). Weight loss vs. 18 mo Lifestyle 30 (03/19/2019 1:42 PM EDT) Leni Prasad MD max (lbs) [...] of this encounter Implants Implanted Type Area Dust Collector Ore Crushing Device Shelf Model / Identifier Expiration Serial / Lot Date Nexgen Lps All-Poly Tibia 10mm Size 5 Ef - [id number] Right: BREE MOSES 07/26/2023 [id number] / Implanted: Qty: 1 on 12/31/2018 by Rell Arnett MD at [facility] [employer] / [id number] Femoral Comp Lps Flex Opt E-R - [id number] Right: BREE LOPES 2027 [id number] / Implanted: Qty: 1 on 12/31/2018 by Rell Arnett MD at [facility] [employer] / [id number] Bone Cement, Double 80gm - [id number] Right: DEPUY 06/25/2020 [id number] / Implanted: Qty: 1 on 12/31/2018 by Rell Arnett MD at [facility] / [id number] documented as of this encounter Results Not on filedocumented in this encounter Visit Diagnoses Diagnosis Right knee pain, unspecified chronicity - Primary documented in this encounter Insurance Payer Benefit Plan / Subscriber ID Effective Dates Phone Address Type Group [place] [id number] 2016-[employer] [place] [phone] (Work) documented as of this encounter Advance Directives Code Status Date Activated Date Inactivated Comments Full Code 12/31/2018 11:45 AM 02/25/2019 7:42 AM Does the patient have decision making capacity? Yes Order was discussed with: Patient I discussed all options and patient/surrogate requested and agreed to: Full Code
--- OUTSIDE RECORDS SUMMARY | 2019-04-07 11:17 | XMS REPORT | Summary of Care ---
:1955 Author Organization [facility] Address 1 [facility] [place] [address] Care Team Providers Name Role Phone Leni Rodriguez MD Primary Care Provider Reason for Visit Reason Comments Knee Pain Encounter Details Date Type Department Care Team Description 03/14/2019 Office Visit [facility] Pily Mi, PT Right knee pain, [place] [facility] [address] [place] [address] chronicity (Primary [address] [phone] Dx) [place] [address] Allergies Active Allergy Reactions Severity [...] as of this encounter (statuses as of 03/14/2019) Medications Medication Sig Dispensed Refills Start Date [...] as of this encounter (statuses as of 03/14/2019) Active Problems Problem Noted Date Primary osteoarthritis of right knee 10/09/2018 Overview: Added automatically from request for surgery [id number] Acute pain of left shoulder 09/07/2017 Tear [...] as of this encounter (statuses as of 03/14/2019) Immunizations Name Administration Dates Next Due Depo [...] encounter Progress Notes Pily Mi, PT - 03/14/2019 3:00 PM EDT [facility] Treatment Note [facility]patient [facility] [address] [facility] [address] Treatment Number: 11 Referring Physician: Rell Arnett Primary Diagnosis: ICD-9-CM ICD-10-CM 1. Right knee pain, unspecified chronicity 719.46 M25.561 Time In: 1500 Time Out: 1530 Pain at Start of Care: 11/02 Pain at End of Care: 10/03 Subjective Comments: She is getting more pain and swelling and as the week goes on. She is going to contact the surgeon to see if she can be seen earlier. She feels she may need more time to recover before full return to work. Interventions: Therapeutic Exercises (25575) Total Minutes (all Therapeutic Exercise): 15 Exercise #1 Exercise Name: slr for 50then 25 saq Reason for Exercise: Strengthening;Muscle Performance Location/Body Area: LE Details: 5* lag Exercise #2 Exercise Name: bike Reason for Exercise: Functional Mobility;Joint Mobility Location/Body Area: LE Details: intermittent revolution Exercise #3 Exercise Name: walking with terminal extension outside Reason for Exercise: Strengthening;Functional Mobility;Pain Control Location/Body Area: LE Manual Therapy (32541) Soft Tissue Mobilization: Manual Tissue Mobilization Soft Tissue Mobilization Details: right thigh PROM: right knee- in supine and prone PROM Details: flex and ext 120- 1today Total Minutes (All Manual Therapy): 15 Assessment: She is having more swelling. She is still able to get to 120 and + 1. I think once the weekend comes and she can rest more she will have less swelling and pain. Plan for Next Visit: Continue to work range and strength. Total UNTIMED Code Treatment Minutes: Total TIMED Code Treatment Minutes: 30 Total Treatment Minutes: 30 Author: Pily Mi, PT 03/14/2019 15:41 documented in this encounter Plan of Treatment Date Type Specialty Care Team Description 03/19/2019 Office Visit Orthopedics Rell Arnett MD 1 [place] [address] [phone] 03/20/2019 [place] [address] [place] [address] 03/25/2019 Office Visit Physical Therapy Pily Mi, PT [address] [place] [address] 03/27/2019 Office Visit Physical Therapy Pily Mi, PT [address] [place] [address] 04/01/2019 Office Visit Physical Therapy Pily Mi, PT [address] [place] [address] 04/02/2019 Office Visit Gastroenterology Gemma Rae, COMPLIANCE TESTING ANALYST 1 [place] [address] [phone] 04/03/2019 Office Visit Physical Therapy Pily Mi, PT [address] [place] [address] 04/08/2019 Office Visit Physical Therapy Pily Mi, PT [address] [place] [address] 04/10/2019 Office Visit Physical Therapy Pily Mi, PT [address] [place] [address] Health Maintenance Due Date Last Done Comments [...] of this encounter Implants Implanted Type Area Crm Marketing Executive Device Shelf Model / Identifier Expiration Serial / Lot Date Nexgen Lps All-Poly Tibia 10mm Size 5 - [id number] Right: BREE LOPES 07/26/2023 [id number] / Implanted: Qty: 1 on 12/31/2018 by Rell Arnett MD at [facility] / [id number] Femoral Comp Lps Flex Opt E-R - [id number] Right: BREE LOPES 2027 [id number] / Implanted: Qty: 1 on 12/31/2018 by Rell Arnett MD at [facility] / [id number] Bone Cement, Double 80gm - [id number] Right: DEPUY 06/25/2020 [id number] / Implanted: Qty: 1 on 12/31/2018 by Rell Arnett MD at [facility] Knee / [id number] documented as of this encounter Results Not on filedocumented in this encounter Visit Diagnoses Diagnosis Right knee pain, unspecified chronicity - Primary documented in this encounter Insurance Payer Benefit Plan / Subscriber ID Effective Dates Phone Address Type Group GENERIC [facility]-WORKERS [id number] 2016-Presen Workers Comp COMP [facility] GENERIC [phone] (Work) documented as of this encounter Advance Directives Code Status Date Activated Date Inactivated Comments Full Code 12/31/2018 11:45 AM 02/25/2019 7:42 AM Does the patient have decision making capacity? Yes Order was discussed with: Patient I discussed all options and patient/surrogate requested and agreed to: Full Code
--- OUTSIDE RECORDS SUMMARY | 2019-04-07 11:17 | XMS REPORT | Summary of Care ---
:1955 Author Organization [facility] Address 1 [facility] [place] [address] Care Team Providers Name Role Phone Leni Rodriguez Primary Care Provider Reason for Visit Reason Comments Knee Pain Encounter Details Date Type Department Care Team Description 03/25/2019 Office Visit [facility] Mi, PT Right knee pain, [place] [facility] [address] [place] [address] chronicity (Primary [address] [phone] Dx) [place] [address] Allergies Active Allergy Reactions Severity [...] 03/25/2019) Medications Medication Sig Dispensed Refills Start Date [...] Overview: Added automatically from request for surgery [id number] Acute pain of left shoulder 09/07/2017 Tear [...] encounter Progress Notes Pily Mi, PT - 03/25/2019 3:00 PM EDT [facility] Treatment Note Outpatient Physical Therapy Services [facility] [place] [facility] [address] [place] [id number] Treatment Number: 13 Referring Physician: Rell Arnett Primary Diagnosis: ICD-9-CM ICD-10-CM 1. Right knee pain, unspecified chronicity 719.46 M25.561 Time In: 1500 Time Out: 1530 Pain at Start of Care: 5/10 Pain at End of Care: 10 Subjective Comments: She is still having a lot of pain and went to see Sheryl Blum and was able to get some Tramadol. Interventions: Therapeutic Exercises (54785) Total Minutes (all Therapeutic Exercise): 20 Exercise #1 Exercise Name: 60 slr Reason for Exercise: Strengthening;Muscle Performance Location/Body Area: LE Details: 3* lag Exercise #2 Exercise Name: recumbant bike Reason for Exercise: Functional Mobility;Pain Control Location/Body Area: LE Exercise #3 Exercise Name: walking with terminal extension outside Reason for Exercise: Strengthening;Functional Mobility;Pain Control Location/Body Area: LE Manual Therapy (86807) Soft Tissue Mobilization: Manual Tissue Mobilization Soft Tissue Mobilization Details: right thigh PROM: right knee- in supine and prone PROM Details: she was able to get to 0 today. Total Minutes (All Manual Therapy): 10 Assessment: She did well with recumbent bike and she is able to get to 0 much easier. She will needto change the top strap on the knee brace as she has lost so much weight it doesn't fit her. She will work on the slr and try the brace. Plan for Next Visit: Strengthen Total UNTIMED Code Treatment Minutes: Total TIMED Code Treatment Minutes: 30 Total Treatment Minutes: 30 Author: Pily Mi PT 03/25/2019 15:23 documented in this encounter Plan of Treatment Date Type Specialty Care Team Description 03/27/2019 Office Visit Physical Therapy Pily Mi, PT [address] [place] [address] [phone] 04/01/2019 Office Visit Physical Therapy Pily Mi, PT [address] [place] [address] [phone] 04/02/2019 Office Visit Gastroenterology Gemma Rae NP 1 [place] [address] 04/03/2019 Office Visit Physical Therapy Pily Mi, PT [address] [place] [address] [phone] 04/08/2019 Office Visit Physical Therapy Pily Mi, PT [address] [place] [address] [phone] 04/10/2019 Office Visit Physical Therapy Hiwot Pily, PT [address] [facility] [place] [address] 06/25/2019 Office Visit Orthopedics Rell Arnett MD [address] [place] [address] Health Maintenance Due Date Last Done [...] of this encounter Implants Implanted Type Area Quick Mixer Operator Device Shelf Model / Identifier Expiration Serial / Lot Date Nexgen Lps All-Poly Tibia 10mm Size 5 - [id number] Right: BREE MOSES 07/26/2023 [id number] / Implanted: Qty: 1 on 12/31/2018 by Rell Arnett MD at [facility] [employer] [employer] / [id number] Femoral Comp Lps Flex Opt E-R - [id number] Right: BREELATA LOPES 2027 [id number] / Implanted: Qty: 1 on 12/31/2018 by Rell Arnett MD at [facility] / [id number] Bone Cement, Double 80gm - [id number] Right: DEPUY 06/25/2020 [id number] / Implanted: Qty: 1 on 12/31/2018 by Rell Arnett MD at [facility] Knee / [id number] documented as of this encounter Results Not on filedocumented in this encounter Visit Diagnoses Diagnosis Right knee pain, unspecified chronicity - Primary documented in this encounter Insurance Payer Benefit Plan / Subscriber ID Effective Dates Phone Address Type Group WC GENERIC [place] WC-WORKERS [id number] 2016-[employer] [place] [phone] (Work) documented as of this encounter Advance Directives Code Status Date Activated Date Inactivated Comments Full Code 12/31/2018 11:45 AM 02/25/2019 7:42 AM Does the patient have decision making capacity? Yes Order was discussed with: Patient I discussed all options and patient/surrogate requested and agreed to: Full Code
--- OUTSIDE RECORDS SUMMARY | 2019-04-07 11:17 | XMS REPORT | Summary of Care ---
:1955 Author Organization [facility] Address 1 [facility] [place] [address] Care Team Providers Name Role Phone Leni Rodriguez Primary Care Provider Reason for Visit Reason Comments Knee Pain Encounter Details Date Type Department Care Team Description 04/03/2019 Office Visit [facility]ily Mi, PT Right knee pain, [place] Physical [address] [place] [address] chronicity (Primary [address] [phone] Dx) [place] [address] Allergies Active Allergy Reactions Severity [...] as of this encounter (statuses as of 04/03/2019) Medications Medication Sig Dispensed Refills Start Date [...] as of this encounter (statuses as of 04/03/2019) Active Problems Problem Noted Date Constipation 04/02/2019 Primary osteoarthritis of right knee 10/09/2018 Overview: Added automatically from request for surgery [id number] Acute pain of left shoulder 09/07/2017 Tear [...] as of this encounter (statuses as of 04/03/2019) Immunizations Name Administration Dates Next Due Depo [...] encounter Progress Notes Pily Mi, PT - 04/03/2019 3:00 PM EDT [facility] Treatment Note Outpatient Physical [facility] [address] [place] [address] Treatment Number: 16 Referring Physician: Rell Arnett Primary Diagnosis: ICD-9-CM ICD-10-CM 1. Right knee pain, unspecified chronicity 719.46 M25.561 Time In: 1500 Time Out: 1530 Pain at Start of Care: 2 Pain at End of Care: 07/05 Subjective Comments: She saw Dr. Stroud today and was unhappy about the meeting but the knee itselfis doing well. Interventions: Therapeutic Exercises (86756) Total Minutes (all Therapeutic Exercise): 30 Exercise #1 Exercise Name: 100 slr Reason for Exercise: Strengthening;Muscle Performance Location/Body Area: LE Details: 3* lag Exercise #2 Exercise Name: recumbant bike Reason for Exercise: Functional Mobility;Pain Control Location/Body Area: LE Details: 10 Exercise #4 Exercise Name: chair squats Reason for Exercise: Strengthening Location/Body Area: LE;Trunk Assessment: She is now able to get the leg straight she is finally able to move into functional range and her gait is much better. She is backing off the cane at home and will only use the brace for work or excessive walking. Plan for Next Visit: Strengthen prepare for discharge Total UNTIMED Code Treatment Minutes: Total TIMED Code Treatment Minutes: 30 Total Treatment Minutes: 30 Author: Pily Mi, PT 04/03/2019 15:26 documented in this encounter Plan of Treatment Date Type Specialty Care Team Description 04/08/2019 Office Visit Physical Therapy Pily Mi, PT [address] [place] [address] [phone] 04/10/2019 Office Visit Physical Therapy Pily Mi, PT [address] [place] [address] [phone] 06/25/2019 Office Visit Orthopedics Rell Arnett MD [...] This is an individualized lifestyle goal for Ngacrystal Schmidt: Your body mass index (BMI) is [...] of this encounter Implants Implanted Type Area Associate Professor Of Geology Device Shelf Model / Identifier Expiration Serial / Lot Date Nexgen Lps All-Poly Tibia 10mm Size 5 Ef - [id number] Right: BREE LOPES 07/26/2023 [id number] / Implanted: Qty: 1 on 12/31/2018 by Rell Arnett MD at [facility] [employer] / [id number] Femoral Comp Lps Flex Opt E-R - [id number] Right: BREE LOPES 2027 [id number] / Implanted: Qty: 1 on 12/31/2018 by Rell Arnett MD at [facility] / [id number] Bone Cement, Double 80gm - [id number] Right: DEPUY 06/25/2020 [id number] / Implanted: Qty: 1 on 12/31/2018 by Rell Arnett MD at [facility] Knee / [id number] documented as of this encounter Results Not on filedocumented in this encounter Visit Diagnoses Diagnosis Right knee pain, unspecified chronicity - Primary documented in this encounter Insurance Payer Benefit Plan / Subscriber ID Effective Dates Phone Address Type Group GENERIC [facility]-WORKERS [id number] 2016-Presen Workers Comp COMP [facility] GENERIC [phone] (Work) documented as of this encounter Advance Directives Code Status Date Activated Date Inactivated Comments Full Code 12/31/2018 11:45 AM 02/25/2019 7:42 AM Does the patient have decision making capacity? Yes Order was discussed with: Patient I discussed all options and patient/surrogate requested and agreed to: Full Code
--- OUTSIDE RECORDS SUMMARY | 2019-04-07 11:17 | XMS REPORT | Summary of Care ---
:1955 Author Organization [facility] Address 1 [facility] [place] [address] Care Team Providers Name Role Phone Leni Rodriguez Primary Care Provider Reason for Visit Reason Comments Knee Pain Encounter Details Date Type Department Care Team Description 03/27/2019 Office Visit [facility] Pily Mi, PT Right knee pain, [place] Physical [address] [place] [address] chronicity (Primary [address] [phone] Dx) [place] [address] Allergies Active Allergy Reactions Severity [...] as of this encounter (statuses as of 03/27/2019) Medications Medication Sig Dispensed Refills Start Date [...] as of this encounter (statuses as of 03/27/2019) Active Problems Problem Noted Date Primary osteoarthritis of right knee 10/09/2018 Overview: Added automatically from request for surgery [id number] Acute pain of left shoulder 09/07/2017 Tear [...] as of this encounter (statuses as of 03/27/2019) Immunizations Name Administration Dates Next Due Depo [...] encounter Progress Notes Pily Mi, PT - 03/27/2019 3:00 PM EDT [facility] Treatment Note [facility]patient Physical Therapy [facility] [address] [place] [phone] Treatment Number: 14 Referring Physician: Rell Arnett Primary Diagnosis: ICD-9-CM ICD-10-CM 1. Right knee pain, unspecified chronicity 719.46 M25.561 Time In: 1500 Time Out: 1530 Pain at Start of Care: 310 Pain at End of Care: 08/05 Subjective Comments: She is feeling much better with the tramadol and the brace to help support the knee. Interventions: Therapeutic Exercises (72466) Total Minutes (all Therapeutic Exercise): 20 Exercise #1 Exercise Name: 65 slr Reason for Exercise: Strengthening;Muscle Performance Location/Body Area: LE Details: 3* lag Exercise #2 Exercise Name: recumbant bike Reason for Exercise: Functional Mobility;Pain Control Location/Body Area: LE Exercise #3 Exercise Name: walking with terminal extension outside Reason for Exercise: Strengthening;Functional Mobility;Pain Control Location/Body Area: LE Manual Therapy (84544) Joint Mobilization: extension mobs Joint Mobilization Details: able to hit the table Total Minutes (All Manual Therapy): 10 Assessment: Her swelling is under control today with pain meds, brace and cane. She did very well. Working to achieve full extension but should be easier now she is sleeping better and having less pain. Plan for Next Visit: Extension Total UNTIMED Code Treatment Minutes: Total TIMED Code Treatment Minutes: 30 Total Treatment Minutes: 30 Author: Pily Mi PT 03/27/2019 15:23 documented in this encounter Plan of Treatment Date Type Specialty Care Team Description 04/01/2019 Office Visit Physical Therapy Pily Mi, PT [address] [place] [id number] 04/02/2019 Office Visit Gastroenterology Gemma Rae NP [address] [place] [address] [phone] 04/03/2019 [place] [address] [place] [address] [phone] 04/08/2019 [place] [address] [place] [address] [phone] 04/10/2019 [place] [address] [place] [address] [phone] 06/25/2019 Office Visit Orthopedics Rell Arnett MD [address] [place] [address] [phone] Health Maintenance Due Date Last Done Comments [...] of this encounter Implants Implanted Type Area Rack Room Worker Device Shelf Model / Identifier Expiration Serial / Lot Date Nexgen Lps All-Poly Tibia 10mm Size 5 Ef - [id number] Right: BREE LOPES 07/26/2023 [id number] / Implanted: Qty: 1 on 12/31/2018 by Rell Arnett MD at [facility] [employer] / [id number] Femoral Comp Lps Flex Opt E-R - [id number] Right: BREE LOPES 2027 [id number] / Implanted: Qty: 1 on 12/31/2018 by Rell Arnett MD at [facility] [employer] / [id number] Bone Cement, Double 80gm - [id number] Right: DEPUY 06/25/2020 [id number] / Implanted: Qty: 1 on 12/31/2018 by Rell Arnett MD at [facility] Knee / [id number] documented as of this encounter Results Not on filedocumented in this encounter Visit Diagnoses Diagnosis Right knee pain, unspecified chronicity - Primary documented in this encounter Insurance Payer Benefit Plan / Subscriber ID Effective Dates Phone Address Type Group WC [place] [id number] 2016-[employer]en Workers Comp COMP [facility] GENERIC [phone] (Work) documented as of this encounter Advance Directives Code Status Date Activated Date Inactivated Comments Full Code 12/31/2018 11:45 AM 02/25/2019 7:42 AM Does the patient have decision making capacity? Yes Order was discussed with: Patient I discussed all options and patient/surrogate requested and agreed to: Full Code
--- OUTSIDE RECORDS SUMMARY | 2019-04-07 11:17 | XMS REPORT | Summary of Care ---
:1955 Author Organization [facility] Address 1 [facility] [place] [address] Care Team Providers Name Role Phone Leni Rodriguez MD Primary Care Provider Reason for Referral Refer to Department Only (Routine) Status Reason Specialty Diagnoses / Referred By Referred To Procedures Contact Contact Pending Review Diagnoses Status post total right knee replacement Rell Arnett MD [address] [place] [address] Reason for Visit Reason Comments Surgical Followup Patient is 11 weeks s/p right TKA Encounter Details Date Type Department Care Team Description 03/19/2019 Office Visit [facility] Rell Arnett MD Status post total [address] right knee replacement [place] [id number] [place] [address] (Primary Dx) [phone] Allergies Active Allergy Reactions Severity Noted Date [...] as of this encounter (statuses as of 03/19/2019) Medications Medication Sig Dispensed Refills Start End [...] 30 Tab 11 Active (NORVASC) 5 MG BY MOUTH EVERY 9 Oral DAY TabIndications: Essential hypertension ondansetron Take 4 mg by 20 Tab 0 Active (ZOFRAN) 4 MG Oral mouth EVERY 9 Tab EIGHT HOURS NEEDED (nausea/vomitti ng). tramadol (ULTRAM) Take 2 Tabs by 60 Tab 0 Active 50 MG Oral Tab mouth EVERY SIX 9 HOURS NEEDED (ongoing pain management from hospital). Max Daily Amount: 400 mg. zolpidem (AMBIEN) Take 1 Tab by 30 Tab 3 Active 10 MG Oral mouth EVERY 9 TabIndications: BEDTIME Insomnia, NEEDED unspecified type (insomnia). Max Daily Amount: 10 mg. doxepin (SINEQUAN) Take 1 Cap by 30 Cap 1 Active 10 MG Oral Cap mouth EVERY 9 BEDTIME. Increase to 20 mg if not effectie bisacodyl Place 1 7 Suppository 0 03/19/20 Discontinued (DULCOLAX) 10 MG Suppository per 9 19 Rectal Suppos rectum DAILY NEEDED (constipation). documented as of this encounter (statuses as of 03/19/2019) Active Problems Problem Noted Date Primary osteoarthritis of right knee 10/09/2018 Overview: Added automatically from request for surgery [id number] Acute pain of left shoulder 09/07/2017 Tear [...] as of this encounter (statuses as of 03/19/2019) Immunizations Name Administration Dates Next Due Depo [...] Sign Reading Time Taken Comments Blood Pressure 122/74 03/19/2019 1:42 PM EDT Pulse - - Temperature - - Respiratory Rate - - Oxygen Saturation - - Inhaled Oxygen Concentration - - Weight 85.3 kg (188 lb) 03/19/2019 1:42 PM EDT Height 160 cm (5' 3") 03/19/2019 1:42 PM EDT Body Mass Index 33.3 03/19/2019 1:42 PM EDT documented in this encounter Progress Notes Rell Arnett MD - 03/19/2019 2:00 PM EDT Name: Nga Schmidt : 1955 Date of Service: 03/19/2019 Note: This document has been generated by computerized voice recognition software. The content, context, words or meaning may not be entirely accurate and require interpretation. Chief Complaint Patient presents with Surgical Followup Patient is 11 weeks s/p right TKA History of Present Illness: Nga Schmidt is a 63-y.o. female. The above is noted. The patient presents today noting persistent pain about the medial aspect of her knee. She states that her physical therapist thinks that shemay have return to work too soon. 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 She has trouble sleepingat night and she was prescribed tramadol. She is going to physical therapy twice a week. She has allergies to NSAIDs. Benadryl makes her "hyper". The patient notes that her right knee pain is better than it was prior to the surgery. Physical Examination: BP 122/74 | Ht 5' 3" (1.6 m) | Wt 188 lb (85.3 kg) | BMI 33.30 kg/m Right knee examination demonstrates range of motion 5115 degrees. There is moderate swelling of the knee. The incision is healing well. There is decreased light touch on the lateral aspect of the knee. There is tenderness primarily along the medial joint line area. There is some mild laxityto valgus stress. Good endpoint is noted. Previous x-rays of the right knee are reviewed demonstrating good alignment of her components. Impression: ICD-9-CM ICD-10-CM 1. Status post total right knee replacement V43.65 Z96.651 REFER TO PROSTHETICS & ORTHOTICS Plan: Orders Placed This Encounter REFER TO PROSTHETICS & ORTHOTICS There are no Patient Instructions on file for this visit. The patient may benefit from a hinged knee brace. I think she would do better with a wraparound or lace up type brace. This will be obtained through the bread slicer machine. Patient will continue with her current regimen. She is using heat and ice. Reevaluation in 3 months. All questions were answered. Author: Rell Arnett MD 03/19/2019 16:00 documented in this encounter Plan of Treatment Date Type Specialty Care Team Description 03/20/2019 Office Visit Physical Therapy Pily Mi, PT [address] [place] [address] 03/25/2019 Office Visit Physical Therapy Pily Mi, PT [address] [place] [address] 03/27/2019 Office Visit Physical Therapy Pily Mi, PT [address] [place] [address] 04/01/2019 Office Visit Physical Therapy Pily Mi, PT [address] [place] [address] 04/02/2019 Office Visit Gastroenterology Gemma Rae, CLINICAL REHAB SPECIALIST [address] [place] [address] [phone] 04/03/2019 Office Visit Physical Therapy Pily Mi, PT [address] [place] [address] 04/08/2019 Office Visit Physical Therapy Pily Mi, PT [address] [place] [address] 04/10/2019 Office Visit Physical Therapy Pily Mi, PT [address] [place] [address] 06/25/2019 Office Visit Orthopedics Rell Arnett MD [address] [place] [address] [phone] Name Type Priority Associated Diagnoses Order Schedule REFER TO PROSTHETICS & Referral Routine Status post total right Ordered: ORTHOTICS knee replacement Health Maintenance Due Date Last Done Comments [...] Progress Blood Pressure Blood Pressure 122/74 No Michael, < 150/90 (03/19/2019 MD Leni 1:42 PM [...] mo Lifestyle 30 (03/19/2019 1:42 PM EDT) No Leni Rodriguez MD max [...] is an individualized self-management goal for Nga Chuy Schmidt: Please take all prescribed medications as [...] of this encounter Implants Implanted Type Area Solar Panel Technician Device Shelf Model / Identifier Expiration Serial / Lot Date Nexgen Lps All-Poly Tibia 10mm Size 5 Ef - [id number] Right: BREE LOPES 07/26/2023 [id number] / Implanted: Qty: 1 on 12/31/2018 by Rell Arnett MD at [facility] [employer] / [id number] Femoral Comp Lps Flex Opt E-R - [id number] Right: BREE LOPES 2027 [id number] / Implanted: Qty: 1 on 12/31/2018 by Rell Arnett MD at [facility] [employer] / [id number] Bone Cement, Double 80gm - [id number] Right: DEPUY 06/25/2020 [id number] / Implanted: Qty: 1 on 12/31/2018 by Rell Arnett MD at [facility] [employer]nee / [id number] documented as of this encounter Results Not on filedocumented in this encounter Visit Diagnoses Diagnosis Status post total right knee replacement - Primary documented in this encounter Insurance Payer Benefit Plan / Subscriber ID Effective Dates Phone Address Type Group [place] [id number] 2016-[employer] COMP [facility] GENERIC [phone] (Work) documented as of this encounter Advance Directives Code Status Date Activated Date Inactivated Comments Full Code 12/31/2018 11:45 AM 02/25/2019 7:42 AM Does the patient have decision making capacity? Yes Order was discussed with: Patient I discussed all options and patient/surrogate requested and agreed to: Full Code
--- OUTSIDE RECORDS SUMMARY | 2019-04-07 11:17 | XMS REPORT | Summary of Care ---
:1955 Author Organization [facility] Address 1 [facility] [place] [address] Care Team Providers Name Role Phone Leni Rodriguez MD Primary Care Provider Reason for Visit Reason Comments Knee Pain Encounter Details Date Type Department Care Team Description 03/12/2019 Office Visit [facility] - Pily Mi, PT Right knee pain, [place] [facility] [address] [place] [address] chronicity (Primary [address] [phone] Dx) [place] [address] Allergies Active Allergy Reactions Severity [...] as of this encounter (statuses as of 03/12/2019) Medications Medication Sig Dispensed Refills Start Date [...] as of this encounter (statuses as of 03/12/2019) Active Problems Problem Noted Date Primary osteoarthritis of right knee 10/09/2018 Overview: Added automatically from request for surgery [id number] Acute pain of left shoulder 09/07/2017 Tear [...] as of this encounter (statuses as of 03/12/2019) Immunizations Name Administration Dates Next Due Depo [...] on filedocumented in this encounter Progress Notes Pliy iM, PT - 03/12/2019 3:00 PM EDT [facility] Progress Note Outpatient Physical [facility] PHYSICAL THERAPY [address] [facility] [address] Patient: Nga Schmidt : 1955 Date of Service: 03/12/2019 Referring Physician: Rell Arnett This progress report is for dates 02-05-19 to 03/12/2019. Total Visits Attended: 1010 Time In: 1500 Time Out: 1530 ICD-9-CM ICD-10-CM 1. Right knee pain, unspecified chronicity 719.46 M25.561 Subjective: Nga Schmidt is a 63-y.o.-year-old female recovering from right total knee. She is still having 5/10 pain and real difficulty with pain at night. Prior Functional Status: Prior Function Comment: difficulty with ambulation Current Functional Status: Current Function Comment: independent with spc Abuse/Neglect Screening Are you being threatened or hurt by anyone? : No FOTO Data FOTO Status Completed: Yes Status FS Score: 53 Objective: Right knee 120 and +1 Left knee wfl Quad strength right 4/5 Left 5/5 Outcome Tools Used: foto Interventions: PT Eval Moderate Complexity (89032) The above planned interventions may be used in Physical Therapy treatment of her condition, but will not be limited to these interventions as warranted by the Physical Therapist. Was Physical Therapy treatment performed at this visit? Yes: Interventions: FOTO Data FOTO Status Completed: Yes Status FS Score: 53 Therapeutic Exercises (37454) Total Minutes (all Therapeutic Exercise): 15 Exercise #1 Exercise Name: slr for 50then 25 saq Reason for Exercise: Strengthening;Muscle Performance Location/Body Area: LE Details: 5* lag Exercise #2 Exercise Name: bike Reason for Exercise: Functional Mobility;Joint Mobility Location/Body Area: LE Details: intermittent revolution Manual Therapy (17405) Soft Tissue Mobilization: Manual Tissue Mobilization Soft Tissue Mobilization Details: right thigh PROM: right knee- in supine and prone PROM Details: flex and ext 120- 1today Total Minutes (All Manual Therapy): 15 Goals/Goal Status: She did go back to work in Feb She continues to use spc at work but no AD at home She has 120 flexion and +1 extension She is working toward independence with HEP She still cannot do 100 slr so working on this. Assessment Status: I think she went back to work a little too soon. She has significant pain and swelling in the knee from weight bearing. However, she is still making progress with AROM and strength.Her last focal point is reducing pain. Plan for Next Visit: Assess and treat, 60 slr Total Timed Codes (Minutes): 30 Total Treatment Time (Minutes): 30 Author: Pily Mi, PT 03/12/2019 15:10 documented in this encounter Plan of Treatment Date Type Specialty Care Team Description 03/14/2019 Office Visit Physical Therapy Pily Mi, PT [address] [place] [address] 03/19/2019 Office Visit Orthopedics Rell Arnett MD [address] [place] [address] [phone] 03/20/2019 Office Visit Physical Therapy Pily Mi, PT [address] [place] [address] 03/25/2019 Office Visit Physical Therapy Pily Mi, PT [address] [place] [address] 03/27/2019 Office Visit Physical Therapy Pily Mi, PT [address] [place] [address] 04/01/2019 Office Visit Physical Therapy Pily Mi, PT [address] [place] [address] 04/02/2019 Office Visit Gastroenterology Gemma Rae NP [address] [place] [address] [phone] 04/03/2019 Office Visit Physical Therapy Pily Mi, PT [address] [place] [address] [phone] 04/08/2019 Office Visit Physical Therapy Pily Mi, PT [address] [place] [address] [phone] 04/10/2019 Office Visit Physical Therapy Pily Mi, PT [address] [place] [address] [phone] Health Maintenance Due Date Last Done Comments [...] mo Lifestyle 28 (03/05/2019 2:24 PM EDT) Leni Prasad MD max (lbs) [...] of this encounter Implants Implanted Type Area Film Waxer Device Shelf Model / Identifier Expiration Serial / Lot Date Nexgen Lps All-Poly Tibia 10mm Size 5 - [id number] Right: BREE MOSES 07/26/2023 [id number] / Implanted: Qty: 1 on 12/31/2018 by Rell Arnett MD at [facility] [employer] / [id number] Femoral Comp Lps Flex Opt E-R - [id number] Right: BREELATA LOZAALL 2027 [id number] / Implanted: Qty: 1 on 12/31/2018 by Rell Arnett MD at [facility] [employer] / [id number] Bone Cement, Double 80 - [id number] Right: DEPUY 06/25/2020 [id number] / Implanted: Qty: 1 on 12/31/2018 by Rell Arnett MD at [facility] [employer] / [id number] documented as of this encounter Results Not on filedocumented in this encounter Visit Diagnoses Diagnosis Right knee pain, unspecified chronicity - Primary documented in this encounter Insurance Payer Benefit Plan / Subscriber ID Effective Dates Phone Address Type Group WC [place] [id number] 2016-[employer] [place] t [place] [phone] (Work) documented as of this encounter Advance Directives Code Status Date Activated Date Inactivated Comments Full Code 12/31/2018 11:45 AM 02/25/2019 7:42 AM Does the patient have decision making capacity? Yes Order was discussed with: Patient I discussed all options and patient/surrogate requested and agreed to: Full Code
[2019-04-07 11:22] VITALS: BP 134/87
--- NOTE | 2019-04-07 11:40 | UC ---
Back Pain HPI - HPI Summary HPI Summary: Ms. 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 She had a similar pain at 2 weeks ago that took several days to resolve. She's been using heat and ice and Tylenol with no relief. She denies any weakness of her legs or change in bowels and bladder. - History of Current Complaint Chief Complaint: UCBackPain Stated Complaint: BACK PAIN Time Seen by Provider: 04/07/19 11:28 Hx Obtained From: Patient Hx Last Menstrual Period: menapause Onset/Duration: Sudden Onset Timing: Constant Severity Initially: Moderate Severity Currently: Moderate Pain Intensity: 7 Character: Sharp Aggravating Factor(s): Movement, Lifting, Bending, Walking Alleviating Factor(s): Rest Associated Signs And Symptoms: Positive: Negative - Allergies/Home Medications Allergies/Adverse Reactions: Allergies Allergy/AdvReac Type Severity Reaction Status Date / Time celecoxib [From Celebrex] Allergy Difficulty Verified 04/07/19 11:24 Breathing codeine Allergy Difficulty Verified 04/07/19 11:24 Breathing montelukast [From Singulair] Allergy Difficulty Verified 04/07/19 11:24 Breathing morphine Allergy Difficulty Verified 04/07/19 11:24 Breathing naproxen [From Aleve] Allergy Difficulty Verified 04/07/19 11:24 Breathing NSAIDS (Non-Steroidal Allergy Difficulty Verified 04/07/19 11:24 Anti-Inflamma Breathing oxycodone [From Percocet] Allergy Difficulty Verified 04/07/19 11:24 Breathing benzonatate AdvReac GI Upset Verified 04/07/19 11:24 propoxyphene [From Darvon] AdvReac Vomiting Verified 04/07/19 11:24 adhesives Allergy Blisters Uncoded 04/07/19 11:24 SEASONAL Allergy Eyes Uncoded 04/07/19 11:24 Itchy/Swollen/Red/Watery PMH/Surg Hx/FS Hx/Imm Hx Previously Healthy: Yes - Surgical History Surgical History: Yes Surgery Procedure, Year, and Place: Partial hysterectomy,. plantar fasciitis, tendon right ankle, left elbow, lump removed from left breast, benign. FESS, DEVIATED SEPTUM REPAIR. Tubes in both ears. right knee replacement 2018. right total knee December 2018. rt knee miniscus repair. R knee replacement December 2018 - Family History Known Family History: Positive: Cardiac Disease, Hypertension, Diabetes, Non- Contributory - Social History Alcohol Use: None Substance Use Type: None Smoking Status (MU): Never Smoked Tobacco Household Exposure Type: Cigarettes - Immunization History Most Recent Influenza Vaccination: 02/2016 Most Recent Tetanus Shot: utd Most Recent Pneumonia Vaccination: October 2016 Vaccination Up to Date: Yes Review of Systems All Other Systems Reviewed And Are Negative: Yes Motor: Positive: Decreased ROM Neurovascular: Positive: Negative Musculoskeletal: Positive: Decreased ROM Neurological: Positive: Negative Physical Exam - Summary Physical Exam Summary: She is nontoxic in appearance with stable vitals Triage Information Reviewed: Yes Appearance: Well-Appearing Vital Signs: Initial Vital Signs Temp 97.7 F 04/07/19 11:20 Pulse 63 04/07/19 11:20 Resp 12 04/07/19 11:20 BP 134/87 04/07/19 11:20 Pulse Ox 99 04/07/19 11:20 Vital Signs Reviewed: Yes Neck exam: Normal Respiratory Exam: Normal Cardiovascular Exam: Normal Abdominal Exam: Normal Musculoskeletal Exam: Other - She is tender in her paralumbar area. She has positive straight leg raise. Neurological Exam: Normal Back Pain Course/Dx - Course Course Of Treatment: This is most likely a musculoskeletal issue. X-rays will be of no use. She is allergic to nonsteroidals and I recommended we use Ativan as a muscle relaxer for a few days. - Differential Dx/Diagnosis Provider Diagnosis: Low back strain Discharge ED - Sign-Out/Discharge Documenting (check all that apply): Patient Departure All imaging exams completed and their final reports reviewed: No Studies - Discharge Plan Condition: Stable Disposition: HOME Patient Education Materials: Low Back Strain (ED) Referrals: Leni Rodriguez MD [Primary Care Provider] - - Billing Disposition and Condition Condition: STABLE Disposition: Home
== END 2019-04-07 11:46 | disposition home or self-care (01) ==
LOC: UCEAST 10:52
DX: S39.012A Strain of muscle, fascia and tendon of lower back, initial encounter (principal); Z88.5 Allergy status to narcotic agent; Z88.8 Allergy status to other drugs, medicaments and biological substances; X50.9XXA Other and unspecified overexertion or strenuous movements or postures, initial encounter; Y92.810 Car as the place of occurrence of the external cause
CPT/HCPCS: 99212; G0463

== ENCOUNTER 2019-06-15 07:03 | Emergency (ER) | payer OTHER ==
--- OUTSIDE RECORDS SUMMARY | 2019-06-15 07:09 | XMS REPORT | Summary of Care ---
:1955 Author Organization [facility] Address [address] [address] Care Team Providers Name Role Phone Leni Rodriguez Primary Care Provider Reason for Visit Reason Comments Heel Pain Encounter Details Date Type Department Care Team Description 04/20/2019 Emergency [facility] Emergency Department Emergency [address] [id number] Allergies Active Allergy Reactions Severity Noted Date [...] as of this encounter (statuses as of 04/21/2019) Medications Medication Sig Dispensed Refills Start Date End Date Status CALCIUM 500 + D 500-125 DAILY. 0 Active MG-UNIT PO TABS Acetaminophen (TYLENOL) Take by mouth. 0 Active 325 MG Oral Cap albuterol (PROVENTIL, 3 mL by 360 mg 0 12/26/2017 Active VENTOLIN) (2.5 MG/3ML) Inhalation-SVN 0.083% Inhalation Nebu route EVERY FOUR Soln HOURS NEEDED (asthma symptoms). levothyroxine Take 1 Tab by 90 Tab 3 08/23/2018 Active (SYNTHROID) 50 MCG Oral mouth BEFORE TabIndications: BREAKFAST. Hypothyroidism, unspecified type Azelastine HCl 137 INSTILL 2 SPRAYS 30 mL 5 11/12/2018 Active MCG/SPRAY Nasal Solution INTO EACH NOSTRIL TWICE A DAY atorvastatin (LIPITOR) TAKE 1 TABLET BY 90 Tab 3 11/14/2018 Active 20 MG Oral MOUTH EVERY DAY TabIndications: Mixed hyperlipidemia amLodipine (NORVASC) 5 TAKE 1 TABLET BY 30 Tab 11 12/11/2018 Active MG Oral TabIndications: MOUTH EVERY DAY Essential hypertension ondansetron (ZOFRAN) 4 Take 4 mg by 20 Tab 0 01/03/2019 Active MG Oral Tab mouth EVERY EIGHT HOURS NEEDED (nausea/vomittin g). zolpidem (AMBIEN) 10 MG Take 1 Tab by 30 Tab 3 02/26/2019 Active Oral TabIndications: mouth EVERY Insomnia, unspecified BEDTIME type NEEDED (insomnia). Max Daily Amount: 10 mg. tramadol (ULTRAM) 50 MG Take 1 Tab by 30 Tab 0 03/25/2019 Active Oral Tab mouth EVERY BEDTIME. Max Daily Amount: 50 mg. documented as of this encounter (statuses as of 04/21/2019) Active Problems Problem Noted Date Constipation 04/02/2019 Primary osteoarthritis of right knee 10/09/2018 Overview: Added automatically from request for surgery [id number] Acute pain of left shoulder 09/07/2017 Tear [...] as of this encounter (statuses as of 04/21/2019) Immunizations Name Administration Dates Next Due Depo [...] Sign Reading Time Taken Comments Blood Pressure 148/87 04/20/2019 10:28 AM EDT Pulse 76 04/20/2019 10:28 AM EDT Temperature 36.7 04/20/2019 10:28 AM EDT C (98 F) Respiratory Rate 18 04/20/2019 10:28 AM EDT Oxygen Saturation 98% 04/20/2019 10:28 AM EDT Inhaled Oxygen Concentration - - Weight - - Height - - Body Mass Index - - documented in this encounter Discharge Instructions InstructionsAnt Rodriguez PA-C - 04/20/2019Follow-up with podiatry Rest, avoid aggravating activities Ice 20 minutes on, 20 minutes off Try better arch support, different insoles Elevate Stretches as shown in hand out Follow-up with PCP Return to the emergency department if symptoms worsen or you have any other concerns AttachmentsThe following attachments cannot be sent through Care Everywhere.PLANTAR FASCIITIS (AFTERCARE(R) INSTRUCTIONS(ER/ED)) (VIETNAMESE) Plantar Fasciitis Exercises (Azeri)documented in this encounter Plan of Treatment Date Type Specialty Care Team Description 04/23/2019 Office Visit Physical Therapy Pily Mi, PT [address] [place] [address] [phone] 06/25/2019 Office Visit Orthopedics Rell Arnett MD [address] [address] [phone] Health Maintenance Due Date Last Done Comments [...] Type Problems Progress Blood Pressure Blood Pressure 148/87 No Michael, < 150/90 (04/20/2019 MD Leni 10:28 AM EDT) Note: This is an individualized treatment (blood pressure) goal for Nga Schmidt: Displayed above (on the left) is your goal for blood pressure control. Your most recent blood pressure is also shown above, on the right. You should try to achieve blood pressures that are lower than your goal listed above (on the left). Weight loss vs. 18 mo Lifestyle 22.5 (04/16/2019 8:36 AM No Leni Rodriguez MD max (lbs) >= [...] of this encounter Implants Implanted Type Area Cement Sack Breaker Device Shelf Model / Identifier Expiration Serial / Lot Date Nexgen Lps All-Poly Tibia 10mm Size 5 Ef - [id number] Right: [facility] [facility] 07/26/2023 [id number] / Implanted: Qty: 1 on 12/31/2018 by Rell Arnett MD at [facility] [employer] / [id number] Femoral Comp Lps Flex Opt E-R - [id number] Right: [employer] [facility] 2027 [id number] / Implanted: Qty: 1 on 12/31/2018 by Rell Arnett MD at [facility] [employer] / [id number] Bone Cement, Double 80 - [id number] Right: DEPUY 06/25/2020 [id number] / Implanted: Qty: 1 on 12/31/2018 by Rell Arnett MD at [facility] [employer] / [id number] documented as of this encounter Procedures Procedure Name Priority Date/Time Associated Diagnosis Comments XR CALCANEUS 2 STAT 04/20/2019 9:35 AM Results for this VIEWS RIGHT EDT procedure are in (STANDARD) the results section. XR FOOT MIN 3 VIEWS STAT 04/20/2019 9:33 AM Results for this RIGHT (STANDARD) EDT procedure are in the results section. documented in this encounter Results XR CALCANEUS 2 VIEWS RIGHT (STANDARD) (04/20/2019 9:35 AM EDT) Specimen Impressions Performed At No acute osseous findings. Minimally increased moderate heel spur. THIS DOCUMENT HAS BEEN ELECTRONICALLY SIGNED BY CAYDEN CALVO MD Narrative Performed At PROCEDURE INFORMATION: Exam: XR right Ankle Exam date and time: 04/20/2019 9:25 AM Clinical history: 63 years old, female; Indication for study->right heel and mid foot pain x 1 week TECHNIQUE: Imaging protocol: XR right ankle. Views: 1 or 2 views. COMPARISON: CR XR ANKLE MIN 3 VIEWS (STANDARD) 11/20/2014 3:14 PM FINDINGS: Bones/joints: Degenerative changes of the ankle. Moderate heel spur, minimally increased. No acute fracture or dislocation. Slight spurring along the dorsal cortex of the tarsals. Soft tissues: Slight soft tissue swelling has decreased. Spurring along the insertion of the Achilles tendon, minimally increased. Procedure Note Interface, Rad Results - 04/20/2019 10:02 AM EDT PROCEDURE INFORMATION: Exam: XR right Ankle Exam date and time: 04/20/2019 9:25 AM Clinical history: 63 years old, female; Indication for study->right heel and mid foot pain x 1 week TECHNIQUE: Imaging protocol: XR right ankle. Views: 1 or 2 views. COMPARISON: CR XR ANKLE MIN 3 VIEWS (STANDARD) 11/20/2014 3:14 PM FINDINGS: Bones/joints: Degenerative changes of the ankle. Moderate heel spur, minimally increased. No acute fracture or dislocation. Slight spurring along the dorsal cortex of the tarsals. Soft tissues: Slight soft tissue swelling has decreased. Spurring along the insertion of the Achilles tendon, minimally increased. IMPRESSION No acute osseous findings. Minimally increased moderate heel spur. THIS DOCUMENT HAS BEEN ELECTRONICALLY SIGNED BY CAYDEN CALVO MD XR FOOT MIN 3 VIEWS RIGHT (STANDARD) (04/20/2019 9:33 AM EDT) Specimen Impressions Performed At Moderate heel spur, minimally larger. Minimally increased spurring along the insertion of the Achilles tendon. THIS DOCUMENT HAS BEEN ELECTRONICALLY SIGNED BY CAYDEN CALVO MD Narrative Performed At PROCEDURE INFORMATION: Exam: XR Right Foot Complete Exam date and time: 04/20/2019 9:25 AM Clinical history: 63 years old, female; Indication for study->right heel and mid foot pain x 1 week TECHNIQUE: Imaging protocol: XR Right foot. Views: 3 or more views. COMPARISON: CR XR FOOT MIN 3 VIEWS (STANDARD) 04/01/2014 3:22 PM FINDINGS: Bones/joints: Osseous cortical thinning. Moderate heel spur. Interphalangeal joint space narrowing. No acute fracture or dislocation. No erosive change. Minimal spurring along the dorsal cortex of the tarsals. Soft tissues: Spurring along the insertion of the Achilles tendon. Minimal soft tissue swelling. Procedure Note Interface, Rad Results - 04/20/2019 9:56 AM EDT PROCEDURE INFORMATION: Exam: XR Right Foot Complete Exam date and time: 04/20/2019 9:25 AM Clinical history: 63 years old, female; Indication for study->right heel and mid foot pain x 1 week TECHNIQUE: Imaging protocol: XR Right foot. Views: 3 or more views. COMPARISON: CR XR FOOT MIN 3 VIEWS (STANDARD) 04/01/2014 3:22 PM FINDINGS: Bones/joints: Osseous cortical thinning. Moderate heel spur. Interphalangeal joint space narrowing. No acute fracture or dislocation. No erosive change. Minimal spurring along the dorsal cortex of the tarsals. Soft tissues: Spurring along the insertion of the Achilles tendon. Minimal soft tissue swelling. IMPRESSION Moderate heel spur, minimally larger. Minimally increased spurring along the insertion of the Achilles tendon. THIS DOCUMENT HAS BEEN ELECTRONICALLY SIGNED BY CAYDEN CALVO MD documented in this encounter Visit Diagnoses Diagnosis Heel spur, right - Primary Plantar fasciitis, right Plantar fascial fibromatosis documented in this encounter Guarantor Name Account Type Relation to Date of Phone Billing Patient Address Nga Schmidt Personal/Family 1955 [address] (Home) [place], [place] [phone] (Work) documented as of this encounter Advance Directives Code Status Date Activated Date Inactivated Comments Full Code 12/31/2018 11:45 AM 02/25/2019 7:42 AM Does the patient have decision making capacity? Yes Order was discussed with: Patient I discussed all options and patient/surrogate requested and agreed to: Full Code
--- OUTSIDE RECORDS SUMMARY | 2019-06-15 07:09 | XMS REPORT | Summary of Care ---
:1955 Author Organization [facility] Address [address] [address] Care Team Providers Name Role Phone Leni Rodriguez Primary Care Provider Reason for Visit Reason Comments Calcaneal Heel Spur Other mammo due - order in Encounter Details Date Type Department Care Team Description 04/16/2019 Office Visit [facility] Leni Rodriguez MD Screening mammogram, encounter for (Primary Dx); Medicine [address] Heel spur, right; [address] [place] [address] Essential hypertension; [place] [address] Hypothyroidism, unspecified type [phone] Allergies Active Allergy Reactions Severity Noted Date [...] as of this encounter (statuses as of 04/16/2019) Medications Medication Sig Dispensed Refills Start End Date Status Date CALCIUM 500 + D DAILY. 0 Active 500-125 MG-UNIT PO TABS Acetaminophen Take by mouth. 0 Active (TYLENOL) 325 MG Oral Cap albuterol 3 mL by 360 mg 0 Active (PROVENTIL, Inhalation-SVN 8 VENTOLIN) (2.5 route EVERY MG/3ML) 0.083% FOUR HOURS Inhalation Nebu NEEDED (asthma Soln symptoms). levothyroxine Take 1 Tab by 90 [...] 9 BEDTIME. Max Daily Amount: 50 mg. albuterol HFA Take 2 Puffs by 1 Inhaler 5 04/16/20 Discontinued (VENTOLIN) 108 (90 inhalation 8 19 (Duplicate Base) MCG/ACT EVERY FOUR Order) Inhalation Aero HOURS NEEDED SolnIndications: (SOB). Asthma documented as of this encounter (statuses as of 04/16/2019) Active Problems Problem Noted Date Constipation 04/02/2019 Primary osteoarthritis of right knee 10/09/2018 Overview: Added automatically from request for surgery [id number] Acute pain of left shoulder 09/07/2017 Tear [...] as of this encounter (statuses as of 04/16/2019) Immunizations Name Administration Dates Next Due Depo [...] Sign Reading Time Taken Comments Blood Pressure 142/80 04/16/2019 8:36 AM EDT Pulse 78 04/16/2019 8:36 AM EDT Temperature - - Respiratory Rate - - Oxygen Saturation 97% 04/16/2019 8:36 AM EDT Inhaled Oxygen Concentration - - Weight 88.7 kg (195 lb 8 oz) 04/16/2019 8:36 AM EDT Height 160 cm (5' 3") 04/16/2019 8:36 AM EDT Body Mass Index 34.63 04/16/2019 8:36 AM EDT documented in this encounter Patient Instructions Patient InstructionsLeni Rodriguez MD - 04/16/2019 8:40 AM EDTBlood pressure borderline today - But has been well controlled- 5 lbs weight loss recommeneded-Electronically signed by Leni Rodriguez MD at 9:16 AM EDT documented in this encounter Progress Notes Leni Rodriguez MD - 04/16/2019 8:40 AM EDT NAME:Nga Schmidt 1955: 1955 ENC Date: 04/16/2019 CC: Chief Complaint Patient presents with Calcaneal Heel Spur Other mammo due - order in gNa Schmidt is a 63-y.o. female 1. Status post right knee replacement - Doing well- following with Pily Mi Pain is better - Improved 2 .insomnia - Using ambien - on prn basis Has 2 refills - 3. Using home blood pressure monitor - Blood pressure ok at home; taking medication 4. Heel spur 5. Hypothyroid - TSH Last check Current Outpatient Medications Medication Sig Acetaminophen (TYLENOL) 325 MG Oral Cap Take by mouth. albuterol (PROVENTIL, VENTOLIN) (2.5 MG/3ML) 0.083% Inhalation Nebu Soln 3 mL by Inhalation-SVN route EVERY FOUR HOURS NEEDED (asthma symptoms). amLodipine (NORVASC) 5 MG Oral Tab TAKE [...] Patient Active Problem List Diagnosis Date Noted Constipation 04/02/2019 Primary osteoarthritis of right knee 10/09/2018 Added automatically from request for surgery [id number] Acute pain of left shoulder 09/07/2017 Tear of left rotator cuff 09/07/2017 Age related osteoporosis 01/25/2017 dxa 2017 - Osteopenia - Weight bearing exercise Patellofemoral stress syndrome of right knee 11/07/2016 Essential hypertension 07/31/2015 Mild intermittent asthma without complication 07/31/2015 Lateral epicondylitis of left elbow 07/22/2015 Asthma 12/25/2014 Lipid disorder 12/25/2014 Polyp of colon 12/25/20142013 last- Needs 2017 Ankle sprain 11/06/2014 H/O: [...] Alcohol/week: 0.0 standard drinks Drug use: No OBJECTIVE: BP 142/80 | Pulse 78 | Ht 5' 3" (1.6 m) | Wt 195 lb 8 oz (88.7 kg) | SpO2 97 % | BMI 34.63 kg/m . Heent neg Neck no JVD, thyromegaly or bruit Lungs Clear CV rrr Abd soft, nontender, no organomegaly Ext no edema; no lesions; pulses intact Neuro: intellect intact ; motor including gait unremarkable A/P ICD-9-CM ICD-10-CM 1. Screening mammogram, encounter for V76.12 Z12.31 MAMMO SCREENING TOMOSYNTHESIS BILATERAL 2. Heel spur, right 726.73 M77.31 3. Essential hypertension 401.9 I10 4. Hypothyroidism, unspecified type 244.9 E03.9 Patient Instructions Blood pressure borderline today - But has been well controlled- 5 lbs weight loss recommeneded- AUTHOR: Leni Rodriguez MD 10:04 04/16/2019 documented in this encounter Plan of Treatment Date Type Specialty Care Team Description 04/16/2019 Office Visit Physical Therapy Pily Mi, PT [address] [place] [address] 04/23/2019 Office Visit Physical Therapy Pily Mi, PT [address] [place] [address] 06/25/2019 Office Visit Orthopedics Rell Arnett MD [address] [address] [phone] Name Type Priority Associated Diagnoses Order Schedule MAMMO SCREENING Imaging Routine Screening mammogram, Expected: TOMOSYNTHESIS BILATERAL encounter for 04/16/2019, Expires: 07/14/2020 Health Maintenance Due Date Last Done Comments [...] Type Problems Progress Blood Pressure Blood Pressure 142/80 No Michael, < 150/90 (04/16/2019 MD Leni 8:36 AM EDT) Note: This is an individualized [...] of this encounter Implants Implanted Type Area Compounder Sterile Products Device Shelf Model / Identifier Expiration Serial / Lot Date Nexgen Lps All-Poly Tibia 10mm Size 5 Ef - [id number] Right: [employer] 07/26/2023 [id number] / Implanted: Qty: 1 on 12/31/2018 by Rell Arnett MD at [facility] [employer] / [id number] Femoral Comp Lps Flex Opt E-R - [id number] Right: [employer] 2027 [id number] / Implanted: Qty: 1 on 12/31/2018 by Rell Arnett MD at [facility] [employer] / [id number] Bone Cement, Double 80gm - [id number] Right: DEPUY 06/25/2020 [id number] / Implanted: Qty: 1 on 12/31/2018 by Rell Arnett MD at [facility] [employer] / [id number] documented as of this encounter Results Not on filedocumented in this encounter Visit Diagnoses Diagnosis Screening mammogram, encounter for - Primary Heel spur, right Essential hypertension Unspecified essential hypertension Hypothyroidism, unspecified type documented in this encounter Guarantor Name Account Type Relation to Date of Phone Billing Patient Address Nga Schmidt Chuy Personal/Family 1955 [address] (Home) [place], [place] [phone] (Work) documented as of this encounter Advance Directives Code Status Date Activated Date Inactivated Comments Full Code 12/31/2018 11:45 AM 02/25/2019 7:42 AM Does the patient have decision making capacity? Yes Order was discussed with: Patient I discussed all options and patient/surrogate requested and agreed to: Full Code
--- OUTSIDE RECORDS SUMMARY | 2019-06-15 07:09 | XMS REPORT | Summary of Care ---
:1955 Author Organization [facility] Address [address] [facility] [place] [address] [address] Care Team Providers Name Role Phone Leni Rodriguez Primary Care Provider Reason for Visit Reason Comments Knee Pain Encounter Details Date Type Department Care Team Description 04/16/2019 Office Visit [facility] - Pily Mi, PT Right knee pain, [place] [facility] [address] [address] chronicity (Primary [address] [phone] Dx) [place] [address] Allergies Active Allergy Reactions Severity [...] 04/16/2019) Medications Medication Sig Dispensed Refills Start Date [...] Overview: Added automatically from request for surgery [id number] Acute pain of left shoulder 09/07/2017 Tear [...] encounter Progress Notes Pily Mi, PT - 04/16/2019 2:30 PM EDT [facility] Treatment Note Outpatient Physical Therapy Services [facility] [address] [place] [phone] Treatment Number: 18 Referring Physician: Rell Arnett Primary Diagnosis: ICD-9-CM ICD-10-CM 1. Right knee pain, unspecified chronicity 719.46 M25.561 Time In: 1430 Time Out: 1500 Pain at Start of Care: 07/05 Pain at End of Care: 07/05 Subjective Comments: She has a heel spur on the left heel and that is bothering her but otherwise she feels ready to get rid of the cane. Interventions: Therapeutic Exercises (92203) Total Minutes (all Therapeutic Exercise): 30 Exercise #1 Exercise Name: 100 slr Reason for Exercise: Strengthening;Muscle Performance Location/Body Area: LE Details: 3* lag Exercise #2 Exercise Name: upright bike Reason for Exercise: Flexibility;Functional Mobility Location/Body Area: LE Exercise #3 Exercise Name: started walking without cane Reason for Exercise: Balance;Strengthening;Functional Mobility Location/Body Area: LE;Trunk Exercise #4 Exercise Name: chair squats Reason for Exercise: Strengthening Location/Body Area: LE;Trunk Exercise #5 Exercise Name: corner balance exercises Reason for Exercise: Balance;Functional Mobility Location/Body Area: LE;Trunk Assessment: She needs a little help to get to 120 she is at 115 herself. She will start to wean off the cane but take it with her. She is now able to do 100 slr without issue. Her balance is much improved she could sls on the right for 30 sec. She fatigued quickly with walking without the cane. Plan for Next Visit: Assess and treat last scheduled visit Total UNTIMED Code Treatment Minutes: Total TIMED Code Treatment Minutes: 30 Total Treatment Minutes: 30 Author: Pily Mi, PT 04/16/2019 14:53 documented in this encounter Plan of Treatment Date Type Specialty Care Team Description 04/23/2019 Office Visit Physical Therapy Pily Mi, PT [address] [place] [address] 06/25/2019 Office Visit Orthopedics Rell [...] an individualized self-management goal for Nga Chuy [place]: Please take all prescribed medications as directed. [...] of this encounter Implants Implanted Type Area Plasterer Foreman Device Shelf Model / Identifier Expiration Serial / Lot Date Nexgen Lps All-Poly Tibia 10mm Size 5 Ef - [id number] Right: [employer]REE [employer] 07/26/2023 [id number] / Implanted: Qty: 1 on 12/31/2018 by Rell Arnett MD at [facility] [employer] / [id number] Femoral Comp Lps Flex Opt E-R - [id number] Right: BREELATA LOPES 2027 [id number] / Implanted: Qty: 1 on 12/31/2018 by Rell Arnett MD at [facility] [employer] / [id number] Bone Cement, Double 80gm - [id number] Right: DEPUY 06/25/2020 [id number] / Implanted: Qty: 1 on 12/31/2018 by Rell Arnett MD at [facility] [employer] / [id number] documented as of this encounter Results Not on filedocumented in this encounter Visit Diagnoses Diagnosis Right knee pain, unspecified chronicity - Primary documented in this encounter Insurance Payer Benefit Plan / Subscriber ID Effective Dates Phone Address Type Group GENERIC MD WC-WORKERS [id number] 2016-[employer] [place] [facility] GENERIC [phone] (Work) documented as of this encounter Advance Directives Code Status Date Activated Date Inactivated Comments Full Code 12/31/2018 11:45 AM 02/25/2019 7:42 AM Does the patient have decision making capacity? Yes Order was discussed with: Patient I discussed all options and patient/surrogate requested and agreed to: Full Code
--- OUTSIDE RECORDS SUMMARY | 2019-06-15 07:09 | XMS REPORT | Summary of Care ---
:1955 Author Organization [facility] Address [address] [facility] [place] [address] Care Team Providers Name Role Phone Leni Rodriguez Primary Care Provider Reason for Visit Reason Comments Knee Pain Encounter Details Date Type Department Care Team Description 04/23/2019 Office Visit [facility] - Pily Mi, PT Right knee pain, [place] [facility] [address] [place] [address] chronicity (Primary [address] [phone] Dx) [place] [address] Allergies Active Allergy Reactions Severity [...] as of this encounter (statuses as of 04/23/2019) Medications Medication Sig Dispensed Refills Start Date [...] as of this encounter (statuses as of 04/23/2019) Active Problems Problem Noted Date Constipation 04/02/2019 Primary osteoarthritis of right knee 10/09/2018 Overview: Added automatically from request for surgery [id number] Acute pain of left shoulder 09/07/2017 Tear [...] as of this encounter (statuses as of 04/23/2019) Immunizations Name Administration Dates Next Due Depo [...] encounter Progress Notes Pily Mi, PT - 04/23/2019 2:30 PM EDT [facility] Treatment Note Outpatient Physical Therapy Services [facility] [address] [place] [id number] Treatment Number: [id number] Referring Physician: Rell Arnett Primary Diagnosis: ICD-9-CM ICD-10-CM 1. Right knee pain, unspecified chronicity 719.46 M25.561 Time In: 1430 Time Out: 1500 Pain at Start of Care: 0/10 Pain at End of Care: 0/10 Subjective Comments: She is now able to get the knee straight without pain and she has to work to get to 120 But is able to do it with a strong stretch and not pain. Interventions: Therapeutic Exercises (40085) Total Minutes (all Therapeutic Exercise): 30 Exercise #1 Exercise Name: 100 slr Reason for Exercise: Strengthening;Muscle Performance Location/Body Area: LE Details: no lag Exercise #2 Exercise Name: upright bike Reason for Exercise: Flexibility;Functional Mobility Location/Body Area: LE Exercise #3 Exercise Name: started walking without cane Reason for Exercise: Balance;Strengthening;Functional Mobility Location/Body Area: LE;Trunk Exercise #4 Exercise Name: chair squats Reason for Exercise: Strengthening Location/Body Area: LE;Trunk Exercise #5 Exercise Name: corner balance exercises Reason for Exercise: Balance;Functional Mobility Location/Body Area: LE;Trunk Assessment: she has accomplished set goals. She will only use the brace for longer walks or activitydays at school. She is also 80% off the cane. She will continue on her own. Plan for Next Visit: Discharge Total UNTIMED Code Treatment Minutes: Total TIMED Code Treatment Minutes: 30 Total Treatment Minutes: 30 Author: Pily Mi, PT 04/23/2019 14:47 documented in this encounter Plan of Treatment Date Type Specialty Care Team Description 06/25/2019 Office Visit Orthopedics Rell Arnett MD [...] of this encounter Implants Implanted Type Area Welfare Worker Device Shelf Model / Identifier Expiration Serial / Lot Date Nexgen Lps All-Poly Tibia 10mm Size 5 Ef - [id number] Right: [employer] 07/26/2023 [id number] / Implanted: Qty: 1 on 12/31/2018 by Rell Arnett MD at [facility] [employer] / [id number] Femoral Comp Lps Flex Opt E-R - [id number] Right: [employer]ES 2027 [id number] / Implanted: Qty: 1 on 12/31/2018 by Rell Arnett MD at [facility] [employer] / [id number] Bone Cement, Double 80gm - [id number] Right: DEPUY 06/25/2020 [id number] / Implanted: Qty: 1 on 12/31/2018 by Rell Arnett MD at [facility] / [id number] documented as of this encounter Results Not on filedocumented in this encounter Visit Diagnoses Diagnosis Right knee pain, unspecified chronicity - Primary documented in this encounter Insurance Payer Benefit Plan / Subscriber ID Effective Dates Phone Address Type Group [place] [id number] 2016-[employer] [place] [phone] [id number] (Work) documented as of this encounter Advance Directives Code Status Date Activated Date Inactivated Comments Full Code 12/31/2018 11:45 AM 02/25/2019 7:42 AM Does the patient have decision making capacity? Yes Order was discussed with: Patient I discussed all options and patient/surrogate requested and agreed to: Full Code
[2019-06-15 07:14] VITALS: BP 141/81
--- NOTE | 2019-06-15 07:25 | UC ---
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 She has had tubes in the past, last placed 2 years ago. Uses a nasal spray without relief. Hx of asthma, not currently using albuterol. Minimal cough. - History of Current Complaint Chief Complaint: UCRespiratory Stated Complaint: CHILLS EAR PAIN SORE THROAT HEADACHE Time Seen by Provider: 06/15/19 07:17 Hx Obtained From: Patient Hx Last Menstrual Period: menapause Onset/Duration: Gradual Onset, Lasting Days Severity: Moderate Pain Intensity: 4 Cough: Nonproductive Associated Signs & Symptoms: Positive: Sinus Discomfort - Epiglottits Risk Factors Epiglottis Risk Factors: Negative - Allergies/Home Medications Allergies/Adverse Reactions: Allergies Allergy/AdvReac Type Severity Reaction Status Date / Time celecoxib [From Celebrex] Allergy Difficulty Verified 06/15/19 07:14 Breathing codeine Allergy Difficulty Verified 06/15/19 07:14 Breathing montelukast [From Singulair] Allergy Difficulty Verified 06/15/19 07:14 Breathing morphine Allergy Difficulty Verified 06/15/19 07:14 Breathing naproxen [From Aleve] Allergy Difficulty Verified 06/15/19 07:14 Breathing NSAIDS (Non-Steroidal Allergy Difficulty Verified 06/15/19 07:14 Anti-Inflamma Breathing oxycodone [From Percocet] Allergy Difficulty Verified 06/15/19 07:14 Breathing benzonatate AdvReac GI Upset Verified 06/15/19 07:14 propoxyphene [From Darvon] AdvReac Vomiting Verified 06/15/19 07:14 adhesives Allergy Blisters Uncoded 06/15/19 07:14 SEASONAL Allergy Eyes Uncoded 04/07/19 11:24 Itchy/Swollen/Red/Watery PMH/Surg Hx/FS Hx/Imm Hx Endocrine History: Hypothyroidism Cardiovascular History: Hypertension - Surgical History Surgical History: Yes Surgery Procedure, Year, and Place: Partial hysterectomy,. plantar fasciitis, tendon right ankle, left elbow, lump removed from left breast, benign. FESS, DEVIATED SEPTUM REPAIR. Tubes in both ears. R knee replacement 2018. right knee replacement 2018. right total knee December 2018. rt knee miniscus repair. R knee replacement December 2018 - Family History Known Family History: Positive: Cardiac Disease, Hypertension, Diabetes, Non- Contributory - Social History Occupation: Employed Full-time Lives: With Family Alcohol Use: None Substance Use Type: None Smoking Status (MU): Never Smoked Tobacco Household Exposure Type: Cigarettes - Immunization History Most Recent Influenza Vaccination: 02/2016 Most Recent Tetanus Shot: utd Most Recent Pneumonia Vaccination: October 2016 Vaccination Up to Date: Yes Review of Systems All Other Systems Reviewed And Are Negative: Yes Constitutional: Positive: Fatigue Skin: Positive: Negative Eyes: Positive: Negative ENT: Positive: Sore Throat, Ear Ache, Nasal Discharge Respiratory: Positive: Cough - mild Cardiovascular: Positive: Negative Gastrointestinal: Positive: Negative Genitourinary: Positive: Negative Motor: Positive: Negative Neurovascular: Positive: Negative Musculoskeletal: Positive: Negative Neurological: Positive: Headache Psychological: Positive: Negative Is Patient Immunocompromised?: No Physical Exam Triage Information Reviewed: Yes Appearance: Well-Appearing, No Pain Distress Vital Signs: Initial Vital Signs Temp 98.9 F 06/15/19 07:09 Pulse 67 06/15/19 07:09 Resp 16 06/15/19 07:09 BP 141/81 06/15/19 07:09 Pulse Ox 99 06/15/19 07:09 Eyes: Positive: Conjunctiva Clear ENT: Positive: Pharyngeal erythema - mild, TM dull - bilateral TM scarring with serous fluid Neck: Positive: Supple, Nontender, No Lymphadenopathy Respiratory: Positive: Lungs clear, Normal breath sounds Cardiovascular: Positive: RRR, No Murmur Musculoskeletal Exam: Normal Neurological Exam: Normal Psychological Exam: Normal Skin Exam: Normal Throat Pain/Nasal Course/Dx - Course Course Of Treatment: Symptomatic treatment of viral uri. - Differential Dx/Diagnosis Differential Diagnosis/HQI/PQRI: Influenza, Pharyngitis, URI Provider Diagnosis: URI (upper respiratory infection) Discharge ED - Sign-Out/Discharge Documenting (check all that apply): Patient Departure All imaging exams completed and their final reports reviewed: No Studies - Discharge Plan Condition: Stable Disposition: HOME Patient Education Materials: Upper Respiratory Infection (ED) Referrals: Leni Rodriguez MD [Primary Care Provider] - Additional Instructions: Continue symptomatic treatment of viral respiratory illness. Continue use of nasal spray and saline spray Your lungs are clear with no evidence of pneumonia. - Billing Disposition and Condition Condition: STABLE Disposition: Home
== END 2019-06-15 07:37 | disposition home or self-care (01) ==
LOC: UCEAST 07:03
DX: J06.9 Acute upper respiratory infection, unspecified (principal); R53.83 Other fatigue; I10 Essential (primary) hypertension; Z91.09 Other allergy status, other than to drugs and biological substances; Z88.8 Allergy status to other drugs, medicaments and biological substances; Z88.5 Allergy status to narcotic agent; Z88.6 Allergy status to analgesic agent; Z88.1 Allergy status to other antibiotic agents
CPT/HCPCS: 99211; G0463